=== PATIENT | male | born 1970 | race African-American/Black ===

== ENCOUNTER 2018-11-10 11:56 | Emergency (ER) | payer OTHER ==
[~2018-11-10] VITALS: Ht 175.3 cm; Wt 131.5 kg
--- NOTE | 2018-11-10 12:09 | PHYS DOC ---
Past Medical History Past Medical History: Seizure Adult General Chief Complaint Chief Complaint: seizure HPI HPI Patient is a 47 year old male with history of focal seizure who presents via EMS with complaining of a seizure. Patient had a focal seizure with shaking his hand and rolling up his eyes that was witnessed by family and lasted less than 1 minute and did not have postictal condition. EMS reported that she had another episode of the same seizure witnessed by them. Patient states he did not miss seizure medication or using drugs and alcohol. Patient states his last seizure was one year ago. Patient denies injury or acute pain. Patient states he thinks he is dehydrated because he has had diarrhea several times a day for the last 5 weeks. Review of Systems Review of Systems Constitutional: Denies fever or chills [] Eyes: Denies change in visual acuity, redness, or eye pain [] HENT: Denies nasal congestion or sore throat [] Respiratory: Denies cough or shortness of breath [] Cardiovascular: No additional information not addressed in HPI [] GI: Denies abdominal pain, nausea, vomiting, bloody stools or diarrhea [] : Denies dysuria or hematuria [] Musculoskeletal: Denies back pain or joint pain [] Integument: Denies rash or skin lesions [] Neurologic: Denies headache, focal weakness or sensory changes [] Endocrine: Denies polyuria or polydipsia [] All other systems were reviewed and found to be within normal limits, except as documented in this note. Current Medications Current Medications Current Medications Medications (Trade) Dose Ordered Sig/Brigido Start Time Stop Time Status Last Admin Dose Admin Divalproex Sodium (Depakote) 500 mg 1X STAT 11/10/18 14:30 11/10/18 14:32 DC 11/10/18 14:55 500 MG Sodium Chloride 1,000 ml @ 1,000 mls/hr 1X ONCE 11/10/18 12:15 11/10/18 13:14 DC 11/10/18 12:25 1,000 MLS/HR Allergies Allergies Allergies Coded Allergies Type Severity Reaction Last Updated Verified Penicillins Allergy Intermediate RASH 11/10/18 Yes Physical Exam Physical Exam Constitutional: Well nourished, mild distress, non-toxic appearance, morbidly obese. [] HENT: Normocephalic, atraumatic. Eyes: PERRLA, EOMI, conjunctiva normal, no discharge. [] Neck: Normal range of motion, no tenderness, supple, no stridor. [] Cardiovascular:Heart rate regular rhythm, no murmur [] Lungs & Thorax: Bilateral breath sounds clear to auscultation [] Abdomen: Bowel sounds normal, soft, no tenderness, no masses, no pulsatile masses. [] Skin: Warm, dry, no erythema, no rash. [] Back: No tenderness, no CVA tenderness. [] Extremities: No tenderness, no cyanosis, no clubbing, ROM intact, no edema. [] Neurologic: Alert and oriented X 3, no focal deficits noted. [] Psychologic: Affect anxious, judgement normal, mood normal. [] Current Patient Data Vital Signs Vital Signs Date Time Temp Pulse Resp B/P (MAP) Pulse Ox O2 Delivery O2 Flow Rate FiO2 11/10/18 15:31 84 18 93 11/10/18 11:56 97.9 134/81 (98) Room Air 97.9 Lab Values Laboratory Tests Test 11/10/18 12:15 11/10/18 15:25 White Blood Count 3.8 x10^3/uL (4.0-11.0) L Red Blood Count 4.59 x10^6/uL (4.30-5.70) Hemoglobin 13.8 g/dL (13.0-17.5) Hematocrit 40.6 % (39.0-53.0) Mean Corpuscular Volume 88 fL (79-100) Mean Corpuscular Hemoglobin 30 pg (25-35) Mean Corpuscular Hemoglobin Concent 34 g/dL (31-37) Red Cell Distribution Width 18.0 % (11.5-14.5) H Platelet Count 200 x10^3/uL (140-400) Neutrophils (%) (Auto) 40 % (31-73) Lymphocytes (%) (Auto) 49 % (24-48) H Monocytes (%) (Auto) 10 % (0-9) H Eosinophils (%) (Auto) 0 % (0-3) Basophils (%) (Auto) 1 % (0-3) Neutrophils # (Auto) 1.5 x10^3/uL (1.8-7.7) L Lymphocytes # (Auto) 1.9 x10^3/uL (1.0-4.8) Monocytes # (Auto) 0.4 x10^3/uL (0.0-1.1) Eosinophils # (Auto) 0.0 x10^3/uL (0.0-0.7) Basophils # (Auto) 0.0 x10^3/uL (0.0-0.2) Sodium Level 141 mmol/L (136-145) Potassium Level 4.2 mmol/L (3.5-5.1) Chloride Level 103 mmol/L (98-107) Carbon Dioxide Level 28 mmol/L (21-32) Anion Gap 10 (6-14) Blood Urea Nitrogen 12 mg/dL (8-26) Creatinine 0.8 mg/dL (0.7-1.3) Estimated GFR (Cockcroft-Gault) 124.3 BUN/Creatinine Ratio 15 (6-20) Glucose Level 117 mg/dL (70-99) H Calcium Level 9.4 mg/dL (8.5-10.1) Total Bilirubin 0.4 mg/dL (0.2-1.0) Aspartate Amino Transferase (AST) 26 U/L (15-37) Alanine Aminotransferase (ALT) 31 U/L (16-63) Alkaline Phosphatase 90 U/L (46-116) Total Protein 7.0 g/dL (6.4-8.2) Albumin 3.4 g/dL (3.4-5.0) Albumin/Globulin Ratio 0.9 (1.0-1.7) L Valproic Acid Level 54 mcg/mL (50-100) Valproic Acid Last Dose Date Unknown Valproic Acid Last Dose Time Unknown Urine Opiates Screen Neg (NEG) Urine Methadone Screen Neg (NEG) Urine Barbiturates Neg (NEG) Urine Phencyclidine Screen Neg (NEG) Urine Amphetamine/Methamphetamine Neg (NEG) Urine Benzodiazepines Screen Neg (NEG) Urine Cocaine Screen Neg (NEG) Urine Cannabinoids Screen Neg (NEG) Urine Ethyl Alcohol Neg (NEG) Laboratory Tests 11/10/18 12:15 Laboratory Tests 11/10/18 12:15 EKG EKG [] Radiology/Procedures Radiology/Procedures [] Course & Med Decision Making Course & Med Decision Making Pertinent Labs reviewed. (See chart for details) Evaluation of patient in ER showed 47-year-old male patient with history of seizure brought in with episodes of focal seizure. Patient had unremarkable physical exam in ER and labs. Patient has difficulty developed 54 and currently taking 500 mg of Depakote at night. Plan to increase the Depakote dose to 750 mg daily and follow up with his physician. Adriana Disclaimer Adriana Disclaimer This electronic medical record was generated, in whole or in part, using a voice recognition dictation system. Departure Departure Impression: Primary Impression: Focal motor seizure Disposition: HOME, SELF-CARE (at 1448) Condition: IMPROVED Referrals: ALEC BLACKMAN MD Patient Instructions: Seizure, Adult Additional Instructions: Take Depakote 1.5 pills every night(1 and a half pill of 500 mg with total of 750 mg) Follow-up with your primary care physician in 2-3 days Return to ER if not getting better YOANDY OH MD Nov 10, 2018 12:09
[2018-11-10] MEDS ORDERED: IV NORMAL SALINE 1000ML BAG 1,000 ML IV ONE (12:15)
[2018-11-10 12:31] LABS: BASO % 1 % (0-3); EOS % 0 % (0-3); HEMATOCRIT 40.6 % (39.0-53.0); HEMOGLOBIN 13.8 g/dL (13.0-17.5); LYMPH # 1.9 x10^3/uL (1.0-4.8); LYMPH % 49 % (24-48); MEAN CORPUSCULAR HEMOGLOBIN 30 pg (25-35); MEAN CORPUSCULAR HGB CONC 34 g/dL (31-37); MEAN CORPUSCULAR VOLUME 88 fL (79-100); MONO # 0.4 x10^3/uL (0.0-1.1); MONO % 10 % (0-9); NEUT # 1.5 x10^3/uL (1.8-7.7); NEUT % 40 % (31-73); PLATELET COUNT 200 x10^3/uL (140-400); RED BLOOD COUNT 4.59 x10^6/uL (4.30-5.70); WHITE BLOOD COUNT 3.8 x10^3/uL (4.0-11.0)
[2018-11-10 12:50] LABS: ANION GAP 10 (6-14); BLOOD UREA NITROGEN 12 mg/dL (8-26); BUN/CREATININE RATIO 15 (6-20); CALCIUM 9.4 mg/dL (8.5-10.1); CARBON DIOXIDE 28 mmol/L (21-32); CHLORIDE 103 mmol/L (98-107); CREATININE 0.8 mg/dL (0.7-1.3); GFR 124.3; GLUCOSE 117 mg/dL (70-99); POTASSIUM 4.2 mmol/L (3.5-5.1); SODIUM 141 mmol/L (136-145)
[2018-11-10 12:54] LABS: ALBUMIN 3.4 g/dL (3.4-5.0); ALBUMIN/GLOBULIN RATIO 0.9 (1.0-1.7); ALK PHOS 90 U/L (46-116); ALT (SGPT) 31 U/L (16-63); AST (SGOT) 26 U/L (15-37); TOTAL BILIRUBIN 0.4 mg/dL (0.2-1.0)
[2018-11-10 12:55] LABS: VAL ACID 54 mcg/mL (50-100)
[2018-11-10] MEDS ORDERED: DIVALPROEX DELAYED RELEASE 500 MG TABLET.DR. PO STA (14:30)
[2018-11-10 15:31] VITALS: BP 136/93
[2018-11-10 15:46] LABS: BARBITURATES NEG (NEG); BENZODIAZEPINES NEG (NEG); CANNABINOIDS NEG (NEG); COCAINE NEG (NEG); METHADONE NEG (NEG); OPIATES NEG (NEG); PHENCYCLIDINE NEG (NEG)
[2018-11-10 15:49] LABS: AMPHETAMINE/METHAMPHETAMINE NEG (NEG)
== END 2018-11-10 16:05 | disposition home or self-care (01) ==
LOC: ER 11:56
DX: G40.109 Localization-related (focal) (partial) symptomatic epilepsy and epileptic syndromes with simple partial seizures, not intractable, without status epilepticus (principal); R19.7 Diarrhea, unspecified; Z88.0 Allergy status to penicillin
CPT/HCPCS: 36415; 80053; 80164; 80307; 85025; 96360; 99284; J7030; 96361; 99283

== ENCOUNTER 2018-11-18 17:13 | Emergency (ER) | payer OTHER ==
[~2018-11-18] VITALS: Ht 175.3 cm; Wt 131.5 kg
[2018-11-18] MEDS ORDERED: GABAPENTIN 300 MG CAPSULE. PO STA (17:21)
--- NOTE | 2018-11-18 17:26 | PHYS DOC ---
Past Medical History Past Medical History: Seizure Past Surgical History: No Surgical History Alcohol Use: None Drug Use: None Adult General HPI HPI Patient is a 47 year old female with history of seizures, chronic headaches who presents to the ED today complaining over 9 out of 10 left-sided that has been going on and off all day today. Patient states he typically takes ibuprofen for his headaches but did not have any at home. EMS report this patient has had headaches for 2 years after being tackled by police and was jailed until 2 weeks ago when he was released. He is currently residing at home with the mother and does not have ibuprofen at home. Patient states the lights exacerbate his headaches. Denies anything specifically relieving the headaches. Review of Systems Review of Systems Constitutional: Denies fever or chills [] Eyes: Denies change in visual acuity, redness, or eye pain [] HENT: Denies nasal congestion or sore throat [] Respiratory: Denies cough or shortness of breath [] Cardiovascular: No additional information not addressed in HPI [] GI: Denies abdominal pain, nausea, vomiting, bloody stools or diarrhea [] : Denies dysuria or hematuria [] Musculoskeletal: Denies back pain or joint pain [] Integument: Denies rash or skin lesions [] Neurologic: Reports headache, denies focal weakness or sensory changes [] All other systems were reviewed and found to be within normal limits, except as documented in this note. Current Medications Current Medications Current Medications Medications (Trade) Dose Ordered Sig/Brigido Start Time Stop Time Status Last Admin Dose Admin Gabapentin (Neurontin) 300 mg 1X STAT 11/18/18 17:21 11/18/18 17:24 DC Ibuprofen (Motrin) 600 mg 1X ONCE 11/18/18 17:30 11/18/18 17:31 DC Allergies Allergies Allergies Coded Allergies Type Severity Reaction Last Updated Verified Penicillins Allergy Intermediate RASH 11/10/18 Yes Physical Exam Physical Exam Constitutional: Overweight patient. Well developed, well nourished, no acute distress, non-toxic appearance. [] HENT: Normocephalic, atraumatic, bilateral external ears normal, oropharynx moist, no oral exudates, nose normal. [] Eyes: PERRLA, EOMI, conjunctiva normal, no discharge. [] Neck: Normal range of motion, no tenderness, supple, no stridor. [] Cardiovascular:Heart rate regular rhythm, no murmur [] Lungs & Thorax: Bilateral breath sounds clear to auscultation [] Abdomen: Bowel sounds normal, soft, no tenderness, no masses, no pulsatile masses. [] Skin: Warm, dry, no erythema, no rash. [] Back: No tenderness, no CVA tenderness. [] Extremities: No tenderness, no cyanosis, no clubbing, ROM intact, no edema. [] Neurologic: Alert and oriented X 3, normal motor function, normal sensory function, no focal deficits noted. Cranial nerves II through XII intact Psychologic: Affect normal, judgement normal, mood normal. [] Current Patient Data Vital Signs Vital Signs Date Time Temp Pulse Resp B/P (MAP) Pulse Ox O2 Delivery O2 Flow Rate FiO2 11/18/18 17:22 98.2 96 16 130/76 (94) 96 98.2 EKG EKG [] Radiology/Procedures Radiology/Procedures [] Course & Med Decision Making Course & Med Decision Making Pertinent Labs and Imaging studies reviewed. (See chart for details) This is a 47-year-old male patient who presents to the ED today with exacerbation of chronic headache he reports there is nothing unusual about his headache today. He reports he does not have ibuprofen at home. He was given ibuprofen in the ED and discharged to home. Follow-up with his own doctor in 1-2 weeks. Dragon Disclaimer Dragon Disclaimer This electronic medical record was generated, in whole or in part, using a voice recognition dictation system. Departure Departure Impression: Primary Impression: Chronic headache Disposition: 01 HOME, SELF-CARE Condition: STABLE Referrals: NO PCP (PCP) follow up in 1-2 weeks with your doctor Patient Instructions: Headache, FAQs Additional Instructions: You were evaluated in the emergency room for headaches. Follow-up with your doctor in the next 1-2 weeks. Scripts Ibuprofen (IBUPROFEN) 600 Mg Tablet 600 MG PO PRN Q6HRS PRN for INFLAMMATION, #30 TAB Prov: MICHELLEDARÍOGRACIELA SATINDER 11/18/18 Problem Qualifiers Primary Impression: Chronic headache Headache type: unspecified Intractability: not intractable Qualified Codes: R51 - Headache GRACIELA TAMAYO SATINDER Nov 18, 2018 17:26
[2018-11-18] MEDS ORDERED: IBUPROFEN 200 MG TABLET. PO ONE (17:30)
[2018-11-18] MEDS ORDERED: IBUP-1007 PO (17:40)
[2018-11-18 17:47] VITALS: BP 129/78
== END 2018-11-18 17:55 | disposition home or self-care (01) ==
LOC: ER 17:13
DX: G89.29 Other chronic pain (principal); R51 Headache; Z88.0 Allergy status to penicillin
CPT/HCPCS: 99283

== ENCOUNTER 2018-12-27 18:49 | Emergency (ER) | payer OTHER ==
[~2018-12-27] VITALS: Ht 175.3 cm; Wt 139.7 kg
[~2018-12-27 18:49] MED LIST: IBUP-1007 PO
--- NOTE | 2018-12-27 19:10 | PHYS DOC ---
Past Medical History Past Medical History: Seizure, Other Additional Past Medical Histor: Headaches (GRACIELA TAMAYO APRN) Past Surgical History: No Surgical History (GRACIELA TAMAYO APRN) Alcohol Use: None Drug Use: None (GRACIELA TAMAYO APRN) Attending Signature I have participated in the care of this patient and I have reviewed and agree with all pertinent clinical information above including history, exam, and recommendations. (AAMIR PATHAK MD) Adult General Chief Complaint Chief Complaint: HEADACHE HPI HPI Patient is a 50 year old 48-year-old male patient with history of seizures, chronic headaches, who presents to the ED today complaining of a generalized mild frontal headache that has been going on and off for 3 weeks. Patient denies any exacerbating or relieving factors. He states the last time we saw him in the ED we gave him a prescription of ibuprofen which he has been taking but ran out of the medications. Patient denies any chest pain or shortness of breath. He is also complaining of abdominal bloating since this morning, he states his last bowel movement was yesterday and normal. Denies any nausea, vomiting, diarrhea. (GRACIELA TAMAYO APRN) Review of Systems Review of Systems Constitutional: Denies fever or chills [] Eyes: Denies change in visual acuity, redness, or eye pain [] HENT: Denies nasal congestion or sore throat [] Respiratory: Denies cough or shortness of breath [] Cardiovascular: No additional information not addressed in HPI [] GI: Reports abdominal bloating, denies nausea, vomiting, bloody stools or diarrhea [] : Denies dysuria or hematuria [] Musculoskeletal: Denies back pain or joint pain [] Integument: Denies rash or skin lesions [] Neurologic: Reports headache, denies focal weakness or sensory changes [] All other systems were reviewed and found to be within normal limits, except as documented in this note. (GRACIELA TAMAYO APRN) Current Medications Current Medications Current Medications Medications (Trade) Dose Ordered Sig/Brigido Start Time Stop Time Status Last Admin Dose Admin Acetaminophen (Tylenol) 500 mg 1X ONCE 12/27/18 19:15 12/27/18 19:16 DC 12/27/18 19:21 500 MG Bisacodyl (Dulcolax Tab) 10 mg 1X STAT 12/27/18 19:55 12/27/18 20:02 DC 12/27/18 20:12 10 MG Ibuprofen (Motrin) 600 mg 1X ONCE 12/27/18 19:15 12/27/18 19:16 DC 12/27/18 19:21 600 MG Magnesium Citrate (Citroma) 296 ml 1X ONCE 12/27/18 20:00 12/27/18 20:02 DC 12/27/18 20:12 296 ML Multi-Ingredient Mouthwash/Gargle (Gi Cocktail) 20 ml 1X ONCE 12/27/18 19:15 12/27/18 19:16 DC 12/27/18 19:20 20 ML (AAMIR PATHAK MD) Allergies Allergies Allergies Coded Allergies Type Severity Reaction Last Updated Verified Penicillins Allergy Intermediate RASH 11/10/18 Yes (AAMIR PATHAK MD) Physical Exam Physical Exam Constitutional: Well developed, well nourished, no acute distress, non-toxic appearance. [] HENT: Normocephalic, atraumatic, bilateral external ears normal, oropharynx moist, no oral exudates, nose normal. [] Eyes: PERRLA, EOMI, conjunctiva normal, no discharge. [] Neck: Normal range of motion, no tenderness, supple, no stridor. [] Cardiovascular:Heart rate regular rhythm, no murmur [] Lungs & Thorax: Bilateral breath sounds clear to auscultation [] Abdomen: Rounded abdomen. Bowel sounds normal, soft, no tenderness, no masses, no pulsatile masses. [] Skin: Warm, dry, no erythema, no rash. [] Back: No tenderness, no CVA tenderness. [] Extremities: No tenderness, no cyanosis, no clubbing, ROM intact, no edema. [] Neurologic: Alert and oriented X 3, normal motor function, normal sensory function, no focal deficits noted. Cranial nerves II through XII intact Psychologic: Affect normal, judgement normal, mood normal. [] (GRACIELA TAMAYO APRN) Current Patient Data Vital Signs Vital Signs Date Time Temp Pulse Resp B/P (MAP) Pulse Ox O2 Delivery O2 Flow Rate FiO2 12/27/18 20:21 78 20 96 12/27/18 18:52 98.2 156/73 (100) Room Air 98.2 (AAMIR PATHAK MD) EKG EKG [] (GRACIELA TAMAYO APRN) Radiology/Procedures Radiology/Procedures [] (GRACIELA TAMAYO APRN) Course & Med Decision Making Course & Med Decision Making Pertinent Labs and Imaging studies reviewed. (See chart for details) This is a 48-year-old male patient presenting to the ED today with chronic headache. Ran out of his ibuprofen. Also complaining of abdominal bloating since this morning. Last bowel movement was yesterday. Given Tylenol and Motrin in the ED, given GI cocktail. Acute abdominal series noted for constipation. Patient was given Dulcolax and mag citrate in the ED. Discharged to home. Provided clinic list for follow-up. (GRACIELA TAMAYO APRN) Dragon Disclaimer Dragon Disclaimer This electronic medical record was generated, in whole or in part, using a voice recognition dictation system. (GRACIELA TAMAYO APRN) Departure Departure Impression: Primary Impression: Chronic headache Additional Impression: Constipation Disposition: HOME, SELF-CARE Condition: STABLE Referrals: NO PCP (PCP) follow up with your doctor next week Patient Instructions: Constipation, Adult, [id number], Headache, FAQs Additional Instructions: You were evaluated in the emergency room, please take ibuprofen as needed for your headaches or you can take Tylenol. You were noted to be constipated on your xrays. Consider taking MiraLAX every day to manage constipation. Scripts Acetaminophen (TYLENOL) 325 Mg Tablet 1-2 TAB PO QID, #60 TAB 2 Refills Prov: MICHELLEDARÍOGRACIELA APRN 12/27/18 Ibuprofen (IBUPROFEN) 600 Mg Tablet 600 MG PO PRN Q6HRS PRN for INFLAMMATION, #20 TAB Prov: GRACIELA TAMAYO APRN 12/27/18 Polyethylene Glycol 3350 (MIRALAX) 17 Gm Powd.pack 1 PACKET PO DAILY for constipation for 2 Days, #2 PACKET 0 Refills dissolve in water Prov: GRACIELA TAMAYO APRN 12/27/18 Problem Qualifiers Primary Impression: Chronic headache Headache type: unspecified Intractability: intractable Qualified Codes: R51 - Headache Additional Impression: Constipation Constipation type: unspecified constipation type Qualified Codes: K59.00 - Constipation, unspecified GRACIELA TAMAYO APRN Dec 27, 2018 19:10 AAMIR PATHAK MD Dec 28, 2018 00:32
[2018-12-27] MEDS ORDERED: IBUPROFEN 200 MG TABLET. PO ONE (19:15)
[2018-12-27] MEDS ORDERED: LIDO:MAALOX 1:1 20 ML SINGLE DOSE. SWSW ONE (19:15)
[2018-12-27] MEDS ORDERED: ACETAMINOPHEN 500 MG TABLET PO ONE (19:15)
[2018-12-27] MEDS ORDERED: BISACODYL 5 MG TABLET.DR. PO STA (19:55)
[2018-12-27] MEDS ORDERED: MAGNESIUM CITRATE 296 ML SOLUTION. PO ONE (20:00)
[2018-12-27 20:21] VITALS: BP 159/85
[2018-12-27] MEDS ORDERED: ACET325T9 PO (20:22)
[2018-12-27] MEDS ORDERED: POLY17PO29 PO (20:22)
[2018-12-27] MEDS ORDERED: IBUP-1007 PO (20:22)
--- NOTE | 2018-12-27 20:57 | RAD ---
Abdominal Series dated 12/27/2018. No comparison available. Clinical Indication: Abdominal pain. Bloating Findings: Single upright PA view the chest shows normal heart and mediastinal contours. The lungs are clear without focal consolidation. Vascular interstitium is within normal limits. Flat and upright views of the abdomen show nondilated gas filled loops of bowel. Moderate amount stool throughout the colon. No air-fluid level or pneumoperitoneum on the upright view. No abnormal calcification. Impression chest: No acute radiographic abnormality. Impression abdomen: Non-obstructive bowel gas pattern. Electronically signed by: Paersh Kate MD (12/27/2018 8:54 PM) [facility]
== END 2018-12-27 20:30 | disposition home or self-care (01) ==
LOC: ER 18:49
DX: G89.29 Other chronic pain (principal); R51 Headache; K59.00 Constipation, unspecified; Z88.0 Allergy status to penicillin
CPT/HCPCS: 74022; 99284

== ENCOUNTER → 2019-01-17 | Outpatient (CLI) | payer OTHER ==
[2018-12-27 20:21] VITALS: BP 159/85
[~2019-01-17] MED LIST changes: +ACET325T9 PO; +POLY17PO29 PO
[2019-01-17 16:40] LABS: BASO # 0.1 x10^3/uL (0.0-0.2); BASO % 1 % (0-3); EOS % 0 % (0-3); HEMATOCRIT 42.7 % (39.0-53.0); HEMOGLOBIN 14.5 g/dL (13.0-17.5); LYMPH # 2.1 x10^3/uL (1.0-4.8); LYMPH % 43 % (24-48); MEAN CORPUSCULAR HEMOGLOBIN 30 pg (25-35); MEAN CORPUSCULAR HGB CONC 34 g/dL (31-37); MEAN CORPUSCULAR VOLUME 88 fL (79-100); MONO # 0.5 x10^3/uL (0.0-1.1); MONO % 10 % (0-9); NEUT # 2.3 x10^3/uL (1.8-7.7); NEUT % 46 % (31-73); PLATELET COUNT 297 x10^3/uL (140-400); RED BLOOD COUNT 4.85 x10^6/uL (4.30-5.70); RED CELL DISTRIBUTION WIDTH 16.3 % (11.5-14.5)
[2019-01-17 17:01] LABS: ALBUMIN 3.6 g/dL (3.4-5.0); ALBUMIN/GLOBULIN RATIO 0.8 (1.0-1.7); ALK PHOS 106 U/L (46-116); ALT (SGPT) 39 U/L (16-63); ANION GAP 9 (6-14); AST (SGOT) 37 U/L (15-37); BLOOD UREA NITROGEN 5 mg/dL (8-26); BUN/CREATININE RATIO 6 (6-20); CALCIUM 9.3 mg/dL (8.5-10.1); CARBON DIOXIDE 26 mmol/L (21-32); CHLORIDE 102 mmol/L (98-107); CREATININE 0.9 mg/dL (0.7-1.3); GFR 108.1; GLUCOSE 100 mg/dL (70-99); POTASSIUM 4.1 mmol/L (3.5-5.1); SODIUM 137 mmol/L (136-145); TOTAL BILIRUBIN 0.3 mg/dL (0.2-1.0)
[2019-01-17 17:02] LABS: VAL ACID 51 mcg/mL (50-100)
[2019-01-17 17:27] LABS: AMPHETAMINE/METHAMPHETAMINE NEG (NEG); BARBITURATES NEG (NEG); BENZODIAZEPINES NEG (NEG); CANNABINOIDS NEG (NEG); COCAINE NEG (NEG); METHADONE NEG (NEG); OPIATES NEG (NEG); PHENCYCLIDINE NEG (NEG)
== END | disposition home or self-care (01) ==
LOC: LAB 16:08
PROVIDERS: ATTEND Psychiatry & Neurology Neurology
DX: F99 Mental disorder, not otherwise specified (principal); R56.9 Unspecified convulsions; R41.89 Other symptoms and signs involving cognitive functions and awareness
CPT/HCPCS: 36415; 80053; 80164; 80307; 82607; 84443; 85025

== ENCOUNTER → 2019-03-03 | Outpatient (CLI) | payer OTHER ==
--- NOTE | 2019-03-07 18:37 | EEG ---
DATE OF SERVICE: 03/03/2019 EEG NUMBER: . OBJECTIVE: This is a 48-year-old male patient with history of seizure or seizure-like episodes. EEG was requested to evaluate seizure activity. METHODS: Twenty electrodes were applied according to the international 10-20 electrode placement system. EKG monitoring, hyperventilation, intermittent photic stimulation, monopolar and bipolar montages are routinely utilized. The record was obtained on a digital system with video monitoring. FINDINGS: 1. Background: The patient was recorded in the awake, drowsy and sleep states. The overall background amplitude is 5-15 microvolts. A posterior dominant rhythm of 7-8 Hz is observed. 2. Abnormalities: No specific epileptiform discharge or electrographic seizure is seen. No focal or diffuse slowing. 3. Activation: Hyperventilation was performed with good efforts and normal response. Intermittent photic stimulation was performed with photic driving. No specific epileptiform discharge or electrographic seizure induced by hyperventilation or intermittent photic stimulation. IMPRESSION: This EEG is a mildly abnormal study for the awake, drowsy and sleep states. The posterior dominant rhythm of 7-8 Hz is mildly slow for age. No focal, lateralizing, specific epileptiform discharge or electrographic seizure is seen. ROBERT SMITH MD DR: KATIE/dahiana JOB#: [id number] / [id number]
== END | disposition home or self-care (01) ==
LOC: RT 08:36
PROVIDERS: ATTEND Psychiatry & Neurology Neurology
DX: R56.9 Unspecified convulsions (principal)
CPT/HCPCS: 95816

== ENCOUNTER 2019-04-19 19:58 | Emergency (ER) | payer OTHER ==
[~2019-04-19] VITALS: Ht 175.3 cm; Wt 138.1 kg
[2019-04-19 20:05] VITALS: BP 160/100
[2019-04-19] MEDS ORDERED: DEXAMETHASONE 4 MG TABLET PO STA (20:42)
[2019-04-19] MEDS ORDERED: ONDA4TAB12 PO (20:47)
--- NOTE | 2019-04-19 20:47 | PHYS DOC ---
Past Medical History Past Medical History: Diabetes-Type II, Seizure, Other Additional Past Medical Histor: Headaches Past Surgical History: No Surgical History Smoking Status: Current Every Day Smoker Alcohol Use: None Drug Use: None Adult General Chief Complaint Chief Complaint: FLU SYMPTOM HPI HPI Patient is a 48 year old male who presents with headache, fatigue, runny nose, cough, nausea, hot and cold chills been ongoing for 4 days. The patient states been taking Benadryl at home to help with symptoms. Denies any other symptoms. The patient has been able to keep fluids down at home. Complete ROS were reviewed and found to be within normal limits, except as d ocumented in the HPI Current Medications Current Medications Current Medications Medications (Trade) Dose Ordered Sig/Brigido Start Time Stop Time Status Last Admin Dose Admin Dexamethasone (Decadron) 10 mg 1X STAT 04/19/19 20:42 04/19/19 20:45 DC 04/19/19 20:47 10 MG Allergies Allergies Allergies Coded Allergies Type Severity Reaction Last Updated Verified Penicillins Allergy Intermediate RASH 11/10/18 Yes Physical Exam Physical Exam Constitutional: Well developed, well nourished, no acute distress, non-toxic appearance. [] HENT: Normocephalic, atraumatic, bilateral external ears normal, oropharynx moist, no oral exudates, nose normal. [] Eyes: PERRLA, EOMI, conjunctiva normal, no discharge. [] Neck: Normal range of motion, no tenderness, supple, no stridor. [] Cardiovascular:Heart rate regular rhythm, no murmur [] Lungs & Thorax: Bilateral breath sounds clear to auscultation [] Abdomen: Bowel sounds normal, soft, no tenderness, no masses, no pulsatile masses. [] Skin: Warm, dry, no erythema, no rash. [] Neurologic: Alert and oriented X 3, normal motor function, normal sensory function, no focal deficits noted. [] Psychologic: Affect normal, judgement normal, mood normal. [] Current Patient Data Vital Signs Vital Signs Date Time Temp Pulse Resp B/P (MAP) Pulse Ox O2 Delivery O2 Flow Rate FiO2 04/19/19 20:05 97.7 83 20 160/100 (120) 95 Room Air 97.7 EKG EKG [] Radiology/Procedures Radiology/Procedures [] Course & Med Decision Making Course & Med Decision Making Pertinent Labs and Imaging studies reviewed. (See chart for details) The patient appears to have the Flu clinically. Discussed with patient the importance of drinking plenty of fluids. I also discussed the importance of rest. It was discussed with the patient that he is contagious and to stay away from others until it has been a week since the start of her symptoms. Discussed with the patient that he can take Zyrtec per label instructions for runny nose. Also discussed the proper control of fever by rotating Tylenol and Ibuprofen at home. Will give the patient Decadron in the ER for symptom control. Will also prescribe Zofran for nausea. Chest x-ray appears to show a developing infiltrate in the Right middle lobe. Will place on doxycycline. Dragon Disclaimer Dragon Disclaimer This electronic medical record was generated, in whole or in part, using a voice recognition dictation system. Departure Departure Impression: Primary Impression: Acute viral syndrome Additional Impression: Pneumonia Disposition: 01 HOME, SELF-CARE Condition: STABLE Referrals: BHARTI CHOPRA JR, MD (PCP) Patient Instructions: Viral Syndrome Additional Instructions: Thank you for visiting [facility]. We appreciate you trusting us with your care. If any additional problems come up don't hesitate to return to visit us. Please follow up with your primary care provider so they can plan additional care if needed and know about the problem that you had. If symptoms worsen come back to the Emergency Department. Any concerning symptoms that start such as chest pain, shortness of air, weakness or numbness on one side of the body, running high fevers or any other concerning symptoms return to the ER. Please be aware that diabetes can cause your sugars to fluctuate while you are sick. This can cause additional issues. Please check your sugars often to ensure they are staying in a safe range and if you are on insulin please take as instructed by your primary care doctor. If you have any questions about this please let us know or contact your primary care provider for additional instruction about taking your insulin while you are sick. If you get concerned regarding your sugar while at home please do not hesitate to come back to the ER. Please fill your medications at any pharmacy and follow the prescription instructions. Please drink plenty of fluids. If unable to keep fluids down please return to ER. Please get Tylenol and Ibuprofen over the counter. Give each medication every 6 hours as directed by the medication labels. In order to utilize the peak of the medications, stagger the medications to where you are getting one of the medications every 3 hours. For example if you give Ibuprofen at 3 PM, you then give Tylenol at 6 PM and Ibuprofen again at 9 PM, and then Tylenol at midnight. Please get Zyrtec over the counter and take per label instructions for runny nose. Scripts Doxycycline Hyclate (DOXYCYCLINE HYCLATE) 100 Mg Capsule 1 CAP PO BID for 10 Days, #20 CAP Prov: MECCA SKINNER APRN 04/19/19 Ondansetron (ONDANSETRON ODT) 4 Mg Tab.rapdis 1 TAB PO PRN Q6-8HRS PRN for NAUSEA, #20 TAB Prov: MECCA SKINNER APRN 04/19/19 Problem Qualifiers Additional Impression: Pneumonia Pneumonia type: due to unspecified organism Laterality: right Lung location: middle lobe of lung Qualified Codes: J18.9 - Pneumonia, unspecified organism MECCA SKINNER APRN Apr 19, 2019 20:47
[2019-04-19] MEDS ORDERED: DOXY100C2 PO (21:48)
--- NOTE | 2019-04-19 22:59 | RAD ---
PA and lateral chest. HISTORY: Cough, fever PA and lateral views were taken of the chest. Lungs are clear. Heart is normal in size. There is no pleural effusion. IMPRESSION: 1. No acute chest disease. Electronically signed by: Tristian Garcias MD (04/19/2019 10:57 PM) [id number]
== END 2019-04-19 21:54 | disposition home or self-care (01) ==
LOC: ER 19:58
DX: J12.9 Viral pneumonia, unspecified (principal); B34.9 Viral infection, unspecified; R51 Headache; R05 Cough; R11.0 Nausea; E11.9 Type 2 diabetes mellitus without complications; F17.200 Nicotine dependence, unspecified, uncomplicated; Z88.0 Allergy status to penicillin
CPT/HCPCS: 71046; 99283; J8540

== ENCOUNTER 2019-07-11 11:06 | Emergency (ER) | payer OTHER ==
[~2019-07-11] VITALS: Ht 177.8 cm; Wt 140.0 kg
[~2019-07-11 11:06] MED LIST changes: +DOXY100C2 PO; +ONDA4TAB12 PO
[2019-07-11 12:03] VITALS: BP 137/65
--- NOTE | 2019-07-11 12:11 | RAD ---
CHEST AP ONLY Clinical History: Seizure and chest pain Technique: AP view of the chest was obtained at 07/11/2019 11:41 AM. Comparison: April 19, 2019. Findings: The cardiomediastinal silhouette is normal. The pulmonary vasculature is normal. The lungs and pleural margins are clear. Impression: No evidence of an acute cardiopulmonary process. Electronically signed by: Dimas Cain III, MD (07/11/2019 12:08 PM) [id number]
[2019-07-11 12:12] LABS: BASO % 1 % (0-3); EOS % 0 % (0-3); HEMATOCRIT 42.5 % (39.0-53.0); HEMOGLOBIN 14.4 g/dL (13.0-17.5); LYMPH # 2.1 x10^3/uL (1.0-4.8); LYMPH % 42 % (24-48); MEAN CORPUSCULAR HEMOGLOBIN 30 pg (25-35); MEAN CORPUSCULAR HGB CONC 34 g/dL (31-37); MEAN CORPUSCULAR VOLUME 90 fL (79-100); MONO # 0.3 x10^3/uL (0.0-1.1); MONO % 6 % (0-9); NEUT # 2.6 x10^3/uL (1.8-7.7); NEUT % 51 % (31-73); PLATELET COUNT 222 x10^3/uL (140-400); RED BLOOD COUNT 4.74 x10^6/uL (4.30-5.70); RED CELL DISTRIBUTION WIDTH 16.1 % (11.5-14.5); WHITE BLOOD COUNT 5.1 x10^3/uL (4.0-11.0)
[2019-07-11 12:20] LABS: CALCIUM 8.4 mg/dL (8.5-10.1); CREATININE 0.8 mg/dL (0.7-1.3); GFR 123.8; POTASSIUM 3.7 mmol/L (3.5-5.1)
[2019-07-11 12:25] LABS: VAL ACID 50 mcg/mL (50-100)
[2019-07-11 12:26] LABS: ALBUMIN 3.1 g/dL (3.4-5.0); TOTAL BILIRUBIN 0.3 mg/dL (0.2-1.0); TOTAL PROTEIN 6.3 g/dL (6.4-8.2)
[2019-07-11] MEDS ORDERED: CIPR7.5D RIGHT EAR (13:09)
--- NOTE | 2019-07-11 13:10 | PHYS DOC ---
Past Medical History Past Medical History: Diabetes-Type II, Seizure, Other Additional Past Medical Histor: Headaches Past Surgical History: No Surgical History Smoking Status: Current Every Day Smoker Alcohol Use: None Drug Use: None General Adult EDM: Chief Complaint: SEIZURE HPI: HPI: 48 yo M PMH NIDDM, obesity, seizure disorder (on depakote), with mental disorder and cognitive dysfunction, presents to the ED BIBEMS after mother called 911 with concern for witnessed tonic-clonic seizure such that patient was unconscious. Patient reports he was sitting in a chair in his living room, mother caught him and he did not hit his head. Mother called by RN-concern for right ear infection. Patient reports his right ear has been painful for the past few days. Review of systems: Denies associated fever, chills, dyspnea, cough, chest pain pressure or heaviness, neck stiffness, neck pain, back pain, headache, blurry vision, neurologic deficits, nausea, vomiting, diarrhea, abdominal pain, back pain, leg swelling, rash, n/v/d/c o rjoint pain. Review of Systems: Review of Systems: Constitutional: Denies fever or chills. [] Eyes: Denies change in visual acuity. [] HENT: Denies nasal congestion or sore throat. [] Respiratory: Denies cough or shortness of breath. [] Cardiovascular: Denies chest pain or edema. [] GI: Denies abdominal pain, nausea, vomiting, bloody stools or diarrhea. [] : Denies dysuria. [] Musculoskeletal: Denies back pain or joint pain. [] Integument: Denies rash. [] Neurologic: Denies headache, focal weakness or sensory changes. [] Endocrine: Denies polyuria or polydipsia. [] Lymphatic: Denies swollen glands. [] Psychiatric: Denies depression or anxiety. [] Allergies: Allergies: Allergies Coded Allergies Type Severity Reaction Last Updated Verified Penicillins Allergy Intermediate RASH 11/10/18 Yes Physical Exam: PE: Constitutional: Well developed, well nourished, no acute distress, non-toxic appearance, afebrile, some cognitive delay-rn reports this is pts' baseline (per emr this is known), obese, smells of tobacco, hypertensive HENT: Normocephalic, atraumatic, bilateral external ears normal-possible increased external canal erythema on right, oropharynx moist, no oral exudates, nose normal, no signs of head trauma, Eyes: PERRLA, EOMI, conjunctiva normal, no discharge. [] Neck: Normal range of motion, no tenderness, supple, no stridor, no nuchal rigidity or stiffness Cardiovascular:Heart rate regular rhythm, no murmur [] Lungs & Thorax: Bilateral breath sounds clear to auscultation [] Abdomen: Bowel sounds normal, soft, no tenderness, no masses, no pulsatile masses. [] Skin: Warm, dry, no erythema, no rash. [] Back: No tenderness, no CVA tenderness. [] Extremities: No tenderness, no cyanosis, no clubbing, ROM intact, no edema. [] Neurologic: Alert and oriented X 3, normal motor function, normal sensory function, no focal deficits noted. [] Psychologic: Affect normal, judgement normal, mood normal. [] Current Patient Data: Labs: Laboratory Tests Test 07/11/19 12:00 White Blood Count 5.1 x10^3/uL (4.0-11.0) Red Blood Count 4.74 x10^6/uL (4.30-5.70) Hemoglobin 14.4 g/dL (13.0-17.5) Hematocrit 42.5 % (39.0-53.0) Mean Corpuscular Volume 90 fL (79-100) Mean Corpuscular Hemoglobin 30 pg (25-35) Mean Corpuscular Hemoglobin Concent 34 g/dL (31-37) Red Cell Distribution Width 16.1 % (11.5-14.5) H Platelet Count 222 x10^3/uL (140-400) Neutrophils (%) (Auto) 51 % (31-73) Lymphocytes (%) (Auto) 42 % (24-48) Monocytes (%) (Auto) 6 % (0-9) Eosinophils (%) (Auto) 0 % (0-3) Basophils (%) (Auto) 1 % (0-3) Neutrophils # (Auto) 2.6 x10^3/uL (1.8-7.7) Lymphocytes # (Auto) 2.1 x10^3/uL (1.0-4.8) Monocytes # (Auto) 0.3 x10^3/uL (0.0-1.1) Eosinophils # (Auto) 0.0 x10^3/uL (0.0-0.7) Basophils # (Auto) 0.0 x10^3/uL (0.0-0.2) Sodium Level 140 mmol/L (136-145) Potassium Level 3.7 mmol/L (3.5-5.1) Chloride Level 103 mmol/L (98-107) Carbon Dioxide Level 30 mmol/L (21-32) Anion Gap 7 (6-14) Blood Urea Nitrogen 9 mg/dL (8-26) Creatinine 0.8 mg/dL (0.7-1.3) Estimated GFR (Cockcroft-Gault) 123.8 BUN/Creatinine Ratio 11 (6-20) Glucose Level 156 mg/dL (70-99) H Calcium Level 8.4 mg/dL (8.5-10.1) L Total Bilirubin 0.3 mg/dL (0.2-1.0) Aspartate Amino Transferase (AST) 23 U/L (15-37) Alanine Aminotransferase (ALT) 41 U/L (16-63) Alkaline Phosphatase 94 U/L (46-116) Total Protein 6.3 g/dL (6.4-8.2) L Albumin 3.1 g/dL (3.4-5.0) L Albumin/Globulin Ratio 1.0 (1.0-1.7) Valproic Acid Level 50 mcg/mL (50-100) Valproic Acid Last Dose Date 07/10/19 Valproic Acid Last Dose Time 2100 Laboratory Tests 07/11/19 12:00 Laboratory Tests 07/11/19 12:00 Vital Signs: Vital Signs Date Time Temp Pulse Resp B/P (MAP) Pulse Ox O2 Delivery O2 Flow Rate FiO2 07/11/19 12:03 96 94 07/11/19 11:18 98.1 18 187/103 (131) Room Air 98.1 EKG: EKG: [] Radiology/Procedures: Radiology/Procedures: IMAGING REPORT Signed PATIENT: ALYSSA MELGOZA ACCOUNT: [id number] : 1970 LOCATION: ER AGE: 48 SEX: M EXAM STATUS: REG ER ORD. PHYSICIAN: SHRADDHA HUGHES DO REASON: re,seizure, pt states some chest pain PROCEDURE: CHEST AP ONLY CHEST AP ONLY Clinical History: Seizure and chest pain Technique: AP view of the chest was obtained at 07/11/2019 11:41 AM. Comparison: April 19, 2019. Findings: The cardiomediastinal silhouette is normal. The pulmonary vasculature is normal. The lungs and pleural margins are clear. Impression: No evidence of an acute cardiopulmonary process. Electronically signed by: Jacob Lewis III, MD (07/11/2019 12:08 PM) [id number] DICTATED and SIGNED BY: JACOB LEWIS III, MD DATE: 07/11/19 1208 Impression: Impression: concern for uncontrolled seizure disorder in the setting of uncontrolled asymptomatic hypertension. No signs of end organ damage on lab work. Chest x-ray with no acute process. Will prescribe antibiotic eardrops for right ear-possibly early right otitis externa. Encourage medication compliance. Also encouraged outpatient PMD follow-up in 24 to 48 hours with outpatient neurology follow-up. Strict ED return precautions given for fever, neck stiffness, neurologic deficits or repeat head injury. All of patient and his mother's questions were answered and patient was stable at time of discharge. Course & Med Decision Making: Course & Med Decision Making Pertinent Labs and Imaging studies reviewed. (See chart for details) [] Dragon Disclaimer: Dragon Disclaimer: This electronic medical record was generated, in whole or in part, using a voice recognition dictation system. Departure Departure Impression: Primary Impression: Seizure disorder Additional Impressions: Uncontrolled hypertension External otitis of right ear Disposition: 01 HOME, SELF-CARE Referrals: BHARTI CHOPRA JR, MD (PCP) Patient Instructions: Otitis Externa, Seizure, Adult Scripts Ciprofloxacin Hcl/Dexameth (CIPRODEX OTIC SUSPENSION) 7.5 Ml Drops.susp 4 DROP RIGHT EAR BID for 7 Days, #7.5 ML Prov: SHRADDHA HUGHES DO 07/11/19 SHRADDHA HUGHES DO July 11, 2019 13:10
[2019-07-12] MEDS ORDERED: ONDA4TAB12 PO (19:43)
[2019-07-12] MEDS ORDERED: HYDR-3164 PO (19:43)
== END 2019-07-11 13:33 | disposition home or self-care (01) ==
LOC: ER 11:06
DX: G40.909 Epilepsy, unspecified, not intractable, without status epilepticus (principal); H60.8X1 Other otitis externa, right ear; I10 Essential (primary) hypertension; E11.9 Type 2 diabetes mellitus without complications; F17.200 Nicotine dependence, unspecified, uncomplicated; Z88.0 Allergy status to penicillin
CPT/HCPCS: 36415; 71045; 80053; 80164; 85025; 99284

== ENCOUNTER 2019-07-12 17:13 | Emergency (ER) | payer OTHER ==
[~2019-07-12] VITALS: Ht 177.8 cm; Wt 138.6 kg
[~2019-07-12 17:13] MED LIST changes: +CIPR7.5D RIGHT EAR
--- NOTE | 2019-07-12 18:06 | PHYS DOC ---
Past Medical History Past Medical History: Diabetes-Type II, Seizure, Other Additional Past Medical Histor: Headaches (ILYA ROSA DO) Past Surgical History: No Surgical History (ILYA ROSA DO) Smoking Status: Current Every Day Smoker Alcohol Use: None Drug Use: None (ILYA ROSA DO) Adult General Chief Complaint Chief Complaint: GROIN PAIN [facility] Patient is a 48 year old male presents with right lower quadrant pain described as dull, cramping rated moderate to severe. Pain radiates to back. Denies testicular pain, swelling, tenderness, hematuria urinary frequency urgency or burning. No nausea vomiting, constipation diarrhea. No fever chills or sweats. No medications or therapies taken prior to arrival. No prior abdominal surge karina. History of chronic back pain. [] (ILYA ROSA DO) Review of Systems Review of Systems Review of systems as per HPI. All other review of symptoms are negative. All other systems were reviewed and found to be within normal limits, except as documented in this note. (ILYA ROSA DO) Current Medications Current Medications Current Medications Medications (Trade) Dose Ordered Sig/Brigido Start Time Stop Time Status Last Admin Dose Admin Info (CONTRAST GIVEN -- Rx MONITORING) 1 each PRN DAILY PRN 07/12/19 18:45 07/14/19 18:44 Iohexol (Omnipaque 300 Mg/ml) 75 ml 1X ONCE 07/12/19 18:45 07/12/19 18:46 DC 07/12/19 18:51 75 ML Morphine Sulfate (Morphine Sulfate) 4 mg 1X ONCE 07/12/19 18:15 07/12/19 18:16 DC 07/12/19 18:20 4 MG Ondansetron HCl (Zofran) 4 mg 1X ONCE 07/12/19 18:15 07/12/19 18:16 DC 07/12/19 18:20 4 MG (LILIA MARIEE Jr. DO) Allergies Allergies Allergies Coded Allergies Type Severity Reaction Last Updated Verified Penicillins Allergy Intermediate RASH 11/10/18 Yes (LILIA MARIEE Jr. DO) Physical Exam Physical Exam Constitutional: Well developed, well nourished, no acute distress, non-toxic appearance. [] HENT: Normocephalic, atraumatic, bilateral external ears normal, oropharynx moist, no oral exudates, nose normal. [] Eyes: PERRLA, EOMI, conjunctiva normal. [] Neck: Normal range of motion, no tenderness. [] Cardiovascular:Heart rate regular rhythm, no murmur [] Lungs & Thorax: Bilateral breath sounds clear to auscultation [] Abdomen: Bowel sounds normal, soft, n right lower quadrant pain, tenderness, voluntary guarding.. [] Skin: Warm, dry, no erythema, no rash. [] Back: No tenderness, no CVA tenderness. [] Extremities: No tenderness,. [] Neurologic: Alert and oriented X 3, normal motor function, normal sensory function, no focal deficits noted. [] Psychologic: Affect normal, judgement normal, mood normal. [] (ILYA ROSA DO) Current Patient Data Vital Signs Vital Signs Date Time Temp Pulse Resp B/P (MAP) Pulse Ox O2 Delivery O2 Flow Rate FiO2 07/12/19 19:19 102 144/63 (90) 93 Room Air 07/12/19 17:32 98.7 20 98.7 (LILIA MARIEE Brian DO) Lab Values Laboratory Tests Test 07/12/19 18:15 White Blood Count 5.7 x10^3/uL (4.0-11.0) Red Blood Count 4.70 x10^6/uL (4.30-5.70) Hemoglobin 14.3 g/dL (13.0-17.5) Hematocrit 42.5 % (39.0-53.0) Mean Corpuscular Volume 91 fL (79-100) Mean Corpuscular Hemoglobin 30 pg (25-35) Mean Corpuscular Hemoglobin Concent 34 g/dL (31-37) Red Cell Distribution Width 16.5 % (11.5-14.5) H Platelet Count 225 x10^3/uL (140-400) Neutrophils (%) (Auto) 49 % (31-73) Lymphocytes (%) (Auto) 44 % (24-48) Monocytes (%) (Auto) 6 % (0-9) Eosinophils (%) (Auto) 0 % (0-3) Basophils (%) (Auto) 1 % (0-3) Neutrophils # (Auto) 2.8 x10^3/uL (1.8-7.7) Lymphocytes # (Auto) 2.5 x10^3/uL (1.0-4.8) Monocytes # (Auto) 0.3 x10^3/uL (0.0-1.1) Eosinophils # (Auto) 0.0 x10^3/uL (0.0-0.7) Basophils # (Auto) 0.0 x10^3/uL (0.0-0.2) Urine Collection Type Unknown Urine Color Yellow Urine Clarity Clear Urine pH 6.0 (<5.0-8.0) Urine Specific Force 1.010 (1.000-1.030) Urine Protein Negative mg/dL (NEG-TRACE) Urine Glucose (UA) Negative mg/dL (NEG) Urine Ketones (Stick) Trace mg/dL (NEG) Urine Blood Negative (NEG) Urine Nitrite Negative (NEG) Urine Bilirubin Negative (NEG) Urine Urobilinogen Dipstick 1.0 mg/dL (0.2 mg/dL) Urine Leukocyte Esterase Negative (NEG) Urine RBC Occ /HPF (0-2) Urine WBC Occ /HPF (0-4) Urine Bacteria 0 /HPF (0-FEW) Urine Mucus Slight /LPF Sodium Level 140 mmol/L (136-145) Potassium Level 3.9 mmol/L (3.5-5.1) Chloride Level 101 mmol/L (98-107) Carbon Dioxide Level 30 mmol/L (21-32) Anion Gap 9 (6-14) Blood Urea Nitrogen 10 mg/dL (8-26) Creatinine 1.0 mg/dL (0.7-1.3) Estimated GFR (Cockcroft-Gault) 95.7 BUN/Creatinine Ratio 10 (6-20) Glucose Level 167 mg/dL (70-99) H Calcium Level 8.6 mg/dL (8.5-10.1) Total Bilirubin 0.2 mg/dL (0.2-1.0) Aspartate Amino Transferase (AST) 23 U/L (15-37) Alanine Aminotransferase (ALT) 44 U/L (16-63) Alkaline Phosphatase 108 U/L (46-116) Total Protein 6.8 g/dL (6.4-8.2) Albumin 3.6 g/dL (3.4-5.0) Albumin/Globulin Ratio 1.1 (1.0-1.7) Lipase 219 U/L (73-393) Laboratory Tests 07/12/19 18:15 Laboratory Tests 07/12/19 18:15 (LILIA MARIEE Jr., DO) EKG EKG [] (ILYA ROSA DO) Radiology/Procedures Radiology/Procedures [] (ILYA ROSA DO) Impressions: PROCEDURE: CT ABD PELV W/ IV CONTRST ONLY CT ABD PELV W/ IV CONTRST ONLY History: Right lower quadrant pain. Right groin pain. Technique: After the administration of oral and intravenous contrast, CT imaging was performed of the abdomen and pelvis. Multiplanar images are reviewed. Exposure: One or more of the following individualized dose reduction techniques were utilized for this examination: 1. Automated exposure control 2. Adjustment of the mA and/or kV according to patient size 3. Use of iterative reconstruction technique. Comparison: None Findings: Lower chest: No consolidation or pleural effusion. Abdomen and pelvis: The liver, spleen, adrenal glands, pancreas and gallbladder are unremarkable. No biliary ductal dilatation. Patent portal and hepatic veins. Normal appearance of the kidneys. No hydronephrosis. Dilated air-filled appendix measures up to 1.1 m. No wall thickening. No findings to suggest acute appendicitis. No evidence of bowel obstruction. No pathologic lymphadenopathy. No ascites. Small bilateral fat-containing inguinal hernias, left greater than right. Minimal atheromatous plaque within the nonaneurysmal abdominal aorta. Bones: Multilevel lumbar spondylosis most prominent L4-5 and L5-S1. Impression: 1. No acute abdominal or pelvic pathology. 2. Dilated air-filled appendix. No evidence of acute appendicitis. Electronically signed by: Julio Valencia DO (07/12/2019 7:16 PM) [facility] (LILIA MARIEE Jr., DO) Course & Med Decision Making Course & Med Decision Making Pertinent Labs and Imaging studies reviewed. (See chart for details) [Work-up in progress at time of shift change.. Care endorsed oncoming ERP at 1800] (ILYA ROSA DO) Dragon Disclaimer Dragon Disclaimer This electronic medical record was generated, in whole or in part, using a voice recognition dictation system. (ILYA ROSA DO) Departure Departure Impression: Primary Impression: Lower abdominal pain Disposition: 01 HOME, SELF-CARE Condition: STABLE Referrals: BHARTI CHOPRA JR, MD (PCP) Patient Instructions: Abdominal Pain Additional Instructions: Follow-up with your primary care provider in the next few days. If pain worsens, if you develop fever, vomiting or loss of appetite, return to emergency room for reevaluation. Scripts Ondansetron (ONDANSETRON ODT) 4 Mg Tab.rapdis 1 TAB PO PRN Q6-8HRS PRN for NAUSEA, #15 TAB Prov: LILIA MARIEE Jr. DO 07/12/19 Hydrocodone/Apap 5-325 (NORCO 5-325 TABLET) 1 Each Tablet 1-2 EACH PO PRN Q6HRS PRN for PAIN, #15 as needed for pain Prov: LILIA MARIEE Jr. DO 07/12/19 ILYA ROSA DO July 12, 2019 18:06 LILIA MARIEE Jr. DO July 12, 2019 19:44
[2019-07-12] MEDS ORDERED: ONDANSETRON PF 4 MG/2 ML VIAL. IVP ONE (18:15)
[2019-07-12] MEDS ORDERED: MORPHINE SULFATE 4 MG/ML VIAL. IV ONE (18:15)
[2019-07-12 18:29] LABS: BASO % 1 % (0-3); EOS % 0 % (0-3); HEMATOCRIT 42.5 % (39.0-53.0); HEMOGLOBIN 14.3 g/dL (13.0-17.5); LYMPH # 2.5 x10^3/uL (1.0-4.8); LYMPH % 44 % (24-48); MEAN CORPUSCULAR HEMOGLOBIN 30 pg (25-35); MEAN CORPUSCULAR HGB CONC 34 g/dL (31-37); MEAN CORPUSCULAR VOLUME 91 fL (79-100); MONO # 0.3 x10^3/uL (0.0-1.1); MONO % 6 % (0-9); NEUT # 2.8 x10^3/uL (1.8-7.7); NEUT % 49 % (31-73); PLATELET COUNT 225 x10^3/uL (140-400); RED CELL DISTRIBUTION WIDTH 16.5 % (11.5-14.5); WHITE BLOOD COUNT 5.7 x10^3/uL (4.0-11.0)
[2019-07-12 18:30] LABS: BILIRUBIN,URINE NEGATIVE (NEG); CLARITY,URINE CLEAR; COLOR,URINE YELLOW; NITRITE,URINE NEGATIVE (NEG); PROTEIN,URINE NEGATIVE (NEG-TRACE)
[2019-07-12 18:36] LABS: CALCIUM 8.6 mg/dL (8.5-10.1); GFR 95.7; POTASSIUM 3.9 mmol/L (3.5-5.1)
[2019-07-12 18:38] LABS: BACTERIA,URINE 0 /HPF (0-FEW); RBC,URINE OCC /HPF (0-2); WBC,URINE OCC /HPF (0-4)
[2019-07-12 18:44] LABS: ALBUMIN 3.6 g/dL (3.4-5.0); ALBUMIN/GLOBULIN RATIO 1.1 (1.0-1.7); TOTAL BILIRUBIN 0.2 mg/dL (0.2-1.0); TOTAL PROTEIN 6.8 g/dL (6.4-8.2)
[2019-07-12] MEDS ORDERED: IOHEXOL 300 MG/ML 100ML VIAL. IV ONE (18:45)
[2019-07-12] MEDS ORDERED: CONTRAST GIVEN. MC PRN (18:45)
[2019-07-12 19:19] VITALS: BP 144/63
--- NOTE | 2019-07-12 19:19 | RAD ---
CT ABD PELV W/ IV CONTRST ONLY History: Right lower quadrant pain. Right groin pain. Technique: After the administration of oral and intravenous contrast, CT imaging was performed of the abdomen and pelvis. Multiplanar images are reviewed. Exposure: One or more of the following individualized dose reduction techniques were utilized for this examination: 1. Automated exposure control 2. Adjustment of the mA and/or kV according to patient size 3. Use of iterative reconstruction technique. Comparison: None Findings: Lower chest: No consolidation or pleural effusion. Abdomen and pelvis: The liver, spleen, adrenal glands, pancreas and gallbladder are unremarkable. No biliary ductal dilatation. Patent portal and hepatic veins. Normal appearance of the kidneys. No hydronephrosis. Dilated air-filled appendix measures up to 1.1 m. No wall thickening. No findings to suggest acute appendicitis. No evidence of bowel obstruction. No pathologic lymphadenopathy. No ascites. Small bilateral fat-containing inguinal hernias, left greater than right. Minimal atheromatous plaque within the nonaneurysmal abdominal aorta. Bones: Multilevel lumbar spondylosis most prominent L4-5 and L5-S1. Impression: 1. No acute abdominal or pelvic pathology. 2. Dilated air-filled appendix. No evidence of acute appendicitis. Electronically signed by: Julio Valencia DO (07/12/2019 7:16 PM) [facility]
[2019-07-12] MEDS ORDERED: ONDA4TAB12 PO (19:43)
[2019-07-12] MEDS ORDERED: HYDR-3164 PO (19:43)
== END 2019-07-12 19:57 | disposition home or self-care (01) ==
LOC: ER 17:13
DX: R10.32 Left lower quadrant pain (principal); G89.29 Other chronic pain; E11.9 Type 2 diabetes mellitus without complications; F17.200 Nicotine dependence, unspecified, uncomplicated; Z88.0 Allergy status to penicillin
CPT/HCPCS: 36415; 74177; 80053; 81001; 83690; 85025; 96374; 96375; 99285; J2270; J2405; Q9967

== ENCOUNTER 2019-08-02 16:32 | Emergency (ER) | payer OTHER ==
[~2019-08-02] VITALS: Ht 177.8 cm; Wt 141.3 kg
[~2019-08-02 16:32] MED LIST changes: +HYDR-3164 PO
--- NOTE | 2019-08-02 18:05 | PHYS DOC ---
Past Medical History Past Medical History: Diabetes-Type II, Seizure, Other Additional Past Medical Histor: Headaches, otitis media Past Surgical History: No Surgical History Smoking Status: Current Every Day Smoker Alcohol Use: None Drug Use: None General Adult EDM: Chief Complaint: LOWER EXT PAIN HPI: HPI: Patient is a 48 year old male with history of seizures, diabetes type 2, who presents to the ED today complaining of bilateral lower extremity pain and swelling, pain rated at 10 out of 10, symptoms have been going on for a month. Patient reports symptoms got worse today when the cousin was massaging his feet. Patient denies anything specifically relieving the symptoms. Patient denies any injury. Denies any recent hospitalizations, denies any recent long air travel, denies any chest pain or shortness of breath, denies any personal family history of DVTs. Patient is also requesting a refill of Ciprodex that he had been given almost a month ago for otitis externa. Review of Systems: Review of Systems: Constitutional: Denies fever or chills. [] Eyes: Denies change in visual acuity. [] HENT: Request refill for Ciprodex. Denies nasal congestion or sore throat. [] Respiratory: Denies cough or shortness of breath. [] Cardiovascular: Denies chest pain or edema. [] GI: Denies abdominal pain, nausea, vomiting, bloody stools or diarrhea. [] : Denies dysuria. [] Musculoskeletal: Reports bilateral lower extremity swelling. Denies back pain or joint pain. [] Integument: Denies rash. [] Neurologic: Denies headache, focal weakness or sensory changes. [] Endocrine: Denies polyuria or polydipsia. [] Lymphatic: Denies swollen glands. [] Psychiatric: Denies depression or anxiety. [] Heart Score: Risk Factors: Risk Factors: DM, Current or recent (<one month) smoker, HTN, HLP, family history of CAD, obesity. Risk Scores: Score 0 - 3: 2.5% MACE over next 6 weeks - Discharge Home Score 4 - 6: 20.3% MACE over next 6 weeks - Admit for Clinical Observation Score 7 - 10: 72.7% MACE over next 6 weeks - Early Invasive Strategies Allergies: Allergies: Allergies Coded Allergies Type Severity Reaction Last Updated Verified Penicillins Allergy Intermediate RASH 11/10/18 Yes Physical Exam: PE: Constitutional: Well developed, well nourished, no acute distress, non-toxic appearance. [] HENT: Normocephalic, atraumatic, bilateral external ears normal, oropharynx moist, no oral exudates, nose normal. Dry crusty skin noted on the exterior aspect of the right ear. Right ear canal and TM have no signs of infection. Eyes: PERRLA, EOMI, conjunctiva normal, no discharge. [] Neck: Normal range of motion, no tenderness, supple, no stridor. [] Cardiovascular:Heart rate regular rhythm, no murmur [] Lungs & Thorax: Bilateral breath sounds clear to auscultation [] Abdomen: Bowel sounds normal, soft, no tenderness, no masses, no pulsatile masses. [] Skin: Warm, dry, no erythema, no rash. [] Back: No tenderness, no CVA tenderness. [] Extremities: No tenderness, no cyanosis, no clubbing, ROM intact, no edema. Negative Homans sign bilaterally. Neurologic: Alert and oriented X 3, normal motor function, normal sensory function, no focal deficits noted. [] Psychologic: Affect normal, judgement normal, mood normal. [] Current Patient Data: Vital Signs: Vital Signs Date Time Temp Pulse Resp B/P (MAP) Pulse Ox O2 Delivery O2 Flow Rate FiO2 08/02/19 16:54 97.9 83 17 144/63 (90) 95 Room Air 97.9 EKG: EKG: [] Radiology/Procedures: Radiology/Procedures: []PROCEDURE: CHEST AP ONLY Exam: Chest one view INDICATION: Bilateral lower extremity swelling TECHNIQUE: Frontal view of the chest Comparisons: 07/11/2019 FINDINGS: The cardiomediastinal silhouette and pulmonary vessels are within normal limits. The lung and pleural spaces are clear. IMPRESSION: No acute cardiopulmonary process. Electronically signed by: Erich Barcenas MD (08/02/2019 6:44 PM) [id number] DICTATED and SIGNED BY: ERICH BARCENAS MD DATE: 08/02/19 1844 PROCEDURE: VENOUS LOWER EXT BILATERAL Bilateral lower extremity venous Doppler ultrasound History: Reason: BLE pain / Spl. Instructions: / History: Comparison: None. Procedure: Color flow Doppler, Doppler spectral analysis, and 2D images are obtained with and without compression in the area of the common femoral vein, superficial femoral vein - femoral vein junction, main femoral vein (superficial femoral vein) and popliteal vein. Veins of the proximal calf are also imaged. Findings: Study is technically difficult. Limited visualization of peroneal veins. There is normal color flow, augmentation, and compressibility of all visualized vein segments. No evidence of deep venous thrombus is present. IMPRESSION: No evidence of right or left lower extremity deep venous thrombosis. Electronically signed by: Cristiano Celaya MD (08/02/2019 6:44 PM) [facility] DICTATED and SIGNED BY: CRISTIANO CELAYA MD DATE: 08/02/19 184 Course & Med Decision Making: Course & Med Decision Making Pertinent Labs and Imaging studies reviewed. (See chart for details) This is a 48-year-old female patient presenting to the ED today complaining of bilateral lower extremity swelling and pain for 1 month. Patient is also requesting a refill of his Ciprodex that he received a month ago for otitis externa. He has no indication for this right now. He was informed there is no need for refill. Labs are negative for any acute findings including BNP, chest x-ray is negative, bilateral venous Dopplers are negative. Patient was discharged to home. Follow-up with PCP in 1 to 2 weeks. Dragon Disclaimer: Dragon Disclaimer: This electronic medical record was generated, in whole or in part, using a voice recognition dictation system. Departure Departure Impression: Primary Impression: Swelling of lower extremity Disposition: 01 HOME, SELF-CARE Condition: STABLE Referrals: BHARTI CHOPRA JR, MD (PCP) follow up next week Patient Instructions: Edema, [id number] Additional Instructions: You were evaluated in the emergency room for bilateral lower extremity swelling, your lab work is negative for any acute findings, your x-ray of the chest is negative for any acute findings, your ultrasound of the lower extremities are negative for any acute findings. You do not need more refills on the ear drops. Please follow up with your doctor next week Justicifation of Admission Dx: Justifications for Admission: Justification of Admission Dx: N/A GRACIELA TAMAYO APRN Aug 02, 2019 18:05
[2019-08-02 18:19] LABS: BASO % 0 % (0-3); EOS % 0 % (0-3); HEMATOCRIT 39.5 % (39.0-53.0); HEMOGLOBIN 13.5 g/dL (13.0-17.5); LYMPH # 1.6 x10^3/uL (1.0-4.8); LYMPH % 34 % (24-48); MEAN CORPUSCULAR HEMOGLOBIN 31 pg (25-35); MEAN CORPUSCULAR HGB CONC 34 g/dL (31-37); MEAN CORPUSCULAR VOLUME 91 fL (79-100); MONO # 0.4 x10^3/uL (0.0-1.1); MONO % 10 % (0-9); NEUT # 2.5 x10^3/uL (1.8-7.7); NEUT % 56 % (31-73); PLATELET COUNT 203 x10^3/uL (140-400); RED BLOOD COUNT 4.35 x10^6/uL (4.30-5.70); RED CELL DISTRIBUTION WIDTH 16.6 % (11.5-14.5); WHITE BLOOD COUNT 4.5 x10^3/uL (4.0-11.0)
[2019-08-02 18:28] LABS: CALCIUM 8.7 mg/dL (8.5-10.1); GFR 95.7
[2019-08-02 18:34] LABS: ALBUMIN 3.3 g/dL (3.4-5.0); MAGNESIUM 1.6 mg/dL (1.8-2.4); TOTAL BILIRUBIN 0.1 mg/dL (0.2-1.0); TOTAL PROTEIN 6.5 g/dL (6.4-8.2)
--- NOTE | 2019-08-02 18:47 | RAD ---
Exam: Chest one view INDICATION: Bilateral lower extremity swelling TECHNIQUE: Frontal view of the chest Comparisons: 07/11/2019 FINDINGS: The cardiomediastinal silhouette and pulmonary vessels are within normal limits. The lung and pleural spaces are clear. IMPRESSION: No acute cardiopulmonary process. Electronically signed by: Erich Toney MD (08/02/2019 6:44 PM) [id number]
--- NOTE | 2019-08-02 18:47 | RAD ---
Bilateral lower extremity venous Doppler ultrasound History: Reason: BLE pain / Spl. Instructions: / History: Comparison: None. Procedure: Color flow Doppler, Doppler spectral analysis, and 2D images are obtained with and without compression in the area of the common femoral vein, superficial femoral vein - femoral vein junction, main femoral vein (superficial femoral vein) and popliteal vein. Veins of the proximal calf are also imaged. Findings: Study is technically difficult. Limited visualization of peroneal veins. There is normal color flow, augmentation, and compressibility of all visualized vein segments. No evidence of deep venous thrombus is present. IMPRESSION: No evidence of right or left lower extremity deep venous thrombosis. Electronically signed by: Cristiano Celaya MD (08/02/2019 6:44 PM) GARRETT
[2019-08-02 19:39] VITALS: BP 171/84
--- NOTE | 2019-08-03 06:41 | EKG ---
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
== END 2019-08-02 19:57 | disposition home or self-care (01) ==
LOC: ER 16:32
DX: R22.43 Localized swelling, mass and lump, lower limb, bilateral (principal); M79.605 Pain in left leg; M79.604 Pain in right leg; E11.9 Type 2 diabetes mellitus without complications; F17.200 Nicotine dependence, unspecified, uncomplicated; Z88.0 Allergy status to penicillin
CPT/HCPCS: 36415; 71045; 80053; 83735; 83880; 84484; 85025; 93005; 93970; 99285-25

== ENCOUNTER → 2019-09-12 | Outpatient (CLI) | payer OTHER ==
[~2019-09-12] MED LIST changes: +DIVA500T2 PO; +HALOPERIDOL
== END | disposition home or self-care (01) ==
LOC: LAB 14:30
PROVIDERS: ATTEND Internal Medicine Gastroenterology
DX: Z01.818 Encounter for other preprocedural examination (principal); Z11.59 Encounter for screening for other viral diseases; R13.10 Dysphagia, unspecified
CPT/HCPCS: U0003-CS

== ENCOUNTER → 2019-09-15 | Day surgery (SDC) | payer OTHER ==
[~2019-09-15] MED LIST changes: +IV RINGERS,LACTATED 1000ML 1,000 ML IV SCH; +LIDOCAINE 2% PF 5 ML VIAL. ONE; +PROPOFOL 10 MG/ML (20ML) VIAL. IV ONE
[2019-09-15 10:47] VITALS: BP 151/96
--- NOTE | 2019-09-15 12:17 | CONS ---
DATE OF CONSULTATION: 09/15/2019 GASTROINTESTINAL CONSULTATION REFERRING PHYSICIAN: Aelc Encarnacion MD REASON FOR CONSULTATION: Dysphagia. HISTORY OF PRESENT ILLNESS: This 48-year-old -[place] male with past medical history significant for gastroesophageal reflux disease, tobaccoism as well as osteoarthritis, depression, diabetes, hyperlipidemia is seen with increasing difficulties with swallowing with both solids and liquids sticking in the subcervical location. Weight and appetite are stable. Risk factors for reflux are positive for nicotine and caffeine, but negative for alcohol. There is no change in weight, no bleeding. He is otherwise without additional complaints. PAST MEDICAL HISTORY: 1. History of gastroesophageal reflux disease. 2. History of osteoarthritis. 3. History of high blood pressure. 4. Depression. 5. Diabetes. 6. Underactive thyroid. ALLERGIES: PENICILLIN and IBUPROFEN. MEDICATIONS: At the present time include Depakote 500 mg b.i.d. for seizures. SOCIAL HISTORY: He is a smoker, nondrinker. FAMILY HISTORY: Significant for high blood pressure and diabetes in his mother and heart attack in his grandmother. PAST SURGICAL HISTORY: Noncontributory. REVIEW OF SYSTEMS: Per records. PHYSICAL EXAMINATION: GENERAL: Reveals a well-nourished, well-developed -[place] male who is alert, cooperative, in no acute distress. VITAL SIGNS: Temperature 97.5, pulse 60, respiratory rate 20. HEENT: Normocephalic, atraumatic head. Pupils and extraocular muscles are not tested. Sclerae anicteric. NECK: Supple. LUNGS: Clear. CARDIOVASCULAR: Reveals an S1, S2 without S3, S4 or appreciable murmur. ABDOMEN: Reveals a soft abdomen, normal bowel sounds, without appreciable hepatosplenomegaly. EXTREMITIES: No cyanosis, clubbing or edema. IMPRESSION: Dysphagia with solid and liquid component. Differential includes malignancy, Mejia's, eosinophilic esophagitis, achalasia, Zenker's diverticulum among others. Therefore, I recommend upper endoscopy with possible biopsy and dilatation. If this is unhelpful and symptoms do not improve, then esophagogram and speech pathology evaluation as well as manometry may be pursued. HIMA TRIPP MD DR: OMERO/dahiana JOB#: [id number] / [id number] ALEC Zuniga
== END | disposition home or self-care (01) ==
LOC: ENDOS 08:47
PROVIDERS: ATTEND Internal Medicine Gastroenterology
DX: K22.2 Esophageal obstruction (principal); K21.9 Gastro-esophageal reflux disease without esophagitis; I10 Essential (primary) hypertension; E11.9 Type 2 diabetes mellitus without complications; M19.90 Unspecified osteoarthritis, unspecified site; F32.9 Major depressive disorder, single episode, unspecified; Z83.3 Family history of diabetes mellitus; Z82.49 Family history of ischemic heart disease and other diseases of the circulatory system
CPT/HCPCS: 43450; J2704

== ENCOUNTER 2019-09-24 02:13 | Emergency (ER) | payer OTHER ==
[~2019-09-24] VITALS: Ht 175.3 cm; Wt 140.0 kg
[~2019-09-24 02:13] MED LIST changes: -IV RINGERS,LACTATED 1000ML 1,000 ML IV SCH; -LIDOCAINE 2% PF 5 ML VIAL. ONE; -PROPOFOL 10 MG/ML (20ML) VIAL. IV ONE
[2019-09-24 02:51] LABS: BASO # 0.1 x10^3/uL (0.0-0.2); BASO % 1 % (0-3); EOS % 0 % (0-3); HEMATOCRIT 45.7 % (39.0-53.0); HEMOGLOBIN 15.3 g/dL (13.0-17.5); LYMPH # 3.5 x10^3/uL (1.0-4.8); LYMPH % 53 % (24-48); MEAN CORPUSCULAR HEMOGLOBIN 31 pg (25-35); MEAN CORPUSCULAR HGB CONC 34 g/dL (31-37); MEAN CORPUSCULAR VOLUME 91 fL (79-100); MONO # 0.7 x10^3/uL (0.0-1.1); MONO % 10 % (0-9); NEUT # 2.4 x10^3/uL (1.8-7.7); NEUT % 36 % (31-73); PLATELET COUNT 217 x10^3/uL (140-400); RED CELL DISTRIBUTION WIDTH 16.8 % (11.5-14.5); WHITE BLOOD COUNT 6.5 x10^3/uL (4.0-11.0)
[2019-09-24] MEDS ORDERED: FAMOTIDINE 20 MG/2 ML VIAL IVP ONE (03:00)
[2019-09-24] MEDS ORDERED: fentaNYL PF VIAL 100 MCG/2 ML VIAL IV ONE (03:00)
[2019-09-24] MEDS ORDERED: IV NORMAL SALINE 1000ML BAG 1,000 ML IV ONE (03:00)
[2019-09-24 03:01] LABS: PROTHROMBIN TIME PATIENT 12.7 SEC (11.7-14.0)
[2019-09-24 03:03] LABS: CALCIUM 9.4 mg/dL (8.5-10.1); CREATININE 1.1 mg/dL (0.7-1.3); GFR 85.7; POTASSIUM 3.5 mmol/L (3.5-5.1)
[2019-09-24 03:07] LABS: BILIRUBIN,URINE NEGATIVE (NEG); CLARITY,URINE CLOUDY; COLOR,URINE YELLOW; NITRITE,URINE NEGATIVE (NEG); PROTEIN,URINE NEGATIVE (NEG-TRACE)
[2019-09-24 03:08] LABS: ALBUMIN 3.7 g/dL (3.4-5.0); TOTAL BILIRUBIN 0.4 mg/dL (0.2-1.0); TOTAL PROTEIN 7.3 g/dL (6.4-8.2)
[2019-09-24 03:11] LABS: BACTERIA,URINE 0 /HPF (0-FEW); SPERM,URINE PRESENT /HPF; SQUAMOUS EPITHELIAL CELL,UR OCC /LPF; WBC,URINE OCC /HPF (0-4)
--- NOTE | 2019-09-24 03:19 | PHYS DOC ---
Past Medical History Past Medical History: Asthma, Seizure Additional Past Medical Histor: per patient- "enlarged heart and hernia" Past Surgical History: No Surgical History Smoking Status: Current Every Day Smoker Alcohol Use: None Drug Use: None General Adult EDM: Chief Complaint: ABDOMINAL PAIN HPI: HPI: 48-year-old male presents via EMS with report of left upper quadrant abdominal pain which became worse tonight. Reports history of known "hernias ". Reports has not followed with surgery to have them repaired. Patient reports tonight they seem to get worse. Denies nausea or vomiting. Denies fever or chills. Denies trauma. Review of Systems: Review of Systems: Constitutional: Denies fever or chills Eyes: Denies redness or eye pain HENT: Denies nasal congestion or sore throat Respiratory: Denies cough or shortness of breath Cardiovascular: Denies chest pain or palpitations GI: Reports abdominal pain; denies nausea or vomiting : Denies dysuria or hematuria Musculoskeletal: Denies back pain or joint pain Integument: Denies rash or skin lesions Neurologic: Denies headache, focal weakness or sensory changes Complete systems were reviewed and found to be within normal limits, except as documented in this note. Current Medications: Current Medications Medications (Trade) Dose Ordered Sig/Brigido Start Time Stop Time Status Last Admin Dose Admin Famotidine (Pepcid Vial) 20 mg 1X ONCE 09/24/19 03:00 09/24/19 03:01 DC 09/24/19 02:55 20 MG Fentanyl Citrate (Fentanyl 2ml Vial) 50 mcg 1X ONCE 09/24/19 03:00 09/24/19 03:01 DC 09/24/19 02:55 50 MCG Iohexol (Omnipaque 300 Mg/ml) 75 ml 1X ONCE 09/24/19 03:15 09/24/19 03:16 UNV Sodium Chloride 1,000 ml @ 1,000 mls/hr 1X ONCE 09/24/19 03:00 09/24/19 03:59 09/24/19 02:54 1,000 MLS/HR Allergies: Allergies: Allergies Coded Allergies Type Severity Reaction Last Updated Verified Penicillins Allergy Intermediate RASH 09/15/19 Yes ibuprofen Allergy Intermediate hives and abd pain 09/15/19 Yes Physical Exam: PE: Constitutional: Well developed, well nourished, no acute distress, non-toxic appearance HENT: Normocephalic, atraumatic Eyes: Conjunctiva normal, no discharge Neck: Normal range of motion, supple Lungs & Thorax: No respiratory distress, equal chest rise and fall Abdomen: Soft, left upper quadrant tenderness, no guarding/rebound tenderness, mild distention Skin: Warm, dry, no erythema, no rash Back: No tenderness, no CVA tenderness Extremities: No tenderness, ROM intact, no edema Neurologic: Alert and oriented X 3, no focal deficits noted Psychologic: Affect normal, judgment normal Current Patient Data: Labs: Laboratory Tests Test 09/24/19 02:45 09/24/19 03:00 White Blood Count 6.5 x10^3/uL (4.0-11.0) Red Blood Count 5.00 x10^6/uL (4.30-5.70) Hemoglobin 15.3 g/dL (13.0-17.5) Hematocrit 45.7 % (39.0-53.0) Mean Corpuscular Volume 91 fL (79-100) Mean Corpuscular Hemoglobin 31 pg (25-35) Mean Corpuscular Hemoglobin Concent 34 g/dL (31-37) Red Cell Distribution Width 16.8 % (11.5-14.5) H Platelet Count 217 x10^3/uL (140-400) Neutrophils (%) (Auto) 36 % (31-73) Lymphocytes (%) (Auto) 53 % (24-48) H Monocytes (%) (Auto) 10 % (0-9) H Eosinophils (%) (Auto) 0 % (0-3) Basophils (%) (Auto) 1 % (0-3) Neutrophils # (Auto) 2.4 x10^3/uL (1.8-7.7) Lymphocytes # (Auto) 3.5 x10^3/uL (1.0-4.8) Monocytes # (Auto) 0.7 x10^3/uL (0.0-1.1) Eosinophils # (Auto) 0.0 x10^3/uL (0.0-0.7) Basophils # (Auto) 0.1 x10^3/uL (0.0-0.2) Prothrombin Time 12.7 SEC (11.7-14.0) Prothrombin Time INR 1.0 (0.8-1.1) Activated Partial Thromboplast Time 29 SEC (24-38) Sodium Level 138 mmol/L (136-145) Potassium Level 3.5 mmol/L (3.5-5.1) Chloride Level 100 mmol/L (98-107) Carbon Dioxide Level 24 mmol/L (21-32) Anion Gap 14 (6-14) Blood Urea Nitrogen 7 mg/dL (8-26) L Creatinine 1.1 mg/dL (0.7-1.3) Estimated GFR (Cockcroft-Gault) 85.7 BUN/Creatinine Ratio 6 (6-20) Glucose Level 115 mg/dL (70-99) H Calcium Level 9.4 mg/dL (8.5-10.1) Total Bilirubin 0.4 mg/dL (0.2-1.0) Aspartate Amino Transferase (AST) 56 U/L (15-37) H Alanine Aminotransferase (ALT) 86 U/L (16-63) H Alkaline Phosphatase 108 U/L (46-116) Troponin I Quantitative < 0.017 ng/mL (0.000-0.055) Total Protein 7.3 g/dL (6.4-8.2) Albumin 3.7 g/dL (3.4-5.0) Albumin/Globulin Ratio 1.0 (1.0-1.7) Lipase 107 U/L (73-393) Urine Collection Type Unknown Urine Color Yellow Urine Clarity Cloudy Urine pH 6.0 (<5.0-8.0) Urine Specific Hitchcock 1.025 (1.000-1.030) Urine Protein Negative mg/dL (NEG-TRACE) Urine Glucose (UA) Negative mg/dL (NEG) Urine Ketones (Stick) Trace mg/dL (NEG) Urine Blood Negative (NEG) Urine Nitrite Negative (NEG) Urine Bilirubin Negative (NEG) Urine Urobilinogen Dipstick 1.0 mg/dL (0.2 mg/dL) Urine Leukocyte Esterase Negative (NEG) Urine RBC 3-5 /HPF (0-2) Urine WBC Occ /HPF (0-4) Urine Squamous Epithelial Cells Occ /LPF Urine Bacteria 0 /HPF (0-FEW) Urine Mucus Mod /LPF Urine Sperm Present /HPF Laboratory Tests 09/24/19 02:45 Laboratory Tests 09/24/19 02:45 Vital Signs: Vital Signs Date Time Temp Pulse Resp B/P (MAP) Pulse Ox O2 Delivery O2 Flow Rate FiO2 09/24/19 02:55 16 98 Room Air 09/24/19 02:25 99.0 97 165/88 (113) 99.0 EKG: EKG: @0308 NSR at 80bpm, NO ST elevation, QRS 92ms, QT/QTc 370/430ms Radiology/Procedures: Radiology/Procedures: PROCEDURE: CT ABD PELV W/ IV CONTRST ONLY INDICATION: Reason: LUQ abdominal pain, OMNI 300, 75 ML IV / Spl. Instructions: / History: COMPARISON: July 11, 2000 TECHNIQUE: Axial CT images obtained through the abdomen and pelvis with contrast. One or more of the following individualized dose reduction techniques were utilized for this examination: 1. Automated exposure control; 2. Adjustment of the mA and/or kV according to patient size; 3. Use of iterative reconstruction technique. FINDINGS: Scattered calcific atherosclerosis. Abdominal aorta is nonaneurysmal. Fat-containing inguinal hernias. Liver is low density which can be seen with fatty infiltration. No peripancreatic fluid collection. Spleen unremarkable. No hydronephrosis. Urinary bladder is partially distended. No periappendiceal inflammatory changes. The appendix is distended with air in the lumen. No dilated loops of bowel to suggest obstruction. Degenerative changes of the spine with multilevel central canal and neural foraminal stenosis. Mild wedging of T12 is again seen. IMPRESSION: * No evidence of bowel obstruction. * No hydronephrosis. Electronically signed by: Magdaleno Thompson MD (09/24/2019 4:48 AM) [id number] Course & Med Decision Making: Course & Med Decision Making Pertinent Labs and Imaging studies reviewed. (See chart for details) Patient presents via EMS with report of upper abdominal discomfort with concerned that he is known hernias might be causing some increased discomfort. No abdominal wall hernia appreciated on physical exam. Pain addressed. IV fluid hydration provided. Labs obtained and posted to chart. EKG without acute process. CT abdomen/pelvis without signs of obstruction or surgical abnor mality. Notation of small fat-containing inguinal hernia noted. Patient stable for discharge with outpatient follow-up with PCP/general surgery. General surgery referral provided. Discussed findings and plan with patient, who acknowledges understanding and agreement. Adriana Disclaimer: Adriana Disclaimer: This electronic medical record was generated, in whole or in part, using a voice recognition dictation system. Departure Departure Impression: Primary Impression: Abdominal pain Qualified Codes: R10.12 - Left upper quadrant pain Disposition: 01 HOME, SELF-CARE Condition: STABLE Referrals: BHARTI CHOPRA JR, MD (PCP) GARRETT LAW MD Patient Instructions: Abdominal Pain (Nonspecific) Scripts Hyoscyamine Sulfate (LEVSIN-SL) 0.125 Mg Tab.subl 0.125 MG SL Q4-6HRS PRN for PAIN, #14 TAB Prov: MECCA HIDALGO DO 09/24/19 Famotidine (PEPCID) 20 Mg Tablet 20 MG PO HS, #20 TAB Prov: MECCA HIDALGO DO 09/24/19 Sennosides/Docusate Sodium (Colace 2-in-1 Tablet) 1 Each Tablet 1 TAB PO QHS PRN for CONSTIPATION, #30 TAB 0 Refills Prov: MECCA HIDALGO DO 09/24/19 Justicifation of Admission Dx: Justifications for Admission: Justification of Admission Dx: N/A MECCA HIDALGO DO Sep 24, 2019 03:19
[2019-09-24] MEDS ORDERED: CONTRAST GIVEN. MC PRN (03:30)
[2019-09-24] MEDS ORDERED: IOHEXOL 300 MG/ML 100ML VIAL. IV ONE (03:30)
--- NOTE | 2019-09-24 04:51 | RAD ---
INDICATION: Reason: LUQ abdominal pain, OMNI 300, 75 ML IV / Spl. Instructions: / History: COMPARISON: July 11, 2000 TECHNIQUE: Axial CT images obtained through the abdomen and pelvis with contrast. One or more of the following individualized dose reduction techniques were utilized for this examination: 1. Automated exposure control; 2. Adjustment of the mA and/or kV according to patient size; 3. Use of iterative reconstruction technique. FINDINGS: Scattered calcific atherosclerosis. Abdominal aorta is nonaneurysmal. Fat-containing inguinal hernias. Liver is low density which can be seen with fatty infiltration. No peripancreatic fluid collection. Spleen unremarkable. No hydronephrosis. Urinary bladder is partially distended. No periappendiceal inflammatory changes. The appendix is distended with air in the lumen. No dilated loops of bowel to suggest obstruction. Degenerative changes of the spine with multilevel central canal and neural foraminal stenosis. Mild wedging of T12 is again seen. IMPRESSION: * No evidence of bowel obstruction. * No hydronephrosis. Electronically signed by: Magdaleno Thompson MD (09/24/2019 4:48 AM) [id number]
[2019-09-24] MEDS ORDERED: FAMO-63 PO (05:19)
[2019-09-24] MEDS ORDERED: HYOS0.1265 SL (05:19)
[2019-09-24] MEDS ORDERED: SENN-121 PO (05:19)
[2019-09-24 06:28] VITALS: BP 166/78
--- NOTE | 2019-09-25 15:18 | EKG ---
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
== END 2019-09-24 06:20 | disposition home or self-care (01) ==
LOC: ER 02:13
DX: R10.12 Left upper quadrant pain (principal); J45.909 Unspecified asthma, uncomplicated; F17.200 Nicotine dependence, unspecified, uncomplicated; Z98.890 Other specified postprocedural states; Z88.0 Allergy status to penicillin; Z88.6 Allergy status to analgesic agent
CPT/HCPCS: 36415; 74177; 80053; 81001; 82553; 83690; 84484; 85025; 85610; 85730; 93005; 96374; 96375; 99285; J3010; J3490; J7030; Q9967

== ENCOUNTER 2019-09-28 23:24 | Emergency (ER) | payer OTHER ==
[~2019-09-28] VITALS: Ht 175.3 cm; Wt 135.4 kg
[~2019-09-28 23:24] MED LIST changes: +FAMO-63 PO; +HYOS0.1265 SL; +SENN-121 PO
--- NOTE | 2019-09-29 00:09 | PHYS DOC ---
Past Medical History Past Medical History: Asthma, Seizure Additional Past Medical Histor: per patient- "enlarged heart and hernia" Past Surgical History: No Surgical History Smoking Status: Current Every Day Smoker Alcohol Use: None Drug Use: None General Adult EDM: Chief Complaint: ABDOMINAL PAIN HPI: HPI: Patient is a 48 year old male who presents with complaints of epigastric abdominal pain. Patient reports he been suffering this problem for at least 25 years and finally got referred today to a specialist to address his uncontrolled gas after reflux disease, hiatal hernia and abdominal pain. Today he called EMS because the pain became severe. He describes it as a sharp burning sensation in the epigastrium radiating up into the chest which waxes and wanes. He did not try any [id number] medications. Patient has been taking some Pepcid and Hyoscamine which he was prescribed at his last visit here. Review of Systems: Review of Systems: Constitutional: Denies fever or chills. [] Eyes: Denies change in visual acuity. [] HENT: Denies nasal congestion or sore throat. [] Respiratory: Denies cough, complains of shortness of breath and that he feels like he cannot take a deep breath at times. [] Cardiovascular: Chest pain as per HPI. [] GI: See HPI. [] : Denies dysuria. [] Musculoskeletal: Denies back pain or joint pain. [] Integument: Denies rash. [] Neurologic: Denies headache, focal weakness or sensory changes. [] Endocrine: Denies polyuria or polydipsia. [] Lymphatic: Denies swollen glands. [] Psychiatric: Denies depression or anxiety. [] Heart Score: HEART Score for Chest Pain: HEART Score for Chest Pain Response (Comments) Value History Slighlty/Non-Suspicious 0 ECG Normal 0 Age >45 - < 65 1 Risk Factors 1 or 2 Risk Factors 1 Troponin < Normal Limit 0 Total 2 Risk Factors: Risk Factors: DM, Current or recent (<one month) smoker, HTN, HLP, family history of CAD, obesity. Risk Scores: Score 0 - 3: 2.5% MACE over next 6 weeks - Discharge Home Score 4 - 6: 20.3% MACE over next 6 weeks - Admit for Clinical Observation Score 7 - 10: 72.7% MACE over next 6 weeks - Early Invasive Strategies Allergies: Allergies: Allergies Coded Allergies Type Severity Reaction Last Updated Verified Penicillins Allergy Intermediate RASH 09/15/19 Yes ibuprofen Allergy Intermediate hives and abd pain 09/15/19 Yes Physical Exam: PE: Constitutional: Well developed, well nourished, obese, no acute distress, non- toxic appearance. [] HENT: Normocephalic, atraumatic, bilateral external ears normal, oropharynx moist, no oral exudates, nose normal. [] Eyes: PERRLA, EOMI, conjunctiva normal, no discharge. [] Neck: Normal range of motion, no tenderness, supple, no stridor. [] Cardiovascular:Heart rate regular rhythm, no murmur [] Lungs & Thorax: Bilateral breath sounds clear to auscultation [] Abdomen: Soft, positive bowel sounds, tenderness in the epigastrium, no hepatosplenomegaly, negative Sullivan sign, negative Rovsing sign, no guarding or rebound [] Skin: Warm, dry, no erythema, no rash. [] Back: No tenderness, no CVA tenderness. [] Extremities: No tenderness, no cyanosis, no clubbing, ROM intact, no edema. [] Neurologic: Alert and oriented X 3, normal motor function, normal sensory function, no focal deficits noted. [] Psychologic: Affect normal, judgement normal, mood normal. [] EKG: EKG: Heart rate 86 bpm, normal sinus rhythm, nonspecific T wave changes, normal axis, normal intervals, abnormal ECG [] Radiology/Procedures: Radiology/Procedures: [] Course & Med Decision Making: Course & Med Decision Making Pertinent Labs and Imaging studies reviewed. (See chart for details) 0132-the patient was seen and reevaluated. Patient reports that the burning sensation that brought him in today has resolved. However he continues to have some anterior abdominal wall pain. He had me placed my finger on the anterior a bdominal wall and pushed down on that area to feel the "knot" that was present. This was tender and he most likely is suffering from some subcutaneous nodules that are from the lipomas. I will give him some IV Toradol for that pain. For now I will treat him with gas after reflux disease medications omeprazole and Carafate. I discussed with him reasons to return, treatment plan and need for follow-up. [] Adriana Disclaimer: Adriana Disclaimer: This electronic medical record was generated, in whole or in part, using a voice recognition dictation system. Departure Departure Impression: Primary Impression: Non-cardiac chest pain Additional Impressions: GERD with esophagitis Chest wall pain Disposition: 01 HOME, SELF-CARE Condition: IMPROVED Referrals: BHARTI CHOPRA JR, MD (PCP) Patient Instructions: Chest Pain (Nonspecific), Diet for Gastroesophageal Reflux Disease, Adult, Gastroesophageal Reflux Disease, Adult Scripts Sucralfate (CARAFATE) 1 Gm Tablet 1 TAB PO QID for 30 Days, #120 TAB 0 Refills Prov: YOANA SCHWARTZ MD 09/29/19 Omeprazole (OMEPRAZOLE) 40 Mg Capsule.dr 40 MG PO DAILY for 30 Days, #30 CAP Take 1/2-hour before the first meal the day Prov: YOANA SCHWARTZ MD 09/29/19 Justicifation of Admission Dx: Justifications for Admission: Justification of Admission Dx: N/A YOANA SCHWARTZ MD Sep 29, 2019 00:08
[2019-09-29] MEDS ORDERED: MAG HYDROX/ALUMINUM HYD/SIMETH 30 ML ORAL.SUSP PO ONE (00:15)
[2019-09-29] MEDS ORDERED: METOCLOPRAMIDE HCL 10 MG/2 ML VIAL. IVP ONE (00:15)
[2019-09-29] MEDS ORDERED: FAMOTIDINE 20 MG TABLET. PO ONE (00:15)
[2019-09-29 00:26] LABS: BASO % 1 % (0-3); EOS % 0 % (0-3); HEMATOCRIT 47.6 % (39.0-53.0); HEMOGLOBIN 16.1 g/dL (13.0-17.5); LYMPH # 1.8 x10^3/uL (1.0-4.8); LYMPH % 42 % (24-48); MEAN CORPUSCULAR HEMOGLOBIN 31 pg (25-35); MEAN CORPUSCULAR HGB CONC 34 g/dL (31-37); MEAN CORPUSCULAR VOLUME 91 fL (79-100); MONO # 0.4 x10^3/uL (0.0-1.1); MONO % 9 % (0-9); NEUT # 2.1 x10^3/uL (1.8-7.7); NEUT % 49 % (31-73); PLATELET COUNT 204 x10^3/uL (140-400); RED BLOOD COUNT 5.21 x10^6/uL (4.30-5.70); RED CELL DISTRIBUTION WIDTH 16.7 % (11.5-14.5); WHITE BLOOD COUNT 4.4 x10^3/uL (4.0-11.0)
[2019-09-29 00:33] LABS: CALCIUM 9.5 mg/dL (8.5-10.1); CREATININE 0.9 mg/dL (0.7-1.3); GFR 108.1; POTASSIUM 3.5 mmol/L (3.5-5.1)
[2019-09-29 00:39] LABS: ALBUMIN 3.8 g/dL (3.4-5.0); TOTAL BILIRUBIN 0.5 mg/dL (0.2-1.0); TOTAL PROTEIN 7.7 g/dL (6.4-8.2)
[2019-09-29] MEDS ORDERED: OMEP40CA45 PO (01:37)
[2019-09-29] MEDS ORDERED: SUCR1TAB35 PO (01:37)
[2019-09-29] MEDS ORDERED: KETOROLAC 30 MG/ML VIAL. IVP ONE (01:45)
[2019-09-29 02:10] VITALS: BP 145/84
--- NOTE | 2019-09-29 02:18 | RAD ---
INDICATION: Reason: Chest pain / Spl. Instructions: / History: COMPARISON: August 02, 2019 FINDINGS: 2 view of chest obtained. Cardiac silhouette is unremarkable. No focal airspace consolidation or pulmonary edema. Degenerative changes of the spine with osteophyte formation IMPRESSION: * No focal airspace consolidation or edema. Electronically signed by: Magdaleno Thompson MD (09/29/2019 2:15 AM) [id number]
--- NOTE | 2019-09-29 10:04 | EKG ---
[facility] [address] [place] [address] Test Date: 2019-09-29 Test Time: 00:53:23 Pat Name: ALYSSA MELGOZA Department: Room: Gender: All Source Intelligence: : 1970 Requested By: YOANA SCHWARTZ Order Number: [id number] Reading MD: Measurements Intervals [place] Rate: 86 P: 39 WV: 122 QRS: 19 QRSD: 86 T: 107 QT: 352 QTc: 424 Interpretive Statements SINUS RHYTHM R-S TRANSITION ZONE IN V LEADS DISPLACED TO THE RIGHT T ABNORMALITY IN HIGH LATERAL LEADS ABNORMAL ECG RI6.01 No previous ECG available for comparison
== END 2019-09-29 02:12 | disposition home or self-care (01) ==
LOC: ER 23:24
DX: K21.0 Gastro-esophageal reflux disease with esophagitis (principal); R07.89 Other chest pain; J45.909 Unspecified asthma, uncomplicated; F17.200 Nicotine dependence, unspecified, uncomplicated; Z88.0 Allergy status to penicillin; Z88.8 Allergy status to other drugs, medicaments and biological substances
CPT/HCPCS: 36415; 71046; 80053; 83690; 84484; 85025; 93005; 96374; 96375; 99285; J1885; J2765

== ENCOUNTER 2019-10-09 02:33 | Emergency (ER) | payer OTHER ==
[~2019-10-09] VITALS: Ht 175.3 cm; Wt 136.0 kg
[~2019-10-09 02:33] MED LIST changes: +OMEP40CA45 PO; +SUCR1TAB35 PO
--- NOTE | 2019-10-09 03:38 | PHYS DOC ---
Past Medical History Past Medical History: Asthma, Seizure Additional Past Medical Histor: per patient- "enlarged heart and hernia" Past Surgical History: No Surgical History Smoking Status: Current Every Day Smoker Alcohol Use: None Drug Use: None General Adult EDM: Chief Complaint: CHEST PAIN-CARDIAC NATURE HPI: HPI: Patient is a 48 year old male who presents with complaints of chest pain. Patient reports is been going on for about 2 weeks. Patient states it started on the right side of his chest. He describes it as a sharp pain that is constant and nonradiating. Taking deep breaths or coughing makes the pain worse. He denied any dyspnea but does complain of pain with deep breathing and feeling like he cannot take a deep breath because of the pain. He denied any cough, fever, chills, sweats, abdominal pain, nausea or vomiting, diarrhea melena or hematochezia. Review of Systems: Review of Systems: Constitutional: Denies fever or chills. [] Eyes: Denies change in visual acuity. [] HENT: Denies nasal congestion or sore throat. [] Respiratory: Denies cough or shortness of breath. [] Cardiovascular: See HPI. [] GI: Denies abdominal pain, nausea, vomiting, bloody stools or diarrhea. [] : Denies dysuria. [] Musculoskeletal: Denies back pain or joint pain. [] Integument: Denies rash. [] Neurologic: Denies headache, focal weakness or sensory changes. [] Endocrine: Denies polyuria or polydipsia. [] Lymphatic: Denies swollen glands. [] Psychiatric: Denies depression or anxiety. [] Heart Score: HEART Score for Chest Pain: HEART Score for Chest Pain Response (Comments) Value History Slighlty/Non-Suspicious 0 Total 0 Risk Factors: Risk Factors: DM, Current or recent (<one month) smoker, HTN, HLP, family history of CAD, obesity. Risk Scores: Score 0 - 3: 2.5% MACE over next 6 weeks - Discharge Home Score 4 - 6: 20.3% MACE over next 6 weeks - Admit for Clinical Observation Score 7 - 10: 72.7% MACE over next 6 weeks - Early Invasive Strategies Allergies: Allergies: Allergies Coded Allergies Type Severity Reaction Last Updated Verified Penicillins Allergy Intermediate RASH 09/15/19 Yes ibuprofen Allergy Intermediate hives and abd pain 09/15/19 Yes Physical Exam: PE: Constitutional: Well developed, well nourished, no acute distress, non-toxic appearance. [] HENT: Normocephalic, atraumatic, bilateral external ears normal, oropharynx moist, no oral exudates, nose normal. [] Eyes: PERRLA, EOMI, conjunctiva normal, no discharge. [] Neck: Normal range of motion, no tenderness, supple, no stridor. [] Cardiovascular:Heart rate regular rhythm, no murmur, chest wall tender to palpation reproducing his pain on the right costochondral margin [] Lungs & Thorax: Bilateral breath sounds clear to auscultation [] Abdomen: Bowel sounds normal, soft, no tenderness, no masses, no pulsatile masses. [] Skin: Warm, dry, no erythema, no rash. [] Back: No tenderness, no CVA tenderness. [] Extremities: No tenderness, no cyanosis, no clubbing, ROM intact, pitting edema 2 mm bilateral symmetric, 1 out of 2 dorsalis pedis bilaterally [] Neurologic: Alert and oriented X 3, normal motor function, normal sensory function, no focal deficits noted. [] Psychologic: Affect normal, judgement normal, mood normal. [] Current Patient Data: Vital Signs: Vital Signs Date Time Temp Pulse Resp B/P (MAP) Pulse Ox O2 Delivery O2 Flow Rate FiO2 10/09/19 02:57 98.2 71 18 112/76 (88) 97 Room Air 98.2 EKG: EKG: Heart rate 70 bpm, normal sinus rhythm, normal intervals, normal axis, normal EKG [] Radiology/Procedures: Radiology/Procedures: [] Course & Med Decision Making: Course & Med Decision Making Pertinent Labs and Imaging studies reviewed. (See chart for details) 0534-patient was seen and examined. At this time no evidence for next medical or surgical problem is identified. I discussed reasons to return, treatment plan and need for follow-up. [] Dragon Disclaimer: Dragon Disclaimer: This electronic medical record was generated, in whole or in part, using a voice recognition dictation system. Departure Departure Impression: Primary Impression: Chest wall pain Disposition: HOME, SELF-CARE Condition: IMPROVED Referrals: BHARTI CHOPRA JR, MD (PCP) Patient Instructions: Chest Wall Pain Additional Instructions: Advil 3 pills with food every 6 hours for the next 2 to 4 weeks, ice 4-5 times a day for 30 minutes. Justicifation of Admission Dx: Justifications for Admission: Justification of Admission Dx: N/A YOANA SCHWARTZ MD Oct 09, 2019 03:38
[2019-10-09 03:42] LABS: BASO % 0 % (0-3); EOS % 0 % (0-3); HEMATOCRIT 45.9 % (39.0-53.0); HEMOGLOBIN 15.3 g/dL (13.0-17.5); LYMPH # 2.6 x10^3/uL (1.0-4.8); LYMPH % 51 % (24-48); MEAN CORPUSCULAR HEMOGLOBIN 31 pg (25-35); MEAN CORPUSCULAR HGB CONC 33 g/dL (31-37); MEAN CORPUSCULAR VOLUME 92 fL (79-100); MONO # 0.5 x10^3/uL (0.0-1.1); MONO % 11 % (0-9); NEUT % 38 % (31-73); PLATELET COUNT 221 x10^3/uL (140-400); RED BLOOD COUNT 5.01 x10^6/uL (4.30-5.70); WHITE BLOOD COUNT 5.1 x10^3/uL (4.0-11.0)
[2019-10-09 03:55] LABS: PROTHROMBIN TIME PATIENT 11.7 SEC (11.7-14.0)
[2019-10-09] MEDS ORDERED: KETOROLAC 30 MG/ML VIAL. IVP ONE (04:00)
[2019-10-09 05:19] LABS: D-DIMER 0.43 ug/mlFEU (0.00-0.50)
[2019-10-09 05:47] LABS: CALCIUM 8.7 mg/dL (8.5-10.1); CREATININE 0.7 mg/dL (0.7-1.3); GFR 144.4
[2019-10-09 05:53] LABS: ALBUMIN 3.5 g/dL (3.4-5.0); ALBUMIN/GLOBULIN RATIO 0.9 (1.0-1.7); TOTAL BILIRUBIN 0.4 mg/dL (0.2-1.0); TOTAL PROTEIN 7.4 g/dL (6.4-8.2)
[2019-10-09 05:54] VITALS: BP 151/80
--- NOTE | 2019-10-09 07:06 | RAD ---
INDICATION: Reason: CP / Spl. Instructions: / History: COMPARISON: August 02, 2019, September 29, 2019 FINDINGS: 2 views chest obtained. Cardiac silhouette is not enlarged. Degenerative changes of the spine. No focal airspace consolidation or edema. IMPRESSION: * No focal airspace consolidation or edema. Electronically signed by: Magdaleno Thompson MD (10/09/2019 7:03 AM) [id number]
--- NOTE | 2019-10-10 08:21 | EKG ---
[facility] [address] [place] [address] Test Date: 2019-10-09 Test Time: 02:39:57 Pat Name: ALYSSA MELGOZA Department: Room: Gender: M Document Photographer: : 1970 Requested By: YOANA SCHWARTZ Order Number: [id number] Reading MD: Measurements Intervals [place] Rate: 70 P: 36 NE: 134 QRS: 39 QRSD: 94 T: 61 QT: 384 QTc: 417 Interpretive Statements SINUS RHYTHM NO SPECIFIC ECG ABNORMALITIES RI6.01 No previous ECG available for comparison
== END 2019-10-09 06:00 | disposition home or self-care (01) ==
LOC: ER 02:33
DX: R07.89 Other chest pain (principal); J45.909 Unspecified asthma, uncomplicated; F17.200 Nicotine dependence, unspecified, uncomplicated; Z88.0 Allergy status to penicillin; Z88.6 Allergy status to analgesic agent
CPT/HCPCS: 36415; 71046; 80053; 83690; 84484; 85025; 85379; 85610; 85730; 93005; 96374; 99285; J1885

== ENCOUNTER 2019-10-30 11:38 | Emergency (ER) | payer OTHER ==
[~2019-10-30] VITALS: Ht 175.3 cm; Wt 134.5 kg
[2019-10-30] MEDS ORDERED: levETIRAcetam 500 MG TABLET PO STA (11:45)
--- NOTE | 2019-10-30 12:25 | PHYS DOC ---
Past Medical History Past Medical History: Asthma, Seizure Additional Past Medical Histor: per patient- "enlarged heart and hernia", DEVELOPMENT DELAY Past Surgical History: No Surgical History Smoking Status: Current Every Day Smoker Alcohol Use: None Drug Use: None General Adult EDM: Chief Complaint: SEIZURE HPI: HPI: Patient is a 48 year old man with history of seizures and developmental delay who presents to the ED today to be evaluated after having seizure at home. Patient states his mother and another family member witnessed the seizure. He states he does not know how long it lasted. He states he did not take his medicine this morning. Review of Systems: Review of Systems: Constitutional: Denies fever or chills. [] Eyes: Denies change in visual acuity. [] HENT: Denies nasal congestion or sore throat. [] Respiratory: Denies cough or shortness of breath. [] Cardiovascular: Denies chest pain or edema. [] GI: Denies abdominal pain, nausea, vomiting, bloody stools or diarrhea. [] : Denies dysuria. [] Musculoskeletal: Denies back pain or joint pain. [] Integument: Denies rash. [] Neurologic: /reports seizure. Denies headache, focal weakness or sensory richardson es. [] Psychiatric: Denies depression or anxiety. [] Heart Score: Risk Factors: Risk Factors: DM, Current or recent (<one month) smoker, HTN, HLP, family history of CAD, obesity. Risk Scores: Score 0 - 3: 2.5% MACE over next 6 weeks - Discharge Home Score 4 - 6: 20.3% MACE over next 6 weeks - Admit for Clinical Observation Score 7 - 10: 72.7% MACE over next 6 weeks - Early Invasive Strategies Current Medications: Current Medications Medications (Trade) Dose Ordered Sig/Brigido Start Time Stop Time Status Last Admin Dose Admin Levetiracetam (Keppra) 500 mg 1X STAT 10/30/19 11:45 10/30/19 11:56 DC Allergies: Allergies: Allergies Coded Allergies Type Severity Reaction Last Updated Verified Penicillins Allergy Intermediate RASH 09/15/19 Yes ibuprofen Allergy Intermediate hives and abd pain 09/15/19 Yes Physical Exam: PE: Constitutional: Well developed, well nourished, no acute distress, non-toxic appearance. [] HENT: Normocephalic, atraumatic, bilateral external ears normal, oropharynx moist, no oral exudates, nose normal. [] Eyes: PERRLA, EOMI, conjunctiva normal, no discharge. [] Neck: Normal range of motion, no tenderness, supple, no stridor. [] Cardiovascular:Heart rate regular rhythm, no murmur [] Lungs & Thorax: Bilateral breath sounds clear to auscultation [] Abdomen: Bowel sounds normal, soft, no tenderness, no masses, no pulsatile masses. [] Skin: Warm, dry, no erythema, no rash. [] Back: No tenderness, no CVA tenderness. [] Extremities: No tenderness, no cyanosis, no clubbing, ROM intact, no edema. [] Neurologic: Alert and oriented X 3, normal motor function, normal sensory function, no focal deficits noted. [] Psychologic: Affect normal, judgement normal, mood normal. [] Current Patient Data: Vital Signs: Vital Signs Date Time Temp Pulse Resp B/P (MAP) Pulse Ox O2 Delivery O2 Flow Rate FiO2 10/30/19 11:38 78 20 123/70 (87) 95 Room Air EKG: EKG: [] Radiology/Procedures: Radiology/Procedures: [] Course & Med Decision Making: Course & Med Decision Making Pertinent Labs and Imaging studies reviewed. (See chart for details) This is a 48-year-old male patient who presents the ED today to be evaluated after having a seizure. Patient has history of seizures and did not take his medicine this morning. CBC, CMP no acute findings. Lactic 4.0 consistent with seizure activity. Patient was discharged to home. Encouraged family to make sure he gets his seizure medicines on time and follow-up with his own PCP and neurologist in the course of this week. Adriana Disclaimer: Adriana Disclaimer: This electronic medical record was generated, in whole or in part, using a voice recognition dictation system. Departure Departure Impression: Primary Impression: Seizure Disposition: 01 HOME, SELF-CARE Condition: STABLE Referrals: BHARTI CHOPRA JR, MD (PCP) Follow-up in the course of this week Patient Instructions: Seizure, Adult Additional Instructions: You were evaluated in the emergency room after having a seizure. Ensure you are taking your seizure medicines and follow-up with your own doctor in the course of this week or next week. Justicifation of Admission Dx: Justifications for Admission: Justification of Admission Dx: N/A MUTUNGA,GRACIELA CONTENT MANAGER Oct 30, 2019 12:25
[2019-10-30 12:52] LABS: ANION GAP 13 (6-14); BLOOD UREA NITROGEN 8 mg/dL (8-26); BUN/CREATININE RATIO 8 (6-20); CALCIUM 9.2 mg/dL (8.5-10.1); CARBON DIOXIDE 25 mmol/L (21-32); CHLORIDE 102 mmol/L (98-107); GFR 95.7; GLUCOSE 120 mg/dL (70-99); POTASSIUM 3.8 mmol/L (3.5-5.1); SODIUM 140 mmol/L (136-145)
[2019-10-30 12:57] LABS: ALBUMIN 3.4 g/dL (3.4-5.0); ALBUMIN/GLOBULIN RATIO 0.9 (1.0-1.7); ALK PHOS 103 U/L (46-116); ALT (SGPT) 60 U/L (16-63); AST (SGOT) 44 U/L (15-37); MAGNESIUM 1.9 mg/dL (1.8-2.4); TOTAL BILIRUBIN 0.5 mg/dL (0.2-1.0); TOTAL PROTEIN 7.3 g/dL (6.4-8.2)
[2019-10-30 12:59] LABS: VAL ACID 68 mcg/mL (50-100)
[2019-10-30 13:00] LABS: BASO % 1 % (0-3); EOS % 0 % (0-3); HEMATOCRIT 45.8 % (39.0-53.0); HEMOGLOBIN 15.5 g/dL (13.0-17.5); LYMPH # 2.4 x10^3/uL (1.0-4.8); LYMPH % 50 % (24-48); MEAN CORPUSCULAR HEMOGLOBIN 31 pg (25-35); MEAN CORPUSCULAR HGB CONC 34 g/dL (31-37); MEAN CORPUSCULAR VOLUME 92 fL (79-100); MONO # 0.4 x10^3/uL (0.0-1.1); MONO % 8 % (0-9); NEUT # 1.9 x10^3/uL (1.8-7.7); NEUT % 41 % (31-73); PLATELET COUNT 203 x10^3/uL (140-400); RED BLOOD COUNT 4.99 x10^6/uL (4.30-5.70); RED CELL DISTRIBUTION WIDTH 16.2 % (11.5-14.5); WHITE BLOOD COUNT 4.8 x10^3/uL (4.0-11.0)
[2019-10-30 14:12] LABS: BARBITURATES NEG (NEG); BENZODIAZEPINES NEG (NEG); CANNABINOIDS NEG (NEG); COCAINE NEG (NEG); METHADONE NEG (NEG); OPIATES NEG (NEG); PHENCYCLIDINE NEG (NEG)
[2019-10-30 14:14] LABS: BILIRUBIN,URINE SMALL (NEG); CLARITY,URINE CLEAR; COLOR,URINE AMBER; NITRITE,URINE NEGATIVE (NEG); PH,URINE 5.5 (<5.0-8.0); PROTEIN,URINE NEGATIVE (NEG-TRACE)
[2019-10-30 14:17] LABS: AMPHETAMINE/METHAMPHETAMINE NEG (NEG)
[2019-10-30 14:37] LABS: BACTERIA,URINE 0 /HPF (0-FEW); RBC,URINE 0 /HPF (0-2); WBC,URINE RARE /HPF (0-4)
[2019-10-30] MEDS ORDERED: IV NORMAL SALINE 1000ML BAG 1,000 ML IV ONE ×2 (14:45)
[2019-10-30 15:41] VITALS: BP 125/67
== END 2019-10-30 15:56 | disposition home or self-care (01) ==
LOC: ER 11:38
DX: R56.9 Unspecified convulsions (principal); J45.909 Unspecified asthma, uncomplicated; F17.200 Nicotine dependence, unspecified, uncomplicated; Z88.0 Allergy status to penicillin; Z88.6 Allergy status to analgesic agent
CPT/HCPCS: 80053; 80164; 80177; 80307; 81001; 83605; 83735; 85025; 96360; 99285; J7030; 36415

== ENCOUNTER → 2019-10-31 | Outpatient (CLI) | payer OTHER ==
[2019-10-30 15:41] VITALS: BP 125/67
--- NOTE | 2019-10-31 10:35 | RAD ---
EXAM: Brain MRI without contrast. HISTORY: Seizure. Cognitive deficits. TECHNIQUE: Multiplanar, multisequence magnetic resonance imaging of the brain was performed without contrast. COMPARISON: None. FINDINGS: There is no restricted diffusion to suggest acute or subacute infarction. There is no susceptibility effect to suggest hemorrhage. There is no mass effect or midline shift. There is no hydrocephalus. The orbits are unremarkable. There is mild paranasal sinus mucosal thickening. The mastoid air cells are clear. There are normal flow voids within the cerebral vessels. There is no suspicious calvarial lesion. The hippocampi demonstrate symmetric size and signal. There is no heterotopia or malformation of cortical development. IMPRESSION: No acute intracranial finding or evidence of an epileptogenic lesion. Electronically signed by: Rebekah Wiseman MD (10/31/2019 10:32 AM) [id number]
== END | disposition home or self-care (01) ==
LOC: MRI 09:33
PROVIDERS: ATTEND Nurse Practitioner Family
DX: S09.90XS Unspecified injury of head, sequela (principal); G44.309 Post-traumatic headache, unspecified, not intractable; R41.89 Other symptoms and signs involving cognitive functions and awareness; R56.9 Unspecified convulsions; X58.XXXS Exposure to other specified factors, sequela
CPT/HCPCS: 70551

== ENCOUNTER → 2019-11-06 | Outpatient (CLI) | payer OTHER ==
[2019-10-30 15:41] VITALS: BP 125/67
[~2019-11-06] MED LIST changes: +ZOLPIDEM 5 MG TABLET. PO ONE
--- NOTE | 2019-11-07 13:16 | SLEEP ---
DATE OF STUDY: OBJECTIVE: The patient is a 48-year-old male with excessive somnolence. Height 5 feet 9 inches, weight 294, body mass index 43. [place] sleep score 18. INTERPRETATION: Sleep architecture is characterized by sleep efficiency of 59% across the 8 hours of recording time. The stage volumes are normal for age. The sleep onset latency is 31 minutes. Respiratory monitoring shows a total of 287 events for an apnea-hypopnea index of 61.4 events per hour of sleep. Minimum oxygen saturation is 81%. Many of the events were mixed apneas. There were several obstructive and a few central apneas. The patient is placed on treatment during the study. There continued to be a large amount of apnea even in the setting of 20 cm. The ending pressure was BiPAP of 24/20, and apnea-hypopnea index of 60 events per hour of sleep. There are no periodic limb movements of sleep or cardiac arrhythmias. The patient was observed to have bruxism during the study. IMPRESSION: Abnormal polysomnogram showing severe obstructive sleep apnea and hypopnea with also some mixed and central apneas. Maximum pressures of BiPAP, did not help much with the apnea. RECOMMENDATIONS: 1. The patient should be started on BiPAP starting in a setting of 24/20 using a Respironics DreamWear full face mask, medium size. 2. Consider returning the lab for further BiPAP titration. 3. Avoid sedatives and alcohol, and pursue the lateral position while asleep, pursue weight loss. Thank you for letting us help with the patient's care. ALEC BLACKMAN MD DR: DAVID/dahiana JOB#: [id number] / [id number] jannet [facility]
== END | disposition home or self-care (01) ==
LOC: SLPLAB 19:28
PROVIDERS: ATTEND Nurse Practitioner Family
DX: G47.33 Obstructive sleep apnea (adult) (pediatric) (principal)
CPT/HCPCS: 95810

== ENCOUNTER 2019-12-06 12:56 | Emergency (ER) | payer OTHER ==
[~2019-12-06] VITALS: Ht 175.3 cm; Wt 134.0 kg
[~2019-12-06 12:56] MED LIST changes: -ZOLPIDEM 5 MG TABLET. PO ONE
--- NOTE | 2019-12-06 13:14 | PHYS DOC ---
Past Medical History Past Medical History: Asthma, Seizure Additional Past Medical Histor: per patient- "enlarged heart and hernia", DEVELOPMENT DELAY Past Surgical History: No Surgical History Smoking Status: Current Every Day Smoker Alcohol Use: None Drug Use: None General Adult HPI: HPI: Patient is a 49 year old male with history of asthma, seizures, developmental delay, who presents to the ED today stating he had a seizure at home. Patient reports being on Depakote. He states he was home when he seized, nobody witnessed the seizure. He states was able to come out of it and call 911. He states he fell down during the seizure and has neck pain and low back pain as well as a slight headache. Patient denies anything specifically exacerbating or relieving his pain. Review of Systems: Review of Systems: Constitutional: Denies fever or chills. [] Eyes: Denies change in visual acuity. [] HENT: Denies nasal congestion or sore throat. [] Respiratory: Denies cough or shortness of breath. [] Cardiovascular: Denies chest pain or edema. [] GI: Denies abdominal pain, nausea, vomiting, bloody stools or diarrhea. [] : Denies dysuria. [] Musculoskeletal: Reports neck pain and low back pain Integument: Denies rash. [] Neurologic: Reports seizure. Denies headache, focal weakness or sensory changes. [] Psychiatric: Denies depression or anxiety. [] Heart Score: Risk Factors: Risk Factors: DM, Current or recent (<one month) smoker, HTN, HLP, family history of CAD, obesity. Risk Scores: Score 0 - 3: 2.5% MACE over next 6 weeks - Discharge Home Score 4 - 6: 20.3% MACE over next 6 weeks - Admit for Clinical Observation Score 7 - 10: 72.7% MACE over next 6 weeks - Early Invasive Strategies Current Medications: Current Medications Medications (Trade) Dose Ordered Sig/Brigido Start Time Stop Time Status Last Admin Dose Admin Sodium Chloride 1,000 ml @ 1,000 mls/hr 1X ONCE 12/06/19 13:15 12/06/19 14:14 Allergies: Allergies: Allergies Coded Allergies Type Severity Reaction Last Updated Verified Penicillins Allergy Intermediate RASH 09/15/19 Yes ibuprofen Allergy Intermediate hives and abd pain 09/15/19 Yes Physical Exam: PE: Constitutional: Well developed, well nourished, no acute distress, non-toxic a ppearance. [] HENT: Normocephalic, atraumatic, bilateral external ears normal, oropharynx moist, no oral exudates, nose normal. [] Eyes: PERRLA, EOMI, conjunctiva normal, no discharge. [] Neck: Normal range of motion, diffuse paraspinal muscle tenderness to posterior cervical spine, no midline cervical spine tenderness, supple, no stridor. [] Cardiovascular:Heart rate regular rhythm, no murmur [] Lungs & Thorax: Bilateral breath sounds clear to auscultation [] Abdomen: Bowel sounds normal, soft, no tenderness, no masses, no pulsatile masses. [] Skin: Warm, dry, no erythema, no rash. [] Back: Diffuse paraspinal muscle tenderness to bilateral lumbar spine, no midline lumbar spine tenderness, no CVA tenderness. [] Extremities: No tenderness, no cyanosis, no clubbing, ROM intact, no edema. [] Neurologic: Alert and oriented X 3, normal motor function, normal sensory function, no focal deficits noted. Cranial nerves II through XII intact Psychologic: Affect normal, judgement normal, mood normal. [] EKG: EKG: [] Radiology/Procedures: Radiology/Procedures: []PROCEDURE: CT HEAD AND CERVICAL SPINE WO CT HEAD AND CERVICAL SPINE WO Date: 12/06/2019 1:26 PM Clinical Indication: pain post falling during seizure Comparison: None. Technique: 5 mm axial tomographic images were obtained of the head without contrast. These were viewed on brain and bone windows. CT imaging of the cervical spine was performed without contrast. Coronal and sagittal reformatted images were performed. One or more of the following dose reduction techniques were utilized: Automated exposure control (AEC), Adjustment of mA and/or kV according to patient size, Use of iterative reconstruction technique such as ASiR, CT scan done according to ALARA and image gently/image wisely HEAD FINDINGS: The brain parenchyma is normal in attenuation. No intra- or extra-axial mass or fluid collection. No acute hemorrhage. The ventricles are normal in size, shape, and morphology. The goncalves-white matter junction is normal. The basilar cisterns are patent. The visualized paranasal sinuses are normal. The visualized portions of the orbits and globes are normal. The mastoid air cells are clear. No aggressive osseous lesion or fracture. CERVICAL SPINE FINDINGS: Straightening of the cervical lordosis. No acute fracture. No aggressive lytic or blastic osseous lesion. Moderate multilevel degenerative disc height loss. Multilevel moderate to severe neuroforaminal narrowing due to facet arthropathy and uncovertebral hypertrophy. Multilevel mild and moderate spinal canal stenosis due to marginal osteophytes and protrusions. The thyroid gland is normal. No cervical lymphadenopathy. The visualized aerodigestive tract is unremarkable. Carotid artery atherosclerotic disease. The visualized lung apices are clear. IMPRESSION: 1. No acute intracranial process. 2. No acute osseous abnormality of the cervical spine. Electronically signed by: Rene Burgos MD (12/06/2019 1:48 PM) [id number] DICTATED and SIGNED BY: RENE BURGOS MD DATE: 12/06/19 [id number] PROCEDURE: CT LUMBAR SPINE WO CONTRAST CT LUMBAR SPINE WO CONTRAST Date: 12/06/2019 1:31 PM Indication: pain post falling during seizure Comparison: CT abdomen pelvis 09/24/2019. Technique: Helical CT images of the lumbar spine were obtained without contrast. Coronal and sagittal reformatted images were also performed. One or more of the following dose reduction techniques were utilized: Automated exposure control (AEC), Adjustment of mA and/or kV according to patient size, Use of iterative reconstruction technique such as ASiR, CT scan done according to ALARA and image gently/image wisely. Findings: The lumbar spine is normally aligned. No acute fracture. Vertebral body heights are maintained without compression deformity. No aggressive lytic or blastic osseous lesion. Moderate multilevel degenerative disc space height loss. Multilevel mild spinal canal stenosis secondary to multilevel disc bulging and facet arthrosis. Multilevel moderate to severe neuroforaminal narrowing. Multilevel mild and moderate facet arthrosis. No soft tissue abnormality within the visualized abdomen or pelvis. Mild aortoiliac atherosclerotic disease. IMPRESSION: No acute osseous abnormality of the lumbar spine. Electronically signed by: Rene Burgos MD (12/06/2019 1:50 PM) [id number] DICTATED and SIGNED BY: RENE BURGOS MD DATE: 12/06/19 [id number] Course & Med Decision Making: Course & Med Decision Making Pertinent Labs and Imaging studies reviewed. (See chart for details) This is a 49-year-old male patient with history of seizures presenting today for evaluated after having unwitnessed seizure at home. Patient is complaining of a slight headache, neck pain and low back pain. CT of the head, cervical spine and lumbar spine are negative for any acute findings. CBC no acute findings, CMP with no acute findings, lactic 2.3. Patient was discharged to home. Encouraged to continue taking his seizure medicines as prescribed by his own doctor. He states he has a neurologist that he follows up. Adriana Disclaimer: Adriana Disclaimer: This electronic medical record was generated, in whole or in part, using a voice recognition dictation system. Departure Departure Impression: Primary Impression: Seizure Additional Impressions: Fall Qualified Codes: W19.XXXA - Unspecified fall, initial encounter Cervical spine pain Lumbar contusion Qualified Codes: S30.0XXA - Contusion of lower back and pelvis, initial encounter CHI (closed head injury) Qualified Codes: S09.90XA - Unspecified injury of head, initial encounter Disposition: 01 DC HOME SELF CARE/HOMELESS Condition: STABLE Referrals: BHARTI CHOPRA JR, MD (PCP) follow up next week Patient Instructions: Contusion, [id number], Head Injury, Adult, Seizure, Adult Additional Instructions: You were evaluated in the emergency room after having a seizure. Your CAT scan of the head, neck and low back are negative for any acute findings. Follow-up with your neurologist as well as your primary care doctor in the course of this week or next week. GRACIELA TAMAYO APRN Dec 06, 2019 13:14
[2019-12-06] MEDS ORDERED: IV NORMAL SALINE 1000ML BAG 1,000 ML IV ONE (13:15)
[2019-12-06 13:25] LABS: BASO % 1 % (0-3); EOS % 0 % (0-3); HEMATOCRIT 43.3 % (39.0-53.0); HEMOGLOBIN 14.5 g/dL (13.0-17.5); LYMPH # 2.5 x10^3/uL (1.0-4.8); LYMPH % 44 % (24-48); MEAN CORPUSCULAR HEMOGLOBIN 30 pg (25-35); MEAN CORPUSCULAR HGB CONC 33 g/dL (31-37); MEAN CORPUSCULAR VOLUME 91 fL (79-100); MONO # 0.5 x10^3/uL (0.0-1.1); MONO % 9 % (0-9); NEUT # 2.5 x10^3/uL (1.8-7.7); NEUT % 45 % (31-73); PLATELET COUNT 196 x10^3/uL (140-400); RED BLOOD COUNT 4.78 x10^6/uL (4.30-5.70); RED CELL DISTRIBUTION WIDTH 16.5 % (11.5-14.5); WHITE BLOOD COUNT 5.5 x10^3/uL (4.0-11.0)
[2019-12-06 13:36] LABS: CALCIUM 9.2 mg/dL (8.5-10.1); CREATININE 0.7 mg/dL (0.7-1.3); GFR 143.9; POTASSIUM 3.5 mmol/L (3.5-5.1)
[2019-12-06 13:41] LABS: ALBUMIN 3.4 g/dL (3.4-5.0); MAGNESIUM 1.9 mg/dL (1.8-2.4); TOTAL BILIRUBIN 0.2 mg/dL (0.2-1.0); TOTAL PROTEIN 6.9 g/dL (6.4-8.2)
--- NOTE | 2019-12-06 13:51 | RAD ---
CT HEAD AND CERVICAL SPINE WO Date: 12/06/2019 1:26 PM Clinical Indication: pain post falling during seizure Comparison: None. Technique: 5 mm axial tomographic images were obtained of the head without contrast. These were viewed on brain and bone windows. CT imaging of the cervical spine was performed without contrast. Coronal and sagittal reformatted images were performed. One or more of the following dose reduction techniques were utilized: Automated exposure control (AEC), Adjustment of mA and/or kV according to patient size, Use of iterative reconstruction technique such as ASiR, CT scan done according to ALARA and image gently/image wisely HEAD FINDINGS: The brain parenchyma is normal in attenuation. No intra- or extra-axial mass or fluid collection. No acute hemorrhage. The ventricles are normal in size, shape, and morphology. The goncalves-white matter junction is normal. The basilar cisterns are patent. The visualized paranasal sinuses are normal. The visualized portions of the orbits and globes are normal. The mastoid air cells are clear. No aggressive osseous lesion or fracture. CERVICAL SPINE FINDINGS: Straightening of the cervical lordosis. No acute fracture. No aggressive lytic or blastic osseous lesion. Moderate multilevel degenerative disc height loss. Multilevel moderate to severe neuroforaminal narrowing due to facet arthropathy and uncovertebral hypertrophy. Multilevel mild and moderate spinal canal stenosis due to marginal osteophytes and protrusions. The thyroid gland is normal. No cervical lymphadenopathy. The visualized aerodigestive tract is unremarkable. Carotid artery atherosclerotic disease. The visualized lung apices are clear. IMPRESSION: 1. No acute intracranial process. 2. No acute osseous abnormality of the cervical spine. Electronically signed by: Torres Burgos MD (12/06/2019 1:48 PM) [id number]
--- NOTE | 2019-12-06 13:53 | RAD ---
CT LUMBAR SPINE WO CONTRAST Date: 12/06/2019 1:31 PM Indication: pain post falling during seizure Comparison: CT abdomen pelvis 09/24/2019. Technique: Helical CT images of the lumbar spine were obtained without contrast. Coronal and sagittal reformatted images were also performed. One or more of the following dose reduction techniques were utilized: Automated exposure control (AEC), Adjustment of mA and/or kV according to patient size, Use of iterative reconstruction technique such as ASiR, CT scan done according to ALARA and image gently/image wisely. Findings: The lumbar spine is normally aligned. No acute fracture. Vertebral body heights are maintained without compression deformity. No aggressive lytic or blastic osseous lesion. Moderate multilevel degenerative disc space height loss. Multilevel mild spinal canal stenosis secondary to multilevel disc bulging and facet arthrosis. Multilevel moderate to severe neuroforaminal narrowing. Multilevel mild and moderate facet arthrosis. No soft tissue abnormality within the visualized abdomen or pelvis. Mild aortoiliac atherosclerotic disease. IMPRESSION: No acute osseous abnormality of the lumbar spine. Electronically signed by: Torres Burgos MD (12/06/2019 1:50 PM) [id number]
[2019-12-06] MEDS ORDERED: methylPREDNISolone SOD SUCC PF 125 MG/2 ML VIAL. IV ONE (14:15)
[2019-12-06] MEDS ORDERED: KETOROLAC 30 MG/ML VIAL. IVP ONE (14:15)
[2019-12-06 14:27] LABS: BILIRUBIN,URINE NEGATIVE (NEG); CLARITY,URINE CLEAR; COLOR,URINE YELLOW; NITRITE,URINE NEGATIVE (NEG); PH,URINE 6.5 (<5.0-8.0); PROTEIN,URINE NEGATIVE (NEG-TRACE)
[2019-12-06 14:30] VITALS: BP 135/79
[2019-12-06 14:32] LABS: BACTERIA,URINE 0 /HPF (0-FEW); BARBITURATES NEG (NEG); BENZODIAZEPINES NEG (NEG); CANNABINOIDS NEG (NEG); COCAINE NEG (NEG); METHADONE NEG (NEG); OPIATES NEG (NEG); PHENCYCLIDINE NEG (NEG); RBC,URINE 0 /HPF (0-2); WBC,URINE 0 /HPF (0-4)
[2019-12-06 14:34] LABS: AMPHETAMINE/METHAMPHETAMINE NEG (NEG)
== END 2019-12-06 14:50 | disposition home or self-care (01) ==
LOC: ER 12:56
DX: S30.0XXA Contusion of lower back and pelvis, initial encounter (principal); S09.8XXA Other specified injuries of head, initial encounter; M54.2 Cervicalgia; R56.9 Unspecified convulsions; M54.5 Low back pain; J45.909 Unspecified asthma, uncomplicated; F17.200 Nicotine dependence, unspecified, uncomplicated; Z98.890 Other specified postprocedural states; W18.39XA Other fall on same level, initial encounter; Y93.89 Activity, other specified; Y92.89 Other specified places as the place of occurrence of the external cause; Y99.8 Other external cause status
CPT/HCPCS: 36415; 70450; 72125; 72131; 80053; 80307; 81001; 83605; 83735; 85025; 96361; 96374; 96375; 99285; G0480; J1885; J2930; J7030

== ENCOUNTER → 2019-12-19 | Outpatient (CLI) | payer OTHER ==
[2019-12-06 14:30] VITALS: BP 135/79
[~2019-12-19] MED LIST changes: +ZOLPIDEM 5 MG TABLET. PO ONE
--- NOTE | 2019-12-20 14:28 | SLEEP ---
DATE OF STUDY: 12/19/2019 INDICATIONS: The patient is a 49-year-old male who underwent polysomnography on 11/07/2019. That study showed severe obstructive sleep apnea and hypopnea with mixed and central apnea, not responsive to several settings of BiPAP. The patient is here for further BiPAP titration. INTERPRETATION: Sleep architecture is characterized by sleep efficiency of 82% across the 6.9 hours of recording time. Stage volumes are appropriate for age. Respiratory monitoring shows a total of 99 events. The patient is placed on further BiPAP titration. At a setting of 30/21 with a rate of 10, the patient had an apnea-hypopnea index of 2.1 events per hour of sleep. No significant cardiac arrhythmias or periodic limb movements of sleep are observed. IMPRESSION: Abnormal polysomnogram showing continued apnea, which should be controllable on BiPAP, 30/21, rate of 10 using ResMed full face mask, medium size. RECOMMENDATIONS: 1. The BiPAP should be adjusted to this dose. 2. The patient should avoid sedatives and alcohol and pursue weight loss. Thank you for letting us help with the patient's care. ALEC BLACKMAN MD DR: DAVID/dahiana JOB#: [id number] / [id number] BHARTI Farris MD, CHRISTINA FNP [place], [place]
== END ==
LOC: RT 19:09
PROVIDERS: ATTEND Psychiatry & Neurology Neurology with Special Qualifications in Child Neurology
DX: G47.33 Obstructive sleep apnea (adult) (pediatric) (principal)
CPT/HCPCS: 95811

== ENCOUNTER 2020-01-10 01:20 | Inpatient (IN) | payer OTHER ==
[~2020-01-10] VITALS: Ht 175.3 cm; Wt 141.0 kg
[~2020-01-10 01:20] MED LIST changes: -ZOLPIDEM 5 MG TABLET. PO ONE
[2020-01-10 01:53] LABS: BASO % 0 % (0-3); EOS % 0 % (0-3); HEMATOCRIT 43.7 % (39.0-53.0); LYMPH # 2.1 x10^3/uL (1.0-4.8); LYMPH % 33 % (24-48); MEAN CORPUSCULAR HEMOGLOBIN 31 pg (25-35); MEAN CORPUSCULAR HGB CONC 34 g/dL (31-37); MEAN CORPUSCULAR VOLUME 91 fL (79-100); MONO # 0.6 x10^3/uL (0.0-1.1); MONO % 10 % (0-9); NEUT # 3.7 x10^3/uL (1.8-7.7); NEUT % 57 % (31-73); PLATELET COUNT 216 x10^3/uL (140-400); RED BLOOD COUNT 4.78 x10^6/uL (4.30-5.70); RED CELL DISTRIBUTION WIDTH 16.6 % (11.5-14.5); WHITE BLOOD COUNT 6.5 x10^3/uL (4.0-11.0)
[2020-01-10 02:02] LABS: CALCIUM 9.3 mg/dL (8.5-10.1); CREATININE 0.8 mg/dL (0.7-1.3); GFR 123.3; POTASSIUM 3.8 mmol/L (3.5-5.1)
[2020-01-10] MEDS ORDERED: MORPHINE SULFATE 2 MG/ML VIAL. IV ONE (02:15)
[2020-01-10 02:17] LABS: ALBUMIN 3.5 g/dL (3.4-5.0); ALBUMIN/GLOBULIN RATIO 0.9 (1.0-1.7); C-REACTIVE PROTEIN 7.3 mg/L (0-3.3); TOTAL BILIRUBIN 0.3 mg/dL (0.2-1.0); TOTAL PROTEIN 7.3 g/dL (6.4-8.2)
--- NOTE | 2020-01-10 02:17 | RAD ---
CHEST AP ONLY Clinical History: Reason: cough, covid? / Spl. Instructions: / History: Technique: AP view of the chest was obtained at 01/10/2020 1:30 AM. Comparison: October 09, 2019. Findings: The cardiomediastinal silhouette is normal. The pulmonary vasculature is normal. There is linear opacities in the lung bases. Impression: Mild basal infiltrates could be discoid atelectasis or early pneumonia. Electronically signed by: Dimas Cain III, MD (01/10/2020 2:14 AM) [facility]
--- NOTE | 2020-01-10 02:55 | ED.ADGEN ---
Past Medical History Past Medical History: Asthma, Hypertension, Seizure Additional Past Medical Histor: per patient- "enlarged heart and hernia", DEVELOPMENTAL DELAY Past Surgical History: No Surgical History Smoking Status: Current Every Day Smoker Additional Information: 7 cigs/day Alcohol Use: None Drug Use: None General Adult EDM: Chief Complaint: CHEST PAIN HPI: HPI: Patient is a 49-year-old male who presents to the emergency room with a 2-hour history of right-sided pleuritic chest pain. Patient has had similar episodes in the past the last one in September. He states this is much worse. He has associated shortness of breath. He also has lower back pain which is chronic. He denies any new back pain. He denies any trauma. He denies any bowel or bladder issues. He is not having difficulty walking. He denies any cough, URI symptoms, fever. Review of Systems: Review of Systems: Complete ROS is negative unless otherwise documented in HPI Current Medications: Current Medications Medications (Trade) Dose Ordered Sig/Brigido Start Time Stop Time Status Last Admin Dose Admin Info (CONTRAST GIVEN -- Rx MONITORING) 1 each PRN DAILY PRN 01/10/20 03:00 01/12/20 02:59 Iohexol (Omnipaque 350 Mg/ml) 100 ml 1X ONCE 01/10/20 03:00 01/10/20 03:01 DC 01/10/20 03:13 100 ML Morphine Sulfate (Morphine Sulfate) 2 mg 1X ONCE 01/10/20 02:15 01/10/20 02:19 DC 01/10/20 02:18 2 MG Allergies: Allergies: Allergies Coded Allergies Type Severity Reaction Last Updated Verified Penicillins Allergy Intermediate RASH 09/15/19 Yes ibuprofen Allergy Intermediate hives and abd pain 09/15/19 Yes Physical Exam: PE: General: Awake, alert, NAD. Well Nourished, well hydrated. Cooperative HEENT: Atraumatic, EOMI, PERRL, airway patent, moist oral mucosa Neck: Supple, trachea midline Respiratory: CTA bilaterally, normal effort, no wheezing/crackles CV: RRR, no murmur, cap refill <2 GI: Soft, nondistended, nontender, no masses MSK: No obvious deformities Skin: Warm, dry, intact Neuro: A&O x3, speech NL, sensory and motor grossly intact, no focal deficits Psych: Normal affect, normal mood, not suicidal or homicidal Current Patient Data: Labs: Laboratory Tests Test 01/10/20 01:30 White Blood Count 6.5 x10^3/uL (4.0-11.0) Red Blood Count 4.78 x10^6/uL (4.30-5.70) Hemoglobin 15.0 g/dL (13.0-17.5) Hematocrit 43.7 % (39.0-53.0) Mean Corpuscular Volume 91 fL (79-100) Mean Corpuscular Hemoglobin 31 pg (25-35) Mean Corpuscular Hemoglobin Concent 34 g/dL (31-37) Red Cell Distribution Width 16.6 % (11.5-14.5) H Platelet Count 216 x10^3/uL (140-400) Neutrophils (%) (Auto) 57 % (31-73) Lymphocytes (%) (Auto) 33 % (24-48) Monocytes (%) (Auto) 10 % (0-9) H Eosinophils (%) (Auto) 0 % (0-3) Basophils (%) (Auto) 0 % (0-3) Neutrophils # (Auto) 3.7 x10^3/uL (1.8-7.7) Lymphocytes # (Auto) 2.1 x10^3/uL (1.0-4.8) Monocytes # (Auto) 0.6 x10^3/uL (0.0-1.1) Eosinophils # (Auto) 0.0 x10^3/uL (0.0-0.7) Basophils # (Auto) 0.0 x10^3/uL (0.0-0.2) Sodium Level 137 mmol/L (136-145) Potassium Level 3.8 mmol/L (3.5-5.1) Chloride Level 101 mmol/L (98-107) Carbon Dioxide Level 28 mmol/L (21-32) Anion Gap 8 (6-14) Blood Urea Nitrogen 5 mg/dL (8-26) L Creatinine 0.8 mg/dL (0.7-1.3) Estimated GFR (Cockcroft-Gault) 123.3 BUN/Creatinine Ratio 6 (6-20) Glucose Level 189 mg/dL (70-99) H Calcium Level 9.3 mg/dL (8.5-10.1) Total Bilirubin 0.3 mg/dL (0.2-1.0) Aspartate Amino Transferase (AST) 44 U/L (15-37) H Alanine Aminotransferase (ALT) 57 U/L (16-63) Alkaline Phosphatase 118 U/L (46-116) H Lactate Dehydrogenase 243 U/L (85-227) H Creatine Kinase 1125 U/L (39-308) H Troponin I Quantitative < 0.017 ng/mL (0.000-0.055) C-Reactive Protein, Quantitative 7.3 mg/L (0-3.3) H PD-Jom-U-Type Natriuretic Peptide 5 pg/mL (0-124) Total Protein 7.3 g/dL (6.4-8.2) Albumin 3.5 g/dL (3.4-5.0) Albumin/Globulin Ratio 0.9 (1.0-1.7) L Laboratory Tests 01/10/20 01:30 Laboratory Tests 01/10/20 01:30 Vital Signs: Vital Signs Date Time Temp Pulse Resp B/P (MAP) Pulse Ox O2 Delivery O2 Flow Rate FiO2 01/10/20 03:11 92 18 120/65 (83) 92 Nasal Cannula 2.0 01/10/20 01:20 98.2 98.2 EKG: EKG: [] Heart Score: Risk Factors: Risk Factors: DM, Current or recent (<one month) smoker, HTN, HLP, family history of CAD, obesity. Risk Scores: Score 0 - 3: 2.5% MACE over next 6 weeks - Discharge Home Score 4 - 6: 20.3% MACE over next 6 weeks - Admit for Clinical Observation Score 7 - 10: 72.7% MACE over next 6 weeks - Early Invasive Strategies Radiology/Procedures: Radiology/Procedures: [] Course & Med Decision Making: Course & Med Decision Making Pertinent Labs and Imaging studies reviewed. (See chart for details) Patient is a 49-year-old male who presents to the emergency room complaining of pleuritic right-sided chest pain that started 2 hours prior to arrival. This pain is not consistent with cardiac chest pain. He does not have any cough or fever at this time. However it is still possible that he may have early pn eumonia. Differential diagnosis also includes pulmonary embolism, congestive heart failure, chest wall pain, novel coronavirus 19. Chest x-ray shows possible early pneumonia. Covid swab was sent. CT angio was ordered. CT negative for PE. While in the ED patient became hypoxic. He also had several episodes of tachycardia especially with any exertion. At this time he is requiring supplemental oxygen. Will admit for further care. Dragon Disclaimer: Dragon Disclaimer: This electronic medical record was generated, in whole or in part, using a voice recognition dictation system. Departure Departure Impression: Primary Impression: Non-cardiac chest pain Additional Impressions: Hypoxia Shortness of breath SVT (supraventricular tachycardia) Disposition: 09 ADMITTED INPT THIS HOSP Condition: STABLE Referrals: BHARTI CHOPRA JR, MD (PCP) Problem Qualifiers SAPNA CADE MD Jan 10, 2020 02:55
[2020-01-10] MEDS ORDERED: IOHEXOL 350 MG/ML 100 ML VIAL. IV ONE (03:00)
[2020-01-10] MEDS ORDERED: CONTRAST GIVEN. MC PRN (03:00)
--- NOTE | 2020-01-10 03:30 | RAD ---
CTA Chest with contrast: Clinical History: Reason: chest pain Axial helical images of the chest were obtained after the administration of 100 cc of IV Omni 350 and timed appropriately for a pulmonary arterial study. Conventional axial reconstruction was performed in addition to coronal, sagittal and bilateral oblique MIP (maximum intensity projection). This study was ordered to detect possible pulmonary embolism. There are no filling defects to suggest pulmonary embolism. The lungs and pleural margins are clear. There is no mediastinal or hilar lymphadenopathy. The thoracic aorta appears normal. Impression: 1. No evidence of pulmonary embolism. 2. No significant findings. PQRS Compliance Statement: One or more of the following individualized dose reduction techniques were utilized for this examination: 1. Automated exposure control 2. Adjustment of the mA and/or kV according to patient size 3. Use of iterative reconstruction technique Electronically signed by: Dimas Cain III, MD (01/10/2020 3:27 AM) [facility]
[2020-01-10] MEDS ORDERED: LEVE500T6 PO (06:10)
[2020-01-10] MEDS ORDERED: NAPR-514 PO (06:10)
[2020-01-10] MEDS ORDERED: GABA100C6 PO (06:10)
[2020-01-10 06:27] VITALS: BP 127/86
--- NOTE | 2020-01-10 08:52 | EKG ---
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
--- NOTE | 2020-01-10 09:22 | PDOC1 ---
History and Physical Date of Admission Date of Admission DATE: 01/10/20 TIME: 09:22 Identification/Chief Complaint Chief Complaint SEEN IN ER PUI , CHEST PAIN 49-year-old male who presents to the emergency room with a 2-hour history of right-sided pleuritic chest pain. Patient has had similar episodes in the past the last one in September. He states this is much worse. He has associated shortness of breath. He also has lower back pain which is chronic. pos cough, URI symptoms, mild fever. lft's elevated as well as cpk, cxr concerning for infiltrate Past Medical History Past Medical History Past Medical History Past Medical History Past Medical History: Asthma, Hypertension, Seizure Additional Past Medical Histor: per patient- "enlarged heart and hernia", DEVELOPMENTAL DELAY Past Surgical History: No Surgical History Smoking Status: Current Every Day Smoker Additional Information: 7 cigs/day Alcohol Use: None Drug Use: None FHX OBESITY Family History Family History: Hypertension Social History Smoke: <1 pack per day ALCOHOL: none Drugs: None Current Problem List Problem List Problems Medical Problems: (1) Hypoxia Status: Acute (2) Non-cardiac chest pain Status: Acute (3) Shortness of breath Status: Acute (4) SVT (supraventricular tachycardia) Status: Acute Current Medications Current Medications Current Medications Morphine Sulfate (Morphine Sulfate) 2 mg 1X ONCE IV Last administered on 01/10/20at 02:18; Start 01/10/20 at 02:15; Stop 01/10/20 at 02:19; Status DC Iohexol (Omnipaque 350 Mg/ml) 100 ml 1X ONCE IV Last administered on 01/10/20at 03:13; Start 01/10/20 at 03:00; Stop 01/10/20 at 03:01; Status DC Info (CONTRAST GIVEN -- Rx MONITORING) 1 each PRN DAILY PRN MC SEE COMMENTS; Start 01/10/20 at 03:00; Stop 01/12/20 at 02:59 Active Scripts Active Carafate (Sucralfate) 1 Gm Tablet 1 Tab PO QID 30 Days Omeprazole 40 Mg Capsule.dr 40 Mg PO DAILY 30 Days Take 1/2-hour before the first meal the day Levsin-Sl (Hyoscyamine Sulfate) 0.125 Mg Tab.subl 0.125 Mg SL Q4-6HRS PRN Pepcid (Famotidine) 20 Mg Tablet 20 Mg PO HS Reported Levetiracetam 500 Mg Tablet 1 Tab PO BID Gabapentin 100 Mg Capsule 1 Cap PO TID Naproxen 500 Mg Tablet 1 Tab PO BID [haldol inj monthly] Depakote (Divalproex Sodium) 500 Mg Tablet.dr 500 Mg PO BID Allergies Allergies: Coded Allergies: Penicillins (Verified Allergy, Intermediate, RASH, 09/15/19) ibuprofen (Verified Allergy, Intermediate, hives and abd pain, 01/10/20) TAKES NAPROXEN AT HOME ROS General: YES: Chills, Fatigue, Malaise PSYCHOLOGICAL ROS: No: Anxiety, Behavioral Disorder, Concentration difficultie, Decreased libido, Depression, Disorientation, Hallucinations, Hostility, Irritablity, Memory difficulties, Mood Swings, Obsessive thoughts, Physical abuse, Sexual abuse, Sleep disturbances, Suicidal ideation, Other Eyes: No Blurry vision, No Decreased vision, No Double vision, No Dry eyes, No Excessive tearing, No Eye Pain, No Itchy Eyes, No Loss of vision, No Photophobia, No Scotomata, No Uses contacts, No Uses glasses, No Other HEENT: YES: Heacaches; No: Visual Changes, Hearing change, Nasal congestion, Nasal discharge, Oral lesions, Sinus pain, Sore Throat, Epistaxis, Sneezing, Snoring, Tinnitus, Vertigo, Vocal changes, Other Hematological and Lymphatic: No: Bleeding Problems, Blood Clots, Blood Transfusions, Brusing, Night Sweats, Pallor, Swollen Lymph Nodes, Other ENDOCRINE: No: Breast Changes, Galactorrhea, Hair Pattern Changes, Hot Flashes, Malaise/lethargy, Mood Swings, Palpitations, Polydipsia/polyuria, Skin Changes, Temperature Intolerance, Unexpected Weight Changes, Other Respiratory: YES: Cough, Shortness of breath; No: Hemoptysis, Orthopnea, Pleuritic Pain, SOB with excertion, Sputum Changes, Stridor, Tachypnea, Wheezing, Other Cardiovascular: yes Chest Pain; No Palpitations, No Orthopnea, No Paroxysmal Noc. Dyspnea, No Edema, No Lt Headedness, No Other Gastrointestinal: No Nausea, No Vomiting, No Abdominal Pain, No Diarrhea, No Constipation, No Melena, No Hematochezia, No Other Genitourinary: No Dysuria, No Frequency, No Incontinence, No Hematuria, No Retention, No Discharge, No Urgency, No Pain, No Flank Pain, No Other, No , No , No , No , No , No , No Musculoskeletal: Yes Joint Stiffness Neurological: Yes Behavorial Changes, Yes Confusion; No Bowel/Bladder ControlChng, No Dizziness, No Gait Disturbance, No Headaches, No Impaired Coord/balance, No Memory Loss, No Numbness/Tingling, No Seizures, No Speech Problems, No Tremors, No Visual Changes, No Weakness, No Other Skin: No Dry Skin, No Eczema, No Hair Changes, No Lumps, No Mole Changes, No Mottling, No Nail Changes, No Pruritus, No Rash, No Skin Lesion Changes, No Other, No Acne Physical Exam Physical Exam General: Awake, alert, NAD. Well Nourished, well hydrated. Cooperative HEENT: Atraumatic, EOMI, PERRL, airway patent, moist oral mucosa Neck: Supple, trachea midline Respiratory: CTA bilaterally, normal effort, no wheezing/crackles CV: RRR, no murmur, cap refill <2 GI: Soft, nondistended, nontender, no masses MSK: No obvious deformities Skin: Warm, dry, intact Neuro: A&O x3, speech NL, sensory and motor grossly intact, no focal deficits Psych: Normal affect, normal mood, not suicidal or homicidal General: Alert, Cooperative, No acute distress HEENT: Atraumatic, EOMI, Mucous membr. moist/pink Lungs: Clear to auscultation Heart: RRR, no murmurs Abdomen: Normal bowel sounds, Soft Rectal Exam: not examined PELVIC: Examination not indicated Extremities: No cyanosis, No edema Neuro: Normal speech, Normal tone, Cranial nerves 3-12 NL Psych/Mental Status: Mental status NL, Mood NL Vitals Vitals Vital Signs Date Time Temp Pulse Resp B/P (MAP) Pulse Ox O2 Delivery O2 Flow Rate FiO2 01/10/20 06:27 97.5 83 18 127/86 (100) 97 Nasal Cannula 3.0 97.5 Labs Labs Laboratory Tests Test 01/10/20 01:30 White Blood Count 6.5 x10^3/uL (4.0-11.0) Red Blood Count 4.78 x10^6/uL (4.30-5.70) Hemoglobin 15.0 g/dL (13.0-17.5) Hematocrit 43.7 % (39.0-53.0) Mean Corpuscular Volume 91 fL (79-100) Mean Corpuscular Hemoglobin 31 pg (25-35) Mean Corpuscular Hemoglobin Concent 34 g/dL (31-37) Red Cell Distribution Width 16.6 % (11.5-14.5) Platelet Count 216 x10^3/uL (140-400) Neutrophils (%) (Auto) 57 % (31-73) Lymphocytes (%) (Auto) 33 % (24-48) Monocytes (%) (Auto) 10 % (0-9) Eosinophils (%) (Auto) 0 % (0-3) Basophils (%) (Auto) 0 % (0-3) Neutrophils # (Auto) 3.7 x10^3/uL (1.8-7.7) Lymphocytes # (Auto) 2.1 x10^3/uL (1.0-4.8) Monocytes # (Auto) 0.6 x10^3/uL (0.0-1.1) Eosinophils # (Auto) 0.0 x10^3/uL (0.0-0.7) Basophils # (Auto) 0.0 x10^3/uL (0.0-0.2) Sodium Level 137 mmol/L (136-145) Potassium Level 3.8 mmol/L (3.5-5.1) Chloride Level 101 mmol/L (98-107) Carbon Dioxide Level 28 mmol/L (21-32) Anion Gap 8 (6-14) Blood Urea Nitrogen 5 mg/dL (8-26) Creatinine 0.8 mg/dL (0.7-1.3) Estimated GFR (Cockcroft-Gault) 123.3 BUN/Creatinine Ratio 6 (6-20) Glucose Level 189 mg/dL (70-99) Calcium Level 9.3 mg/dL (8.5-10.1) Total Bilirubin 0.3 mg/dL (0.2-1.0) Aspartate Amino Transf (AST/SGOT) 44 U/L (15-37) Alanine Aminotransferase (ALT/SGPT) 57 U/L (16-63) Alkaline Phosphatase 118 U/L (46-116) Lactate Dehydrogenase 243 U/L (85-227) Creatine Kinase 1125 U/L (39-308) Troponin I Quantitative < 0.017 ng/mL (0.000-0.055) C-Reactive Protein, Quantitative 7.3 mg/L (0-3.3) UP-Mju-X-Type Natriuretic Peptide 5 pg/mL (0-124) Total Protein 7.3 g/dL (6.4-8.2) Albumin 3.5 g/dL (3.4-5.0) Albumin/Globulin Ratio 0.9 (1.0-1.7) Laboratory Tests Test 01/10/20 01:30 White Blood Count 6.5 x10^3/uL (4.0-11.0) Red Blood Count 4.78 x10^6/uL (4.30-5.70) Hemoglobin 15.0 g/dL (13.0-17.5) Hematocrit 43.7 % (39.0-53.0) Mean Corpuscular Volume 91 fL (79-100) Mean Corpuscular Hemoglobin 31 pg (25-35) Mean Corpuscular Hemoglobin Concent 34 g/dL (31-37) Red Cell Distribution Width 16.6 % (11.5-14.5) Platelet Count 216 x10^3/uL (140-400) Neutrophils (%) (Auto) 57 % (31-73) Lymphocytes (%) (Auto) 33 % (24-48) Monocytes (%) (Auto) 10 % (0-9) Eosinophils (%) (Auto) 0 % (0-3) Basophils (%) (Auto) 0 % (0-3) Neutrophils # (Auto) 3.7 x10^3/uL (1.8-7.7) Lymphocytes # (Auto) 2.1 x10^3/uL (1.0-4.8) Monocytes # (Auto) 0.6 x10^3/uL (0.0-1.1) Eosinophils # (Auto) 0.0 x10^3/uL (0.0-0.7) Basophils # (Auto) 0.0 x10^3/uL (0.0-0.2) Sodium Level 137 mmol/L (136-145) Potassium Level 3.8 mmol/L (3.5-5.1) Chloride Level 101 mmol/L (98-107) Carbon Dioxide Level 28 mmol/L (21-32) Anion Gap 8 (6-14) Blood Urea Nitrogen 5 mg/dL (8-26) Creatinine 0.8 mg/dL (0.7-1.3) Estimated GFR (Cockcroft-Gault) 123.3 BUN/Creatinine Ratio 6 (6-20) Glucose Level 189 mg/dL (70-99) Calcium Level 9.3 mg/dL (8.5-10.1) Total Bilirubin 0.3 mg/dL (0.2-1.0) Aspartate Amino Transf (AST/SGOT) 44 U/L (15-37) Alanine Aminotransferase (ALT/SGPT) 57 U/L (16-63) Alkaline Phosphatase 118 U/L (46-116) Lactate Dehydrogenase 243 U/L (85-227) Creatine Kinase 1125 U/L (39-308) Troponin I Quantitative < 0.017 ng/mL (0.000-0.055) C-Reactive Protein, Quantitative 7.3 mg/L (0-3.3) MQ-Fvs-N-Type Natriuretic Peptide 5 pg/mL (0-124) Total Protein 7.3 g/dL (6.4-8.2) Albumin 3.5 g/dL (3.4-5.0) Albumin/Globulin Ratio 0.9 (1.0-1.7) Images Images CHEST AP ONLY Clinical History: Reason: cough, covid? / Spl. Instructions: / History: Technique: AP view of the chest was obtained at 01/10/2020 1:30 AM. Comparison: October 09, 2019. Findings: The cardiomediastinal silhouette is normal. The pulmonary vasculature is normal. There is linear opacities in the lung bases. Impression: Mild basal infiltrates could be discoid atelectasis or early pneumonia. Electronically signed by: Jacob Cain III, MD (01/10/2020 2:14 AM) [facility] DICTATED and SIGNED BY: JACOB CAIN III, MD DATE: 01/10/20213 CTA Chest with contrast: Clinical History: Reason: chest pain Axial helical images of the chest were obtained after the administration of 100 cc of IV Omni 350 and timed appropriately for a pulmonary arterial study. Conventional axial reconstruction was performed in addition to coronal, sagittal and bilateral oblique MIP (maximum intensity projection). This study was ordered to detect possible pulmonary embolism. There are no filling defects to suggest pulmonary embolism. The lungs and pleural margins are clear. There is no mediastinal or hilar lymphadenopathy. The thoracic aorta appears normal. Impression: 1. No evidence of pulmonary embolism. 2. No significant findings. PQRS Compliance Statement: One or more of the following individualized dose reduction techniques were utilized for this examination: 1. Automated exposure control 2. Adjustment of the mA and/or kV according to patient size 3. Use of iterative reconstruction technique Electronically signed by: Jacob Cain III, MD (01/10/2020 3:27 AM) [facility] DICTATED and SIGNED BY: JACOB CAIN III, MD DATE: 01/10/20 0327 VTE Prophylaxis Ordered VTE Prophylaxis Devices: No VTE Pharmacological Prophylaxi: Yes Assessment/Plan Assessment/Plan Impression: 1. ANGINAL PAINS, atypical 2. No evidence of pulmonary embolism. Mild basal infiltrates could be discoid atelectasis or early pneumonia. on CXR 3. No significant findings. to suggest covid-[address] 4. Dyspnea 5. morbid obesity 6. tobacco abuse disorder 7. hx seizure disorder 8. hypertension 9. cognitive delay, longstanding 10. transaminitis 11. rhabdomyolysis plan admit PUI TELE 6TH floor resp isolation cardiology consult dvt prophylaxis home meds trend troponin i PULM CONSULT iv steroids EMPERIC DOXYCYCLINE IV Smoking cessation encouraged GI CONSULT ALISIA ORELLANA Hold any hepatotoxic meds Justifications for Admission Other Justification ILIANA GUIDRY MD Jan 10, 2020 09:22
[2020-01-10 10:58] VITALS: BP 139/96
[2020-01-10] MEDS ORDERED: guaiFENesin ORAL 200 MG/10 ML LIQUID. PO PRN (11:15)
[2020-01-10] MEDS ORDERED: DOCUSATE SODIUM 100 MG CAPSULE. PO PRN (11:15)
[2020-01-10] MEDS ORDERED: ACETAMINOPHEN 325 MG TABLET. PO PRN (11:15)
[2020-01-10] MEDS ORDERED: MAG HYDROX/ALUMINUM HYD/SIMETH 30 ML ORAL.SUSP PO PRN (11:15)
[2020-01-10] MEDS ORDERED: ONDANSETRON PF 4 MG/2 ML VIAL. IV PRN (11:15)
[2020-01-10] MEDS ORDERED: 0.9 % SODIUM CHLORIDE 10 ML DISP.SYRIN. IV PRN (11:15)
[2020-01-10] MEDS ORDERED: cloNIDine HCL 0.1 MG TABLET PO PRN (11:15)
[2020-01-10] MEDS ORDERED: SODIUM PHOSPHATES 19/7GM 133 ML ENEMA. PR PRN (11:15)
[2020-01-10] MEDS: NAPROXEN 500 MG TABLET PO SCH ×2 (11:27→16:49)
[2020-01-10] MEDS: levETIRAcetam 500 MG TABLET PO SCH ×2 (11:27→20:36)
[2020-01-10] MEDS: ENOXAPARIN 40 MG/0.4 ML SYRINGE. SQ SCH ×2 (11:28→20:37)
[2020-01-10] MEDS: PANTOPRAZOLE 40 MG TABLET.DR. PO SCH (11:28)
[2020-01-10] MEDS: SUCRALFATE 1 GM TABLET. PO SCH ×3 (11:28→20:36)
[2020-01-10] MEDS: DIVALPROEX DELAYED RELEASE 500 MG TABLET.DR. PO SCH ×2 (11:28→20:36)
[2020-01-10] MEDS: DOXYCYCLINE HYCLATE 100 MG in IV DEXTROSE 5% 100ML 100 ML IV SCH ×2 (11:32→20:36)
[2020-01-10] MEDS: IPRATRPIUM/ALBUTEROL 0.5/2.5MG 3 ML NEBU. NEB SCH ×4 (11:49→21:41)
[2020-01-10] MEDS: GABAPENTIN 100 MG CAPSULE. PO SCH ×2 (13:43→20:36)
[2020-01-10 15:00] VITALS: BP 118/76
--- NOTE | 2020-01-10 15:24 | PDOC2 ---
MARC ESQUIVEL REGISTERED NURSE PRACTITIONER 01/10/20 1524: CARDIAC CONSULT DATE OF CONSULT Date of Consult DATE: 01/10/20 TIME: 15:10 REASON FOR CONSULT Reason for Consult: Chest pain REFERRING PHYSICIAN Referring Physician: Dr. Lerner SOURCE Source: Chart review, Patient HISTORY OF PRESENT ILLNESS HISTORY OF PRESENT ILLNESS This is a 49 yo male who presented secondary to chest pain. Patient reports pain began yesterday. Located in his right chest. Describes as stabbing in natures. Does not radiated. Grady SOA with pain. No dizziness, diaphoresis, palpitations, or nausea/vomiting. Pain worse with deep breathing. No recent fevers/illness. PAST MEDICAL HISTORY Past Medical History Developmental Delay Cardiovascular: HTN Pulmonary: Other (ANGELITO) CENTRAL NERVOUS SYSTEM: Seizure GI: GERD Psych: Anxiety, Depression, Schizophrenia Musculoskeletal: Osteoarthritis PAST SURGICAL HISTORY Past Surgical History: No pertinent history FAMILY HISTORY Family History: Hypertension SOCIAL HISTORY Smoke: <1 pack per day ALCOHOL: none Drugs: None Lives: with Family CURRENT MEDICATIONS CURRENT MEDICATIONS Current Medications Medications (Trade) Dose Ordered Sig/Brigido Route PRN Reason Start Time Stop Time Status Last Admin Dose Admin Morphine Sulfate (Morphine Sulfate) 2 mg 1X ONCE IV 01/10/20 02:15 01/10/20 02:19 DC 01/10/20 02:18 Iohexol (Omnipaque 350 Mg/ml) 100 ml 1X ONCE IV 01/10/20 03:00 01/10/20 03:01 DC 01/10/20 03:13 Divalproex Sodium (Depakote) 500 mg BID PO 01/10/20 11:30 01/10/20 11:28 Gabapentin (Neurontin) 100 mg TID PO 01/10/20 14:00 01/10/20 13:43 Levetiracetam (Keppra) 500 mg BID PO 01/10/20 11:30 01/10/20 11:27 Naproxen (Naprosyn) 500 mg BIDWMEALS PO 01/10/20 11:30 01/10/20 11:27 Sucralfate (Carafate) 1 gm QIDACHS PO 01/10/20 11:30 01/10/20 11:28 Pantoprazole Sodium (Protonix) 40 mg DAILYAC PO 01/10/20 11:30 01/10/20 11:28 Enoxaparin Sodium (Lovenox 40mg Syringe) 40 mg BID SQ 01/10/20 12:00 01/10/20 11:28 Doxycycline Hyclate 100 mg/ Dextrose 100 ml @ 50 mls/hr Q12HR IV 01/10/20 12:00 01/10/20 11:32 ALLERGIES ALLERGIES: Coded Allergies: Penicillins (Verified Allergy, Intermediate, RASH, 09/15/19) ibuprofen (Verified Allergy, Intermediate, hives and abd pain, 01/10/20) TAKES NAPROXEN AT HOME ROS Review of System 14 point ROS conducted with pertinent positives noted above in HPI PHYSICAL EXAM General: Alert, Oriented X3, Cooperative, No acute distress HEENT: Atraumatic Lungs: Other (CXR reviewed, on NC) Abdomen: Other (obese) Extremities: Other (trace bilateral LE edema ) Neuro: Normal speech, Sensation intact Psych/Mental Status: Mental status NL, Mood NL MUSCULOSKELETAL: Osteoarthritic changes both hands VITALS/I&O VITALS/I&O: Vital Signs Date Time Temp Pulse Resp B/P (MAP) Pulse Ox O2 Delivery O2 Flow Rate FiO2 01/10/20 12:06 98 Nasal Cannula 3.0 01/10/20 10:58 98.0 102 20 139/96 (110) 98.0 I & O 01/09/20 01/09/20 01/10/20 15:00 23:00 07:00 Output Total 250 ml Balance -250 ml LABS Lab: Laboratory Tests Test 01/10/20 01:30 White Blood Count 6.5 x10^3/uL (4.0-11.0) Red Blood Count 4.78 x10^6/uL (4.30-5.70) Hemoglobin 15.0 g/dL (13.0-17.5) Hematocrit 43.7 % (39.0-53.0) Mean Corpuscular Volume 91 fL (79-100) Mean Corpuscular Hemoglobin 31 pg (25-35) Mean Corpuscular Hemoglobin Concent 34 g/dL (31-37) Red Cell Distribution Width 16.6 % (11.5-14.5) H Platelet Count 216 x10^3/uL (140-400) Neutrophils (%) (Auto) 57 % (31-73) Lymphocytes (%) (Auto) 33 % (24-48) Monocytes (%) (Auto) 10 % (0-9) H Eosinophils (%) (Auto) 0 % (0-3) Basophils (%) (Auto) 0 % (0-3) Neutrophils # (Auto) 3.7 x10^3/uL (1.8-7.7) Lymphocytes # (Auto) 2.1 x10^3/uL (1.0-4.8) Monocytes # (Auto) 0.6 x10^3/uL (0.0-1.1) Eosinophils # (Auto) 0.0 x10^3/uL (0.0-0.7) Basophils # (Auto) 0.0 x10^3/uL (0.0-0.2) Sodium Level 137 mmol/L (136-145) Potassium Level 3.8 mmol/L (3.5-5.1) Chloride Level 101 mmol/L (98-107) Carbon Dioxide Level 28 mmol/L (21-32) Anion Gap 8 (6-14) Blood Urea Nitrogen 5 mg/dL (8-26) L Creatinine 0.8 mg/dL (0.7-1.3) Estimated GFR (Cockcroft-Gault) 123.3 BUN/Creatinine Ratio 6 (6-20) Glucose Level 189 mg/dL (70-99) H Calcium Level 9.3 mg/dL (8.5-10.1) Total Bilirubin 0.3 mg/dL (0.2-1.0) Aspartate Amino Transferase (AST) 44 U/L (15-37) H Alanine Aminotransferase (ALT) 57 U/L (16-63) Alkaline Phosphatase 118 U/L (46-116) H Lactate Dehydrogenase 243 U/L (85-227) H Creatine Kinase 1125 U/L (39-308) H Troponin I Quantitative < 0.017 ng/mL (0.000-0.055) C-Reactive Protein, Quantitative 7.3 mg/L (0-3.3) H LU-Mhq-G-Type Natriuretic Peptide 5 pg/mL (0-124) Total Protein 7.3 g/dL (6.4-8.2) Albumin 3.5 g/dL (3.4-5.0) Albumin/Globulin Ratio 0.9 (1.0-1.7) L Laboratory Tests 01/10/20 01:30 Laboratory Tests 01/10/20 01:30 ASSESSMENT/PLAN ASSESSMENT/PLAN 1. Chest pain, atypical. Initial trop negative 2. Hypertension; controlled 3. Morbid obesity, ANGELITO 4. Seizure disorder; on Dilantin 5. Anxiety/depression, developmental delay 6. Tobaccoism; discussed/encouraged cessation 7. GERD; PPI, Carafate Recommendations ASA Lipids Await COVID Echo to assess LV systolic function if COVID negative. Consider further ischemic evaluation JENNIFER RAMOS MD 01/10/20 2142: CARDIAC CONSULT ASSESSMENT/PLAN ASSESSMENT/PLAN Agree with FRANCHISE CONSULTANT's assessment and plan. CP with atypical features [place] ruled out Check 2D echo to assess LVF and r/o WMA if Covid negative Consider ischemic evaluation as outpatient Thank you for your consultation MARC ESQUIVEL APRN Jan 10, 2020 15:24 JENNIFER RAMOS MD Jan 10, 2020 21:42
[2020-01-10 15:50] LABS: CHOLESTEROL/HDL RATIO 3.8
--- NOTE | 2020-01-10 16:21 | PDOC2 ---
GI CONSULT Date of Service: DATE: 01/10/20 TIME: 16:05 Reason For Consult: transaminitis HPI: HPI: 49 y/o male who reports sharp pleuritic right sided chest pain under shoulder and shortness of breath since yesterday w/ some abdominal pain. Denies precipitating events. We are asked to see for AST 44, Alk Phos 118. CK was 1125 and COVID was negative. Abd US ordered. Liver unremarkable on past CTs. He is quite drowsy when I spoke with him and drifted in and out of sleep during interview so probably not a great history. He did wake up at the end to ask me to "not mess with" his diet. He denies reflux/heartburn, dysphagia, n/v, diarrhea, constipation, bleeding, and weight loss. EGD in 08/2019 w/ Dr. Blackmon for dysphagia: Schatzki's ring dilated, normal stomach, normal duodenum, no biopsies. GI consult at that time mentions h/o GERD. Summary list shows Pepcid, omeprazole, sucralfate, and Levsin. Tells me no previous colonoscopy and no GB, liver, pancreas, or PUD history. PMH: PMH: developmental delay, HTN, ANGELITO, seziures, anxiety/depression, schizophrenia, OA FH: Family History: DM, Hypertension, Other (VT) Social History: Smoke: <1 pack per day ALCOHOL: none Drugs: None ROS: See HPI. Vitals: Vitals: Vital Signs Date Time Temp Pulse Resp B/P (MAP) Pulse Ox O2 Delivery O2 Flow Rate FiO2 01/10/20 15:00 98.3 95 18 118/76 (90) 91 Nasal Cannula 3.0 98.3 Labs: Labs: Laboratory Tests Test 01/10/20 01:30 01/10/20 02:25 White Blood Count 6.5 x10^3/uL (4.0-11.0) Red Blood Count 4.78 x10^6/uL (4.30-5.70) Hemoglobin 15.0 g/dL (13.0-17.5) Hematocrit 43.7 % (39.0-53.0) Mean Corpuscular Volume 91 fL (79-100) Mean Corpuscular Hemoglobin 31 pg (25-35) Mean Corpuscular Hemoglobin Concent 34 g/dL (31-37) Red Cell Distribution Width 16.6 % (11.5-14.5) Platelet Count 216 x10^3/uL (140-400) Neutrophils (%) (Auto) 57 % (31-73) Lymphocytes (%) (Auto) 33 % (24-48) Monocytes (%) (Auto) 10 % (0-9) Eosinophils (%) (Auto) 0 % (0-3) Basophils (%) (Auto) 0 % (0-3) Neutrophils # (Auto) 3.7 x10^3/uL (1.8-7.7) Lymphocytes # (Auto) 2.1 x10^3/uL (1.0-4.8) Monocytes # (Auto) 0.6 x10^3/uL (0.0-1.1) Eosinophils # (Auto) 0.0 x10^3/uL (0.0-0.7) Basophils # (Auto) 0.0 x10^3/uL (0.0-0.2) Sodium Level 137 mmol/L (136-145) Potassium Level 3.8 mmol/L (3.5-5.1) Chloride Level 101 mmol/L (98-107) Carbon Dioxide Level 28 mmol/L (21-32) Anion Gap 8 (6-14) Blood Urea Nitrogen 5 mg/dL (8-26) Creatinine 0.8 mg/dL (0.7-1.3) Estimated GFR (Cockcroft-Gault) 123.3 BUN/Creatinine Ratio 6 (6-20) Glucose Level 189 mg/dL (70-99) Calcium Level 9.3 mg/dL (8.5-10.1) Total Bilirubin 0.3 mg/dL (0.2-1.0) Aspartate Amino Transf (AST/SGOT) 44 U/L (15-37) Alanine Aminotransferase (ALT/SGPT) 57 U/L (16-63) Alkaline Phosphatase 118 U/L (46-116) Lactate Dehydrogenase 243 U/L (85-227) Creatine Kinase 1125 U/L (39-308) Troponin I Quantitative < 0.017 ng/mL (0.000-0.055) C-Reactive Protein, Quantitative 7.3 mg/L (0-3.3) WJ-Sct-V-Type Natriuretic Peptide 5 pg/mL (0-124) Total Protein 7.3 g/dL (6.4-8.2) Albumin 3.5 g/dL (3.4-5.0) Albumin/Globulin Ratio 0.9 (1.0-1.7) Triglycerides Level 250 mg/dL (0-150) Cholesterol Level 149 mg/dL (0-200) LDL Cholesterol, Calculated 60 mg/dL (0-100) VLDL Cholesterol, Calculated 50 mg/dL (0-40) Non-HDL Cholesterol Calculated 110 mg/dL (0-129) HDL Cholesterol 39 mg/dL (40-60) Cholesterol/HDL Ratio 3.8 Coronavirus (COVID-19)(PCR) Negative (NEGATIVE) Allergies: Coded Allergies: Penicillins (Verified Allergy, Intermediate, RASH, 09/15/19) ibuprofen (Verified Allergy, Intermediate, hives and abd pain, 01/10/20) TAKES NAPROXEN AT HOME Medications: Current Medications Medications (Trade) Dose Ordered Sig/Brigido Route PRN Reason Start Time Stop Time Status Last Admin Dose Admin Morphine Sulfate (Morphine Sulfate) 2 mg 1X ONCE IV 01/10/20 02:15 01/10/20 02:19 DC 01/10/20 02:18 Iohexol (Omnipaque 350 Mg/ml) 100 ml 1X ONCE IV 01/10/20 03:00 01/10/20 03:01 DC 01/10/20 03:13 Divalproex Sodium (Depakote) 500 mg BID PO 01/10/20 11:30 01/10/20 11:28 Gabapentin (Neurontin) 100 mg TID PO 01/10/20 14:00 01/10/20 13:43 Levetiracetam (Keppra) 500 mg BID PO 01/10/20 11:30 01/10/20 11:27 Naproxen (Naprosyn) 500 mg BIDWMEALS PO 01/10/20 11:30 01/10/20 11:27 Sucralfate (Carafate) 1 gm QIDACHS PO 01/10/20 11:30 01/10/20 11:28 Pantoprazole Sodium (Protonix) 40 mg DAILYAC PO 01/10/20 11:30 01/10/20 11:28 Enoxaparin Sodium (Lovenox 40mg Syringe) 40 mg BID SQ 01/10/20 12:00 01/10/20 11:28 Doxycycline Hyclate 100 mg/ Dextrose 100 ml @ 50 mls/hr Q12HR IV 01/10/20 12:00 01/10/20 11:32 Imaging: Imaging: CXR Impression: Mild basal infiltrates could be discoid atelectasis or early pneumonia. Chest CTA Impression: 1. No evidence of pulmonary embolism. 2. No significant findings. PE: GEN: sleeping heavily, snoring HEENT: Atraumatic, PERRL LUNGS: diminished anteriorly, NC 3L HEART: mildly tachycardic ABD: NABS, round/large, soft, mild non-specific tenderness - seems mostly upper (?left) EXTREMITY: trace BLE edema SKIN: No rashes, no jaundice NEURO/PSYCH: drowsy A/P: A/P: Right-sided chest pain, ?abd pain Mildly elevated AST and Alk Phos, elevated CK ?GERD - gathering this from med list but he denies CRC screen - none COVID-19 negative 01/09 BMI 45 -- Recheck LFTs tomorrow, await US and Hepatitis panel per Dr. Lerner, observe. ?need for PPI plus H2 alonso plus Carafate? RASTA LUGO Jan 10, 2020 16:21
--- NOTE | 2020-01-10 16:25 | NUR ---
SW following for discharge planning. Spoke with RN and reviewed chart. Pt from home with family. Spoke with pt. Pt on 3l 02 with no home 02. Pt on oral medications, COVID negative. Discharge plan is home, self-care. 6 min walk may be needed prior to discharge to determine home 02 needs. SW following.
[2020-01-10] MEDS: DEXAMETHASONE SOD PHOS 4 MG/ML VIAL IVP SCH (16:50)
[2020-01-10] MEDS: NICOTINE 14MG PATCH. TD SCH (18:16)
--- NOTE | 2020-01-10 19:05 | RAD ---
Exam: Ultrasound abdomen limited Indication: Transaminitis, Covid pending Technique: Real-time grayscale and color Doppler images of the left upper quadrant were obtained by the department director of state. Comparisons: None FINDINGS: Liver contour is normal. Hepatopedal flow noted within the portal vein. Increased echogenicity of the liver diffusely. Gallbladder has a normal sonographic appearance. No pericholecystic fluid or inflammatory changes. No gallstones. Common bile duct measures 5 mm in diameter. Right kidney measures 10.2 cm in length. No hydronephrosis. Visualized portions aorta and IVC are unremarkable. IMPRESSION: 1. Increased echogenicity liver, likely related to hepatic steatosis. 2. Normal sonographic appearance the liver. 3. No right-sided hydronephrosis. Electronically signed by: Erich Toney MD (01/10/2020 7:01 PM) JACK
[2020-01-10 19:58] VITALS: BP 129/47
[2020-01-10] MEDS ORDERED: FAMOTIDINE 20 MG TABLET. PO SCH (21:00)
[2020-01-10 21:53] LABS: BILIRUBIN,URINE NEGATIVE (NEG); CLARITY,URINE CLEAR; COLOR,URINE YELLOW; NITRITE,URINE NEGATIVE (NEG); PROTEIN,URINE NEGATIVE (NEG-TRACE)
[2020-01-10 22:01] LABS: BACTERIA,URINE 0 /HPF (0-FEW); RBC,URINE 0 /HPF (0-2); WBC,URINE 0 /HPF (0-4)
[2020-01-10 22:38] VITALS: BP 164/75
[2020-01-10 22:46] VITALS: BP 130/56
[2020-01-11 01:58] VITALS: BP 123/75
[2020-01-11 07:00] VITALS: BP 105/58
[2020-01-11 07:04] LABS: ALBUMIN 3.3 g/dL (3.4-5.0); CALCIUM 8.9 mg/dL (8.5-10.1); CREATININE 0.9 mg/dL (0.7-1.3); GFR 107.6; POTASSIUM 4.8 mmol/L (3.5-5.1); TOTAL BILIRUBIN 0.3 mg/dL (0.2-1.0); TOTAL PROTEIN 6.7 g/dL (6.4-8.2)
[2020-01-11 07:08] LABS: BASO % 0 % (0-3); EOS % 0 % (0-3); HEMATOCRIT 42.7 % (39.0-53.0); LYMPH % 21 % (24-48); MEAN CORPUSCULAR HEMOGLOBIN 30 pg (25-35); MEAN CORPUSCULAR HGB CONC 33 g/dL (31-37); MEAN CORPUSCULAR VOLUME 92 fL (79-100); MONO # 0.2 x10^3/uL (0.0-1.1); MONO % 5 % (0-9); NEUT # 3.4 x10^3/uL (1.8-7.7); NEUT % 74 % (31-73); PLATELET COUNT 206 x10^3/uL (140-400); RED BLOOD COUNT 4.64 x10^6/uL (4.30-5.70); RED CELL DISTRIBUTION WIDTH 17.1 % (11.5-14.5); WHITE BLOOD COUNT 4.6 x10^3/uL (4.0-11.0)
[2020-01-11] MEDS ORDERED: ASPIRIN ENTERIC COATED 81 MG TABLET.DR. PO SCH (08:00)
[2020-01-11] MEDS: IPRATRPIUM/ALBUTEROL 0.5/2.5MG 3 ML NEBU. NEB SCH ×3 (08:00→16:00)
[2020-01-11] MEDS: levETIRAcetam 500 MG TABLET PO SCH (08:32)
[2020-01-11] MEDS: PANTOPRAZOLE 40 MG TABLET.DR. PO SCH (08:32)
[2020-01-11] MEDS: NICOTINE 14MG PATCH. TD SCH (08:32)
[2020-01-11] MEDS: SUCRALFATE 1 GM TABLET. PO SCH ×3 (08:32→17:27)
[2020-01-11] MEDS: DEXAMETHASONE SOD PHOS 4 MG/ML VIAL IVP SCH (08:33)
[2020-01-11] MEDS: GABAPENTIN 100 MG CAPSULE. PO SCH ×2 (08:33→14:07)
[2020-01-11] MEDS: DIVALPROEX DELAYED RELEASE 500 MG TABLET.DR. PO SCH (08:33)
[2020-01-11] MEDS: NAPROXEN 500 MG TABLET PO SCH ×2 (08:33→17:27)
[2020-01-11] MEDS: DOXYCYCLINE HYCLATE 100 MG in IV DEXTROSE 5% 100ML 100 ML IV SCH (08:34)
--- NOTE | 2020-01-11 09:05 | PDOC ---
PROGRESS NOTES Date of Service: DATE: 01/11/20 TIME: 09:05 Chief Complaint Chief Complaint VTE Prophylaxis Ordered VTE Prophylaxis Devices: No VTE Pharmacological Prophylaxi: Yes DISCHARGE DX Assessment/Plan Impression: 1. ANGINAL PAINS, atypical 2. No evidence of pulmonary embolism. Mild basal infiltrates could be discoid atelectasis or early pneumonia. on CXR 3. No significant findings. to suggest covid-[address] 4. Dyspnea 5. morbid obesity, prob ANGELITO 6. tobacco abuse disorder 7. hx seizure disorder 8. hypertension 9. cognitive delay, longstanding 10. transaminitis 11. rhabdomyolysis, IMPROVING CPK 12. hepatic steatosis // EGD 08/2019 w/ Dr. Blackmon for dysphagia: Schatzki's ring dilated, normal stomach, normal duodenum, plan admit PUI TELE 6TH floor resp isolation cardiology consult dvt prophylaxis home meds trend troponin i PULM CONSULT iv steroids, d/c EMPERIC DOXYCYCLINE IV Smoking cessation encouraged GI CONSULT ABD SONO Hold any hepatotoxic meds ECHO CTA CHEST NO PE D/W RN PULM OK WITH D/C 01/10 D/C PLANNING 36 MIN SMOKING CESSATION DISCUSSED, NEEDED Justifications for Admission Justifications for Admission Other Justification History of Present Illness History of Present Illness Identification/Chief Complaint Chief Complaint SEEN IN ER PUI , CHEST PAIN 49-year-old male who presents to the emergency room with a 2-hour history of right-sided pleuritic chest pain. Patient has had similar episodes in the past the last one in September. He states this is much worse. He has associated shortness of breath. He also has lower back pain which is chronic. pos cough, URI symptoms, mild fever. lft's elevated as well as cpk, cxr concerning for infiltrate Past Medical History Past Medical History Past Medical History Past Medical History Past Medical History: Asthma, Hypertension, Seizure Additional Past Medical Histor: per patient- "enlarged heart and hernia", DE VELOPMENTAL DELAY Past Surgical History: No Surgical History Smoking Status: Current Every Day Smoker Additional Information: 7 cigs/day Alcohol Use: None Drug Use: None FHX OBESITY Family History Family History: Hypertension Social History Smoke: <1 pack per day ALCOHOL: none Drugs: None Current Problem List Problem List Problems Medical Problems: (1) Hypoxia Status: Acute (2) Non-cardiac chest pain Status: Acute (3) Shortness of breath Status: Acute (4) SVT (supraventricular tachycardia) Status: Acute Vitals Vitals Vital Signs Date Time Temp Pulse Resp B/P (MAP) Pulse Ox O2 Delivery O2 Flow Rate FiO2 01/11/20 07:00 98.5 80 20 105/58 (74) 94 Nasal Cannula 2.0 98.5 Physical Exam Physical Exam General: Awake, alert, NAD. Well Nourished, well hydrated. Cooperative HEENT: Atraumatic, EOMI, PERRL, airway patent, moist oral mucosa Neck: Supple, trachea midline Respiratory: CTA bilaterally, normal effort, no wheezing/crackles CV: RRR, no murmur, cap refill <2 GI: Soft, nondistended, nontender, no masses MSK: No obvious deformities Skin: Warm, dry, intact Neuro: A&O x3, speech NL, sensory and motor grossly intact, no focal deficits Psych: Normal affect, normal mood, not suicidal or homicidal General: Alert, Cooperative, No acute distress HEENT: Atraumatic, EOMI, Mucous membr. moist/pink Lungs: Clear to auscultation Heart: RRR, no murmurs Abdomen: Normal bowel sounds, Soft Rectal Exam: not examined PELVIC: Examination not indicated Extremities: No cyanosis, No edema Neuro: Normal speech, Normal tone, Cranial nerves 3-12 N General: Alert, Oriented X3, Cooperative, No acute distress Heart: Regular rate Lungs: Clear Abdomen: Normal bowel sounds, Soft, Other (obese) Extremities: No clubbing, No cyanosis, Other (trace bilateral LE edema ) Labs LABS ATIENT: RHONAALYSSA Deepa ACCOUNT: [id number] : 1970 LOCATION: [facility] AGE: 49 SEX: M EXAM STATUS: ADM IN ORD. PHYSICIAN: ILIANA GUIDRY MD REASON: transaminitis/COVID PENDING PROCEDURE: ABDOMEN LTD Exam: Ultrasound abdomen limited Indication: Transaminitis, Covid pending Technique: Real-time grayscale and color Doppler images of the left upper quadrant were obtained by the department sandwich artist. Comparisons: None FINDINGS: Liver contour is normal. Hepatopedal flow noted within the portal vein. Increased echogenicity of the liver diffusely. Gallbladder has a normal sonographic appearance. No pericholecystic fluid or inflammatory changes. No gallstones. Common bile duct measures 5 mm in diameter. Right kidney measures 10.2 cm in length. No hydronephrosis. Visualized portions aorta and IVC are unremarkable. IMPRESSION: 1. Increased echogenicity liver, likely related to hepatic steatosis. 2. Normal sonographic appearance the liver. 3. No right-sided hydronephrosis. Electronically signed by: Erich Toney MD (01/10/2020 7:01 PM) [facility] Laboratory Tests Test 01/10/20 16:30 01/10/20 21:10 01/11/20 04:20 Ferritin 259 ng/mL (26-388) Troponin I Quantitative < 0.017 ng/mL (0.000-0.055) Hepatitis A IgM Antibody Nonreactive (Nonreactive) Hepatitis B Surface Antigen Nonreactive (Nonreactive) Hepatitis B Core IgM Antibody Nonreactive (Nonreactive) Hepatitis C IgG Antibody Nonreactive (Nonreactive) Urine Collection Type Unknown Urine Color Yellow Urine Clarity Clear Urine pH 6.0 (<5.0-8.0) Urine Specific [place] 1.010 (1.000-1.030) Urine Protein Negative mg/dL (NEG-TRACE) Urine Glucose (UA) Negative mg/dL (NEG) Urine Ketones (Stick) Negative mg/dL (NEG) Urine Blood Negative (NEG) Urine Nitrite Negative (NEG) Urine Bilirubin Negative (NEG) Urine Urobilinogen Dipstick 1.0 mg/dL (0.2 mg/dL) Urine Leukocyte Esterase Negative (NEG) Urine RBC 0 /HPF (0-2) Urine WBC 0 /HPF (0-4) Urine Squamous Epithelial Cells Few /LPF Urine Bacteria 0 /HPF (0-FEW) White Blood Count 4.6 x10^3/uL (4.0-11.0) Red Blood Count 4.64 x10^6/uL (4.30-5.70) Hemoglobin 14.0 g/dL (13.0-17.5) Hematocrit 42.7 % (39.0-53.0) Mean Corpuscular Volume 92 fL (79-100) Mean Corpuscular Hemoglobin 30 pg (25-35) Mean Corpuscular Hemoglobin Concent 33 g/dL (31-37) Red Cell Distribution Width 17.1 % (11.5-14.5) Platelet Count 206 x10^3/uL (140-400) Neutrophils (%) (Auto) 74 % (31-73) Lymphocytes (%) (Auto) 21 % (24-48) Monocytes (%) (Auto) 5 % (0-9) Eosinophils (%) (Auto) 0 % (0-3) Basophils (%) (Auto) 0 % (0-3) Neutrophils # (Auto) 3.4 x10^3/uL (1.8-7.7) Lymphocytes # (Auto) 1.0 x10^3/uL (1.0-4.8) Monocytes # (Auto) 0.2 x10^3/uL (0.0-1.1) Eosinophils # (Auto) 0.0 x10^3/uL (0.0-0.7) Basophils # (Auto) 0.0 x10^3/uL (0.0-0.2) Sodium Level 132 mmol/L (136-145) Potassium Level 4.8 mmol/L (3.5-5.1) Chloride Level 99 mmol/L (98-107) Carbon Dioxide Level 25 mmol/L (21-32) Anion Gap 8 (6-14) Blood Urea Nitrogen 6 mg/dL (8-26) Creatinine 0.9 mg/dL (0.7-1.3) Estimated GFR (Cockcroft-Gault) 107.6 BUN/Creatinine Ratio 7 (6-20) Glucose Level 208 mg/dL (70-99) Calcium Level 8.9 mg/dL (8.5-10.1) Total Bilirubin 0.3 mg/dL (0.2-1.0) Aspartate Amino Transf (AST/SGOT) 37 U/L (15-37) Alanine Aminotransferase (ALT/SGPT) 57 U/L (16-63) Alkaline Phosphatase 108 U/L (46-116) Creatine Kinase 677 U/L (39-308) Total Protein 6.7 g/dL (6.4-8.2) Albumin 3.3 g/dL (3.4-5.0) Albumin/Globulin Ratio 1.0 (1.0-1.7) Assessment and Plan Assessmemt and Plan Problems Medical Problems: (1) Hypoxia Status: Acute (2) Non-cardiac chest pain Status: Acute (3) Shortness of breath Status: Acute (4) SVT (supraventricular tachycardia) Status: Acute Comment Review of Relevant I have reviewed the following items maximino (where applicable) has been applied. Labs Laboratory Tests Test 01/10/20 01:30 01/10/20 02:25 01/10/20 16:30 01/10/20 21:10 White Blood Count 6.5 x10^3/uL (4.0-11.0) Red Blood Count 4.78 x10^6/uL (4.30-5.70) Hemoglobin 15.0 g/dL (13.0-17.5) Hematocrit 43.7 % (39.0-53.0) Mean Corpuscular Volume 91 fL (79-100) Mean Corpuscular Hemoglobin 31 pg (25-35) Mean Corpuscular Hemoglobin Concent 34 g/dL (31-37) Red Cell Distribution Width 16.6 % (11.5-14.5) Platelet Count 216 x10^3/uL (140-400) Neutrophils (%) (Auto) 57 % (31-73) Lymphocytes (%) (Auto) 33 % (24-48) Monocytes (%) (Auto) 10 % (0-9) Eosinophils (%) (Auto) 0 % (0-3) Basophils (%) (Auto) 0 % (0-3) Neutrophils # (Auto) 3.7 x10^3/uL (1.8-7.7) Lymphocytes # (Auto) 2.1 x10^3/uL (1.0-4.8) Monocytes # (Auto) 0.6 x10^3/uL (0.0-1.1) Eosinophils # (Auto) 0.0 x10^3/uL (0.0-0.7) Basophils # (Auto) 0.0 x10^3/uL (0.0-0.2) Sodium Level 137 mmol/L (136-145) Potassium Level 3.8 mmol/L (3.5-5.1) Chloride Level 101 mmol/L (98-107) Carbon Dioxide Level 28 mmol/L (21-32) Anion Gap 8 (6-14) Blood Urea Nitrogen 5 mg/dL (8-26) Creatinine 0.8 mg/dL (0.7-1.3) Estimated GFR (Cockcroft-Gault) 123.3 BUN/Creatinine Ratio 6 (6-20) Glucose Level 189 mg/dL (70-99) Calcium Level 9.3 mg/dL (8.5-10.1) Total Bilirubin 0.3 mg/dL (0.2-1.0) Aspartate Amino Transf (AST/SGOT) 44 U/L (15-37) Alanine Aminotransferase (ALT/SGPT) 57 U/L (16-63) Alkaline Phosphatase 118 U/L (46-116) Lactate Dehydrogenase 243 U/L (85-227) Creatine Kinase 1125 U/L (39-308) Troponin I Quantitative < 0.017 ng/mL (0.000-0.055) < 0.017 ng/mL (0.000-0.055) C-Reactive Protein, Quantitative 7.3 mg/L (0-3.3) BF-Bdb-L-Type Natriuretic Peptide 5 pg/mL (0-124) Total Protein 7.3 g/dL (6.4-8.2) Albumin 3.5 g/dL (3.4-5.0) Albumin/Globulin Ratio 0.9 (1.0-1.7) Triglycerides Level 250 mg/dL (0-150) Cholesterol Level 149 mg/dL (0-200) LDL Cholesterol, Calculated 60 mg/dL (0-100) VLDL Cholesterol, Calculated 50 mg/dL (0-40) Non-HDL Cholesterol Calculated 110 mg/dL (0-129) HDL Cholesterol 39 mg/dL (40-60) Cholesterol/HDL Ratio 3.8 Coronavirus (COVID-19)(PCR) Negative (NEGATIVE) Ferritin 259 ng/mL (26-388) Hepatitis A IgM Antibody Nonreactive (Nonreactive) Hepatitis B Surface Antigen Nonreactive (Nonreactive) Hepatitis B Core IgM Antibody Nonreactive (Nonreactive) Hepatitis C IgG Antibody Nonreactive (Nonreactive) Urine Collection Type Unknown Urine Color Yellow Urine Clarity Clear Urine pH 6.0 (<5.0-8.0) Urine Specific [place] 1.010 (1.000-1.030) Urine Protein Negative mg/dL (NEG-TRACE) Urine Glucose (UA) Negative mg/dL (NEG) Urine Ketones (Stick) Negative mg/dL (NEG) Urine Blood Negative (NEG) Urine Nitrite Negative (NEG) Urine Bilirubin Negative (NEG) Urine Urobilinogen Dipstick 1.0 mg/dL (0.2 mg/dL) Urine Leukocyte Esterase Negative (NEG) Urine RBC 0 /HPF (0-2) Urine WBC 0 /HPF (0-4) Urine Squamous Epithelial Cells Few /LPF Urine Bacteria 0 /HPF (0-FEW) Test 01/11/20 04:20 White Blood Count 4.6 x10^3/uL (4.0-11.0) Red Blood Count 4.64 x10^6/uL (4.30-5.70) Hemoglobin 14.0 g/dL (13.0-17.5) Hematocrit 42.7 % (39.0-53.0) Mean Corpuscular Volume 92 fL (79-100) Mean Corpuscular Hemoglobin 30 pg (25-35) Mean Corpuscular Hemoglobin Concent 33 g/dL (31-37) Red Cell Distribution Width 17.1 % (11.5-14.5) Platelet Count 206 x10^3/uL (140-400) Neutrophils (%) (Auto) 74 % (31-73) Lymphocytes (%) (Auto) 21 % (24-48) Monocytes (%) (Auto) 5 % (0-9) Eosinophils (%) (Auto) 0 % (0-3) Basophils (%) (Auto) 0 % (0-3) Neutrophils # (Auto) 3.4 x10^3/uL (1.8-7.7) Lymphocytes # (Auto) 1.0 x10^3/uL (1.0-4.8) Monocytes # (Auto) 0.2 x10^3/uL (0.0-1.1) Eosinophils # (Auto) 0.0 x10^3/uL (0.0-0.7) Basophils # (Auto) 0.0 x10^3/uL (0.0-0.2) Sodium Level 132 mmol/L (136-145) Potassium Level 4.8 mmol/L (3.5-5.1) Chloride Level 99 mmol/L (98-107) Carbon Dioxide Level 25 mmol/L (21-32) Anion Gap 8 (6-14) Blood Urea Nitrogen 6 mg/dL (8-26) Creatinine 0.9 mg/dL (0.7-1.3) Estimated GFR (Cockcroft-Gault) 107.6 BUN/Creatinine Ratio 7 (6-20) Glucose Level 208 mg/dL (70-99) Calcium Level 8.9 mg/dL (8.5-10.1) Total Bilirubin 0.3 mg/dL (0.2-1.0) Aspartate Amino Transf (AST/SGOT) 37 U/L (15-37) Alanine Aminotransferase (ALT/SGPT) 57 U/L (16-63) Alkaline Phosphatase 108 U/L (46-116) Creatine Kinase 677 U/L (39-308) Total Protein 6.7 g/dL (6.4-8.2) Albumin 3.3 g/dL (3.4-5.0) Albumin/Globulin Ratio 1.0 (1.0-1.7) Laboratory Tests Test 01/10/20 16:30 01/10/20 21:10 01/11/20 04:20 Ferritin 259 ng/mL (26-388) Troponin I Quantitative < 0.017 ng/mL (0.000-0.055) Hepatitis A IgM Antibody Nonreactive (Nonreactive) Hepatitis B Surface Antigen Nonreactive (Nonreactive) Hepatitis B Core IgM Antibody Nonreactive (Nonreactive) Hepatitis C IgG Antibody Nonreactive (Nonreactive) Urine Collection Type Unknown Urine Color Yellow Urine Clarity Clear Urine pH 6.0 (<5.0-8.0) Urine Specific [place] 1.010 (1.000-1.030) Urine Protein Negative mg/dL (NEG-TRACE) Urine Glucose (UA) Negative mg/dL (NEG) Urine Ketones (Stick) Negative mg/dL (NEG) Urine Blood Negative (NEG) Urine Nitrite Negative (NEG) Urine Bilirubin Negative (NEG) Urine Urobilinogen Dipstick 1.0 mg/dL (0.2 mg/dL) Urine Leukocyte Esterase Negative (NEG) Urine RBC 0 /HPF (0-2) Urine WBC 0 /HPF (0-4) Urine Squamous Epithelial Cells Few /LPF Urine Bacteria 0 /HPF (0-FEW) White Blood Count 4.6 x10^3/uL (4.0-11.0) Red Blood Count 4.64 x10^6/uL (4.30-5.70) Hemoglobin 14.0 g/dL (13.0-17.5) Hematocrit 42.7 % (39.0-53.0) Mean Corpuscular Volume 92 fL (79-100) Mean Corpuscular Hemoglobin 30 pg (25-35) Mean Corpuscular Hemoglobin Concent 33 g/dL (31-37) Red Cell Distribution Width 17.1 % (11.5-14.5) Platelet Count 206 x10^3/uL (140-400) Neutrophils (%) (Auto) 74 % (31-73) Lymphocytes (%) (Auto) 21 % (24-48) Monocytes (%) (Auto) 5 % (0-9) Eosinophils (%) (Auto) 0 % (0-3) Basophils (%) (Auto) 0 % (0-3) Neutrophils # (Auto) 3.4 x10^3/uL (1.8-7.7) Lymphocytes # (Auto) 1.0 x10^3/uL (1.0-4.8) Monocytes # (Auto) 0.2 x10^3/uL (0.0-1.1) Eosinophils # (Auto) 0.0 x10^3/uL (0.0-0.7) Basophils # (Auto) 0.0 x10^3/uL (0.0-0.2) Sodium Level 132 mmol/L (136-145) Potassium Level 4.8 mmol/L (3.5-5.1) Chloride Level 99 mmol/L (98-107) Carbon Dioxide Level 25 mmol/L (21-32) Anion Gap 8 (6-14) Blood Urea Nitrogen 6 mg/dL (8-26) Creatinine 0.9 mg/dL (0.7-1.3) Estimated GFR (Cockcroft-Gault) 107.6 BUN/Creatinine Ratio 7 (6-20) Glucose Level 208 mg/dL (70-99) Calcium Level 8.9 mg/dL (8.5-10.1) Total Bilirubin 0.3 mg/dL (0.2-1.0) Aspartate Amino Transf (AST/SGOT) 37 U/L (15-37) Alanine Aminotransferase (ALT/SGPT) 57 U/L (16-63) Alkaline Phosphatase 108 U/L (46-116) Creatine Kinase 677 U/L (39-308) Total Protein 6.7 g/dL (6.4-8.2) Albumin 3.3 g/dL (3.4-5.0) Albumin/Globulin Ratio 1.0 (1.0-1.7) Medications Current Medications Morphine Sulfate (Morphine Sulfate) 2 mg 1X ONCE IV Last administered on 01/10/20at 02:18; Start 01/10/20 at 02:15; Stop 01/10/20 at 02:19; Status DC Iohexol (Omnipaque 350 Mg/ml) 100 ml 1X ONCE IV Last administered on 01/10/20at 03:13; Start 01/10/20 at 03:00; Stop 01/10/20 at 03:01; Status DC Info (CONTRAST GIVEN -- Rx MONITORING) 1 each PRN DAILY PRN MC SEE COMMENTS; Start 01/10/20 at 03:00; Stop 01/12/20 at 02:59 Divalproex Sodium (Depakote) 500 mg BID PO Last administered on 01/11/20at 08:33; Start 01/10/20 at 11:30 Famotidine (Pepcid) 20 mg HS PO Last administered on 01/10/20at 20:36; Start 01/10/20 at 21:00 Gabapentin (Neurontin) 100 mg TID PO Last administered on 01/11/20at 08:33; Start 01/10/20 at 14:00 Levetiracetam (Keppra) 500 mg BID PO Last administered on 01/11/20at 08:32; Start 01/10/20 at 11:30 Naproxen (Naprosyn) 500 mg BIDWMEALS PO Last administered on 01/11/20at 08:33; Start 01/10/20 at 11:30 Sucralfate (Carafate) 1 gm QIDACHS PO Last administered on 01/11/20at 08:32; Start 01/10/20 at 11:30 Pantoprazole Sodium (Protonix) 40 mg DAILYAC PO Last administered on 01/11/20at 08:32; Start 01/10/20 at 11:30 Sodium Chloride (Normal Saline Flush) 3 ml QSHIFT PRN IV AFTER MEDS AND BLOOD DRAWS; Start 01/10/20 at 11:15 Ondansetron HCl (Zofran) 4 mg PRN Q4HRS PRN IV NAUSEA/VOMITING; Start 01/10/20 at 11:15 Acetaminophen (Tylenol) 650 mg PRN Q4HRS PRN PO TEMP OVER 100.4F OR MILD PAIN; Start 01/10/20 at 11:15 Al Hydroxide/Mg Hydroxide (Mylanta Plus Xs) 30 ml PRN DAILY PRN PO HEARTBURN / GAS; Start 01/10/20 at 11:15 Clonidine HCl (Catapres) 0.1 mg PRN Q6HRS PRN PO SBP>160 OR DBP>90; Start 01/10/20 at 11:15 Sodium Monofluorophosphate (Fleet Adult) 133 ml PRN DAILY PRN [place] CONSTIPATION; Start 01/10/20 at 11:15 Docusate Sodium (Colace) 100 mg PRN BID PRN PO HARD STOOLS; Start 01/10/20 at 11:15 Albuterol/ Ipratropium (Duoneb) 3 ml Q4HRS NEB Last administered on 01/10/20at 21:06; Start 01/10/20 at 12:00; Stop 01/10/20 at 21:55; Status DC Guaifenesin (Robitussin) 200 mg PRN Q4HRS PRN PO COUGH; Start 01/10/20 at 11:15 Enoxaparin Sodium (Lovenox 40mg Syringe) 40 mg BID SQ Last administered on 01/10/20at 20:37; Start 01/10/20 at 12:00 Doxycycline Hyclate 100 mg/ Dextrose 100 ml @ 50 mls/hr Q12HR IV Last administered on 01/11/20at 08:34; Start 01/10/20 at 12:00 Dexamethasone Sodium Phosphate (Decadron) 6 mg DAILY08 IVP Last administered on 01/11/20at 08:33; Start 01/10/20 at 15:15 Aspirin (Ecotrin) 81 mg DAILYWBKFT PO Last administered on 01/11/20at 08:32; Start 01/11/20 at 08:00 Nicotine (Nicoderm Cq 14mg) 1 patch DAILY TD Last administered on 01/11/20at 08:32; Start 01/10/20 at 18:15 Albuterol/ Ipratropium (Duoneb) 3 ml RTQID NEB ; Start 01/11/20 at 08:00 Active Scripts Active Carafate (Sucralfate) 1 Gm Tablet 1 Tab PO QID 30 Days Omeprazole 40 Mg Capsule.dr 40 Mg PO DAILY 30 Days Take 1/2-hour before the first meal the day Levsin-Sl (Hyoscyamine Sulfate) 0.125 Mg Tab.subl 0.125 Mg SL Q4-6HRS PRN Pepcid (Famotidine) 20 Mg Tablet 20 Mg PO HS Reported Levetiracetam 500 Mg Tablet 1 Tab PO BID Gabapentin 100 Mg Capsule 1 Cap PO TID [haldol inj monthly] Depakote (Divalproex Sodium) 500 Mg Tablet.dr 500 Mg PO BID Vitals/I & O Vital Sign - Last 24 Hours 01/10/20 01/10/20 01/10/20 01/10/20 10:58 12:06 15:00 19:58 Temp 98.0 98.3 98.3 98.0 98.3 98.3 Pulse 102 95 68 Resp 20 18 22 B/P (MAP) 139/96 (110) 118/76 (90) 129/47 (74) Pulse Ox 93 98 91 94 O2 Delivery Nasal Cannula Nasal Cannula Nasal Cannula Nasal Cannula O2 Flow Rate 3.0 3.0 3.0 3.0 01/10/20 01/10/20 01/10/20 01/11/20 20:05 21:08 22:46 01:58 Temp 98.2 98.5 98.2 98.5 Pulse 80 75 Resp 21 18 B/P (MAP) 130/56 (80) 123/75 (91) Pulse Ox 96 95 O2 Delivery Nasal Cannula Nasal Cannula Nasal Cannula Nasal Cannula O2 Flow Rate 3.0 3.0 3.0 2.0 01/11/20 01/11/20 03:12 07:00 Temp 98.5 98.5 Pulse 80 Resp 20 B/P (MAP) 105/58 (74) Pulse Ox 94 O2 Delivery Nasal Cannula Nasal Cannula O2 Flow Rate 2.0 2.0 Intake and Output 01/10/20 01/10/20 01/11/20 15:00 23:00 07:00 Intake Total 140 ml 180 ml 1900 ml Output Total 700 ml 1200 ml Balance 140 ml -520 ml 700 ml Justicifation of Admission Dx: Justifications for Admission: Justification of Admission Dx: N/A FULBRIGHT,ILIANA W MD Jan 11, 2020 09:05
--- NOTE | 2020-01-11 09:41 | PDOC2 ---
CONSULT Date of Consult Date of Consult DATE: 01/11/20 TIME: 09:41 Reason for Consult Reason for Consult: Elevated CK Referring Physician Referring Physician: Dr. Lerner Source Source: Chart review, Patient History of Present Illness Reason for Visit: Pt is a 49 yo AA male who presented secondary to chest pain, Located in his right chest , stabbing in natures. [place] SOA with pain. No dizziness, diaphoresis, palpitations, or nausea/vomiting. Pain worse with deep breathing. No recent fevers/illness. No Urinary complaints . No Abdominal or SP pain . Past Medical History Cardiovascular: HTN Pulmonary: Other (ANGELITO) CENTRAL NERVOUS SYSTEM: Seizure GI: GERD Psych: Anxiety, Depression, Schizophrenia Musculoskeletal: Osteoarthritis Past Surgical History Past Surgical History: No pertinent history Family History Family History: Hypertension Social History <1 pack per day ALCOHOL: none Drugs: None Lives: with Family Current Problem List Problem List Problems Medical Problems: (1) Hypoxia Status: Acute (2) Non-cardiac chest pain Status: Acute (3) Shortness of breath Status: Acute (4) SVT (supraventricular tachycardia) Status: Acute Current Medications Current Medications Current Medications Morphine Sulfate (Morphine Sulfate) 2 mg 1X ONCE IV Last administered on 01/10/20at 02:18; Start 01/10/20 at 02:15; Stop 01/10/20 at 02:19; Status DC Iohexol (Omnipaque 350 Mg/ml) 100 ml 1X ONCE IV Last administered on 01/10/20at 03:13; Start 01/10/20 at 03:00; Stop 01/10/20 at 03:01; Status DC Info (CONTRAST GIVEN -- Rx MONITORING) 1 each PRN DAILY PRN MC SEE COMMENTS; Start 01/10/20 at 03:00; Stop 01/12/20 at 02:59 Divalproex Sodium (Depakote) 500 mg BID PO Last administered on 01/11/20at 08:33; Start 01/10/20 at 11:30 Famotidine (Pepcid) 20 mg HS PO Last administered on 01/10/20at 20:36; Start 01/10/20 at 21:00 Gabapentin (Neurontin) 100 mg TID PO Last administered on 01/11/20at 08:33; Start 01/10/20 at 14:00 Levetiracetam (Keppra) 500 mg BID PO Last administered on 01/11/20at 08:32; Start 01/10/20 at 11:30 Naproxen (Naprosyn) 500 mg BIDWMEALS PO Last administered on 01/11/20at 08:33; Start 01/10/20 at 11:30 Sucralfate (Carafate) 1 gm QIDACHS PO Last administered on 01/11/20at 08:32; Start 01/10/20 at 11:30 Pantoprazole Sodium (Protonix) 40 mg DAILYAC PO Last administered on 01/11/20at 08:32; Start 01/10/20 at 11:30 Sodium Chloride (Normal Saline Flush) 3 ml QSHIFT PRN IV AFTER MEDS AND BLOOD DRAWS; Start 01/10/20 at 11:15 Ondansetron HCl (Zofran) 4 mg PRN Q4HRS PRN IV NAUSEA/VOMITING; Start 01/10/20 at 11:15 Acetaminophen (Tylenol) 650 mg PRN Q4HRS PRN PO TEMP OVER 100.4F OR MILD PAIN; Start 01/10/20 at 11:15 Al Hydroxide/Mg Hydroxide (Mylanta Plus Xs) 30 ml PRN DAILY PRN PO HEARTBURN / GAS; Start 01/10/20 at 11:15 Clonidine HCl (Catapres) 0.1 mg PRN Q6HRS PRN PO SBP>160 OR DBP>90; Start 01/10/20 at 11:15 Sodium Monofluorophosphate (Fleet Adult) 133 ml PRN DAILY PRN IA CONSTIPATION; Start 01/10/20 at 11:15 Docusate Sodium (Colace) 100 mg PRN BID PRN PO HARD STOOLS; Start 01/10/20 at 11:15 Albuterol/ Ipratropium (Duoneb) 3 ml Q4HRS NEB Last administered on 01/10/20at 21:06; Start 01/10/20 at 12:00; Stop 01/10/20 at 21:55; Status DC Guaifenesin (Robitussin) 200 mg PRN Q4HRS PRN PO COUGH; Start 01/10/20 at 11:15 Enoxaparin Sodium (Lovenox 40mg Syringe) 40 mg BID SQ Last administered on 01/10/20at 20:37; Start 01/10/20 at 12:00 Doxycycline Hyclate 100 mg/ Dextrose 100 ml @ 50 mls/hr Q12HR IV Last administered on 01/11/20at 08:34; Start 01/10/20 at 12:00 Dexamethasone Sodium Phosphate (Decadron) 6 mg DAILY08 IVP Last administered on 01/11/20at 08:33; Start 01/10/20 at 15:15; Stop 01/11/20 at 09:29; Status DC Aspirin (Ecotrin) 81 mg DAILYWBKFT PO Last administered on 01/11/20at 08:32; Start 01/11/20 at 08:00 Nicotine (Nicoderm Cq 14mg) 1 patch DAILY TD Last administered on 01/11/20at 08:32; Start 01/10/20 at 18:15 Albuterol/ Ipratropium (Duoneb) 3 ml RTQID NEB ; Start 01/11/20 at 08:00 Active Scripts Active Carafate (Sucralfate) 1 Gm Tablet 1 Tab PO QID 30 Days Omeprazole 40 Mg Capsule.dr 40 Mg PO DAILY 30 Days Take 1/2-hour before the first meal the day Levsin-Sl (Hyoscyamine Sulfate) 0.125 Mg Tab.subl 0.125 Mg SL Q4-6HRS PRN Pepcid (Famotidine) 20 Mg Tablet 20 Mg PO HS Reported Levetiracetam 500 Mg Tablet 1 Tab PO BID Gabapentin 100 Mg Capsule 1 Cap PO TID [haldol inj monthly] Depakote (Divalproex Sodium) 500 Mg Tablet.dr 500 Mg PO BID Allergies Allergies: Coded Allergies: Penicillins (Verified Allergy, Intermediate, RASH, 09/15/19) ibuprofen (Verified Allergy, Intermediate, hives and abd pain, 01/10/20) TAKES NAPROXEN AT HOME ROS Review of System As per HPI, rest of the ROS is negative Physical Exam Physical Exam General: Alert, Oriented X3, Cooperative, No acute distress HEENT: OM moist Neck Supple Lungs: CTA, Non labored Abdomen: Obese, NT Extremities trace bilateral LE edema Neuro: grossly normal Psych/Mental Status: Mental status NL, Mood NL No bustamante , no cva or SP tenderness Skin No rash Vital Signs Vital Signs Date Time Temp Pulse Resp B/P (MAP) Pulse Ox O2 Delivery O2 Flow Rate FiO2 01/11/20 07:00 98.5 80 20 105/58 (74) 94 Nasal Cannula 2.0 98.5 Assessment & Plan Elevated CK - Renal consulted for Mildly elevated CK, Improving, Renal function normal , good UOP Supportive care, Monitor Transaminitis- Mildly elevated LFT's , US Increased echogenicity liver, likely related to hepatic steatosis. Chest pain, atypical. trop series normal - cardiology . No significant findings on CTA Hypertension; controlled Morbid obesity, ANGELITO Seizure disorder; on Dilantin Anxiety/depression, developmental delay Tobaccoism; /encouraged cessation PUI; COVID negative Labs Labs Laboratory Tests Test 01/10/20 01:30 01/10/20 02:25 01/10/20 16:30 01/10/20 21:10 White Blood Count 6.5 x10^3/uL (4.0-11.0) Red Blood Count 4.78 x10^6/uL (4.30-5.70) Hemoglobin 15.0 g/dL (13.0-17.5) Hematocrit 43.7 % (39.0-53.0) Mean Corpuscular Volume 91 fL (79-100) Mean Corpuscular Hemoglobin 31 pg (25-35) Mean Corpuscular Hemoglobin Concent 34 g/dL (31-37) Red Cell Distribution Width 16.6 % (11.5-14.5) Platelet Count 216 x10^3/uL (140-400) Neutrophils (%) (Auto) 57 % (31-73) Lymphocytes (%) (Auto) 33 % (24-48) Monocytes (%) (Auto) 10 % (0-9) Eosinophils (%) (Auto) 0 % (0-3) Basophils (%) (Auto) 0 % (0-3) Neutrophils # (Auto) 3.7 x10^3/uL (1.8-7.7) Lymphocytes # (Auto) 2.1 x10^3/uL (1.0-4.8) Monocytes # (Auto) 0.6 x10^3/uL (0.0-1.1) Eosinophils # (Auto) 0.0 x10^3/uL (0.0-0.7) Basophils # (Auto) 0.0 x10^3/uL (0.0-0.2) Sodium Level 137 mmol/L (136-145) Potassium Level 3.8 mmol/L (3.5-5.1) Chloride Level 101 mmol/L (98-107) Carbon Dioxide Level 28 mmol/L (21-32) Anion Gap 8 (6-14) Blood Urea Nitrogen 5 mg/dL (8-26) Creatinine 0.8 mg/dL (0.7-1.3) Estimated GFR (Cockcroft-Gault) 123.3 BUN/Creatinine Ratio 6 (6-20) Glucose Level 189 mg/dL (70-99) Calcium Level 9.3 mg/dL (8.5-10.1) Total Bilirubin 0.3 mg/dL (0.2-1.0) Aspartate Amino Transf (AST/SGOT) 44 U/L (15-37) Alanine Aminotransferase (ALT/SGPT) 57 U/L (16-63) Alkaline Phosphatase 118 U/L (46-116) Lactate Dehydrogenase 243 U/L (85-227) Creatine Kinase 1125 U/L (39-308) Troponin I Quantitative < 0.017 ng/mL (0.000-0.055) < 0.017 ng/mL (0.000-0.055) C-Reactive Protein, Quantitative 7.3 mg/L (0-3.3) [id number] Natriuretic Peptide 5 pg/mL (0-124) Total Protein 7.3 g/dL (6.4-8.2) Albumin 3.5 g/dL (3.4-5.0) Albumin/Globulin Ratio 0.9 (1.0-1.7) Triglycerides Level 250 mg/dL (0-150) Cholesterol Level 149 mg/dL (0-200) LDL Cholesterol, Calculated 60 mg/dL (0-100) VLDL Cholesterol, Calculated 50 mg/dL (0-40) Non-HDL Cholesterol Calculated 110 mg/dL (0-129) HDL Cholesterol 39 mg/dL (40-60) Cholesterol/HDL Ratio 3.8 Coronavirus (COVID-19)(PCR) Negative (NEGATIVE) Ferritin 259 ng/mL (26-388) Hepatitis A IgM Antibody Nonreactive (Nonreactive) Hepatitis B Surface Antigen Nonreactive (Nonreactive) Hepatitis B Core IgM Antibody Nonreactive (Nonreactive) Hepatitis C IgG Antibody Nonreactive (Nonreactive) Urine Collection Type Unknown Urine Color Yellow Urine Clarity Clear Urine pH 6.0 (<5.0-8.0) Urine Specific [place] 1.010 (1.000-1.030) Urine Protein Negative mg/dL (NEG-TRACE) Urine Glucose (UA) Negative mg/dL (NEG) Urine Ketones (Stick) Negative mg/dL (NEG) Urine Blood Negative (NEG) Urine Nitrite Negative (NEG) Urine Bilirubin Negative (NEG) Urine Urobilinogen Dipstick 1.0 mg/dL (0.2 mg/dL) Urine Leukocyte Esterase Negative (NEG) Urine RBC 0 /HPF (0-2) Urine WBC 0 /HPF (0-4) Urine Squamous Epithelial Cells Few /LPF Urine Bacteria 0 /HPF (0-FEW) Test 01/11/20 04:20 White Blood Count 4.6 x10^3/uL (4.0-11.0) Red Blood Count 4.64 x10^6/uL (4.30-5.70) Hemoglobin 14.0 g/dL (13.0-17.5) Hematocrit 42.7 % (39.0-53.0) Mean Corpuscular Volume 92 fL (79-100) Mean Corpuscular Hemoglobin 30 pg (25-35) Mean Corpuscular Hemoglobin Concent 33 g/dL (31-37) Red Cell Distribution Width 17.1 % (11.5-14.5) Platelet Count 206 x10^3/uL (140-400) Neutrophils (%) (Auto) 74 % (31-73) Lymphocytes (%) (Auto) 21 % (24-48) Monocytes (%) (Auto) 5 % (0-9) Eosinophils (%) (Auto) 0 % (0-3) Basophils (%) (Auto) 0 % (0-3) Neutrophils # (Auto) 3.4 x10^3/uL (1.8-7.7) Lymphocytes # (Auto) 1.0 x10^3/uL (1.0-4.8) Monocytes # (Auto) 0.2 x10^3/uL (0.0-1.1) Eosinophils # (Auto) 0.0 x10^3/uL (0.0-0.7) Basophils # (Auto) 0.0 x10^3/uL (0.0-0.2) Sodium Level 132 mmol/L (136-145) Potassium Level 4.8 mmol/L (3.5-5.1) Chloride Level 99 mmol/L (98-107) Carbon Dioxide Level 25 mmol/L (21-32) Anion Gap 8 (6-14) Blood Urea Nitrogen 6 mg/dL (8-26) Creatinine 0.9 mg/dL (0.7-1.3) Estimated GFR (Cockcroft-Gault) 107.6 BUN/Creatinine Ratio 7 (6-20) Glucose Level 208 mg/dL (70-99) Calcium Level 8.9 mg/dL (8.5-10.1) Total Bilirubin 0.3 mg/dL (0.2-1.0) Aspartate Amino Transf (AST/SGOT) 37 U/L (15-37) Alanine Aminotransferase (ALT/SGPT) 57 U/L (16-63) Alkaline Phosphatase 108 U/L (46-116) Creatine Kinase 677 U/L (39-308) Total Protein 6.7 g/dL (6.4-8.2) Albumin 3.3 g/dL (3.4-5.0) Albumin/Globulin Ratio 1.0 (1.0-1.7) Laboratory Tests Test 01/10/20 16:30 01/10/20 21:10 01/11/20 04:20 Ferritin 259 ng/mL (26-388) Troponin I Quantitative < 0.017 ng/mL (0.000-0.055) Hepatitis A IgM Antibody Nonreactive (Nonreactive) Hepatitis B Surface Antigen Nonreactive (Nonreactive) Hepatitis B Core IgM Antibody Nonreactive (Nonreactive) Hepatitis C IgG Antibody Nonreactive (Nonreactive) Urine Collection Type Unknown Urine Color Yellow Urine Clarity Clear Urine pH 6.0 (<5.0-8.0) Urine Specific [place] 1.010 (1.000-1.030) Urine Protein Negative mg/dL (NEG-TRACE) Urine Glucose (UA) Negative mg/dL (NEG) Urine Ketones (Stick) Negative mg/dL (NEG) Urine Blood Negative (NEG) Urine Nitrite Negative (NEG) Urine Bilirubin Negative (NEG) Urine Urobilinogen Dipstick 1.0 mg/dL (0.2 mg/dL) Urine Leukocyte Esterase Negative (NEG) Urine RBC 0 /HPF (0-2) Urine WBC 0 /HPF (0-4) Urine Squamous Epithelial Cells Few /LPF Urine Bacteria 0 /HPF (0-FEW) White Blood Count 4.6 x10^3/uL (4.0-11.0) Red Blood Count 4.64 x10^6/uL (4.30-5.70) Hemoglobin 14.0 g/dL (13.0-17.5) Hematocrit 42.7 % (39.0-53.0) Mean Corpuscular Volume 92 fL (79-100) Mean Corpuscular Hemoglobin 30 pg (25-35) Mean Corpuscular Hemoglobin Concent 33 g/dL (31-37) Red Cell Distribution Width 17.1 % (11.5-14.5) Platelet Count 206 x10^3/uL (140-400) Neutrophils (%) (Auto) 74 % (31-73) Lymphocytes (%) (Auto) 21 % (24-48) Monocytes (%) (Auto) 5 % (0-9) Eosinophils (%) (Auto) 0 % (0-3) Basophils (%) (Auto) 0 % (0-3) Neutrophils # (Auto) 3.4 x10^3/uL (1.8-7.7) Lymphocytes # (Auto) 1.0 x10^3/uL (1.0-4.8) Monocytes # (Auto) 0.2 x10^3/uL (0.0-1.1) Eosinophils # (Auto) 0.0 x10^3/uL (0.0-0.7) Basophils # (Auto) 0.0 x10^3/uL (0.0-0.2) Sodium Level 132 mmol/L (136-145) Potassium Level 4.8 mmol/L (3.5-5.1) Chloride Level 99 mmol/L (98-107) Carbon Dioxide Level 25 mmol/L (21-32) Anion Gap 8 (6-14) Blood Urea Nitrogen 6 mg/dL (8-26) Creatinine 0.9 mg/dL (0.7-1.3) Estimated GFR (Cockcroft-Gault) 107.6 BUN/Creatinine Ratio 7 (6-20) Glucose Level 208 mg/dL (70-99) Calcium Level 8.9 mg/dL (8.5-10.1) Total Bilirubin 0.3 mg/dL (0.2-1.0) Aspartate Amino Transf (AST/SGOT) 37 U/L (15-37) Alanine Aminotransferase (ALT/SGPT) 57 U/L (16-63) Alkaline Phosphatase 108 U/L (46-116) Creatine Kinase 677 U/L (39-308) Total Protein 6.7 g/dL (6.4-8.2) Albumin 3.3 g/dL (3.4-5.0) Albumin/Globulin Ratio 1.0 (1.0-1.7) Review All relevant outside records, renal labs, imaging studies, telemetry/EKG's were reviewed. Images Images US abdomen 1. Increased echogenicity liver, likely related to hepatic steatosis. 2. Normal sonographic appearance the liver. 3. No right-sided hydronephrosis. CTA Chest with contrast: Clinical History: Reason: chest pain Axial helical images of the chest were obtained after the administration of 100 cc of IV Omni 350 and timed appropriately for a pulmonary arterial study. Conventional axial reconstruction was performed in addition to coronal, sagittal and bilateral oblique MIP (maximum intensity projection). This study was ordered to detect possible pulmonary embolism. There are no filling defects to suggest pulmonary embolism. The lungs and pleural margins are clear. There is no mediastinal or hilar lymphadenopathy. The thoracic aorta appears normal. Impression: 1. No evidence of pulmonary embolism. 2. No significant findings. PERLITA GAMINO MD Jan 11, 2020 09:41
[2020-01-11 11:00] VITALS: BP 118/62
--- NOTE | 2020-01-11 11:08 | PDOC ---
MARC ESQUIVEL COMMUNITY DEVELOPMENT COORDINATOR 01/11/20 1108: CARDIO Progress Notes Date and Time Date of Service 01/11/20 Time of Evaluation 1110 Subjective Subjective: No Chest Pain, No shortness of breath, Other (drowsy this am) Vitals Vitals Vital Signs Date Time Temp Pulse Resp B/P (MAP) Pulse Ox O2 Delivery O2 Flow Rate FiO2 01/11/20 07:00 98.5 80 20 105/58 (74) 94 Nasal Cannula 2.0 98.5 Weight Weight [ ] Input and Output Intake and Output Intake and Output 01/11/20 07:00 Intake Total 2220 ml Output Total 1900 ml Balance 320 ml Intake Oral 2220 ml Output Urine Total 1900 ml Laboratory Labs Laboratory Tests Test 01/10/20 16:30 01/10/20 21:10 01/11/20 04:20 Ferritin 259 ng/mL (26-388) Troponin I Quantitative < 0.017 ng/mL (0.000-0.055) Hepatitis A IgM Antibody Nonreactive (Nonreactive) Hepatitis B Surface Antigen Nonreactive (Nonreactive) Hepatitis B Core IgM Antibody Nonreactive (Nonreactive) Hepatitis C IgG Antibody Nonreactive (Nonreactive) Urine Collection Type Unknown Urine Color Yellow Urine Clarity Clear Urine pH 6.0 (<5.0-8.0) Urine Specific [place] 1.010 (1.000-1.030) Urine Protein Negative mg/dL (NEG-TRACE) Urine Glucose (UA) Negative mg/dL (NEG) Urine Ketones (Stick) Negative mg/dL (NEG) Urine Blood Negative (NEG) Urine Nitrite Negative (NEG) Urine Bilirubin Negative (NEG) Urine Urobilinogen Dipstick 1.0 mg/dL (0.2 mg/dL) Urine Leukocyte Esterase Negative (NEG) Urine RBC 0 /HPF (0-2) Urine WBC 0 /HPF (0-4) Urine Squamous Epithelial Cells Few /LPF Urine Bacteria 0 /HPF (0-FEW) White Blood Count 4.6 x10^3/uL (4.0-11.0) Red Blood Count 4.64 x10^6/uL (4.30-5.70) Hemoglobin 14.0 g/dL (13.0-17.5) Hematocrit 42.7 % (39.0-53.0) Mean Corpuscular Volume 92 fL (79-100) Mean Corpuscular Hemoglobin 30 pg (25-35) Mean Corpuscular Hemoglobin Concent 33 g/dL (31-37) Red Cell Distribution Width 17.1 % (11.5-14.5) Platelet Count 206 x10^3/uL (140-400) Neutrophils (%) (Auto) 74 % (31-73) Lymphocytes (%) (Auto) 21 % (24-48) Monocytes (%) (Auto) 5 % (0-9) Eosinophils (%) (Auto) 0 % (0-3) Basophils (%) (Auto) 0 % (0-3) Neutrophils # (Auto) 3.4 x10^3/uL (1.8-7.7) Lymphocytes # (Auto) 1.0 x10^3/uL (1.0-4.8) Monocytes # (Auto) 0.2 x10^3/uL (0.0-1.1) Eosinophils # (Auto) 0.0 x10^3/uL (0.0-0.7) Basophils # (Auto) 0.0 x10^3/uL (0.0-0.2) Sodium Level 132 mmol/L (136-145) Potassium Level 4.8 mmol/L (3.5-5.1) Chloride Level 99 mmol/L (98-107) Carbon Dioxide Level 25 mmol/L (21-32) Anion Gap 8 (6-14) Blood Urea Nitrogen 6 mg/dL (8-26) Creatinine 0.9 mg/dL (0.7-1.3) Estimated GFR (Cockcroft-Gault) 107.6 BUN/Creatinine Ratio 7 (6-20) Glucose Level 208 mg/dL (70-99) Calcium Level 8.9 mg/dL (8.5-10.1) Total Bilirubin 0.3 mg/dL (0.2-1.0) Aspartate Amino Transf (AST/SGOT) 37 U/L (15-37) Alanine Aminotransferase (ALT/SGPT) 57 U/L (16-63) Alkaline Phosphatase 108 U/L (46-116) Creatine Kinase 677 U/L (39-308) Total Protein 6.7 g/dL (6.4-8.2) Albumin 3.3 g/dL (3.4-5.0) Albumin/Globulin Ratio 1.0 (1.0-1.7) Physical Exam HEENT: Neck Supple W Full Motion Chest: Symmetric LUNGS: Other (diminished bases) Heart: RRR, no murmurs Abdomen: Soft N/T, Other (obese ) Extremities: Other (trace bilateral LE edema ) Neurology: alert, oriented, follow commands Assessment Assessment 1. Chest pain, atypical. trop series normal 2. Hypertension; controlled 3. Morbid obesity, ANGELITO 4. Seizure disorder; on Dilantin 5. Anxiety/depression, developmental delay 6. Tobaccoism; discussed/encouraged cessation 7. GERD; PPI, Carafate 8. PUI; COVID negative Recommendations ASA therapy Echo to assess LV systolic function Consider further ischemic evaluation Supportive care Justicifation of Admission Dx: Justifications for Admission: Justification of Admission Dx: N/A JENNIFER RAMOS MD 01/12/20 0708: CARDIO Progress Notes Assessment Assessment Patient seen 01/11/20. Agree with FLOWER SHOP MANAGER's assessment and plan. CP with atypical features [place] ruled out Covid negative, Check 2D echo to assess LVF and r/o WMA Consider ischemic evaluation as outpatient MARC ESQUIVEL APRN Jan 11, 2020 11:08 JENNIFER RAMSO MD Jan 12, 2020 07:08
--- NOTE | 2020-01-11 12:01 | PDOC ---
Date of Service: DATE: 01/11/20 TIME: 11:55 Objective: Objective: D/w nurse - eats a lot - two sandwich boxes overnight and two breakfasts, no GI concerns. Vital Signs: Vital Signs Date Time Temp Pulse Resp B/P (MAP) Pulse Ox O2 Delivery O2 Flow Rate FiO2 01/11/20 11:00 98.5 74 20 118/62 (80) 95 Nasal Cannula 2.0 98.5 Labs: Laboratory Tests Test 01/10/20 16:30 01/10/20 21:10 01/11/20 04:20 Ferritin 259 ng/mL Troponin I Quantitative < 0.017 ng/mL Hepatitis A IgM Antibody Nonreactive Hepatitis B Surface Antigen Nonreactive Hepatitis B Core IgM Antibody Nonreactive Hepatitis C IgG Antibody Nonreactive Urine Collection Type Unknown Urine Color Yellow Urine Clarity Clear Urine pH 6.0 Urine Specific [place] 1.010 Urine Protein Negative mg/dL Urine Glucose (UA) Negative mg/dL Urine Ketones (Stick) Negative mg/dL Urine Blood Negative Urine Nitrite Negative Urine Bilirubin Negative Urine Urobilinogen Dipstick 1.0 mg/dL Urine Leukocyte Esterase Negative Urine RBC 0 /HPF Urine WBC 0 /HPF Urine Squamous Epithelial Cells Few /LPF Urine Bacteria 0 /HPF White Blood Count 4.6 x10^3/uL Red Blood Count 4.64 x10^6/uL Hemoglobin 14.0 g/dL Hematocrit 42.7 % Mean Corpuscular Volume 92 fL Mean Corpuscular Hemoglobin 30 pg Mean Corpuscular Hemoglobin Concent 33 g/dL Red Cell Distribution Width 17.1 % Platelet Count 206 x10^3/uL Neutrophils (%) (Auto) 74 % Lymphocytes (%) (Auto) 21 % Monocytes (%) (Auto) 5 % Eosinophils (%) (Auto) 0 % Basophils (%) (Auto) 0 % Neutrophils # (Auto) 3.4 x10^3/uL Lymphocytes # (Auto) 1.0 x10^3/uL Monocytes # (Auto) 0.2 x10^3/uL Eosinophils # (Auto) 0.0 x10^3/uL Basophils # (Auto) 0.0 x10^3/uL Sodium Level 132 mmol/L Potassium Level 4.8 mmol/L Chloride Level 99 mmol/L Carbon Dioxide Level 25 mmol/L Anion Gap 8 Blood Urea Nitrogen 6 mg/dL Creatinine 0.9 mg/dL Estimated GFR (Cockcroft-Gault) 107.6 BUN/Creatinine Ratio 7 Glucose Level 208 mg/dL Calcium Level 8.9 mg/dL Total Bilirubin 0.3 mg/dL Aspartate Amino Transf (AST/SGOT) 37 U/L Alanine Aminotransferase (ALT/SGPT) 57 U/L Alkaline Phosphatase 108 U/L Creatine Kinase 677 U/L Total Protein 6.7 g/dL Albumin 3.3 g/dL Albumin/Globulin Ratio 1.0 Imaging: Abd US FINDINGS: Liver contour is normal. Hepatopedal flow noted within the portal vein. Increased echogenicity of the liver diffusely. Gallbladder has a normal sonographic appearance. No pericholecystic fluid or inflammatory changes. No gallstones. Common bile duct measures 5 mm in diameter. Right kidney measures 10.2 cm in length. No hydronephrosis. Visualized portions aorta and IVC are unremarkable. IMPRESSION: 1. Increased echogenicity liver, likely related to hepatic steatosis. 2. Normal sonographic appearance the liver. 3. No right-sided hydronephrosis. PE: GEN: NAD LUNGS: diminished HEART: RRR ABD: obese NEURO/PSYCH: sleeping, not awakened A/P: Mildly elevated AST and Alk Phos - resolved ?GERD Fatty liver COVID-19 negative 01/09 -- Labs improved, US w/o acute issue. DC per primary. Justicifation of Admission Dx: Justifications for Admission: Justification of Admission Dx: N/A RASTA LUGO Jan 11, 2020 12:01
[2020-01-11] MEDS: ENOXAPARIN 40 MG/0.4 ML SYRINGE. SQ SCH (12:06)
--- NOTE | 2020-01-11 14:05 | PDOC ---
PULMONARY PROGRESS NOTES DATE: 01/11/20 TIME: 14:04 Vitals Vital Signs Date Time Temp Pulse Resp B/P (MAP) Pulse Ox O2 Delivery O2 Flow Rate FiO2 01/11/20 13:43 Nasal Cannula 3.0 01/11/20 11:00 98.5 74 20 118/62 (80) 95 98.5 Lungs: Clear Labs Laboratory Tests Test 01/10/20 01:30 01/10/20 02:25 01/10/20 16:30 01/10/20 21:10 White Blood Count 6.5 x10^3/uL (4.0-11.0) Red Blood Count 4.78 x10^6/uL (4.30-5.70) Hemoglobin 15.0 g/dL (13.0-17.5) Hematocrit 43.7 % (39.0-53.0) Mean Corpuscular Volume 91 fL (79-100) Mean Corpuscular Hemoglobin 31 pg (25-35) Mean Corpuscular Hemoglobin Concent 34 g/dL (31-37) Red Cell Distribution Width 16.6 % (11.5-14.5) Platelet Count 216 x10^3/uL (140-400) Neutrophils (%) (Auto) 57 % (31-73) Lymphocytes (%) (Auto) 33 % (24-48) Monocytes (%) (Auto) 10 % (0-9) Eosinophils (%) (Auto) 0 % (0-3) Basophils (%) (Auto) 0 % (0-3) Neutrophils # (Auto) 3.7 x10^3/uL (1.8-7.7) Lymphocytes # (Auto) 2.1 x10^3/uL (1.0-4.8) Monocytes # (Auto) 0.6 x10^3/uL (0.0-1.1) Eosinophils # (Auto) 0.0 x10^3/uL (0.0-0.7) Basophils # (Auto) 0.0 x10^3/uL (0.0-0.2) Sodium Level 137 mmol/L (136-145) Potassium Level 3.8 mmol/L (3.5-5.1) Chloride Level 101 mmol/L (98-107) Carbon Dioxide Level 28 mmol/L (21-32) Anion Gap 8 (6-14) Blood Urea Nitrogen 5 mg/dL (8-26) Creatinine 0.8 mg/dL (0.7-1.3) Estimated GFR (Cockcroft-Gault) 123.3 BUN/Creatinine Ratio 6 (6-20) Glucose Level 189 mg/dL (70-99) Calcium Level 9.3 mg/dL (8.5-10.1) Total Bilirubin 0.3 mg/dL (0.2-1.0) Aspartate Amino Transf (AST/SGOT) 44 U/L (15-37) Alanine Aminotransferase (ALT/SGPT) 57 U/L (16-63) Alkaline Phosphatase 118 U/L (46-116) Lactate Dehydrogenase 243 U/L (85-227) Creatine Kinase 1125 U/L (39-308) Troponin I Quantitative < 0.017 ng/mL (0.000-0.055) < 0.017 ng/mL (0.000-0.055) C-Reactive Protein, Quantitative 7.3 mg/L (0-3.3) IK-Hqs-Y-Type Natriuretic Peptide 5 pg/mL (0-124) Total Protein 7.3 g/dL (6.4-8.2) Albumin 3.5 g/dL (3.4-5.0) Albumin/Globulin Ratio 0.9 (1.0-1.7) Triglycerides Level 250 mg/dL (0-150) Cholesterol Level 149 mg/dL (0-200) LDL Cholesterol, Calculated 60 mg/dL (0-100) VLDL Cholesterol, Calculated 50 mg/dL (0-40) Non-HDL Cholesterol Calculated 110 mg/dL (0-129) HDL Cholesterol 39 mg/dL (40-60) Cholesterol/HDL Ratio 3.8 Coronavirus (COVID-19)(PCR) Negative (NEGATIVE) Ferritin 259 ng/mL (26-388) Hepatitis A IgM Antibody Nonreactive (Nonreactive) Hepatitis B Surface Antigen Nonreactive (Nonreactive) Hepatitis B Core IgM Antibody Nonreactive (Nonreactive) Hepatitis C IgG Antibody Nonreactive (Nonreactive) Urine Collection Type Unknown Urine Color Yellow Urine Clarity Clear Urine pH 6.0 (<5.0-8.0) Urine Specific Thomas 1.010 (1.000-1.030) Urine Protein Negative mg/dL (NEG-TRACE) Urine Glucose (UA) Negative mg/dL (NEG) Urine Ketones (Stick) Negative mg/dL (NEG) Urine Blood Negative (NEG) Urine Nitrite Negative (NEG) Urine Bilirubin Negative (NEG) Urine Urobilinogen Dipstick 1.0 mg/dL (0.2 mg/dL) Urine Leukocyte Esterase Negative (NEG) Urine RBC 0 /HPF (0-2) Urine WBC 0 /HPF (0-4) Urine Squamous Epithelial Cells Few /LPF Urine Bacteria 0 /HPF (0-FEW) Test 01/11/20 04:20 White Blood Count 4.6 x10^3/uL (4.0-11.0) Red Blood Count 4.64 x10^6/uL (4.30-5.70) Hemoglobin 14.0 g/dL (13.0-17.5) Hematocrit 42.7 % (39.0-53.0) Mean Corpuscular Volume 92 fL (79-100) Mean Corpuscular Hemoglobin 30 pg (25-35) Mean Corpuscular Hemoglobin Concent 33 g/dL (31-37) Red Cell Distribution Width 17.1 % (11.5-14.5) Platelet Count 206 x10^3/uL (140-400) Neutrophils (%) (Auto) 74 % (31-73) Lymphocytes (%) (Auto) 21 % (24-48) Monocytes (%) (Auto) 5 % (0-9) Eosinophils (%) (Auto) 0 % (0-3) Basophils (%) (Auto) 0 % (0-3) Neutrophils # (Auto) 3.4 x10^3/uL (1.8-7.7) Lymphocytes # (Auto) 1.0 x10^3/uL (1.0-4.8) Monocytes # (Auto) 0.2 x10^3/uL (0.0-1.1) Eosinophils # (Auto) 0.0 x10^3/uL (0.0-0.7) Basophils # (Auto) 0.0 x10^3/uL (0.0-0.2) Sodium Level 132 mmol/L (136-145) Potassium Level 4.8 mmol/L (3.5-5.1) Chloride Level 99 mmol/L (98-107) Carbon Dioxide Level 25 mmol/L (21-32) Anion Gap 8 (6-14) Blood Urea Nitrogen 6 mg/dL (8-26) Creatinine 0.9 mg/dL (0.7-1.3) Estimated GFR (Cockcroft-Gault) 107.6 BUN/Creatinine Ratio 7 (6-20) Glucose Level 208 mg/dL (70-99) Calcium Level 8.9 mg/dL (8.5-10.1) Total Bilirubin 0.3 mg/dL (0.2-1.0) Aspartate Amino Transf (AST/SGOT) 37 U/L (15-37) Alanine Aminotransferase (ALT/SGPT) 57 U/L (16-63) Alkaline Phosphatase 108 U/L (46-116) Creatine Kinase 677 U/L (39-308) Total Protein 6.7 g/dL (6.4-8.2) Albumin 3.3 g/dL (3.4-5.0) Albumin/Globulin Ratio 1.0 (1.0-1.7) Laboratory Tests Test 01/10/20 16:30 01/10/20 21:10 01/11/20 04:20 Ferritin 259 ng/mL (26-388) Troponin I Quantitative < 0.017 ng/mL (0.000-0.055) Hepatitis A IgM Antibody Nonreactive (Nonreactive) Hepatitis B Surface Antigen Nonreactive (Nonreactive) Hepatitis B Core IgM Antibody Nonreactive (Nonreactive) Hepatitis C IgG Antibody Nonreactive (Nonreactive) Urine Collection Type Unknown Urine Color Yellow Urine Clarity Clear Urine pH 6.0 (<5.0-8.0) Urine Specific Thomas 1.010 (1.000-1.030) Urine Protein Negative mg/dL (NEG-TRACE) Urine Glucose (UA) Negative mg/dL (NEG) Urine Ketones (Stick) Negative mg/dL (NEG) Urine Blood Negative (NEG) Urine Nitrite Negative (NEG) Urine Bilirubin Negative (NEG) Urine Urobilinogen Dipstick 1.0 mg/dL (0.2 mg/dL) Urine Leukocyte Esterase Negative (NEG) Urine RBC 0 /HPF (0-2) Urine WBC 0 /HPF (0-4) Urine Squamous Epithelial Cells Few /LPF Urine Bacteria 0 /HPF (0-FEW) White Blood Count 4.6 x10^3/uL (4.0-11.0) Red Blood Count 4.64 x10^6/uL (4.30-5.70) Hemoglobin 14.0 g/dL (13.0-17.5) Hematocrit 42.7 % (39.0-53.0) Mean Corpuscular Volume 92 fL (79-100) Mean Corpuscular Hemoglobin 30 pg (25-35) Mean Corpuscular Hemoglobin Concent 33 g/dL (31-37) Red Cell Distribution Width 17.1 % (11.5-14.5) Platelet Count 206 x10^3/uL (140-400) Neutrophils (%) (Auto) 74 % (31-73) Lymphocytes (%) (Auto) 21 % (24-48) Monocytes (%) (Auto) 5 % (0-9) Eosinophils (%) (Auto) 0 % (0-3) Basophils (%) (Auto) 0 % (0-3) Neutrophils # (Auto) 3.4 x10^3/uL (1.8-7.7) Lymphocytes # (Auto) 1.0 x10^3/uL (1.0-4.8) Monocytes # (Auto) 0.2 x10^3/uL (0.0-1.1) Eosinophils # (Auto) 0.0 x10^3/uL (0.0-0.7) Basophils # (Auto) 0.0 x10^3/uL (0.0-0.2) Sodium Level 132 mmol/L (136-145) Potassium Level 4.8 mmol/L (3.5-5.1) Chloride Level 99 mmol/L (98-107) Carbon Dioxide Level 25 mmol/L (21-32) Anion Gap 8 (6-14) Blood Urea Nitrogen 6 mg/dL (8-26) Creatinine 0.9 mg/dL (0.7-1.3) Estimated GFR (Cockcroft-Gault) 107.6 BUN/Creatinine Ratio 7 (6-20) Glucose Level 208 mg/dL (70-99) Calcium Level 8.9 mg/dL (8.5-10.1) Total Bilirubin 0.3 mg/dL (0.2-1.0) Aspartate Amino Transf (AST/SGOT) 37 U/L (15-37) Alanine Aminotransferase (ALT/SGPT) 57 U/L (16-63) Alkaline Phosphatase 108 U/L (46-116) Creatine Kinase 677 U/L (39-308) Total Protein 6.7 g/dL (6.4-8.2) Albumin 3.3 g/dL (3.4-5.0) Albumin/Globulin Ratio 1.0 (1.0-1.7) Medications Active Scripts Medications Dose Route/Sig Max Daily Dose Days Date Category Dose Instructions Levetiracetam 500 Mg Tablet 1 Tab PO BID 01/10/20 Reported Gabapentin 100 Mg Capsule 1 Cap PO TID 01/10/20 Reported Carafate (Sucralfate) 1 Gm Tablet 1 Tab PO QID 30 09/29/19 Rx Omeprazole 40 Mg Capsule.dr 40 Mg PO DAILY 30 09/29/19 Rx Take 1/2-hour before the first meal the day Levsin-Sl (Hyoscyamine Sulfate) 0.125 Mg Tab.subl 0.125 Mg SL Q4-6HRS PRN 09/24/19 Rx Pepcid (Famotidine) 20 Mg Tablet 20 Mg PO HS 09/24/19 Rx [haldol inj monthly] 09/15/19 Reported Depakote (Divalproex Sodium) 500 Mg Tablet.dr 500 Mg PO BID 09/15/19 Reported Impression . Full note dictated no evidence of pulmonary embolism no infiltrates on CT chest Suspect chest pain is related to GERD I will sign off GERALD CEDENO MD Jan 11, 2020 14:05
--- NOTE | 2020-01-11 14:20 | CONS ---
DATE OF CONSULTATION: 01/11/2020 ATTENDING PHYSICIAN: Dr. Lerner. REASON FOR CONSULTATION: The patient is seen in pulmonary consultation at the request of Dr. Lerner for shortness of breath, chest pain. HISTORY OF PRESENT ILLNESS: The patient is a 49-year-old that is somewhat mentally challenged presented with 2-hour history of right-sided chest discomfort. He had similar episode some time in September. In the Emergency Room, he underwent CT chest for PE protocol. I reviewed it. There is no evidence of infiltrates or pulmonary embolism. The patient is not quite sure if he wears oxygen at home. He denies fever or chills. Does not smoke. PAST MEDICAL HISTORY: Otherwise remarkable for developmental delay, hypertension, obstructive sleep apnea, gastroesophageal reflux, depression, schizophrenia, osteoarthritis. FAMILY HISTORY: Hypertension. PAST SURGICAL HISTORY: None. SOCIAL HISTORY: He smokes less than 1 pack of cigarettes a day. ALLERGIES: PENICILLIN AND IBUPROFEN. REVIEW OF SYSTEMS: As indicated above, otherwise a 10-point system was reviewed and negative. PHYSICAL EXAMINATION: VITAL SIGNS: He is currently on 2 L of oxygen supplementation, saturation greater than 92%. LUNGS: Clear. No wheezes. CARDIOVASCULAR: Regular rate and rhythm with S1, S2, no S3. ABDOMEN: Soft, nontender, nondistended. EXTREMITIES: No clubbing, cyanosis or edema. LABORATORY DATA: Serology for SARS-CoV-2 was negative. Hepatitis profile was nonreactive. Sodium was 132. White count was normal. CT angiogram as indicated above. IMPRESSION: 1. Chest pain, not related to pulmonary embolism or any other acute pulmonary pathology. 2. Hypertension. 3. Morbid obesity. 4. Seizure disorder. 5. Anxiety and depression. 6. Chest pain related to gastroesophageal reflux. PLAN: Pulmonary status appears to be compensated. We will see the patient as needed. For now, we will sign off. GERALD CEDENO MD DR: PAYAL/dahiana JOB#: [id number] / [id number]
--- NOTE | 2020-01-11 14:57 | PDOC3 ---
Discharge Summary Date of Admission: Jan 10, 2020 Date of Discharge: Jan 11, 2020 Follow-Up: 3-5 days Admitting Diagnosis comment: DISCHARGE DX Assessment/Plan Impression: 1. ANGINAL PAINS, atypical 2. No evidence of pulmonary embolism. Mild basal infiltrates could be discoid atelectasis or early pneumonia. on CXR 3. No significant findings. to suggest covid-[address] 4. Dyspnea 5. morbid obesity, prob ANGELITO 6. tobacco abuse disorder 7. hx seizure disorder 8. hypertension 9. cognitive delay, longstanding 10. transaminitis 11. rhabdomyolysis, IMPROVING CPK 12. hepatic steatosis // EGD 08/2019 w/ Dr. Blackmon for dysphagia: Schatzki's ring dilated, normal stomach, normal duodenum, plan admit PUI TELE 6TH floor resp isolation cardiology consult dvt prophylaxis home meds trend troponin i PULM CONSULT iv steroids, d/c EMPERIC DOXYCYCLINE IV Smoking cessation encouraged GI CONSULT ABD ESTEBAN Hold any hepatotoxic meds ECHO CTA CHEST NO PE D/W RN PULM OK WITH D/C 01/10 D/C PLANNING 36 MIN SMOKING CESSATION DISCUSSED, NEEDED Justifications for Admission Justifications for Admission Other Justification History of Present Illness History of Present Illness Identification/Chief Complaint Chief Complaint SEEN IN ER PUI , CHEST PAIN 49-year-old male who presents to the emergency room with a 2-hour history of right-sided pleuritic chest pain. Patient has had similar episodes in the past the last one in September. He states this is much worse. He has associated shortness of breath. He also has lower back pain which is chronic. pos cough, URI symptoms, mild fever. lft's elevated as well as cpk, cxr concerning for infiltrate Past Medical History Past Medical History Past Medical History Past Medical History Past Medical History: Asthma, Hypertension, Seizure Additional Past Medical Histor: per patient- "enlarged heart and hernia", DEVELOPMENTAL DELAY Past Surgical History: No Surgical History Smoking Status: Current Every Day Smoker Additional Information: 7 cigs/day Alcohol Use: None Drug Use: None FHX OBESITY Family History Family History: Hypertension Social History Smoke: <1 pack per day ALCOHOL: none Drugs: None FINAL DIAGNOSIS Problems Medical Problems: (1) Hypoxia Status: Acute (2) Non-cardiac chest pain Status: Acute (3) Shortness of breath Status: Acute (4) SVT (supraventricular tachycardia) Status: Acute Brief Hospital Course Mr. Willoughby is a 49 old [sex] who presented with [ ] CONDITION AT DISCHARGE: Improved Discharge Medications Current Medications Morphine Sulfate (Morphine Sulfate) 2 mg 1X ONCE IV Last administered on 01/10/20at 02:18; Start 01/10/20 at 02:15; Stop 01/10/20 at 02:19; Status DC Iohexol (Omnipaque 350 Mg/ml) 100 ml 1X ONCE IV Last administered on 01/10/20at 03:13; Start 01/10/20 at 03:00; Stop 01/10/20 at 03:01; Status DC Info (CONTRAST GIVEN -- Rx MONITORING) 1 each PRN DAILY PRN MC SEE COMMENTS; Start 01/10/20 at 03:00; Stop 01/12/20 at 02:59 Divalproex Sodium (Depakote) 500 mg BID PO Last administered on 01/11/20at 08:33; Start 01/10/20 at 11:30 Famotidine (Pepcid) 20 mg HS PO Last administered on 01/10/20at 20:36; Start 01/10/20 at 21:00 Gabapentin (Neurontin) 100 mg TID PO Last administered on 01/11/20at 14:07; Start 01/10/20 at 14:00 Levetiracetam (Keppra) 500 mg BID PO Last administered on 01/11/20at 08:32; Start 01/10/20 at 11:30 Naproxen (Naprosyn) 500 mg BIDWMEALS PO Last administered on 01/11/20at 08:33; Start 01/10/20 at 11:30 Sucralfate (Carafate) 1 gm QIDACHS PO Last administered on 01/11/20at 12:06; Start 01/10/20 at 11:30 Pantoprazole Sodium (Protonix) 40 mg DAILYAC PO Last administered on 01/11/20at 08:32; Start 01/10/20 at 11:30 Sodium Chloride (Normal Saline Flush) 3 ml QSHIFT PRN IV AFTER MEDS AND BLOOD DRAWS; Start 01/10/20 at 11:15 Ondansetron HCl (Zofran) 4 mg PRN Q4HRS PRN IV NAUSEA/VOMITING; Start 01/10/20 at 11:15 Acetaminophen (Tylenol) 650 mg PRN Q4HRS PRN PO TEMP OVER 100.4F OR MILD PAIN; Start 01/10/20 at 11:15 Al Hydroxide/Mg Hydroxide (Mylanta Plus Xs) 30 ml PRN DAILY PRN PO HEARTBURN / GAS; Start 01/10/20 at 11:15 Clonidine HCl (Catapres) 0.1 mg PRN Q6HRS PRN PO SBP>160 OR DBP>90; Start 01/10/20 at 11:15 Sodium Monofluorophosphate (Fleet Adult) 133 ml PRN DAILY PRN MA CONSTIPATION; Start 01/10/20 at 11:15 Docusate Sodium (Colace) 100 mg PRN BID PRN PO HARD STOOLS; Start 01/10/20 at 11:15 Albuterol/ Ipratropium (Duoneb) 3 ml Q4HRS NEB Last administered on 01/10/20at 21:06; Start 01/10/20 at 12:00; Stop 01/10/20 at 21:55; Status DC Guaifenesin (Robitussin) 200 mg PRN Q4HRS PRN PO COUGH; Start 01/10/20 at 11:15 Enoxaparin Sodium (Lovenox 40mg Syringe) 40 mg BID SQ Last administered on 01/11/20at 12:06; Start 01/10/20 at 12:00 Doxycycline Hyclate 100 mg/ Dextrose 100 ml @ 50 mls/hr Q12HR IV Last administered on 01/11/20at 08:34; Start 01/10/20 at 12:00 Dexamethasone Sodium Phosphate (Decadron) 6 mg DAILY08 IVP Last administered on 01/11/20at 08:33; Start 01/10/20 at 15:15; Stop 01/11/20 at 09:29; Status DC Aspirin (Ecotrin) 81 mg DAILYWBKFT PO Last administered on 01/11/20at 08:32; Start 01/11/20 at 08:00 Nicotine (Nicoderm Cq 14mg) 1 patch DAILY TD Last administered on 01/11/20at 08:32; Start 11/18/20 at 18:15 Albuterol/ Ipratropium (Duoneb) 3 ml RTQID NEB Last administered on 01/11/20at 12:00; Start 01/11/20 at 08:00 Active Scripts Active Carafate (Sucralfate) 1 Gm Tablet 1 Tab PO QID 30 Days Omeprazole 40 Mg Capsule.dr 40 Mg PO DAILY 30 Days Take 1/2-hour before the first meal the day Levsin-Sl (Hyoscyamine Sulfate) 0.125 Mg Tab.subl 0.125 Mg SL Q4-6HRS PRN Pepcid (Famotidine) 20 Mg Tablet 20 Mg PO HS Reported Levetiracetam 500 Mg Tablet 1 Tab PO BID Gabapentin 100 Mg Capsule 1 Cap PO TID [haldol inj monthly] Depakote (Divalproex Sodium) 500 Mg Tablet.dr 500 Mg PO BID Vital Signs Vital Signs Date Time Temp Pulse Resp B/P (MAP) Pulse Ox O2 Delivery O2 Flow Rate FiO2 01/11/20 13:43 Nasal Cannula 3.0 01/11/20 11:00 98.5 74 20 118/62 (80) 95 98.5 Labs Laboratory Tests Test 01/10/20 01:30 01/10/20 02:25 01/10/20 16:30 01/10/20 21:10 White Blood Count 6.5 x10^3/uL (4.0-11.0) Red Blood Count 4.78 x10^6/uL (4.30-5.70) Hemoglobin 15.0 g/dL (13.0-17.5) Hematocrit 43.7 % (39.0-53.0) Mean Corpuscular Volume 91 fL (79-100) Mean Corpuscular Hemoglobin 31 pg (25-35) Mean Corpuscular Hemoglobin Concent 34 g/dL (31-37) Red Cell Distribution Width 16.6 % (11.5-14.5) Platelet Count 216 x10^3/uL (140-400) Neutrophils (%) (Auto) 57 % (31-73) Lymphocytes (%) (Auto) 33 % (24-48) Monocytes (%) (Auto) 10 % (0-9) Eosinophils (%) (Auto) 0 % (0-3) Basophils (%) (Auto) 0 % (0-3) Neutrophils # (Auto) 3.7 x10^3/uL (1.8-7.7) Lymphocytes # (Auto) 2.1 x10^3/uL (1.0-4.8) Monocytes # (Auto) 0.6 x10^3/uL (0.0-1.1) Eosinophils # (Auto) 0.0 x10^3/uL (0.0-0.7) Basophils # (Auto) 0.0 x10^3/uL (0.0-0.2) Sodium Level 137 mmol/L (136-145) Potassium Level 3.8 mmol/L (3.5-5.1) Chloride Level 101 mmol/L (98-107) Carbon Dioxide Level 28 mmol/L (21-32) Anion Gap 8 (6-14) Blood Urea Nitrogen 5 mg/dL (8-26) Creatinine 0.8 mg/dL (0.7-1.3) Estimated GFR (Cockcroft-Gault) 123.3 BUN/Creatinine Ratio 6 (6-20) Glucose Level 189 mg/dL (70-99) Calcium Level 9.3 mg/dL (8.5-10.1) Total Bilirubin 0.3 mg/dL (0.2-1.0) Aspartate Amino Transf (AST/SGOT) 44 U/L (15-37) Alanine Aminotransferase (ALT/SGPT) 57 U/L (16-63) Alkaline Phosphatase 118 U/L (46-116) Lactate Dehydrogenase 243 U/L (85-227) Creatine Kinase 1125 U/L (39-308) Troponin I Quantitative < 0.017 ng/mL (0.000-0.055) < 0.017 ng/mL (0.000-0.055) C-Reactive Protein, Quantitative 7.3 mg/L (0-3.3) HQ-Glz-S-Type Natriuretic Peptide 5 pg/mL (0-124) Total Protein 7.3 g/dL (6.4-8.2) Albumin 3.5 g/dL (3.4-5.0) Albumin/Globulin Ratio 0.9 (1.0-1.7) Triglycerides Level 250 mg/dL (0-150) Cholesterol Level 149 mg/dL (0-200) LDL Cholesterol, Calculated 60 mg/dL (0-100) VLDL Cholesterol, Calculated 50 mg/dL (0-40) Non-HDL Cholesterol Calculated 110 mg/dL (0-129) HDL Cholesterol 39 mg/dL (40-60) Cholesterol/HDL Ratio 3.8 Coronavirus (COVID-19)(PCR) Negative (NEGATIVE) Ferritin 259 ng/mL (26-388) Hepatitis A IgM Antibody Nonreactive (Nonreactive) Hepatitis B Surface Antigen Nonreactive (Nonreactive) Hepatitis B Core IgM Antibody Nonreactive (Nonreactive) Hepatitis C IgG Antibody Nonreactive (Nonreactive) Urine Collection Type Unknown Urine Color Yellow Urine Clarity Clear Urine pH 6.0 (<5.0-8.0) Urine Specific Hubbard 1.010 (1.000-1.030) Urine Protein Negative mg/dL (NEG-TRACE) Urine Glucose (UA) Negative mg/dL (NEG) Urine Ketones (Stick) Negative mg/dL (NEG) Urine Blood Negative (NEG) Urine Nitrite Negative (NEG) Urine Bilirubin Negative (NEG) Urine Urobilinogen Dipstick 1.0 mg/dL (0.2 mg/dL) Urine Leukocyte Esterase Negative (NEG) Urine RBC 0 /HPF (0-2) Urine WBC 0 /HPF (0-4) Urine Squamous Epithelial Cells Few /LPF Urine Bacteria 0 /HPF (0-FEW) Test 01/11/20 04:20 White Blood Count 4.6 x10^3/uL (4.0-11.0) Red Blood Count 4.64 x10^6/uL (4.30-5.70) Hemoglobin 14.0 g/dL (13.0-17.5) Hematocrit 42.7 % (39.0-53.0) Mean Corpuscular Volume 92 fL (79-100) Mean Corpuscular Hemoglobin 30 pg (25-35) Mean Corpuscular Hemoglobin Concent 33 g/dL (31-37) Red Cell Distribution Width 17.1 % (11.5-14.5) Platelet Count 206 x10^3/uL (140-400) Neutrophils (%) (Auto) 74 % (31-73) Lymphocytes (%) (Auto) 21 % (24-48) Monocytes (%) (Auto) 5 % (0-9) Eosinophils (%) (Auto) 0 % (0-3) Basophils (%) (Auto) 0 % (0-3) Neutrophils # (Auto) 3.4 x10^3/uL (1.8-7.7) Lymphocytes # (Auto) 1.0 x10^3/uL (1.0-4.8) Monocytes # (Auto) 0.2 x10^3/uL (0.0-1.1) Eosinophils # (Auto) 0.0 x10^3/uL (0.0-0.7) Basophils # (Auto) 0.0 x10^3/uL (0.0-0.2) Sodium Level 132 mmol/L (136-145) Potassium Level 4.8 mmol/L (3.5-5.1) Chloride Level 99 mmol/L (98-107) Carbon Dioxide Level 25 mmol/L (21-32) Anion Gap 8 (6-14) Blood Urea Nitrogen 6 mg/dL (8-26) Creatinine 0.9 mg/dL (0.7-1.3) Estimated GFR (Cockcroft-Gault) 107.6 BUN/Creatinine Ratio 7 (6-20) Glucose Level 208 mg/dL (70-99) Calcium Level 8.9 mg/dL (8.5-10.1) Total Bilirubin 0.3 mg/dL (0.2-1.0) Aspartate Amino Transf (AST/SGOT) 37 U/L (15-37) Alanine Aminotransferase (ALT/SGPT) 57 U/L (16-63) Alkaline Phosphatase 108 U/L (46-116) Creatine Kinase 677 U/L (39-308) Total Protein 6.7 g/dL (6.4-8.2) Albumin 3.3 g/dL (3.4-5.0) Albumin/Globulin Ratio 1.0 (1.0-1.7) Laboratory Tests Test 01/10/20 16:30 01/10/20 21:10 01/11/20 04:20 Ferritin 259 ng/mL (26-388) Troponin I Quantitative < 0.017 ng/mL (0.000-0.055) Hepatitis A IgM Antibody Nonreactive (Nonreactive) Hepatitis B Surface Antigen Nonreactive (Nonreactive) Hepatitis B Core IgM Antibody Nonreactive (Nonreactive) Hepatitis C IgG Antibody Nonreactive (Nonreactive) Urine Collection Type Unknown Urine Color Yellow Urine Clarity Clear Urine pH 6.0 (<5.0-8.0) Urine Specific Hubbard 1.010 (1.000-1.030) Urine Protein Negative mg/dL (NEG-TRACE) Urine Glucose (UA) Negative mg/dL (NEG) Urine Ketones (Stick) Negative mg/dL (NEG) Urine Blood Negative (NEG) Urine Nitrite Negative (NEG) Urine Bilirubin Negative (NEG) Urine Urobilinogen Dipstick 1.0 mg/dL (0.2 mg/dL) Urine Leukocyte Esterase Negative (NEG) Urine RBC 0 /HPF (0-2) Urine WBC 0 /HPF (0-4) Urine Squamous Epithelial Cells Few /LPF Urine Bacteria 0 /HPF (0-FEW) White Blood Count 4.6 x10^3/uL (4.0-11.0) Red Blood Count 4.64 x10^6/uL (4.30-5.70) Hemoglobin 14.0 g/dL (13.0-17.5) Hematocrit 42.7 % (39.0-53.0) Mean Corpuscular Volume 92 fL (79-100) Mean Corpuscular Hemoglobin 30 pg (25-35) Mean Corpuscular Hemoglobin Concent 33 g/dL (31-37) Red Cell Distribution Width 17.1 % (11.5-14.5) Platelet Count 206 x10^3/uL (140-400) Neutrophils (%) (Auto) 74 % (31-73) Lymphocytes (%) (Auto) 21 % (24-48) Monocytes (%) (Auto) 5 % (0-9) Eosinophils (%) (Auto) 0 % (0-3) Basophils (%) (Auto) 0 % (0-3) Neutrophils # (Auto) 3.4 x10^3/uL (1.8-7.7) Lymphocytes # (Auto) 1.0 x10^3/uL (1.0-4.8) Monocytes # (Auto) 0.2 x10^3/uL (0.0-1.1) Eosinophils # (Auto) 0.0 x10^3/uL (0.0-0.7) Basophils # (Auto) 0.0 x10^3/uL (0.0-0.2) Sodium Level 132 mmol/L (136-145) Potassium Level 4.8 mmol/L (3.5-5.1) Chloride Level 99 mmol/L (98-107) Carbon Dioxide Level 25 mmol/L (21-32) Anion Gap 8 (6-14) Blood Urea Nitrogen 6 mg/dL (8-26) Creatinine 0.9 mg/dL (0.7-1.3) Estimated GFR (Cockcroft-Gault) 107.6 BUN/Creatinine Ratio 7 (6-20) Glucose Level 208 mg/dL (70-99) Calcium Level 8.9 mg/dL (8.5-10.1) Total Bilirubin 0.3 mg/dL (0.2-1.0) Aspartate Amino Transf (AST/SGOT) 37 U/L (15-37) Alanine Aminotransferase (ALT/SGPT) 57 U/L (16-63) Alkaline Phosphatase 108 U/L (46-116) Creatine Kinase 677 U/L (39-308) Total Protein 6.7 g/dL (6.4-8.2) Albumin 3.3 g/dL (3.4-5.0) Albumin/Globulin Ratio 1.0 (1.0-1.7) Allergies Allergies Coded Allergies Type Severity Reaction Last Updated Verified Penicillins Allergy Intermediate RASH 09/15/19 Yes ibuprofen Allergy Intermediate hives and abd pain 01/10/20 Yes Disposition/Orders: D/C to Home Justicifation of Admission Dx: Justifications for Admission: Justification of Admission Dx: N/A ILIANA GUIDRY MD Jan 11, 2020 14:57
[2020-01-11 15:00] VITALS: BP 122/79
[2020-01-11] MEDS ORDERED: DOCU-153 PO (15:06)
[2020-01-11] MEDS ORDERED: ACET325T9 PO (15:06)
[2020-01-11] MEDS ORDERED: IPRA3AMP29 NEB (15:06)
[2020-01-11] MEDS ORDERED: DOXY100C14 PO (15:06)
[2020-01-11] MEDS ORDERED: GUAI100L12 PO (15:06)
[2020-01-11] MEDS ORDERED: ASPI-886 PO (15:06)
--- NOTE | 2020-01-11 15:07 | DISCH ---
DISCHARGE INSTRUCTIONS Condition on Discharge Condition on Discharge: Stable Activity After Discharge Activity Instructions for Disc: Activity as tolerated Lifting Instructions after Dis: No heavy lifting, No pulling or pushing Driving Instructions after Dis: Do not drive Diet after Discharge Diet after Discharge: Regular Liquid Texture: Thin Liquid Checks after Discharge Checks after discharge: Check blood press - daily Contacting the DR. after DC Call your doctor for: If your condition worsens Treatment/Equipment after DC Discharge Respiratory Equipmen: Nebulizer Warfarin Follow-Up Warfarin Follow UP: SEE PCP IN 3-7 DAYS, NO SMOKING ILIANA GUIDRY MD Jan 11, 2020 15:07
--- NOTE | 2020-01-11 16:27 | NUR ---
Dr. Hussein notified of patient passing 6 minute walk but oxygen saturations being 77% on RA while sleeping. Per Dr. Hussein, okay to discharge and will do work up as outpatient. This RN to have patient make follow up appt with his office. Will continue to monitor.
--- NOTE | 2020-01-11 17:18 | NUR ---
SW following for discharge planning. Spoke with RN and reviewed chart. 6 min walk indicated no need for 02 setup on discharge per RN. Pt to follow up with pulmonary out-patient. Pt to discharge home today, self-care. No additional SW needs at this time. Addendum: 01/12/20 at 1143 by YESSICA MAO SW Phone call from pt's mother Patricia ([phone]) asking about HCBS. SW explained the differences between HH and HCBS and encouraged pt and family to call [employer] number on the back of pt's insurance card to initiate HCBS. No further SW needs at this time.
--- NOTE | 2020-01-11 18:40 | NUR ---
Discharge Note: ALYSSA MELGOZA [facility] Discharge instructions and discharge home medications reviewed with Patient and over the telephone with patient mother, Patricia Melgoza and a copy given. All questions have been answered and understanding verbalized. The following instructions and handouts were given: F/U with PCP within 3-7 days and F/U with Dr. Hussein within 2 weeks for outpatient sleep study. Discontinued lines and drains: Peripheral IV intact. Patient discharged to Home or Self Care with Family Member via Wheelchair.
[2020-01-12] MEDS ORDERED: PANTOPRAZOLE 40 MG TABLET.DR. PO SCH (07:30)
--- NOTE | 2020-01-12 08:44 | CARD ---
MR#: [id number] Date of Study: 01/11/2020 Ordering Physician: MARC ESQUIVEL, Referring Physician: MARC ESQUIVEL, Tech: Nayana Alatorre APPROVED REPORT EXAM: Two-dimensional and M-mode echocardiogram with Doppler and color Doppler. Other Information Quality : FairHR: 89bpm Technically limited study due to body habitus. INDICATION Chest Pain 2D DIMENSIONS Left Atrium(2D)2.9 (1.6-4.0cm)IVSd1.6 (0.7-1.1cm) Aortic Root(2D)3.8 (2.0-3.7cm)LVDd5.8 (3.9-5.9cm) LVOT Diameter2.1 (1.8-2.4cm)PWd1.3 (0.7-1.1cm) LVDs3.9 (2.5-4.0cm)FS (%) 32.1 % SV99.4 mlLVEF(%)59.5 (>50%) Aortic Valve AoV Peak Monty.126.3cm/sAoV VTI25.0cm AO Peak GR.6.4mmHgLVOT VTI 22.63cm AO Mean GR.4mmHg Mitral Valve MV E Gbkjwdgj960.9cm/sMV DECEL [id number] MV A Wnflqfzd49.8cm/sE/A Ratio1.4 TDI Lateral E' P. V9.59cm/sMedial E' P. V8.56cm/s E/Lateral E'11.5E/Medial E'12.8 Pulmonary Vein S1 Lactsosi53.5cm/sS2 Fcmlxbbz98.70cm/s D2 Ocegegjn23.7cm/sPVa fppnvicg37dtax LEFT VENTRICLE The left ventricle is normal size. There is mild to moderate concentric left ventricular hypertrophy. The left ventricular systolic function is normal. The Ejection Fraction is 55%. There is normal LV s egmental wall motion. Transmitral Doppler flow pattern is Grade II-pseudonormal filling dynamics. RIGHT VENTRICLE The right ventricle is normal size. There is normal right ventricular wall thickness. The right ventr icular systolic function is normal. ATRIA The left atrium size is normal. The right atrium is borderline dilated. The interatrial septum is int act with no evidence for an atrial septal defect or patent foramen ovale as noted on 2-D or Doppler i maging. AORTIC VALVE The aortic valve is normal in structure and function. Doppler and Color Flow revealed no significant aortic regurgitation. There is no significant aortic valvular stenosis. Calculated aortic valve area is 3.11 cm2 with maximum pressure gradient of 9 mmHg and mean pressure gradient of 5 mmHg. MITRAL VALVE The mitral valve is normal in structure and function. There is no evidence of mitral valve prolapse. There is no mitral valve stenosis. Doppler and Color-flow revealed trace mitral regurgitation. TRICUSPID VALVE The tricuspid valve is not well visualized. Doppler and Color Flow revealed no tricuspid valve regurg itation noted. There is no tricuspid valve stenosis. PULMONIC VALVE The pulmonic valve is not well visualized. Doppler and Color Flow revealed no pulmonic valvular regur gitation. GREAT VESSELS The aortic root is normal in size. The IVC is normal in size and collapses >50% with inspiration. PERICARDIAL EFFUSION There is no evidence of significant pericardial effusion. Critical Notification Critical Value: No <Conclusion> Technically difficult study. The left ventricular systolic function is normal. The Ejection Fraction is 55%. There is normal LV segmental wall motion. Trace mitral regurgitation. There is no evidence of significant pericardial effusion. Signed by : Yuniel Helms, Electronically Approved : 01/12/2020 08:44:23
== END 2020-01-11 18:40 | disposition home or self-care (01) | DRG 392 ==
LOC: ER 01:20 → ED HOLD 03:33 → 6 SOUTH 05:50
PROVIDERS: ADMIT Family Medicine; ATTEND Family Medicine
DX: K21.9 Gastro-esophageal reflux disease without esophagitis (principal); M62.82 Rhabdomyolysis; E66.2 Morbid (severe) obesity with alveolar hypoventilation; I47.1 Supraventricular tachycardia; Z68.42 Body mass index [BMI] 45.0-49.9, adult; I20.9 Angina pectoris, unspecified; Z20.828 Contact with and (suspected) exposure to other viral communicable diseases; G40.909 Epilepsy, unspecified, not intractable, without status epilepticus; I10 Essential (primary) hypertension; G89.29 Other chronic pain; M54.5 Low back pain; F17.210 Nicotine dependence, cigarettes, uncomplicated; Z82.49 Family history of ischemic heart disease and other diseases of the circulatory system; R09.02 Hypoxemia; Z88.0 Allergy status to penicillin; R74.01 Elevation of levels of liver transaminase levels; E88.89 Other specified metabolic disorders; F41.9 Anxiety disorder, unspecified; F32.9 Major depressive disorder, single episode, unspecified; K76.0 Fatty (change of) liver, not elsewhere classified; R62.50 Unspecified lack of expected normal physiological development in childhood; F20.9 Schizophrenia, unspecified; M19.90 Unspecified osteoarthritis, unspecified site; Z83.3 Family history of diabetes mellitus; Z71.6 Tobacco abuse counseling
CPT/HCPCS: 36415; 71045; 71275; 76705; 80053; 80061; 81001; 82550; 82728; 83615; 83880; 84484; 85025; 86140; 86705; 86709; 86803; 87340; 93005; 93306; 94618; 94640; 94760; 96374; 99285; J1100; J1650; J2270; J3490; J7060; Q9967; U0003; G0378

== ENCOUNTER 2020-01-15 20:04 | Emergency (ER) | payer OTHER ==
[~2020-01-15] VITALS: Ht 175.3 cm; Wt 117.7 kg
[~2020-01-15 20:04] MED LIST changes: +ASPI-886 PO; +DOCU-153 PO; +DOXY100C14 PO; +GABA100C6 PO; +GUAI100L12 PO; +IPRA3AMP29 NEB; +LEVE500T6 PO; +NAPR-514 PO
[2020-01-16] MEDS ORDERED: ALBU2.5V8 IH (01:12)
--- NOTE | 2020-01-16 01:13 | PHYS DOC ---
Past Medical History Past Medical History: Asthma, Hypertension, Seizure Additional Past Medical Histor: per patient- "enlarged heart and hernia", DEVELOPMENTAL DELAY Past Surgical History: No Surgical History Smoking Status: Current Every Day Smoker Alcohol Use: None Drug Use: None General Adult EDM: Chief Complaint: DYSPNEA/RESPIRATOY DISTRESS HPI: HPI: Patient is a 49 year old male presents with a chief complaint of shortness of breath. Patient states shortness of breath started today. He denies any associated cough or chest pain. Patient does state he has history of asthma bronchitis and sleep apnea. Patient he has not received his sleep apnea machine. He states he is run out of his albuterol. Patient tested negative for Covid on January 09. Review of Systems: Review of Systems: Constitutional: Denies fever or chills. [] Eyes: Denies change in visual acuity. [] HENT: Denies nasal congestion or sore throat. [] Respiratory: Denies cough positive shortness of breath. [] Cardiovascular: Denies chest pain or edema. [] GI: Denies abdominal pain, nausea, vomiting, bloody stools or diarrhea. [] : Denies dysuria. [] Musculoskeletal: Denies back pain or joint pain. [] Integument: Denies rash. [] Neurologic: Denies headache, focal weakness or sensory changes. [] Endocrine: Denies polyuria or polydipsia. [] Lymphatic: Denies swollen glands. [] Psychiatric: Denies depression or anxiety. [] Heart Score: Risk Factors: Risk Factors: DM, Current or recent (<one month) smoker, HTN, HLP, family history of CAD, obesity. Risk Scores: Score 0 - 3: 2.5% MACE over next 6 weeks - Discharge Home Score 4 - 6: 20.3% MACE over next 6 weeks - Admit for Clinical Observation Score 7 - 10: 72.7% MACE over next 6 weeks - Early Invasive Strategies Allergies: Allergies: Allergies Coded Allergies Type Severity Reaction Last Updated Verified Penicillins Allergy Intermediate RASH 09/15/19 Yes ibuprofen Allergy Intermediate hives and abd pain 01/10/20 Yes Physical Exam: PE: Constitutional: Well developed, well nourished, no acute distress, non-toxic appearance. [] HENT: Normocephalic, atraumatic, bilateral external ears normal, oropharynx moist, no oral exudates, nose normal. [] Eyes: PERRLA, EOMI, conjunctiva normal, no discharge. [] Neck: Normal range of motion, no tenderness, supple, no stridor. [] Cardiovascular:Heart rate regular rhythm, no murmur [] Lungs & Thorax: Bilateral breath sounds clear to auscultation [] Abdomen: Bowel sounds normal, soft, no tenderness, no masses, no pulsatile masses. [] Skin: Warm, dry, no erythema, no rash. [] Back: No tenderness, no CVA tenderness. [] Extremities: No tenderness, no cyanosis, no clubbing, ROM intact, no edema. [] Neurologic: Alert and oriented X 3, normal motor function, normal sensory function, no focal deficits noted. [] Psychologic: Affect normal, judgement normal, mood normal. [] Current Patient Data: Vital Signs: Vital Signs Date Time Temp Pulse Resp B/P (MAP) Pulse Ox O2 Delivery O2 Flow Rate FiO2 01/16/20 00:46 98.2 92 16 132/65 (87) 94 Room Air 98.2 EKG: EKG: [] Radiology/Procedures: Radiology/Procedures: [] Impression: Chest x-ray wet read no acute abnormalities Course & Med Decision Making: Course & Med Decision Making Pertinent Labs and Imaging studies reviewed. (See chart for details) [] Patient vital signs oxygen saturations within normal limits. Chest x-ray performed no acute abnormalities. Patient's lungs are clear. Patient states he is out of his albuterol prescription refill provided. patient discharged home with instructions to follow-up with his primary care physician Adriana Disclaimer: Adriana Disclaimer: This electronic medical record was generated, in whole or in part, using a voice recognition dictation system. Departure Departure Impression: Primary Impression: Dyspnea Additional Impression: Medication refill Disposition: 01 DC HOME SELF CARE/HOMELESS Condition: STABLE Referrals: KEYSHA DIAZ,BHARTI Arenas MD (PCP) Patient Instructions: Medication Refill, Emergency Department, Shortness of Breath Scripts Albuterol Sulfate (Proair Hfa) 8.5 Gm Hfa.aer.ad 2 PUFF IH PRN Q4-6HRS PRN for wheezing for 21 Days, #1 INHALER 0 Refills Prov: CAMRON ROBLERO DO 01/16/20 CAMRON ROBLERO DO Jan 16, 2020 01:13
--- NOTE | 2020-01-16 01:28 | RAD ---
EXAMINATION: CHEST AP ONLY CLINICAL HISTORY: Reason: shortness of breath / Spl. Instructions: / History: EXAM DATE/TIME: 01/16/2020 12:51 AM COMPARISON: 01/10/2020 FINDINGS: Lines, Tubes, and Devices: None. Cardiomediastinal Silhouette: Normal heart size. Lungs and Pleura: No evidence of focal airspace consolidation or pleural effusion. Pulmonary vasculature unremarkable. Bones and Soft Tissues: Degenerative changes of the thoracic spine. IMPRESSION: No evidence of acute cardiopulmonary abnormality or significant interval change. Electronically signed by: Alan Johnson DO (01/16/2020 1:25 AM) [facility]
[2020-01-16 01:44] VITALS: BP 155/73
== END 2020-01-16 01:49 | disposition home or self-care (01) ==
LOC: ER 20:04
DX: R06.02 Shortness of breath (principal); J45.909 Unspecified asthma, uncomplicated; I10 Essential (primary) hypertension; F17.200 Nicotine dependence, unspecified, uncomplicated; Z88.0 Allergy status to penicillin; Z88.8 Allergy status to other drugs, medicaments and biological substances
CPT/HCPCS: 71045; 99283

== ENCOUNTER 2020-02-28 20:54 | Emergency (ER) | payer OTHER ==
[~2020-02-28] VITALS: Ht 175.3 cm; Wt 135.0 kg
[~2020-02-28 20:54] MED LIST changes: +ALBU2.5V8 IH
--- NOTE | 2020-02-28 21:16 | ED.ADGEN ---
Past Medical History Past Medical History: Asthma, Hypertension, Seizure Additional Past Medical Histor: per patient- "enlarged heart and hernia", DEVELOPMENTAL DELAY Past Surgical History: No Surgical History Smoking Status: Current Every Day Smoker Alcohol Use: None Drug Use: None General Adult EDM: Chief Complaint: ABDOMINAL PAIN HPI: HPI: Patient is a 49 year old male coming in via EMS for constipation and bloody stools. Patient states he has only had a small amount of blood streaking on his stools, also complaining of constipation for the past 6 days. Took magnesium citrate 4 days ago. States he is having small hard round stools the past easily but only a small amount. Patient states he is not straining with and denies any rectal pain. Has had some nausea but no vomiting. Complaining of abdominal distention states he has a history of hernia. Patient denies any other recent illness such as headache, fever, cough. He does state that his urine is "sti nging". He has been taking an antibiotic for about 3 to 4 weeks for a dental infection but is unsure of the name. Has a history of hypertension and prediabetes but is not taking medications for this. Review of Systems: Review of Systems: All other systems within normal limits except for as noted in the HPI Current Medications: Current Medications Medications (Trade) Dose Ordered Sig/Brigido Start Time Stop Time Status Last Admin Dose Admin Info (CONTRAST GIVEN -- Rx MONITORING) 1 each PRN DAILY PRN 02/28/20 21:45 03/01/20 21:44 Iohexol (Omnipaque 300 Mg/ml) 75 ml 1X ONCE 02/28/20 22:00 02/28/20 22:01 DC 02/28/20 22:02 75 ML Methylprednisolone Sodium Succinate (SOLU-Medrol 125MG VIAL) 125 mg 1X ONCE 02/28/20 23:30 02/28/20 23:31 DC 02/28/20 23:16 125 MG Ondansetron HCl (Zofran) 4 mg 1X ONCE 02/28/20 21:30 02/28/20 21:31 DC Sodium Chloride 500 ml @ 500 mls/hr 1X ONCE 02/28/20 21:30 02/28/20 22:29 DC 02/28/20 21:34 500 MLS/HR Allergies: Allergies: Allergies Coded Allergies Type Severity Reaction Last Updated Verified Penicillins Allergy Intermediate RASH 09/15/19 Yes ibuprofen Allergy Intermediate hives and abd pain 01/10/20 Yes Physical Exam: PE: Constitutional: Well developed, well nourished, no acute distress, non-toxic appearance. [] HENT: Normocephalic, atraumatic, bilateral external ears normal, nose normal. [] Eyes: PERRLA, conjunctiva normal, no discharge. [] Neck: No rigidity, supple, no stridor. [] Cardiovascular: Regular rate and rhythm, brisk cap refill [] Lungs & Thorax: Non labored symmetric respirations, no tachypnea or respiratory distress [] Abdomen: Soft, mild distention, nontense. Right-sided abdominal wall hernia Skin: Warm, dry, no erythema, no rash. [] Back: No tenderness, no CVA tenderness. [] Extremities: No deformities, range of motion grossly intact, no lower extremity edema [] Neurologic: Alert and oriented X 3, no focal deficits noted. [] Psychologic: Affect normal, judgement normal, mood normal. [] Current Patient Data: Labs: Laboratory Tests Test 02/28/20 21:19 02/28/20 22:16 White Blood Count 4.6 x10^3/uL (4.0-11.0) Red Blood Count 4.80 x10^6/uL (4.30-5.70) Hemoglobin 14.6 g/dL (13.0-17.5) Hematocrit 43.2 % (39.0-53.0) Mean Corpuscular Volume 90 fL (79-100) Mean Corpuscular Hemoglobin 30 pg (25-35) Mean Corpuscular Hemoglobin Concent 34 g/dL (31-37) Red Cell Distribution Width 15.9 % (11.5-14.5) H Platelet Count 212 x10^3/uL (140-400) Neutrophils (%) (Auto) 54 % (31-73) Lymphocytes (%) (Auto) 32 % (24-48) Monocytes (%) (Auto) 13 % (0-9) H Eosinophils (%) (Auto) 0 % (0-3) Basophils (%) (Auto) 1 % (0-3) Neutrophils # (Auto) 2.5 x10^3/uL (1.8-7.7) Lymphocytes # (Auto) 1.5 x10^3/uL (1.0-4.8) Monocytes # (Auto) 0.6 x10^3/uL (0.0-1.1) Eosinophils # (Auto) 0.0 x10^3/uL (0.0-0.7) Basophils # (Auto) 0.0 x10^3/uL (0.0-0.2) Sodium Level 142 mmol/L (136-145) Potassium Level 4.0 mmol/L (3.5-5.1) Chloride Level 103 mmol/L (98-107) Carbon Dioxide Level 27 mmol/L (21-32) Anion Gap 12 (6-14) Blood Urea Nitrogen 7 mg/dL (8-26) L Creatinine 0.8 mg/dL (0.7-1.3) Estimated GFR (Cockcroft-Gault) 123.3 BUN/Creatinine Ratio 9 (6-20) Glucose Level 181 mg/dL (70-99) H Lactic Acid Level 1.9 mmol/L (0.4-2.0) Calcium Level 9.2 mg/dL (8.5-10.1) Magnesium Level 2.0 mg/dL (1.8-2.4) Total Bilirubin 0.2 mg/dL (0.2-1.0) Aspartate Amino Transferase (AST) 43 U/L (15-37) H Alanine Aminotransferase (ALT) 62 U/L (16-63) Alkaline Phosphatase 130 U/L (46-116) H C-Reactive Protein, Quantitative 25.8 mg/L (0-3.3) H Total Protein 7.0 g/dL (6.4-8.2) Albumin 3.3 g/dL (3.4-5.0) L Albumin/Globulin Ratio 0.9 (1.0-1.7) L Lipase 138 U/L (73-393) Urine Collection Type Unknown Urine Color Yellow Urine Clarity Clear Urine pH 7.0 (<5.0-8.0) Urine Specific [place] >=1.030 (1.000-1.030) Urine Protein Negative mg/dL (NEG-TRACE) Urine Glucose (UA) Negative mg/dL (NEG) Urine Ketones (Stick) Negative mg/dL (NEG) Urine Blood Negative (NEG) Urine Nitrite Negative (NEG) Urine Bilirubin Negative (NEG) Urine Urobilinogen Dipstick 1.0 mg/dL (0.2 mg/dL) Urine Leukocyte Esterase Negative (NEG) Urine RBC Rare /HPF (0-2) Urine WBC Rare /HPF (0-4) Urine Squamous Epithelial Cells Occ /LPF Urine Bacteria 0 /HPF (0-FEW) Urine Mucus Slight /LPF Laboratory Tests 02/28/20 21:19 Laboratory Tests 02/28/20 21:19 Vital Signs: Vital Signs Date Time Temp Pulse Resp B/P (MAP) Pulse Ox O2 Delivery O2 Flow Rate FiO2 02/28/20 22:33 108 22 145/67 (93) 97 Room Air 02/28/20 21:15 98.5 98.5 EKG: EKG: [] Heart Score: Risk Factors: Risk Factors: DM, Current or recent (<one month) smoker, HTN, HLP, family history of CAD, obesity. Risk Scores: Score 0 - 3: 2.5% MACE over next 6 weeks - Discharge Home Score 4 - 6: 20.3% MACE over next 6 weeks - Admit for Clinical Observation Score 7 - 10: 72.7% MACE over next 6 weeks - Early Invasive Strategies Radiology/Procedures: Radiology/Procedures: CT SCAN OF THE ABDOMEN AND PELVIS WITH IV CONTRAST. History: Reason: abdominal pain and distention / Spl. Instructions: OMNI 300 INJ 75 MLS / History: Comparison:September 24, 2019. Procedure: Contiguous axial images of the abdomen and pelvis were performed after the administration of 75 cc of Omni 300 IV contrast. Oral contrast: No. Findings: The gallbladder is collapsed but appears normal. The appendix is normal. There is moderate wall thickening of the distal sigmoid and the rectum. There is no surrounding inflammation. Liver: Unremarkable Spleen: Unremarkable Pancreas: Unremarkable Adrenal Glands: Unremarkable Kidneys: Unremarkable There is no mass or lymphadenopathy. There is no free air. There is no free fluid. The urinary bladder appears normal. Impression: New moderate wall thickening of the rectosigmoid without surrounding inflammation. This could be inflammatory such as ulcerative colitis or could be infectious such as pseudomembranous colitis. There is no diverticulitis. There is no air in the wall to suggest ischemic colitis. [] Course & Med Decision Making: Course & Med Decision Making Pertinent Labs and Imaging studies reviewed. (See chart for details) No signs of constipation, concern for inflammatory colitis with elevated CRP. Patient has also been on the antibiotic for 3 to 4 weeks and a sample was collected for C. difficile, patient has no elevated white count so we will hold off on antibiotic treatment until resulted. Patient does not currently have a primary care physician and is given a list of other primary care classes and a referral for GI follow-up. [] Dragon Disclaimer: Dragon Disclaimer: This electronic medical record was generated, in whole or in part, using a voice recognition dictation system. Departure Departure Impression: Primary Impression: Colitis Disposition: 01 DC HOME SELF CARE/HOMELESS Condition: STABLE Referrals: [facility] Patient Instructions: Diet for Diarrhea, Adult Additional Instructions: take and over the counter probiotic Scripts Ibuprofen (IBUPROFEN) 800 Mg Tablet 800 MG PO PRN Q8HRS PRN for INFLAMMATION for 10 Days, #30 TAB Prov: SABINA OROSCO MD 02/29/20 Prednisone (PREDNISONE) 50 Mg Tablet 1 TAB PO DAILY for steroid for 7 Days, #7 TAB Prov: SABINA OROSCO MD 02/28/20 SABINA OROSCO MD Feb 28, 2020 21:15
[2020-02-28] MEDS ORDERED: IV NORMAL SALINE 500ML BAG 500 ML IV ONE (21:30)
[2020-02-28] MEDS ORDERED: ONDANSETRON PF 4 MG/2 ML VIAL. IVP ONE (21:30)
[2020-02-28 21:33] LABS: BASO % 1 % (0-3); EOS % 0 % (0-3); HEMATOCRIT 43.2 % (39.0-53.0); HEMOGLOBIN 14.6 g/dL (13.0-17.5); LYMPH # 1.5 x10^3/uL (1.0-4.8); LYMPH % 32 % (24-48); MEAN CORPUSCULAR HEMOGLOBIN 30 pg (25-35); MEAN CORPUSCULAR HGB CONC 34 g/dL (31-37); MEAN CORPUSCULAR VOLUME 90 fL (79-100); MONO # 0.6 x10^3/uL (0.0-1.1); MONO % 13 % (0-9); NEUT # 2.5 x10^3/uL (1.8-7.7); NEUT % 54 % (31-73); PLATELET COUNT 212 x10^3/uL (140-400); RED CELL DISTRIBUTION WIDTH 15.9 % (11.5-14.5); WHITE BLOOD COUNT 4.6 x10^3/uL (4.0-11.0)
[2020-02-28 21:39] LABS: CALCIUM 9.2 mg/dL (8.5-10.1); CREATININE 0.8 mg/dL (0.7-1.3); GFR 123.3
[2020-02-28 21:45] LABS: ALBUMIN 3.3 g/dL (3.4-5.0); ALBUMIN/GLOBULIN RATIO 0.9 (1.0-1.7); TOTAL BILIRUBIN 0.2 mg/dL (0.2-1.0)
[2020-02-28] MEDS ORDERED: CONTRAST GIVEN. MC PRN (21:45)
[2020-02-28] MEDS ORDERED: IOHEXOL 300 MG/ML 100ML VIAL. IV ONE (22:00)
--- NOTE | 2020-02-28 22:16 | RAD ---
CT SCAN OF THE ABDOMEN AND PELVIS WITH IV CONTRAST. History: Reason: abdominal pain and distention / Spl. Instructions: OMNI 300 INJ 75 MLS / History: Comparison:September 24, 2019. Procedure: Contiguous axial images of the abdomen and pelvis were performed after the administration of 75 cc o f Omni 300 IV contrast. Oral contrast: No. Findings: The gallbladder is collapsed but appears normal. The appendix is normal. There is moderate wall thick ening of the distal sigmoid and the rectum. There is no surrounding inflammation. Liver: Unremarkable Spleen: Unremarkable Pancreas: Unremarkable Adrenal Glands: Unremarkable Kidneys: Unremarkable There is no mass or lymphadenopathy. There is no free air. There is no free fluid. The urinary bladder appears normal. Impression: New moderate wall thickening of the rectosigmoid without surrounding inflammation. This could be infl ammatory such as ulcerative colitis or could be infectious such as pseudomembranous colitis. There is no diverticulitis. There is no air in the wall to suggest ischemic colitis. End impression PQRS Compliance Statement: One or more of the following individualized dose reduction techniques were utilized for this examinat ion: 1. Automated exposure control 2. Adjustment of the mA and/or kV according to patient size 3. Use of iterative reconstruction technique Electronically signed by: Dimas Cain III, MD (02/28/2020 10:13 PM) [facility]
[2020-02-28 22:25] LABS: BILIRUBIN,URINE NEGATIVE (NEG); CLARITY,URINE CLEAR; COLOR,URINE YELLOW; NITRITE,URINE NEGATIVE (NEG); PROTEIN,URINE NEGATIVE (NEG-TRACE)
[2020-02-28 22:32] LABS: BACTERIA,URINE 0 /HPF (0-FEW); RBC,URINE RARE /HPF (0-2); WBC,URINE RARE /HPF (0-4)
[2020-02-28] MEDS ORDERED: methylPREDNISolone SOD SUCC PF 125 MG/2 ML VIAL. IV ONE (23:30)
[2020-02-28] MEDS ORDERED: PRED50TA PO (23:32)
[2020-02-29] MEDS ORDERED: IBUP-1060 PO (00:23)
[2020-02-29 00:33] VITALS: BP 150/74
== END 2020-02-29 00:44 | disposition home or self-care (01) ==
LOC: ER 20:54
DX: K52.9 Noninfective gastroenteritis and colitis, unspecified (principal); J45.909 Unspecified asthma, uncomplicated; I10 Essential (primary) hypertension; F17.200 Nicotine dependence, unspecified, uncomplicated; Z88.0 Allergy status to penicillin; Z88.8 Allergy status to other drugs, medicaments and biological substances
CPT/HCPCS: 36415; 74177; 80053; 81001; 83605; 83690; 83735; 85025; 86140; 87493; 96361; 96374; 99285; J2930; J7040; Q9967

== ENCOUNTER 2020-05-24 12:33 | Inpatient (IN) | payer OTHER ==
[~2020-05-24] VITALS: Ht 175.3 cm; Wt 135.0 kg
[~2020-05-24 12:33] MED LIST changes: +IBUP-1060 PO; +PRED50TA PO
--- NOTE | 2020-05-24 13:47 | RAD ---
Right hip 2 views with one view pelvis, right knee 3 views, right tibia and fibula 2 views. HISTORY: Right hip and knee pain after a fall, right leg pain Right knee 3 views were taken of the right knee. There is slight spurring from mild arthritis. There is no fract ure or joint effusion or acute osseous abnormality. Right tibia and fibula 2 views were taken of the right tibia and fibula. There is not evidence of an acute fracture or osseo us abnormality. Right hip 2 views with one view pelvis Single view was taken of the pelvis. There is degenerative disc disease in the lower lumbar spine. An acute pelvic fracture is not identified. A definite hip fracture is not identified. 2 views of the right hip show no evidence of an acute fracture or osseous abnormality. IMPRESSION: 1. No fracture noted in the pelvis or right hip. 2. No fracture or joint effusion noted at the right knee. 3. Slight spurring from mild arthritis right knee. 4. No fracture noted in the right tibia or fibula. Electronically signed by: Tristian Garcias MD (05/24/2020 1:45 PM) [id number]
--- NOTE | 2020-05-24 15:10 | ED.ADGEN ---
Past Medical History Past Medical History: Asthma, High Cholesterol, Hypertension, Seizure Additional Past Medical Histor: per patient- "enlarged heart and hernia", DEVELOPMENTAL DELAY Past Surgical History: Other Additional Past Surgical Histo: "THYROID" Smoking Status: Current Every Day Smoker Alcohol Use: None Drug Use: None General Adult EDM: Chief Complaint: LOWER EXT PAIN HPI: HPI: Patient is a 49 year old AA male who presents emergency department with complaints of right hip, right knee, and right lower leg pain after accidentally falling while trying to get into bed last night. Patient states he has been unable to bear weight or ambulate since the fall. He denies any numbness, tingling, weakness, or decreased sensation of the affected extremity. Patient denies any dizziness, chest pain, or syncope prior to his fall. He denies any head or neck pain. Patient does complain of lower back pain after I advised him that his x-rays of his right leg were negative. He denies any saddle anesthesia or loss of bowel/bladder control. He currently rates his pain a 10 out of 10 on the pain scale, Review of Systems: Review of Systems: Complete ROS is negative unless otherwise noted in HPI. Allergies: Allergies: Allergies Coded Allergies Type Severity Reaction Last Updated Verified Penicillins Allergy Intermediate RASH 09/15/19 Yes ibuprofen Allergy Intermediate hives and abd pain 01/10/20 Yes Physical Exam: PE: See Above Constitutional: Well developed, well nourished, no acute distress, non-toxic appearance. [] HENT: Normocephalic, atraumatic, bilateral external ears normal, nose normal. [] Eyes: PERRLA, EOMI, conjunctiva normal, no discharge. [] Neck: Normal range of motion, no stridor. [] Cardiovascular:Heart rate regular rhythm Lungs & Thorax: Respirations even and unlabored, no retractions, no respiratory distress Abdomen: soft, no tenderness Back: No obvious step-off or deformity, lumbar tenderness to palpation otherwise back is nontender Skin: Warm, dry, no erythema, no rash. [] Extremities: RLE: Tenderness to palpation of right lateral hip, right knee, and proximal right tibia, no crepitus, no obvious deformity, no shortening, no external rotation, 2+ pedal puls,e no cyanosis, ROM limited due to pain, no edema Neurologic: Alert and oriented X 3, normal sensory, no focal deficits noted. [] Psychologic: Affect normal, judgement normal, mood normal. [] Current Patient Data: Vital Signs: Vital Signs Date Time Temp Pulse Resp B/P (MAP) Pulse Ox O2 Delivery O2 Flow Rate FiO2 05/24/20 15:11 80 139/80 (99) 92 Room Air 05/24/20 12:58 98.4 20 98.4 EKG: EKG: [] Heart Score: C/O Chest Pain: No Risk Scores: Score 0 - 3: 2.5% MACE over next 6 weeks - Discharge Home Score 4 - 6: 20.3% MACE over next 6 weeks - Admit for Clinical Observation Score 7 - 10: 72.7% MACE over next 6 weeks - Early Invasive Strategies Radiology/Procedures: Radiology/Procedures: PROCEDURE: CT LUMBAR SPINE WO CONTRAST CT LUMBAR SPINE WO History:Reason: LOW BACK PAIN AFTER FALL YESTERDAY / Spl. Instructions: / History: Technique: Noncontrast CT was performed of the lumbar spine. Multiplanar reconstructions were performed. Exposure: One or more of the following individualized dose reduction techniques were utilized for this examination: 1. Automated exposure control 2. Adjustment of the mA and/or kV according to patient size 3. Use of iterative reconstruction technique. Comparison: None Findings: Mild retrolisthesis L4 on L5 and L5 on S1. Normal vertebral body height. No fr acture. Degenerative endplate changes most prominent L4-5 and L5-S1. T12-L1: Small disc bulge. No canal or neuroforaminal narrowing. Mild facet arthropathy. L1-L2: Small disc bulge. Mild facet arthropathy. No canal or neuroforaminal narrowing. L2-L3: Small disc bulge. Moderate facet arthropathy. No canal or neuroforaminal narrowing. L3-L4: Broad-based disc bulge with calcified disc protrusion. Subarticular recess narrowing. Moderate facet arthropathy. No neuroforaminal narrowing. L4-L5: Retrolisthesis. Posterior calcified disc bulge. Advanced facet arthropathy. Mild canal narrowing. Subarticular recess narrowing. Severe right and moderate left neuroforaminal narrowing. L5-S1: Retrolisthesis. Posterior calcified disc bulge. Advanced facet arthropa thy. Severe right articular recess narrowing with compression of the descending right S1 nerve root. No canal narrowing. Severe bilateral neuroforaminal narrowing. Impression: 1. No acute fracture or subluxation of the lumbar spine. 2. Moderate lumbar spondylosis most prominent L4-5 and L5-S1. 3. Severe neuroforaminal narrowing right L4-L5 and bilateral L5-S1. 4. Severe right L5-S1 subarticular recess narrowing with compression of the descending right S1 nerve root. Electronically signed by: Julio Valencia DO (05/24/2020 4:10 PM) [id number][] PROCEDURE: TIBIA FIBULA RIGHT Right hip 2 views with one view pelvis, right knee 3 views, right tibia and fibula 2 views. HISTORY: Right hip and knee pain after a fall, right leg pain Right knee 3 views were taken of the right knee. There is slight spurring from mild arthritis. There is no fracture or joint effusion or acute osseous abnormality. Right tibia and fibula 2 views were taken of the right tibia and fibula. There is not evidence of an acute fracture or osseous abnormality. Right hip 2 views with one view pelvis Single view was taken of the pelvis. There is degenerative disc disease in the lower lumbar spine. An acute pelvic fracture is not identified. A definite hip fracture is not identified. 2 views of the right hip show no evidence of an acute fracture or osseous abnormality. IMPRESSION: 1. No fracture noted in the pelvis or right hip. 2. No fracture or joint effusion noted at the right knee. 3. Slight spurring from mild arthritis right knee. 4. No fracture noted in the right tibia or fibula. Course & Med Decision Making: Course & Med Decision Making Pertinent Labs and Imaging studies reviewed. (See chart for details) 1506-spoke with Dr. Shukla who is the admitting physician, and care was assumed following discussion of patient. Will admit patient for intractable lower ex tremity pain and inability to ambulate. Patient's vital signs stable. Patient remains afebrile, appears nontoxic, respirations even and unlabored. Patient will be admitted to the medical/surgical floor. Patient's case and plan of care also discussed with Dr. Choi [] Adriana Disclaimer: Adriana Disclaimer: This electronic medical record was generated, in whole or in part, using a voice recognition dictation system. Departure Departure Referrals: MECCA HOWARD MD (PCP) NATALIE HEADLEY APRN May 24, 2020 15:10
--- NOTE | 2020-05-24 16:12 | RAD ---
CT LUMBAR SPINE WO History:Reason: LOW BACK PAIN AFTER FALL YESTERDAY / Spl. Instructions: / History: Technique: Noncontrast CT was performed of the lumbar spine. Multiplanar reconstructions were perform ed. Exposure: One or more of the following individualized dose reduction techniques were utilized for thi s examination: 1. Automated exposure control 2. Adjustment of the mA and/or kV according to patient size 3. Use of iterative reconstruction technique. Comparison: None Findings: Mild retrolisthesis L4 on L5 and L5 on S1. Normal vertebral body height. No fracture. Degenerative en dplate changes most prominent L4-5 and L5-S1. T12-L1: Small disc bulge. No canal or neuroforaminal narrowing. Mild facet arthropathy. L1-L2: Small disc bulge. Mild facet arthropathy. No canal or neuroforaminal narrowing. L2-L3: Small disc bulge. Moderate facet arthropathy. No canal or neuroforaminal narrowing. L3-L4: Broad-based disc bulge with calcified disc protrusion. Subarticular recess narrowing. Moderat e facet arthropathy. No neuroforaminal narrowing. L4-L5: Retrolisthesis. Posterior calcified disc bulge. Advanced facet arthropathy. Mild canal narrow ing. Subarticular recess narrowing. Severe right and moderate left neuroforaminal narrowing. L5-S1: Retrolisthesis. Posterior calcified disc bulge. Advanced facet arthropathy. Severe right fransisco cular recess narrowing with compression of the descending right S1 nerve root. No canal narrowing. Se ai bilateral neuroforaminal narrowing. Impression: 1. No acute fracture or subluxation of the lumbar spine. 2. Moderate lumbar spondylosis most prominent L4-5 and L5-S1. 3. Severe neuroforaminal narrowing right L4-L5 and bilateral L5-S1. 4. Severe right L5-S1 subarticular recess narrowing with compression of the descending right S1 nerv e root. Electronically signed by: Julio Valencia DO (05/24/2020 4:10 PM) [id number]
[2020-05-24] MEDS ORDERED: DOCUSATE SODIUM 100 MG CAPSULE. PO PRN (18:30)
[2020-05-24] MEDS ORDERED: guaiFENesin ORAL 200 MG/10 ML LIQUID. PO PRN (18:30)
[2020-05-24] MEDS ORDERED: ACETAMINOPHEN 325 MG TABLET. PO PRN (18:30)
[2020-05-24] MEDS ORDERED: ALBUTEROL SULFATE 2.5 MG/3 ML NEBU. NEB PRN (18:30)
[2020-05-24] MEDS: amLODIPine BESYLATE 5 MG TABLET PO SCH ×2 (18:30→22:02)
[2020-05-24 19:05] VITALS: BP 126/78
[2020-05-24] MEDS ORDERED: NICOTINE POLACRILEX 2MG GUM PACKAGE of 12. BC PRN (19:15)
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
--- NOTE | 2020-05-24 20:00 | NUR ---
patient arrived to Room 414 from ED, admission assessment done. Fall precautions in placed for safety.
[2020-05-24] MEDS: IPRATRPIUM/ALBUTEROL 0.5/2.5MG 3 ML NEBU. NEB SCH (20:41)
[2020-05-24] MEDS: DIVALPROEX DELAYED RELEASE 500 MG TABLET.DR. PO SCH (22:01)
[2020-05-24] MEDS: levETIRAcetam 500 MG TABLET PO SCH (22:02)
[2020-05-24] MEDS: GABAPENTIN 100 MG CAPSULE. PO SCH (22:02)
[2020-05-24] MEDS: FAMOTIDINE 20 MG TABLET. PO SCH (22:02)
[2020-05-24 23:00] VITALS: BP 101/71
--- NOTE | 2020-05-25 02:24 | NUR ---
No IV access ,patient refused .
[2020-05-25 03:00] VITALS: BP 120/86
[2020-05-25 07:00] VITALS: BP 137/85
[2020-05-25] MEDS: IPRATRPIUM/ALBUTEROL 0.5/2.5MG 3 ML NEBU. NEB SCH (07:13)
[2020-05-25] MEDS: GABAPENTIN 100 MG CAPSULE. PO SCH ×3 (08:07→20:14)
[2020-05-25] MEDS: DIVALPROEX DELAYED RELEASE 500 MG TABLET.DR. PO SCH ×2 (08:07→20:13)
[2020-05-25] MEDS: levETIRAcetam 500 MG TABLET PO SCH ×2 (08:07→20:13)
[2020-05-25] MEDS: ASPIRIN ENTERIC COATED 81 MG TABLET.DR. PO SCH (08:07)
[2020-05-25] MEDS: oxyCODONE/APAP 5/325 1 TAB TABLET PO PRN ×2 (08:15→17:41)
--- NOTE | 2020-05-25 09:44 | NUR ---
Pt refuses for IV placement Addendum: 05/25/20 at 0944 by FRED HOLLIDAY LPN LPN Amended: Links added.
[2020-05-25] MEDS ORDERED: CYCLOBENZAPRINE 10 MG TABLET. PO ONE (10:15)
[2020-05-25] MEDS: LIDOCAINE (700MG/PATCH) PATCH. TD SCH (10:39)
[2020-05-25 11:00] VITALS: BP 145/81
--- NOTE | 2020-05-25 11:16 | NUR ---
New consults called for Dr. Rodgers and Dr. Villalobos. Message left on VM for Dr. Rodgers.
[2020-05-25] MEDS ORDERED: IPRATRPIUM/ALBUTEROL 0.5/2.5MG 3 ML NEBU. NEB PRN (11:45)
--- NOTE | 2020-05-25 16:17 | NUR ---
New Lidocaine patch applied d/t the removal of first one for MRI scan.
--- NOTE | 2020-05-25 17:06 | NUR ---
Pt refuses for placement of IV Addendum: 05/25/20 at 1707 by FRED HOLLIDAY LPN LPN Amended: Links added.
[2020-05-25 19:25] VITALS: BP 138/76
[2020-05-25] MEDS: FAMOTIDINE 20 MG TABLET. PO SCH (20:14)
[2020-05-25] MEDS: PATCH REMOVAL. MC SCH (21:00)
[2020-05-25 23:22] VITALS: BP 121/83
[2020-05-26 03:09] VITALS: BP 130/90
--- NOTE | 2020-05-26 06:12 | RAD ---
MR LUMBAR SPINE WO -[id number] History: Reason: lumbar stenosis / Spl. Instructions: / History: Technique: Multiplanar, multi sequential MR imaging was performed of the lumbar spine. Comparison: None Findings: Mild retrolisthesis L4 on L5 and L5 on S1. Normal vertebral body height. No fracture. Mild degenerati ve endplate edema T11-T12 and L4-5 as well as L5-S1. Conus terminates at the normal location. No evidence of nerve root clumping. T11-T12: No canal narrowing. Facet arthropathy. Mild bilateral neuroforaminal narrowing, left greater than right. T12-L1: No canal or neuroforaminal narrowing. L1-L2: No canal or neuroforaminal narrowing. L2-L3: No canal or neuroforaminal narrowing. L3-L4: Small disc bulge. Mild facet arthropathy. No canal narrowing. No neuroforaminal narrowing. L4-L5: Retrolisthesis. Broad-based disc bulge with annular fissure. Moderate facet arthropathy. No c anal narrowing. Bilateral subarticular recess narrowing. Right foraminal disc protrusion. Severe righ t neuroforaminal narrowing with abutment of the exiting right L4 nerve root. Mild left neuroforaminal narrowing. L5-S1: Retrolisthesis. Right subarticular disc extrusion extending inferiorly. Severe right subacute recess narrowing with compression of the descending right S1 nerve root. Prominent epidural fat narr owing the inferior thecal sac. Mild facet arthropathy. Severe bilateral neuroforaminal narrowing. Abu tment of the exiting L5 nerve roots. Impression: 1. Multilevel lumbar spondylosis most prominent L4-L5 and L5-S1. 2. Right L5-S1 subarticular disc extrusion compressing the descending right S1 nerve root. Correlate for radiculopathy. 3. Neuroforaminal narrowing most prominent right L4-L5 and bilateral L5-S1. Correlate for radiculopa thy. Electronically signed by: Julio Valencia DO (05/26/2020 6:09 AM) [facility]
[2020-05-26 07:36] VITALS: BP 118/74
[2020-05-26] MEDS: LIDOCAINE (700MG/PATCH) PATCH. TD SCH (08:00)
[2020-05-26] MEDS: DIVALPROEX DELAYED RELEASE 500 MG TABLET.DR. PO SCH ×2 (08:00→21:22)
[2020-05-26] MEDS: levETIRAcetam 500 MG TABLET PO SCH ×2 (08:00→21:22)
[2020-05-26] MEDS: GABAPENTIN 100 MG CAPSULE. PO SCH ×3 (08:00→21:22)
[2020-05-26] MEDS: amLODIPine BESYLATE 5 MG TABLET PO SCH (08:00)
[2020-05-26] MEDS: ASPIRIN ENTERIC COATED 81 MG TABLET.DR. PO SCH (08:00)
[2020-05-26 10:18] VITALS: BP 100/74
--- NOTE | 2020-05-26 12:38 | PDOC ---
Provider Note Date of Service: DATE: 05/26/20 TIME: 12:36 Provider Note Patient seen and examined consulted for back and right leg pain Lumbar MRI with herniated disc at L5-S1 right, also narrowing at L4-5 on the right he is a poor surgical candidate Recommend conservative treatments including PT and LESI will consult Dr. Rodgers and Dr. Chan D/W Dr. Shukla Justifications for Admission Other Justification ACUTE HYPOXIC RESP FAILURE JON SPEARS MD May 26, 2020 12:38
--- NOTE | 2020-05-26 13:51 | PDOC ---
[employer] PROGRESS NOTE Date of Service DOS: DATE: 05/26/20 TIME: 13:49 Chief Complaint Chief Complaint LATE ENTRY,. had planned to DC, DC cancelled after CT results reviewed by me and Nursing eligibility supervisor, CT Impression: 1. No acute fracture or subluxation of the lumbar spine. 2. Moderate lumbar spondylosis most prominent L4-5 and L5-S1. 3. Severe neuroforaminal narrowing right L4-L5 and bilateral L5-S1. 4. Severe right L5-S1 subarticular recess narrowing with compression of the descending right S1 nerve root. fall, with new pain to multiple areas. mult joint pain, X rays negative obese, BMI 41 Hx of TBI tobacco use disorder History of Present Illness History of Present Illness had planned to DC yestereday, CT results were concerning , consult NS and Physiatry, Vitals/I&O Vitals/I&O: Vital Signs Date Time Temp Pulse Resp B/P (MAP) Pulse Ox O2 Delivery O2 Flow Rate FiO2 05/26/20 10:18 97.6 81 20 100/74 (83) 96 Room Air 97.6 I & O 05/25/20 05/25/20 05/26/20 15:00 23:00 07:00 Intake Total 480 ml 520 ml 480 ml Balance 480 ml 520 ml 480 ml Physical Exam General: Alert, Cooperative, mild distress Lungs: Clear Extremities: No clubbing, No edema, Normal pulses Skin: No rashes, No significant lesion Assessment and Plan Assessmemt and Plan Problems Medical Problems: (1) Intractable pain Status: Acute (2) Pain Status: Acute (3) Right leg pain Status: Acute (4) Unable to ambulate Status: Acute Comment Review of Relevant I have reviewed the following items maximino (where applicable) has been applied. Medications: Current Medications Medications (Trade) Dose Ordered Sig/Brigido Route PRN Reason Start Time Stop Time Status Last Admin Dose Admin Miscellaneous (L[facility] Rem[facility]) [facility] 05/25/20 21:00 Justifications for Admission Other Justification ACUTE HYPOXIC RESP FAILURE AVINASH GRAHAM MD May 26, 2020 13:51
--- NOTE | 2020-05-26 13:56 | PDOC ---
[employer] PROGRESS NOTE Date of Service DOS: DATE: 05/26/20 TIME: 13:54 Chief Complaint Chief Complaint leg weakness, CT Impression: 1. No acute fracture or subluxation of the lumbar spine. 2. Moderate lumbar spondylosis most prominent L4-5 and L5-S1. 3. Severe neuroforaminal narrowing right L4-L5 and bilateral L5-S1. 4. Severe right L5-S1 subarticular recess narrowing with compression of the descending right S1 nerve root. fall, with new pain to multiple areas. mult joint pain, X rays negative obese, BMI 41 Hx of Traumatic brain injury, disabled tobacco use disorder History of Present Illness History of Present Illness discussed with Dr. Villalobos, prefer conservative management, pt does not report radicular symptoms and this can be managed with physiatry and poss injections and therapy. MRI Impression: 1. Multilevel lumbar spondylosis most prominent L4-L5 and L5-S1. 2. Right L5-S1 subarticular disc extrusion compressing the descending right S1 nerve root. Correlate for radiculopathy. 3. Neuroforaminal narrowing most prominent right L4-L5 and bilateral L5-S1. Correlate for radiculopathy. Vitals/I&O Vitals/I&O: Vital Signs Date Time Temp Pulse Resp B/P (MAP) Pulse Ox O2 Delivery O2 Flow Rate FiO2 05/26/20 10:18 97.6 81 20 100/74 (83) 96 Room Air 97.6 I & O 05/25/20 05/25/20 05/26/20 15:00 23:00 07:00 Intake Total 480 ml 520 ml 480 ml Balance 480 ml 520 ml 480 ml Physical Exam General: Alert, Cooperative, mild distress Lungs: Clear Extremities: No clubbing, No edema, Normal pulses Skin: No rashes, No significant lesion Assessment and Plan Assessmemt and Plan Problems Medical Problems: (1) Intractable pain Status: Acute (2) Pain Status: Acute (3) Right leg pain Status: Acute (4) Unable to ambulate Status: Acute Comment Review of Relevant I have reviewed the following items maximino (where applicable) has been applied. Medications: Current Medications Medications (Trade) Dose Ordered Sig/Brigido Route PRN Reason Start Time Stop Time Status Last Admin Dose Admin Miscellaneous (Lidoderm Patch Removal) 1 ea [facility] 05/25/20 21:00 05/25/20 21:00 Justifications for Admission Other Justification ACUTE HYPOXIC RESP FAILURE AVINASH GRAHAM MD May 26, 2020 13:56
[2020-05-26 14:31] VITALS: BP 113/69
[2020-05-26 19:25] VITALS: BP 104/58
[2020-05-26] MEDS: PATCH REMOVAL. MC SCH (21:00)
[2020-05-26] MEDS: FAMOTIDINE 20 MG TABLET. PO SCH (21:22)
[2020-05-26 23:17] VITALS: BP 121/62
[2020-05-27 03:35] VITALS: BP 131/62
[2020-05-27 07:00] VITALS: BP 141/93
[2020-05-27] MEDS: ASPIRIN ENTERIC COATED 81 MG TABLET.DR. PO SCH (08:45)
[2020-05-27] MEDS: amLODIPine BESYLATE 5 MG TABLET PO SCH (08:45)
[2020-05-27] MEDS: GABAPENTIN 100 MG CAPSULE. PO SCH (08:45)
[2020-05-27] MEDS: levETIRAcetam 500 MG TABLET PO SCH (08:45)
[2020-05-27] MEDS: DIVALPROEX DELAYED RELEASE 500 MG TABLET.DR. PO SCH (08:45)
[2020-05-27] MEDS: LIDOCAINE (700MG/PATCH) PATCH. TD SCH (08:46)
[2020-05-27] MEDS ORDERED: methylPREDNISolone ACETATE 40 MG/ML VIAL. IM ONE (09:15)
[2020-05-27] MEDS ORDERED: BUPIVACAINE MPF 0.25% 10 ML VIAL. IJ ONE (09:15)
[2020-05-27 11:00] VITALS: BP 138/80
--- NOTE | 2020-05-27 11:04 | NUR ---
SW following. Discussed with RN, pt from home with mother, room air, regular diet. Pt needing a roller walker upon discharge. ELLA spoke with pt's mother, Patricia she is fine with pt coming home, and does not think pt has had a roller walker in the past 5 years - agreeable to [facility] providing walker. Patricia would also like a script for outpatient therapy for pt, as ELLA discussed [employer] health [employer] not having many openings, if any for medicaid currently. PT/OT recommending SNF, ELLA discussed with RN, pt walked up and down the stairs fine, would be okay at home. SW faxed walker script to [facility]. ELLA will continue to follow.
--- NOTE | 2020-05-27 12:28 | NUR ---
PT DISCHARGED HOME WITH OUTPT THERAPY. PT AMBULATED TO MAIN ENTRANCE AND WAS SECURED IN CAR WITH BROTHER.
--- NOTE | 2020-05-27 13:10 | DS ---
DATE OF DISCHARGE: 05/27/2020 ADMISSION DIAGNOSIS: Intractable back pain. DISCHARGE DIAGNOSES: 1. Resolving back pain. 2. History of traumatic brain injury. 3. Obesity. 4. Tobacco abuse. 5. Asthma. 6. Seizure disorder. 7. Constipation. 8. Gastroesophageal reflux disease. 9. Neuropathy. CONSULTS: Dr. Albaro Villalobos. PROCEDURES: None. HOSPITAL COURSE: The patient is a pleasant middle-aged male who is cognitively challenged. He has had a brain injury in the past. Basically, he presented with lower extremity pain and back pain. He was admitted. We consulted Neurosurgery. No surgical intervention had to be undertaken. Over the past few days, he has done better. He is up walking today. I saw and examined him today. I spoke with case management and the nurses. We are going to let him go home with close outpatient followup and he is going to see our outpatient painter, Dr. Gavin Chan. DISPOSITION: Home. ACTIVITY: As tolerated. DIET: Low sodium. MEDICATIONS: Please see the MRAD. We will continue his home meds including Tylenol, albuterol, aspirin 81 a day, Depakote 500 b.i.d., docusate 100 b.i.d., Pepcid 20 b.i.d., gabapentin 100 t.i.d., guaifenesin 200 q.4, ibuprofen 800 q.8 p.r.n., Keppra 500 b.i.d., and Prilosec 40 a day again. TOTAL TIME: 33 minutes. KISHOR HENRY DO DR: RUSLAN/dahiana JOB#: [id number] / [id number]
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
== END 2020-05-27 12:32 | disposition home or self-care (01) | DRG 552 ==
LOC: ER 12:33 → ED HOLD 15:06 → 4 NORTH 19:50 → OBSVTOIN 21:59 → INTOOBSV 21:59
PROVIDERS: ADMIT Internal Medicine; ATTEND Internal Medicine
PROC: 3E0U33Z Introduction of Anti-inflammatory into Joints, Percutaneous Approach (ICD-10-PCS; principal; 2020-05-24)
PROC: 3E0U3BZ Introduction of Anesthetic Agent into Joints, Percutaneous Approach (ICD-10-PCS; 2020-05-24)
DX: M51.27 Other intervertebral disc displacement, lumbosacral region (principal); Z68.41 Body mass index [BMI] 40.0-44.9, adult; M47.816 Spondylosis without myelopathy or radiculopathy, lumbar region; E78.00 Pure hypercholesterolemia, unspecified; F17.210 Nicotine dependence, cigarettes, uncomplicated; G40.909 Epilepsy, unspecified, not intractable, without status epilepticus; G62.9 Polyneuropathy, unspecified; I10 Essential (primary) hypertension; I25.10 Atherosclerotic heart disease of native coronary artery without angina pectoris; K21.9 Gastro-esophageal reflux disease without esophagitis; K59.00 Constipation, unspecified; M19.90 Unspecified osteoarthritis, unspecified site; W06.XXXA Fall from bed, initial encounter; Z82.49 Family history of ischemic heart disease and other diseases of the circulatory system; Z87.820 Personal history of traumatic brain injury; F32.9 Major depressive disorder, single episode, unspecified; Y93.89 Activity, other specified; Y92.89 Other specified places as the place of occurrence of the external cause; Y99.8 Other external cause status; Z88.0 Allergy status to penicillin; Z88.8 Allergy status to other drugs, medicaments and biological substances; E11.42 Type 2 diabetes mellitus with diabetic polyneuropathy; Z79.4 Long term (current) use of insulin; E66.01 Morbid (severe) obesity due to excess calories; J44.9 Chronic obstructive pulmonary disease, unspecified
CPT/HCPCS: 72131; 72148; 73502; 73562; 73590; 99285; G0378; G0379; 97116-GP; 97530-GO

== ENCOUNTER 2020-06-29 22:45 | Inpatient (IN) | payer OTHER ==
[~2020-06-29] VITALS: Ht 175.3 cm; Wt 135.3 kg
[2020-06-29 23:13] LABS: BASO # 0.1 x10^3/uL (0.0-0.2); BASO % 1 % (0-3); EOS % 1 % (0-3); HEMATOCRIT 45.5 % (39.0-53.0); HEMOGLOBIN 15.6 g/dL (13.0-17.5); LYMPH # 1.9 x10^3/uL (1.0-4.8); LYMPH % 40 % (24-48); MEAN CORPUSCULAR HEMOGLOBIN 31 pg (25-35); MEAN CORPUSCULAR HGB CONC 34 g/dL (31-37); MEAN CORPUSCULAR VOLUME 89 fL (79-100); MONO # 0.5 x10^3/uL (0.0-1.1); MONO % 10 % (0-9); NEUT # 2.3 x10^3/uL (1.8-7.7); NEUT % 48 % (31-73); PLATELET COUNT 230 x10^3/uL (140-400); RED BLOOD COUNT 5.09 x10^6/uL (4.30-5.70); WHITE BLOOD COUNT 4.8 x10^3/uL (4.0-11.0)
[2020-06-29] MEDS ORDERED: IV NORMAL SALINE 1000ML BAG 1,000 ML IV ONE (23:15)
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
[2020-06-29 23:33] LABS: BILIRUBIN,URINE SMALL (NEG); CLARITY,URINE CLEAR; COLOR,URINE YELLOW; NITRITE,URINE NEGATIVE (NEG); PROTEIN,URINE NEGATIVE (NEG-TRACE)
[2020-06-29 23:36] LABS: ANION GAP 9 (6-14); BLOOD UREA NITROGEN 8 mg/dL (8-26); BUN/CREATININE RATIO 10 (6-20); CALCIUM 9.1 mg/dL (8.5-10.1); CARBON DIOXIDE 29 mmol/L (21-32); CHLORIDE 104 mmol/L (98-107); CREATININE 0.8 mg/dL (0.7-1.3); GFR 123.3; GLUCOSE 127 mg/dL (70-99); POTASSIUM 4.2 mmol/L (3.5-5.1); SODIUM 142 mmol/L (136-145)
[2020-06-29 23:40] LABS: BACTERIA,URINE 0 /HPF (0-FEW); RBC,URINE RARE /HPF (0-2); WBC,URINE 0 /HPF (0-4)
[2020-06-29 23:42] LABS: ALBUMIN 3.7 g/dL (3.4-5.0); ALBUMIN/GLOBULIN RATIO 1.2 (1.0-1.7); ALK PHOS 118 U/L (46-116); ALT (SGPT) 60 U/L (16-63); AST (SGOT) 33 U/L (15-37); TOTAL BILIRUBIN 0.3 mg/dL (0.2-1.0); TOTAL PROTEIN 6.9 g/dL (6.4-8.2)
--- NOTE | 2020-06-30 00:27 | RAD ---
EXAM: CHEST ONE VIEW. HISTORY: Shortness of breath. COMPARISON: 04/13/2020. FINDINGS: A frontal view of the chest is obtained. There are no confluent infiltrates. There is no pneumothorax or pleural effusion. The heart is not en larged. IMPRESSION: 1. No confluent infiltrates. Electronically signed by: Herman Bazzi MD (06/30/2020 12:24 AM) [facility]
[2020-06-30] MEDS ORDERED: ONDANSETRON PF 4 MG/2 ML VIAL. IV PRN (00:45)
[2020-06-30 01:23] LABS: VAL ACID 80 mcg/mL (50-100)
[2020-06-30] MEDS: IV NORMAL SALINE 1000ML BAG 1,000 ML IV SCH ×3 (01:25→20:05)
[2020-06-30 02:13] VITALS: BP 135/77
[2020-06-30 07:31] VITALS: BP 113/77
[2020-06-30] MEDS ORDERED: MELO15TA23 PO (09:01)
[2020-06-30] MEDS ORDERED: TIZA4TAB2 PO (09:01)
[2020-06-30] MEDS: DIVALPROEX DELAYED RELEASE 500 MG TABLET.DR. PO SCH ×2 (11:14→20:04)
[2020-06-30 11:25] VITALS: BP 99/55
[2020-06-30] MEDS: INSULIN LISPRO 300 UNITS/3 ML VIAL. SQ SCH ×2 (12:00→16:46)
[2020-06-30] MEDS ORDERED: DEXTROSE 50% 25 GM / 50ML DISP.SYRIN. IV PRN (12:00)
[2020-06-30] MEDS ORDERED: ACETAMINOPHEN 325 MG TABLET. PO PRN (12:30)
[2020-06-30] MEDS ORDERED: DOCUSATE SODIUM 100 MG CAPSULE. PO PRN (12:30)
--- NOTE | 2020-06-30 12:33 | HP ---
ADMIT DATE: 06/30/2020 CHIEF COMPLAINT: Seizure. HISTORY OF PRESENT ILLNESS: The patient is a pleasant 49-year-old male who has a known history of seizures and he is on seizure medicines for that. Last night he had another breakthrough seizure. EMS was called. The seizure lasted about one minute. The patient is now being admitted to the medical floor. We are consulting neurology. PAST MEDICAL HISTORY: Asthma, hypertension, hyperlipidemia, seizures, overweight, cardiomegaly, developmental delay, thyroid surgery, tobacco abuse. ALLERGIES: PENICILLIN, IBUPROFEN. FAMILY HISTORY: Diabetes. SOCIAL HISTORY: He smokes. No drink or drugs. MEDICATIONS: Reviewed, please refer to the MRAD. REVIEW OF SYSTEMS: Unable to obtain. He is still postictal. PHYSICAL EXAMINATION: VITALS: His O2 sat is 97% on 2 liters. GENERAL: He is sleeping. He is intermittently snoring. HEENT: Normal cephalic atraumatic, external auditory canals are patent. EYES: Extraocular muscles are intact, pupils are equally round and reactive to light and accommodation. MUSCULOSKELETAL: Well developed, well nourished, good range of motion. ENDOCRINE: No thyromegaly was palpated. LYMPHATICS: No cervical chain or axillary nodes were noted. HEMATOPOIETIC: No bruising. NECK: Supple, no JVD, no thyromegaly was noted. LUNGS: Clear to auscultation in all lung remy without rhonchi or wheezing. HEART: RRR, S1, S2 present. Peripheral pulses intact, no obvious murmurs were noted. ABDOMEN: Soft, nontender. Positive bowel sounds no organomegaly, normal bowel sounds. EXTREMITIES: Without any cyanosis, clubbing, or edema. Pedal pulses intact, Homans sign is negative. NEUROLOGIC: He barely wakes up and says one word. PSYCHIATRIC: Unable to assess at this time. SKIN: No ulcerations or rashes, good skin turgor, no jaundice. VASCULAR: Good capillary refill, neurovascular bundle appears to be intact. DIAGNOSTIC DATA: Chest x-ray normal. LABORATORY DATA: Hematology is normal. Electrolytes are pending. Troponin is 0. D-dimer 0.49. Valproic acid level was 80. Urinalysis essentially normal. ASSESSMENT AND PLAN: Seizures with postictal state in a middle-aged male with the above noted comorbidities. The patient has been admitted. We are consulting neurology. Neuro checks every 4 hours. Home meds. DVT prophylaxis. Trend labs. IV fluids. Check an ABG. RUSLAN/LEYLA DR: Ambar TID: [id number]
[2020-06-30] MEDS: MELOXICAM 7.5 MG TABLET PO SCH (13:00)
[2020-06-30] MEDS: tiZANidine 4 MG TABLET. PO SCH ×2 (13:08→20:04)
[2020-06-30 13:42] LABS: BASE EXCESS ABG 0 mmol/L (-3-3); HCO3 ABG 27 mmol/L (21-28); PCO2 ABG 54 mmHg (35-46); PO2 ABG 69 mmHg (75-108); SAT O2 ABG 93 % (92-99)
[2020-06-30 13:45] LABS: FIO2 ABG 2L NC
[2020-06-30 15:06] VITALS: BP 139/78
[2020-06-30 19:00] VITALS: BP 150/82
--- NOTE | 2020-06-30 19:01 | EKG ---
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
[2020-06-30] MEDS ORDERED: FAMOTIDINE 20 MG TABLET. PO SCH (21:00)
[2020-06-30 23:00] VITALS: BP 115/66
[2020-07-01 03:05] VITALS: BP 120/62
[2020-07-01 07:33] VITALS: BP 120/78
[2020-07-01] MEDS: INSULIN LISPRO 300 UNITS/3 ML VIAL. SQ SCH ×2 (07:47→11:55)
[2020-07-01] MEDS: MELOXICAM 7.5 MG TABLET PO SCH (09:00)
[2020-07-01] MEDS: tiZANidine 4 MG TABLET. PO SCH (09:00)
[2020-07-01] MEDS: DIVALPROEX DELAYED RELEASE 500 MG TABLET.DR. PO SCH (09:12)
--- NOTE | 2020-07-01 10:35 | NUR ---
SW following. Discussed with RN, pt from home with mother, Harini (uses at home), cardiac diet. RN advised no SW needs at this time, anticipates discharge home in the next day or two. SW will continue to follow. Addendum: 07/01/20 at 1240 by NATALIE BULLARD SW Pt's mother called to speak to SW RE the bipap/cpap at home. Pt's mother stating the company wants the machine back and she does not have the tubing. ELLA advised pt's mother that SW can call another company to determine what can be done. ELLA contacted Nita ([employer]) she advised they have been working with this family for some time, but they cannot give a new machine until the family returns the other one to the other company. Nita is going to discuss with her company and continue to work on this. [employer] will also call the pt's mother to update on the situation. Discharge order for home with self care. RN notified.
[2020-07-01 11:04] VITALS: BP 142/96
[2020-07-01] MEDS ORDERED: LEVE500T56 PO (11:44)
[2020-07-01] MEDS ORDERED: levETIRAcetam 500 MG TABLET PO SCH (12:00)
--- NOTE | 2020-07-01 12:19 | PDOC ---
[employer] PROGRESS NOTE Date of Service DOS: DATE: 07/01/20 TIME: 12:18 Chief Complaint Chief Complaint Dyspnea, hypoxia, and weakness History of Present Illness History of Present Illness HISTORY OF PRESENT ILLNESS: The patient is a pleasant 49-year-old male who has a known history of seizures and he is on seizure medicines for that. Last night he had another breakthrough seizure. EMS was called. The seizure lasted about one minute. The patient is now being admitted to the medical floor. We are consulting neurology. Progress Notes: 07/01/2020: No acute events overnight. Pt. was seen and examined at bedside. Case was discussed with RN. Case was discussed with mental health case manager. Pt. chart was reviewed. Case was discussed with neurology. Pt. had no new concerns or complaints. States that he is doing well. Vitals/I&O Vitals/I&O: Vital Signs Date Time Temp Pulse Resp B/P (MAP) Pulse Ox O2 Delivery O2 Flow Rate FiO2 07/01/20 11:04 98.6 101 20 142/96 (111) 97 Room Air 98.6 07/01/20 03:05 2.0 I & O 06/30/20 06/30/20 07/01/20 15:00 23:00 07:00 Intake Total 1350 ml 500 ml 180 ml Output Total 600 ml Balance 1350 ml -100 ml 180 ml Physical Exam General: Alert, Oriented X3, Cooperative, No acute distress Heart: Regular rate Lungs: Clear Abdomen: No tenderness Extremities: No clubbing, No cyanosis, No edema Labs Labs: Laboratory Tests Test 06/30/20 13:35 06/30/20 16:35 06/30/20 19:23 07/01/20 07:12 O2 Saturation 93 % (92-99) Arterial Blood pH 7.32 (7.35-7.45) Arterial Blood pCO2 at Patient Temp 54 mmHg (35-46) Arterial Blood pO2 at Patient Temp 69 mmHg (75-108) Arterial Blood HCO3 27 mmol/L (21-28) Arterial Blood Base Excess 0 mmol/L (-3-3) FiO2 2l nc Glucose (Fingerstick) 104 mg/dL (70-99) 196 mg/dL (70-99) 109 mg/dL (70-99) Test 07/01/20 11:40 Glucose (Fingerstick) 199 mg/dL (70-99) Review of Systems Review of Systems: No chest pain, SOB, acute vision changes, or headaches. Assessment and Plan Assessmemt and Plan ASSESSMENT This is a 49 year old male with: Seizures with postictal state in a middle-aged male with the above noted comorbidities. PLAN: Consulted Neurology, input appreciated Start Keppra Continue Valproic Acid Continue Depakote Cardiac Monitoring PT/OT DVT PPx Home Medications Discharge disposition pending Comment Review of Relevant I have reviewed the following items maximino (where applicable) has been applied. Medications: Current Medications Medications (Trade) Dose Ordered Sig/Brigido Route PRN Reason Start Time Stop Time Status Last Admin Dose Admin Famotidine (Pepcid) 20 mg HS PO 06/30/20 21:00 06/30/20 20:04 Levetiracetam (Keppra) 500 mg BID PO 07/01/20 12:00 07/01/20 11:53 Justifications for Admission Other Justification ACUTE HYPOXIC RESP FAILURE KISHOR HENRY III DO July 01, 2020 12:19
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
--- NOTE | 2020-07-01 13:15 | NUR ---
Pt left unit at 1315 by wheelchair via private vehicle. Pt's IV removed without complication, VSS. Discharge paperwork, including medications and follow-up discussed with pt. Patricia, pt's mother updated at [phone]. This RN and ELLA Frausto answered Patricia's additional questions.
== END 2020-07-01 13:18 | disposition home or self-care (01) | DRG 101 ==
LOC: ER 22:45 → 6 SOUTH 06-30 01:27
PROVIDERS: ADMIT Family Medicine; ATTEND Family Medicine
DX: G40.909 Epilepsy, unspecified, not intractable, without status epilepticus (principal); Z68.41 Body mass index [BMI] 40.0-44.9, adult; E78.5 Hyperlipidemia, unspecified; I10 Essential (primary) hypertension; J45.909 Unspecified asthma, uncomplicated; F17.200 Nicotine dependence, unspecified, uncomplicated; E66.3 Overweight; R62.50 Unspecified lack of expected normal physiological development in childhood; E78.00 Pure hypercholesterolemia, unspecified; G47.30 Sleep apnea, unspecified; R41.89 Other symptoms and signs involving cognitive functions and awareness; Z88.6 Allergy status to analgesic agent; Z88.0 Allergy status to penicillin; Z83.3 Family history of diabetes mellitus; Z87.820 Personal history of traumatic brain injury
CPT/HCPCS: 36415; 36600; 71045; 80053; 80164; 81001; 82553; 82805; 82962; 83605; 83735; 84484; 85025; 85379; 93005; 96360; 96361; J1815; J7030; 99285-25; G0378

== ENCOUNTER 2020-07-16 20:13 | Emergency (ER) | payer OTHER ==
[~2020-07-16] VITALS: Ht 175.3 cm; Wt 131.8 kg
[~2020-07-16 20:13] MED LIST changes: +LEVE500T56 PO; +MELO15TA23 PO; +TIZA4TAB2 PO
[2020-07-16 20:53] LABS: BASO % 1 % (0-3); EOS % 0 % (0-3); HEMATOCRIT 42.3 % (39.0-53.0); HEMOGLOBIN 14.5 g/dL (13.0-17.5); LYMPH # 2.1 x10^3/uL (1.0-4.8); LYMPH % 42 % (24-48); MEAN CORPUSCULAR HEMOGLOBIN 31 pg (25-35); MEAN CORPUSCULAR HGB CONC 34 g/dL (31-37); MEAN CORPUSCULAR VOLUME 89 fL (79-100); MONO # 0.6 x10^3/uL (0.0-1.1); MONO % 11 % (0-9); NEUT # 2.3 x10^3/uL (1.8-7.7); NEUT % 45 % (31-73); PLATELET COUNT 214 x10^3/uL (140-400); RED BLOOD COUNT 4.76 x10^6/uL (4.30-5.70); RED CELL DISTRIBUTION WIDTH 17.1 % (11.5-14.5)
[2020-07-16 21:02] LABS: CALCIUM 8.7 mg/dL (8.5-10.1); CREATININE 0.8 mg/dL (0.7-1.3); GFR 123.3; POTASSIUM 3.9 mmol/L (3.5-5.1)
[2020-07-16 21:07] LABS: VAL ACID 62 mcg/mL (50-100)
[2020-07-16 21:08] LABS: ALBUMIN 3.6 g/dL (3.4-5.0); TOTAL BILIRUBIN 0.4 mg/dL (0.2-1.0); TOTAL PROTEIN 7.2 g/dL (6.4-8.2)
--- NOTE | 2020-07-16 21:50 | PHYS DOC ---
Past Medical History Past Medical History: Asthma, High Cholesterol, Hypertension, Seizure Additional Past Medical Histor: per patient- "enlarged heart and hernia", DEVELOPMENTAL DELAY,TBI Past Surgical History: Other Additional Past Surgical Histo: "THYROID" Smoking Status: Current Every Day Smoker Alcohol Use: None Drug Use: None General Adult EDM: Chief Complaint: SEIZURE HPI: HPI: Patient is a 49 year old male past medical history of seizures presents for evaluation after seizure. Patient states he has seizures every 2 to 3 weeks. Patient is on Depakote but states he just got his prescription last night. Patient states he was just started on Keppra and has not taken his first dose. Family called 911. On exam patient is alert and oriented x4 he has complaints of lower lumbar L4-L5 pain which he states is chronic. Patient has no oral lesions he did not have loss of bowel or bladder. Patient moves all extremities passively and actively. Review of Systems: Review of Systems: Review of systems: Constitutional symptoms- No fever, no chills. Eyes- No Discharge, No Visual Loss Respiratory symptoms- No shortness of breath, No wheezing, No Dyspnea on Exertion Cardiovascular Systems; No chest pain, No Palpitations, No syncope Gastrointestinal symptoms: NO abdominal pain, no nausea, no vomiting or diarrhea. Genitourinary symptoms: No dysuria. Musculoskeletal symptoms: Positive back pain No extremity pain. NEUROLOGICAL Symptoms: No headache, no generalized weakness; No focal Weakness positive seizures Heart Score: C/O Chest Pain: N/A Risk Factors: Risk Factors: DM, Current or recent (<one month) smoker, HTN, HLP, family history of CAD, obesity. Risk Scores: Score 0 - 3: 2.5% MACE over next 6 weeks - Discharge Home Score 4 - 6: 20.3% MACE over next 6 weeks - Admit for Clinical Observation Score 7 - 10: 72.7% MACE over next 6 weeks - Early Invasive Strategies Current Medications: Current Medications Medications (Trade) Dose Ordered Sig/Brigido Start Time Stop Time Status Last Admin Dose Admin Levetiracetam 1000 mg/Dextrose 110 ml @ 440 mls/hr 1X ONCE 07/16/20 22:00 07/16/20 22:14 Allergies: Allergies: Allergies Coded Allergies Type Severity Reaction Last Updated Verified Penicillins Allergy Intermediate RASH 09/15/19 Yes ibuprofen Allergy Intermediate hives and abd pain 01/10/20 Yes Physical Exam: PE: General: alert, no acute distress. Skin: warm, dry and intact. Head:: Normocephalic, atraumatic. Neck: Trachea midline. Eyes: EOMI, Normal conjunctiva, No drainage CARDIOVASCULAR: Regular rate and rhythm RESPIRATORY: No respiratory distress Back: Full range of motion. Paraspinal lumbar tenderness L4-L5 region no step- off or deformity of the midline T or C-spine or L-spine MUSCULOSKELETAL: Full range of motion of bilateral upper and lower extremities. GASTROINTESTINAL: Abdomen soft without rebound or guarding. NEUROLOGICAL: Alert and noted to person, place and time. No neurological deficits observed Psychiatric: Cooperative. Normal judgment Current Patient Data: Labs: Laboratory Tests Test 07/16/20 20:20 White Blood Count 5.0 x10^3/uL (4.0-11.0) Red Blood Count 4.76 x10^6/uL (4.30-5.70) Hemoglobin 14.5 g/dL (13.0-17.5) Hematocrit 42.3 % (39.0-53.0) Mean Corpuscular Volume 89 fL (79-100) Mean Corpuscular Hemoglobin 31 pg (25-35) Mean Corpuscular Hemoglobin Concent 34 g/dL (31-37) Red Cell Distribution Width 17.1 % (11.5-14.5) H Platelet Count 214 x10^3/uL (140-400) Neutrophils (%) (Auto) 45 % (31-73) Lymphocytes (%) (Auto) 42 % (24-48) Monocytes (%) (Auto) 11 % (0-9) H Eosinophils (%) (Auto) 0 % (0-3) Basophils (%) (Auto) 1 % (0-3) Neutrophils # (Auto) 2.3 x10^3/uL (1.8-7.7) Lymphocytes # (Auto) 2.1 x10^3/uL (1.0-4.8) Monocytes # (Auto) 0.6 x10^3/uL (0.0-1.1) Eosinophils # (Auto) 0.0 x10^3/uL (0.0-0.7) Basophils # (Auto) 0.0 x10^3/uL (0.0-0.2) Sodium Level 141 mmol/L (136-145) Potassium Level 3.9 mmol/L (3.5-5.1) Chloride Level 105 mmol/L (98-107) Carbon Dioxide Level 27 mmol/L (21-32) Anion Gap 9 (6-14) Blood Urea Nitrogen 9 mg/dL (8-26) Creatinine 0.8 mg/dL (0.7-1.3) Estimated GFR (Cockcroft-Gault) 123.3 BUN/Creatinine Ratio 11 (6-20) Glucose Level 141 mg/dL (70-99) H Calcium Level 8.7 mg/dL (8.5-10.1) Total Bilirubin 0.4 mg/dL (0.2-1.0) Aspartate Amino Transferase (AST) 39 U/L (15-37) H Alanine Aminotransferase (ALT) 63 U/L (16-63) Alkaline Phosphatase 118 U/L (46-116) H Total Protein 7.2 g/dL (6.4-8.2) Albumin 3.6 g/dL (3.4-5.0) Albumin/Globulin Ratio 1.0 (1.0-1.7) Valproic Acid Level 62 mcg/mL (50-100) Valproic Acid Last Dose Date [id number] Valproic Acid Last Dose Time 0900 Laboratory Tests 07/16/20 20:20 Laboratory Tests 07/16/20 20:20 Vital Signs: Vital Signs Date Time Temp Pulse Resp B/P (MAP) Pulse Ox O2 Delivery O2 Flow Rate FiO2 07/16/20 20:13 98.3 92 16 153/92 (112) 96 Room Air 98.3 EKG: EKG: [] Radiology/Procedures: Radiology/Procedures: [] Course & Med Decision Making: Course & Med Decision Making Pertinent Labs and Imaging studies reviewed. (See chart for details) [] Work-up consisted of laboratory analysis. Patient with longstanding history of seizures did not CT his head. Patient states he has not taken his Depakote or his Keppra. Patient will be dosed with IV Keppra then discharged home. Dragon Disclaimer: Dragon Disclaimer: This electronic medical record was generated, in whole or in part, using a voice recognition dictation system. Departure Departure Impression: Primary Impression: Seizure Disposition: HOME / SELF CARE / HOMELESS Condition: STABLE Referrals: MECCA HOWARD MD (PCP) Patient Instructions: Seizure, Adult CAMRON ROBLERO DO July 16, 2020 21:50
[2020-07-16] MEDS ORDERED: levETIRAcetam 1,000 MG in IV DEXTROSE 5% 100ML 100 ML IV ONE (22:00)
[2020-07-17 00:37] LABS: BASE EXCESS ABG -1 mmol/L (-3-3); FIO2 ABG 21; HCO3 ABG 25 mmol/L (21-28); PCO2 ABG 47 mmHg (35-46); PO2 ABG 59 mmHg (75-108); SAT O2 ABG 90 % (92-99)
[2020-07-17 00:46] VITALS: BP 130/80
== END 2020-07-17 01:05 | disposition home or self-care (01) ==
LOC: ER 20:13
DX: R56.9 Unspecified convulsions (principal); M54.5 Low back pain; J45.909 Unspecified asthma, uncomplicated; E78.00 Pure hypercholesterolemia, unspecified; I10 Essential (primary) hypertension; F17.200 Nicotine dependence, unspecified, uncomplicated; Z88.0 Allergy status to penicillin; Z88.8 Allergy status to other drugs, medicaments and biological substances
CPT/HCPCS: 36415; 36600; 80053; 80164; 82805; 85025; 96365; 99285; J1953; J7060

== ENCOUNTER 2020-08-09 23:30 | Emergency (ER) | payer OTHER ==
[~2020-08-09] VITALS: Ht 175.3 cm; Wt 135.0 kg
[~2020-08-09 23:30] MED LIST changes: +DOXY-181 PO; -DOXY100C14 PO; -OMEP40CA45 PO; +OMEP40CA7 PO
--- NOTE | 2020-08-09 23:40 | PHYS DOC ---
Past Medical History Past Medical History: Asthma, High Cholesterol, Hypertension, Seizure Additional Past Medical Histor: per patient- "enlarged heart and hernia", DEVELOPMENTAL DELAY,TBI Past Surgical History: Other Additional Past Surgical Histo: "THYROID" Smoking Status: Current Every Day Smoker Alcohol Use: None Drug Use: None General Adult HPI: HPI: Patient is a 49 year old male past medical history TBI hypertension h yperlipidemia obstructive sleep apnea presents with a chief complaint of chest pain. Patient states chest pain started approximately 2100 hrs. Patient pain has been constant since onset. Describes the pain as a bubble in his epigastric region. Patient states she has felt nauseous but has not vomited. Patient states the pain does not radiate. Review of Systems: Review of Systems: Constitutional: Denies fever or chills. [] Eyes: Denies change in visual acuity. [] HENT: Denies nasal congestion or sore throat. [] Respiratory: Denies cough or shortness of breath. [] Cardiovascular: Denies chest pain or edema. [] GI: Denies abdominal pain, nausea, vomiting, bloody stools or diarrhea. [] : Denies dysuria. [] Musculoskeletal: Denies back pain or joint pain. [] Integument: Denies rash. [] Neurologic: Denies headache, focal weakness or sensory changes. [] Endocrine: Denies polyuria or polydipsia. [] Lymphatic: Denies swollen glands. [] Psychiatric: Denies depression or anxiety. [] Heart Score: C/O Chest Pain: Yes HEART Score for Chest Pain: HEART Score for Chest Pain Response (Comments) Value History Slighlty/Non-Suspicious 0 ECG Normal 0 Age >45 - < 65 1 Risk Factors 1 or 2 Risk Factors 1 Troponin < Normal Limit 0 Total 2 Risk Factors: Risk Factors: DM, Current or recent (<one month) smoker, HTN, HLP, family history of CAD, obesity. Risk Scores: Score 0 - 3: 2.5% MACE over next 6 weeks - Discharge Home Score 4 - 6: 20.3% MACE over next 6 weeks - Admit for Clinical Observation Score 7 - 10: 72.7% MACE over next 6 weeks - Early Invasive Strategies Allergies: Allergies: Allergies Coded Allergies Type Severity Reaction Last Updated Verified Penicillins Allergy Intermediate RASH 09/15/19 Yes ibuprofen Allergy Intermediate hives and abd pain 11/18/20 Yes Physical Exam: PE: General: alert, no acute distress. Skin: warm, dry and intact. HENT: bilateral external ears normal, oropharynx moist, nose normal. Head:: Normocephalic, atraumatic. Neck: Trachea midline. Eyes: EOMI, Normal conjunctiva, No drainage CARDIOVASCULAR: Regular rate and rhythm RESPIRATORY: No respiratory distress Back: Full range of motion. Skin: Warm, dry, no erythema, no rash. MUSCULOSKELETAL: Full range of motion of bilateral upper and lower extremities. GASTROINTESTINAL: Abdomen soft without rebound or guarding. NEUROLOGICAL: Alert and noted to person, place and time. No neurological deficits observed Psychiatric: Cooperative. Normal judgment EKG: EKG: [] Performed at 2334 Rate [address] Normal sinus rhythm No ST elevation No ST depression No acute RI Radiology/Procedures: Radiology/Procedures: [] Impression: Chest AP portable at 2344: Reason for examination: Chest pain. Comparison is made to previous study dated 06/29/2020. The heart size is normal. Mediastinum is unremarkable. Lung remy are clear. No acute bony abnormalities are seen. Impression: No acute cardiopulmonary disease. Electronically signed by: Nicolette Cheng MD (08/10/2020 12:22 AM) [facility] Course & Med Decision Making: Course & Med Decision Making Pertinent Labs and Imaging studies reviewed. (See chart for details) [] Adriana Disclaimer: Adriana Disclaimer: This electronic medical record was generated, in whole or in part, using a voice recognition dictation system. Departure Departure Impression: Primary Impression: Non-cardiac chest pain Additional Impression: Dyspnea Disposition: 01 HOME / SELF CARE / HOMELESS Condition: STABLE Referrals: MECCA HOWARD MD (PCP) Patient Instructions: Chest Pain (Nonspecific), Shortness of Breath CAMRON ROBLERO I DO Aug 09, 2020 23:40
[2020-08-09 23:47] LABS: BASO # 0.1 x10^3/uL (0.0-0.2); BASO % 1 % (0-3); EOS % 0 % (0-3); HEMATOCRIT 42.4 % (39.0-53.0); HEMOGLOBIN 14.7 g/dL (13.0-17.5); LYMPH % 39 % (24-48); MEAN CORPUSCULAR HEMOGLOBIN 31 pg (25-35); MEAN CORPUSCULAR HGB CONC 35 g/dL (31-37); MEAN CORPUSCULAR VOLUME 90 fL (79-100); MONO # 0.5 x10^3/uL (0.0-1.1); MONO % 11 % (0-9); NEUT # 2.5 x10^3/uL (1.8-7.7); NEUT % 49 % (31-73); PLATELET COUNT 242 x10^3/uL (140-400); RED BLOOD COUNT 4.69 x10^6/uL (4.30-5.70); RED CELL DISTRIBUTION WIDTH 17.1 % (11.5-14.5); WHITE BLOOD COUNT 5.1 x10^3/uL (4.0-11.0)
[2020-08-09 23:56] LABS: CREATININE 0.9 mg/dL (0.7-1.3); GFR 107.6
[2020-08-10 00:02] LABS: ALBUMIN 3.5 g/dL (3.4-5.0); MAGNESIUM 1.8 mg/dL (1.8-2.4); TOTAL BILIRUBIN 0.3 mg/dL (0.2-1.0)
--- NOTE | 2020-08-10 00:25 | RAD ---
Chest AP portable at 2344: Reason for examination: Chest pain. Comparison is made to previous study dated 06/29/2020. The heart size is normal. Mediastinum is unremarkable. Lung remy are clear. No acute bony abnormali ties are seen. Impression: No acute cardiopulmonary disease. Electronically signed by: Nicolette Cheng MD (08/10/2020 12:22 AM) [facility]
[2020-08-10 00:39] VITALS: BP 118/79
--- NOTE | 2020-08-10 00:45 | EKG ---
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
== END 2020-08-10 01:18 | disposition home or self-care (01) ==
LOC: ER 23:30
DX: R07.89 Other chest pain (principal); R06.00 Dyspnea, unspecified; R11.0 Nausea; J45.909 Unspecified asthma, uncomplicated; E78.00 Pure hypercholesterolemia, unspecified; I10 Essential (primary) hypertension; F17.200 Nicotine dependence, unspecified, uncomplicated; Z87.820 Personal history of traumatic brain injury; Z88.0 Allergy status to penicillin; Z88.8 Allergy status to other drugs, medicaments and biological substances
CPT/HCPCS: 36415; 71045; 80053; 82962; 83735; 83880; 84484; 85025; 93005; 99285-25

== ENCOUNTER 2020-09-03 15:05 | Emergency (ER) | payer OTHER ==
[~2020-09-03] VITALS: Ht 175.3 cm; Wt 135.0 kg
--- NOTE | 2020-09-03 19:29 | PHYS DOC ---
Past Medical History Past Medical History: Asthma, High Cholesterol, Hypertension, Seizure Additional Past Medical Histor: "enlarged heart and hernia", DEVELOPMENTAL DELAY,TBI, SLEEP APNEA Past Surgical History: Other Additional Past Surgical Histo: "THYROID" Smoking Status: Current Every Day Smoker Alcohol Use: None Drug Use: None General Adult EDM: Chief Complaint: MECHANICAL FALL HPI: HPI: Patient is a 49 year old male presents with the chief complaint of left hip/leg pain after a slip and fall. Fall was prior to arrival. Denies any injury to head or back. No deformities noted on exam. Review of Systems: Review of Systems: Constitutional: Denies fever or chills. [] Eyes: Denies change in visual acuity. [] HENT: Denies nasal congestion or sore throat. [] Respiratory: Denies cough or shortness of breath. [] Cardiovascular: Denies chest pain or edema. [] GI: Denies abdominal pain, nausea, vomiting, bloody stools or diarrhea. [] : Denies dysuria. [] Musculoskeletal: Denies back pain Positive joint pain. [] Integument: Denies rash. [] Neurologic: Denies headache, focal weakness or sensory changes. [] Endocrine: Denies polyuria or polydipsia. [] Lymphatic: Denies swollen glands. [] Psychiatric: Denies depression or anxiety. [] Heart Score: C/O Chest Pain: N/A Risk Factors: Risk Factors: DM, Current or recent (<one month) smoker, HTN, HLP, family history of CAD, obesity. Risk Scores: Score 0 - 3: 2.5% MACE over next 6 weeks - Discharge Home Score 4 - 6: 20.3% MACE over next 6 weeks - Admit for Clinical Observation Score 7 - 10: 72.7% MACE over next 6 weeks - Early Invasive Strategies Allergies: Allergies: Allergies Coded Allergies Type Severity Reaction Last Updated Verified Penicillins Allergy Intermediate RASH 09/15/19 Yes ibuprofen Allergy Intermediate hives and abd pain 01/10/20 Yes Physical Exam: PE: Constitutional: Well developed, well nourished, no acute distress, non-toxic appearance. [] HENT: Normocephalic, atraumatic, bilateral external ears normal, oropharynx moist, no oral exudates, nose normal. [] Eyes: PERRLA, EOMI, conjunctiva normal, no discharge. [] Neck: Normal range of motion, no tenderness, supple, no stridor. [] Cardiovascular:Heart rate regular rhythm, no murmur [] Lungs & Thorax: Bilateral breath sounds clear to auscultation [] Abdomen: Bowel sounds normal, soft, no tenderness, no masses, no pulsatile masses. [] Skin: Warm, dry, no erythema, no rash. [] Back: No tenderness, no CVA tenderness. [] No C-spine T-spine L-spine midline tenderness step-off or deformities Extremities: Tenderness to palpation left pelvis hip left proximal femur. De creased range of motion left lower extremity due to pain. Neurologic: Alert and oriented X 3, normal motor function, normal sensory function, no focal deficits noted. [] Psychologic: Affect normal, judgement normal, mood normal. [] Current Patient Data: Vital Signs: Vital Signs Date Time Temp Pulse Resp B/P (MAP) Pulse Ox O2 Delivery O2 Flow Rate FiO2 09/03/20 19:08 98.8 115 24 133/71 (92) 96 Room Air 98.8 EKG: EKG: [] Radiology/Procedures: Radiology/Procedures: [] Impression: xray wet read no acute fracture or dislocation Course & Med Decision Making: Course & Med Decision Making Pertinent Labs and Imaging studies reviewed. (See chart for details) [] Dragon Disclaimer: Dragon Disclaimer: This electronic medical record was generated, in whole or in part, using a voice recognition dictation system. Departure Departure Impression: Primary Impression: Fall Additional Impression: Hip pain, left Disposition: 01 HOME / SELF CARE / HOMELESS Condition: STABLE Referrals: MECCA HOWARD MD (PCP) Patient Instructions: Fall Prevention and Home Safety, Hip Pain CAMRON ROBLERO I DO Sep 03, 2020 19:29
[2020-09-03] MEDS ORDERED: ACETAMINOPHEN 325 MG TABLET. PO ONE (19:45)
--- NOTE | 2020-09-03 21:06 | RAD ---
XR BILATERAL HIP (WITH OR WITHOUT PELVIS) LEFT 2 VIEWS 09/03/2020 7:42 PM INDICATION: Fall, pain COMPARISON: None available. TECHNIQUE: AP view the pelvis and 2 dedicated views the left hip are provided. FINDINGS/ IMPRESSION: There is no acute fracture or dislocation. Joint spaces are maintained. Bone mineralization is within normal limits. Regional soft tissues are within normal limits. There is no soft tissue gas or osseou s erosion. No radiopaque foreign body. Electronically signed by: Nery Perales MD (09/03/2020 9:04 PM) [facility]ANNIE
[2020-09-03 21:15] VITALS: BP 138/82
== END 2020-09-03 21:50 | disposition home or self-care (01) ==
LOC: ER 15:05
DX: M25.552 Pain in left hip (principal); J45.909 Unspecified asthma, uncomplicated; E78.00 Pure hypercholesterolemia, unspecified; I10 Essential (primary) hypertension; F17.200 Nicotine dependence, unspecified, uncomplicated; G89.11 Acute pain due to trauma; W01.0XXA Fall on same level from slipping, tripping and stumbling without subsequent striking against object, initial encounter; Y93.89 Activity, other specified; Y92.89 Other specified places as the place of occurrence of the external cause; Y99.8 Other external cause status
CPT/HCPCS: 73502; 99284

== ENCOUNTER 2020-10-29 17:19 | Emergency (ER) | payer OTHER ==
[~2020-10-29] VITALS: Ht 175.3 cm; Wt 127.2 kg
[~2020-10-29 17:19] MED LIST changes: +DOCU-148 PO; -DOCU-153 PO; -DOXY100C2 PO; +DOXY100C3 PO
[2020-10-29] MEDS ORDERED: DOXY100C3 PO (22:29)
--- NOTE | 2020-10-29 22:30 | PHYS DOC ---
Past Medical History Past Medical History: Asthma, High Cholesterol, Hypertension, Seizure Additional Past Medical Histor: "enlarged heart and hernia", DEVELOPMENTAL DELAY,TBI, SLEEP APNEA Past Surgical History: Other Additional Past Surgical Histo: "THYROID" Smoking Status: Never Smoker Alcohol Use: None Drug Use: None General Adult EDM: Chief Complaint: MULTIPLE COMPLAINTS HPI: HPI: 49-year-old male past medical history of TBI with chronic delay, asthma, obesity, seizure disorder, tfm-[id number] diabetes and sleep apnea, presents the ED with complaints of "you don't hear that do you?", while patient is making conscious snoring respirations. Patient once of swollen eyes, difficulties breathing, sore throat for the past week stating his mother heard his nasal congestion wanted him reevaluated. Has been diagnosed with sleep apnea for the past few months but insurance company would not pay for his CPAP. Primary care physician is Dr. Barber. Follows with Dr. Bravo for seizure disorder. Has not received a Covid vaccine but accepts testing. Review of Systems: Review of Systems: Constitutional: Denies fever or chills. [] Eyes: Denies change in visual acuity, HENT: Denies rhinorrhea or nasal flaring Respiratory: Denies cough or hemoptysis Cardiovascular: Denies chest pain or edema. [] GI: Denies abdominal pain, nausea, vomiting, bloody stools or diarrhea. [] : Denies dysuria or hematuria Musculoskeletal: Denies back pain or joint pain. [] Integument: Denies rash or diaphoresis Neurologic: Denies headache, focal weakness or sensory changes. [] Endocrine: Denies polyuria or polydipsia. [] Lymphatic: Denies swollen glands. [] Psychiatric: Denies depression or anxiety. [] Heart Score: C/O Chest Pain: No Risk Factors: Risk Factors: DM, Current or recent (<one month) smoker, HTN, HLP, family history of CAD, obesity. Risk Scores: Score 0 - 3: 2.5% MACE over next 6 weeks - Discharge Home Score 4 - 6: 20.3% MACE over next 6 weeks - Admit for Clinical Observation Score 7 - 10: 72.7% MACE over next 6 weeks - Early Invasive Strategies Allergies: Allergies: Allergies Coded Allergies Type Severity Reaction Last Updated Verified Penicillins Allergy Intermediate RASH 09/15/19 Yes ibuprofen Allergy Intermediate hives and abd pain 01/10/20 Yes Physical Exam: PE: Constitutional: Well developed, well nourished, no acute distress, non-toxic appearance, morbidly obese HENT: Normocephalic, atraumatic, voluntarily makes a snorting sound when talking -can stop this, moist mucous membranes, no pharyngeal erythema or exudates Eyes: PERRLA, EOMI, no periorbital swelling or rash, conjunctiva normal, no discharge. Neck: Normal range of motion, supple, obese with large neck Cardiovascular: S1/2 present, regular rhythm Lungs & Thorax: Speaking in full sentences, bilateral equal chest rise, no tac hypnea or increased work of breathing Abdomen: soft, no tenderness, Skin: Warm, dry, Extremities: No tenderness, no cyanosis, Neurologic: Alert and oriented X 3, normal motor function, normal sensory function, no focal deficits noted. [] Psychologic: Affect normal, judgement normal, mood normal. [] Current Patient Data: Vital Signs: Vital Signs Date Time Temp Pulse Resp B/P (MAP) Pulse Ox O2 Delivery O2 Flow Rate FiO2 10/29/20 21:44 98.1 77 18 130/69 (89) 96 Room Air 98.1 EKG: EKG: [] Radiology/Procedures: Radiology/Procedures: [] Course & Med Decision Making: Course & Med Decision Making Pertinent Labs and Imaging studies reviewed. (See chart for details) COVID-19 CRITERIA: The patient was evaluated during the global COVID-19 pandemic, and that diagnosis was suspected/considered upon their initial presentation. Their evaluation, treatment and testing was consistent with current guidelines for patients who present with complaints or symptoms that may be related to COVID-19. Concern for acute sinusitis for 7 days, reports shortness of breath and sore throat have resolved. When RN attempted covid swab pt stated "hell no." Patient hemodynamically stable with pain oropharynx, requiring no supplemental oxygen. Will discharge home with strict ED return precautions were given for neurologic deficits, chest pain, increased work of breathing or dyspnea. Encouraged urgent outpatient follow-up with PMD and ENT for definitive management of sinusitis and sleep apnea. Life-threatening processes were considered but are low suspicion at this time, given history, physical exam and ED workup. Pt was educated on all prescription medications and adverse effects. All patient's questions were answered and pt was stable at time of discharge. Life/limb-threatening differential includes but is not limited to, airway emergency or respiratory distress/ARDS or fatigue or head or neck swelling, toxidrome, sepsis/shock, angioedema, anaphylaxis, congestive heart failure, myocarditis, acute myocardial infarction, dysrhythmias, cardiomyopathy, venous thromboembolism, pulmonary emboli, acute necrotizing hemorrhagic encephalopathy ,cerebral venous thrombosis, meningitis, encephalitis or CVA. I have spoken with the patient and/or caregivers. I explained the patient's condition, diagnoses and treatment plan based on the information available to me at this time. I have answered the patient and/or caregiver's questions and addressed any concerns. The patient and/or caregivers have a good understanding of patient's diagnosis, condition and treatment plan as can be expected at this point. Vital signs have been stable. Patient's condition is stable and appropriate for discharge from the emergency department. Patient will pursue further outpatient evaluation with primary care physician or other designated or consulting physician as outlined in the discharge instructions. The patient and/or caregivers are agreeable to this plan of care and follow-up instructions have been explained in detail. The patient and/or caregivers have received these instructions in written form and have expressed an understanding of the discharge instructions. The patient and/or caregivers are aware that any significant change of condition or worsening of symptoms should prompt immediate return to this or the closest emergency department or call to 911. Adriana Disclaimer: Adriana Disclaimer: This electronic medical record was generated, in whole or in part, using a voice recognition dictation system. Departure Departure Impression: Primary Impression: Person under investigation for COVID-19 Additional Impressions: Acute sinusitis Sleep apnea Disposition: HOME / SELF CARE / HOMELESS Condition: STABLE Referrals: MECCA HOWARD MD (PCP) Follow-up with your primary care physician in 24 to 48 hours OR FOLLOW UP WITH FAMILY MEDICINE: [address] [place] [address] Patient Instructions: Sinusitis, Sleep Apnea Additional Instructions: Return to ED immediately if your oxygen level drops below 90% (purchase a pulse oximetry at a medical supply store), difficulties breathing including rapid breathing or increased work of breathing (skin sucking under ribs), chest pain or stroke-like symptoms (facial droop, speech changes, arm/leg weakness). You have been tested for or diagnosed with COVID-19. It is an infection caused by a new type of coronavirus. COVID-19 will cause cold-like or mild flu symptoms in most. It can cause more severe symptoms like problems breathing in some. There is no treatment for COVID-19. The body will clear the infection over time. Self-care will help to ease discomfort. Steps to Take: Self-Care Rest as needed. Healthy habits may help you feel better. Steps include: Choose healthy foods including fruits and vegetables. Drink water throughout the day. Get plenty of sleep each night. If you smoke, try to quit. It may ease breathing. Avoid alcohol. Keep Others Healthy The virus can spread to others. Droplets are released every time you sneeze or cough. The droplets can get into the mouth, nose, or eyes of people near you and lead to infection. To lower the chances of spreading COVID-19 to others: Stay at home until your doctor has said it is safe to leave. If you tested positive this will mean staying isolated until both of the following are true: At least 7 days have passed since the start of illness. You are free of fever for at least 72 hours without the use of medicine. During this time: - Avoid public areas, events, or transportation. Do not return to work or school until your doctor has said it is safe to do so. - Call ahead if you need to go to a medical center. Let them know you may have COVID-19. It will help them guide you where to go. They may also ask you to wear a facemask when you come to the office. - If you call for emergency medical services, let them know you may have COVID- 19. While at home: - Try to avoid close contact with others. Stay about 6 feet away. - If possible, spend most of your time in a separate room from others. - Use a face mask if you will be in close contact with others such as sharing a room or vehicle. - Have someone wipe down common surfaces in the home. Use household heavy equipment service technician every day on areas like doorknobs, counters, or sinks. - Cough or sneeze into a tissue. Throw the tissue away right after use. If a tissue is not available, cough or sneeze into your elbow. - Wash your hands often. Wash them after sneezing or coughing. Use soap and water and wash for at least 20 seconds. Alcohol based hand hand rug cleaner can be used if soap and water is not available. - Do not prepare food for others. Avoid sharing personal items like forks, spoons, or toothbrushes. - Avoid close contact with pets while you are sick. There is no evidence of the virus passing to pets. This is a safety step until more is known about this virus. Isolation can be frustrating. Social interaction can help. Keep in touch with friends and family through phone and tech options. You can still interact with others in your home, just keep a safe distance of about 6 feet. Follow-up: Your doctors office will check in with you to see if there are any changes in your health. You may be asked to keep track of symptoms to share with them. They will also let you know when you are clear to be in public again. Problems to Look Out For: Contact your doctor if your recovery is not going as you expect. Get emergency care if you have problems such as: - Trouble breathing - Nonstop chest pain or pressure - Changes in awareness, confusion, or problems waking - Lips or face have bluish color - Worsening of symptoms If you think you have an emergency, call for emergency medical services right away. As taken from [facility] Doxycycline Hyclate (DOXYCYCLINE HYCLATE) 100 Mg Capsule 1 CAP PO BID for 10 Days, #20 CAP Prov: SHRADDHA HUGHES DO 10/29/20 SHRADDHA HUGHES DO Oct 29, 2020 22:30
[2020-10-29 22:36] VITALS: BP 140/71
== END 2020-10-29 22:37 | disposition home or self-care (01) ==
LOC: ER 17:19
DX: J01.90 Acute sinusitis, unspecified (principal); G47.30 Sleep apnea, unspecified; Z20.822 Contact with and (suspected) exposure to COVID-19; J45.909 Unspecified asthma, uncomplicated; E78.00 Pure hypercholesterolemia, unspecified; I10 Essential (primary) hypertension; G40.909 Epilepsy, unspecified, not intractable, without status epilepticus; Z88.0 Allergy status to penicillin; Z88.8 Allergy status to other drugs, medicaments and biological substances
CPT/HCPCS: 99283

== ENCOUNTER 2021-03-26 22:15 | Emergency (ER) | payer OTHER ==
[~2021-03-26] VITALS: Ht 175.3 cm; Wt 122.7 kg
[~2021-03-26 22:15] MED LIST changes: +TIZA-75 PO; -TIZA4TAB2 PO
[2021-03-26 22:39] LABS: BILIRUBIN,URINE NEGATIVE (NEG); CLARITY,URINE CLEAR; COLOR,URINE YELLOW; NITRITE,URINE NEGATIVE (NEG); PROTEIN,URINE NEGATIVE (NEG-TRACE)
[2021-03-26 22:50] LABS: BACTERIA,URINE 0 /HPF (0-FEW); RBC,URINE 0 /HPF (0-2); WBC,URINE OCC /HPF (0-4)
--- NOTE | 2021-03-26 23:27 | RAD ---
Testicular duplex Doppler ultrasound CLINICAL HISTORY: Right testicular pain after lifting injury COMPARISON: No priors TECHNIQUE: Grayscale and duplex Doppler sonography. FINDINGS: Right testicle measures 4.3 x 2.7 x 2.3 cm. Left testicle measures 4.1 x 3.1 x 1.9 cm. No testicular mass, edema, microlithiasis or hypervascularity. No mass, hypervascularity or edema of the epididymis bilaterally. There is a mild right hydrocele. No extratesticular masses. No scrotal edema. No mass, adenopathy or hernia sac at the right groin documented. IMPRESSION: Normal sonography of the testicles. Mild right hydrocele. Electronically signed by: Basilio Díaz MD (03/26/2021 11:25 PM) [facility]
--- NOTE | 2021-03-27 00:03 | PHYS DOC ---
Past Medical History Past Medical History: Asthma, High Cholesterol, Hypertension, Seizure Additional Past Medical Histor: "enlarged heart and hernia", DEVELOPMENTAL DELAY,TBI, SLEEP APNEA Past Surgical History: Other Additional Past Surgical Histo: "THYROID" Smoking Status: Never Smoker Alcohol Use: None Drug Use: None General Adult EDM: Chief Complaint: TESTICULAR PAIN OR INJURY HPI: HPI: Mental delay Patient is a 50 year old male with history of hypertension, seizures, high cholesterol, asthma, TBI, developmental delay who presents to the ED today complaining of 10 out of 10 right groin/testicular pain that began while he was lifting a bed this evening. Patient states he heard a pop sound from the right groin/testicle region. He states the pain is worse on touching his right testicle. He states laying down relieves the pain. Patient denies any difficulty voiding. Denies any difficulty voiding, denies any concerns for STDs. Denies any abdominal pain, nausea or vomiting. Reports the mother has COVID19 and he thinks he could have COVID19. He is requesting to be tested. Review of Systems: Review of Systems: Constitutional: Denies fever or chills. [] Eyes: Denies change in visual acuity. [] HENT: Denies nasal congestion or sore throat. [] Respiratory: Denies cough or shortness of breath. [] Cardiovascular: Denies chest pain or edema. [] GI: Denies abdominal pain, nausea, vomiting, bloody stools or diarrhea. [] : Reports right testicular/right groin pain denies dysuria. [] Musculoskeletal: Denies back pain or joint pain. [] Integument: Denies rash. [] Neurologic: Denies headache, focal weakness or sensory changes. [] Psychiatric: Denies depression or anxiety. [] Heart Score: C/O Chest Pain: N/A Risk Factors: Risk Factors: DM, Current or recent (<one month) smoker, HTN, HLP, family history of CAD, obesity. Risk Scores: Score 0 - 3: 2.5% MACE over next 6 weeks - Discharge Home Score 4 - 6: 20.3% MACE over next 6 weeks - Admit for Clinical Observation Score 7 - 10: 72.7% MACE over next 6 weeks - Early Invasive Strategies Allergies: Allergies: Allergies Coded Allergies Type Severity Reaction Last Updated Verified Penicillins Allergy Intermediate RASH 03/26/21 Yes ibuprofen Allergy Intermediate hives and abd pain 03/26/21 Yes Physical Exam: PE: Constitutional: Well developed, well nourished, no acute distress, non-toxic appearance. [] HENT: Normocephalic, atraumatic, bilateral external ears normal, oropharynx moist, no oral exudates, nose normal. [] Eyes: PERRLA, EOMI, conjunctiva normal, no discharge. [] Neck: Normal range of motion, no tenderness, supple, no stridor. [] Cardiovascular:Heart rate regular rhythm, no murmur [] Lungs & Thorax: Bilateral breath sounds clear to auscultation [] Abdomen: Reducible umbilical hernia noted. Bowel sounds normal, soft, no tenderness, no masses, no pulsatile masses. [] Male exam done with Latesha RN as operations welder Circumcised male penis with no obvious lesions, no palpable masses on the testicles. No obvious hernia noted during physical exam. Skin: Warm, dry, no erythema, no rash. [] Back: No tenderness, no CVA tenderness. [] Extremities: No tenderness, no cyanosis, no clubbing, ROM intact, no edema. [] Neurologic: Alert and oriented X 3, normal motor function, normal sensory function, no focal deficits noted. [] Psychologic: Affect normal, judgement normal, mood normal. [] Current Patient Data: Labs: Laboratory Tests Test 03/26/21 22:27 03/26/21 23:03 Urine Collection Type Unknown Urine Color Yellow Urine Clarity Clear Urine pH 6.0 (<5.0-8.0) Urine Specific [place] 1.015 (1.000-1.030) Urine Protein Negative mg/dL (NEG-TRACE) Urine Glucose (UA) Negative mg/dL (NEG) Urine Ketones (Stick) Negative mg/dL (NEG) Urine Blood Negative (NEG) Urine Nitrite Negative (NEG) Urine Bilirubin Negative (NEG) Urine Urobilinogen Dipstick 1.0 mg/dL (0.2 mg/dL) Urine Leukocyte Esterase Negative (NEG) Urine RBC 0 /HPF (0-2) Urine WBC Occ /HPF (0-4) Urine Squamous Epithelial Cells Occ /LPF Urine Bacteria 0 /HPF (0-FEW) Urine Mucus Slight /LPF SARS-CoV-2 Antigen (Rapid) Negative (NEGATIVE) Vital Signs: Vital Signs Date Time Temp Pulse Resp B/P (MAP) Pulse Ox O2 Delivery O2 Flow Rate FiO2 03/26/21 22:16 98.5 82 18 144/78 (100) 98 Room Air 98.5 EKG: EKG: [] Radiology/Procedures: Radiology/Procedures: []PROCEDURE: TESTICULAR/SCROTUM Testicular duplex Doppler ultrasound CLINICAL HISTORY: Right testicular pain after lifting injury COMPARISON: No priors TECHNIQUE: Grayscale and duplex Doppler sonography. FINDINGS: Right testicle measures 4.3 x 2.7 x 2.3 cm. Left testicle measures 4.1 x 3.1 x 1.9 cm. No testicular mass, edema, microlithiasis or hypervascularity. No mass, hypervascularity or edema of the epididymis bilaterally. There is a mild right hydrocele. No extratesticular masses. No scrotal edema. No mass, adenopathy or hernia sac at the right groin documented. IMPRESSION: Normal sonography of the testicles. Mild right hydrocele. Electronically signed by: Ginny Díaz MD (03/26/2021 11:25 PM) [facility] DICTATED and SIGNED BY: GINNY DÍAZ MD DATE: 03/26/21 [id number] PROCEDURE: CT ABDOMEN PELVIS WO CONTRAST EXAM: CT ABDOMEN/PELVIS WITHOUT CONTRAST. HISTORY: Right testicular/flank pain. TECHNIQUE: Computed tomography of the abdomen and pelvis was performed without intravenous contrast. One or more of the following individualized dose reduction techniques were utilized for this examination: 1. Automated exposure control. 2. Adjustment of the mA and/or kV according to patient size. 3. Use of iterative reconstruction technique. COMPARISON: Today's ultrasound, 02/28/2020. FINDINGS: Lung windows through the visualized portions of the bases reveal no abnormality. Bone windows reveal no suspicious lesions. The liver, pancreas, adrenal glands, gallbladder, spleen and kidneys are unremarkable without contrast. There are no renal or ureteral calculi. The bladder is partially decompressed but there is mild wall thickening. The appendix is not inflamed. There is no small bowel obstruction. There is diastases of the rectus muscles with a small umbilical hernia. There is no clear inguinal hernia on this nonstressed exam. IMPRESSION: 1. No renal or ureteral calculi. Nonfocal bladder wall thickening suggests chronic outlet obstruction or inflammation. Correlate with urinalysis. 2. Small umbilical hernia containing only fat. Electronically signed by: Herman Bazzi MD (03/27/2021 12:09 AM) [facility] DICTATED and SIGNED BY: JOCELIN BAZZI MD DATE: 03/26/21 [id number] Course & Med Decision Making: Course & Med Decision Making Pertinent Labs and Imaging studies reviewed. (See chart for details) This is a 50-year-old male patient presented to the ED today complaining of right groin/right testicular pain that began after he lifted a bed this evening. Testicular/groin exam is negative. UA negative for infection Testicular ultrasound is negative for any acute findings, noted for right right hydrocele. CT of the abdomen and pelvis was negative for renal or ureteral calculi. Nonfocal bladder wall thickening suggests chronic outlet obstruction or inflammation. Correlate with urinalysis-UA is negative. Small umbilical hernia containing only fat. Patient was discharged home, provided urology for follow-up and instructed to follow-up with PCP. Scrotal elevation encouraged. NSAIDs recommended he states he is allergic to them. Tylenol recommended Dragon Disclaimer: Dragon Disclaimer: This electronic medical record was generated, in whole or in part, using a voice recognition dictation system. Departure Departure Impression: Primary Impression: Hydrocephalus Qualified Codes: G91.9 - Hydrocephalus, unspecified Additional Impression: Strain of right groin Disposition: 01 HOME / SELF CARE / HOMELESS Condition: STABLE Referrals: MECCA HOWARD MD (PCP) Follow-up next week PAOLO TIMMONS MD Follow-up in a week Patient Instructions: Groin Strain Additional Instructions: You were evaluated in the emergency room for right groin/testicular pain. You have hydrocele which is a collection of fluid in the right testicle. This typically clears on its own. Try to ice and elevate your testicles when resting. You can take [id number] pain relievers as needed for pain. Please follow-up with your doctor next week or the provided urologist Scripts Cyclobenzaprine Hcl (CYCLOBENZAPRINE HCL) 10 Mg Tablet 1 TAB PO TID, #30 TAB Prov: GRACIELA TAMAYO APRN 03/27/21 GRACIELA TAMAYO APRN Mar 27, 2021 00:03
--- NOTE | 2021-03-27 00:12 | RAD ---
EXAM: CT ABDOMEN/PELVIS WITHOUT CONTRAST. HISTORY: Right testicular/flank pain. TECHNIQUE: Computed tomography of the abdomen and pelvis was performed without intravenous contrast. One or more of the following individualized dose reduction techniques were utilized for this examinat ion: 1. Automated exposure control. 2. Adjustment of the mA and/or kV according to patient size. 3. Use of iterative reconstruction technique. COMPARISON: Today's ultrasound, 02/28/2020. FINDINGS: Lung windows through the visualized portions of the bases reveal no abnormality. Bone windo ws reveal no suspicious lesions. The liver, pancreas, adrenal glands, gallbladder, spleen and kidneys are unremarkable without contras t. There are no renal or ureteral calculi. The bladder is partially decompressed but there is mild wall thickening. The appendix is not inflamed . There is no small bowel obstruction. There is diastases of the rectus muscles with a small umbilical hernia. There is no clear inguinal he rnia on this nonstressed exam. IMPRESSION: 1. No renal or ureteral calculi. Nonfocal bladder wall thickening suggests chronic outlet obstruction or inflammation. Correlate with urinalysis. 2. Small umbilical hernia containing only fat. Electronically signed by: Herman Bazzi MD (03/27/2021 12:09 AM) [facility]
[2021-03-27] MEDS ORDERED: CYCL10TA19 PO (00:28)
[2021-03-27 00:30] VITALS: BP 113/68
--- NOTE | 2021-03-27 07:25 | EKG ---
[facility] [address] [place] [address] Test Date: 2021-03-26 Test Time: 22:55:44 Pat Name: ALYSSA MELGOZA Department: Room: Gender: M Direct Sales Consultant: : [id number] Requested By: GRACIELA TAMAYO Order Number: [id number] Reading MD: Markel Piper Measurements Intervals [place] Rate: 96 P: 42 AR: 116 QRS: 26 QRSD: 86 T: 65 QT: 350 QTc: 449 Interpretive Statements SINUS RHYTHM Electronically Signed On 03-27-2021 13:39:19 ENVIRONMENTAL ENGINEERING ASSISTANT by aMrkel Piper
== END 2021-03-27 00:44 | disposition home or self-care (01) ==
LOC: ER 22:15
DX: S39.011A Strain of muscle, fascia and tendon of abdomen, initial encounter (principal); G91.9 Hydrocephalus, unspecified; Z20.822 Contact with and (suspected) exposure to COVID-19; I10 Essential (primary) hypertension; J45.909 Unspecified asthma, uncomplicated; E78.00 Pure hypercholesterolemia, unspecified; Z88.0 Allergy status to penicillin; Z88.8 Allergy status to other drugs, medicaments and biological substances; X50.0XXA Overexertion from strenuous movement or load, initial encounter; Y93.89 Activity, other specified; Y92.89 Other specified places as the place of occurrence of the external cause; Y99.8 Other external cause status
CPT/HCPCS: 74176; 76870; 81001; 87426; 93005; 99285; U0003; U0005

== ENCOUNTER 2021-06-14 16:33 | Emergency (ER) | payer OTHER ==
[~2021-06-14] VITALS: Ht 175.3 cm; Wt 130.5 kg
[2021-06-14 16:33] VITALS: BP 128/94
[~2021-06-14 16:33] MED LIST changes: +CYCL10TA19 PO
--- NOTE | 2021-06-14 17:00 | ED.ADGEN ---
Past Medical History Past Medical History: Asthma, High Cholesterol, Hypertension, Seizure Additional Past Medical Histor: "enlarged heart and hernia", DEVELOPMENTAL DELAY,TBI, SLEEP APNEA Past Surgical History: Other Additional Past Surgical Histo: THYROIDECTOMY Smoking Status: Never Smoker Alcohol Use: None Drug Use: None General Adult EDM: Chief Complaint: UPPER EXTREMITY INJURY HPI: HPI: Patient is a 50 year old male coming in via EMS after a fall. Patient states he tripped over a coffee table and landed on the ground on his left arm. Denies any head injury, or loss of consciousness. Denies any other wounds or bleeding. Patient complaining of pain over the proximal humerus. Is right-handed Review of Systems: Review of Systems: All other systems within normal limits except for as noted in the HPI Current Medications: Current Medications Medications (Trade) Dose Ordered Sig/Brigido Start Time Stop Time Status Last Admin Dose Admin Acetaminophen/ Hydrocodone Bitart (Lortab 7.5/325) 1 tab 1X ONCE 06/14/21 17:30 06/14/21 17:31 DC Allergies: Allergies: Allergies Coded Allergies Type Severity Reaction Last Updated Verified Penicillins Allergy Intermediate RASH 03/26/21 Yes ibuprofen Allergy Intermediate hives and abd pain 03/26/21 Yes Physical Exam: PE: Constitutional: Well developed, well nourished, no acute distress, non-toxic appearance. [] HENT: Normocephalic, atraumatic, bilateral external ears normal, nose normal. [] Eyes: PERRLA, conjunctiva normal, no discharge. [] Neck: No rigidity, supple, no stridor. [] Cardiovascular: Regular rate and rhythm, brisk cap refill [] Lungs & Thorax: Non labored symmetric respirations, no tachypnea or respiratory distress [] Abdomen: Soft, nondistended. Skin: Warm, dry, no erythema, no rash. [] Back: Unremarkable Extremities: No deformities, range of motion grossly intact, no lower extremity edema. Left upper extremity: Shoulder range of motion intact, tenderness over upper humerus, range of motion of elbow and wrist intact. No sensory deficits [] Neurologic: Alert and oriented X 3, no focal deficits noted. [] Psychologic: Affect normal, judgement normal, mood normal. [] Current Patient Data: Vital Signs: Vital Signs Date Time Temp Pulse Resp B/P (MAP) Pulse Ox O2 Delivery O2 Flow Rate FiO2 06/14/21 16:33 98.6 111 18 128/94 (105) 93 Room Air 98.6 EKG: EKG: [] Heart Score: C/O Chest Pain: No Risk Factors: Risk Factors: DM, Current or recent (<one month) smoker, HTN, HLP, family histo ry of CAD, obesity. Risk Scores: Score 0 - 3: 2.5% MACE over next 6 weeks - Discharge Home Score 4 - 6: 20.3% MACE over next 6 weeks - Admit for Clinical Observation Score 7 - 10: 72.7% MACE over next 6 weeks - Early Invasive Strategies Radiology/Procedures: Radiology/Procedures: [address] [place] [address] IMAGING REPORT Signed PATIENT: ALYSSA MELGOZA ACCOUNT: [id number] : 1970 LOCATION: ER AGE: 50 SEX: M EXAM STATUS: PRE ER ORD. PHYSICIAN: SABINA OROSCO MD REASON: fall, upper arm pain PROCEDURE: HUMERUS LEFT 2 views of left humerus dated 06/14/2021. COMPARISON: None. INDICATION: Pain after fall. FINDINGS: 2 views of left humerus show normal bony alignment. No displaced fracture. No periostitis or bone destruction. No acute osseous or articular abnormality. Mild hypertrophic change of the AC joint. IMPRESSION: No acute findings. Electronically signed by: Paresh Kate MD (06/14/2021 5:09 PM) [facility] DICTATED and SIGNED BY: PARESH KATE MD DATE: 06/14/21 1709 [] Course & Med Decision Making: Course & Med Decision Making Pertinent Labs and Imaging studies reviewed. (See chart for details) [] Dragon Disclaimer: Adriana Disclaimer: This electronic medical record was generated, in whole or in part, using a voice recognition dictation system. Departure Departure Impression: Primary Impression: Fall Additional Impression: Contusion of left upper arm Disposition: HOME / SELF CARE / HOMELESS Condition: IMPROVED Referrals: PARESH HOWARD MD (PCP) Patient Instructions: RICE - Routine Care for Injuries Problem Qualifiers SABINA OROSCO MD Jun 14, 2021 17:00
--- NOTE | 2021-06-14 17:12 | RAD ---
2 views of left humerus dated 06/14/2021. COMPARISON: None. INDICATION: Pain after fall. FINDINGS: 2 views of left humerus show normal bony alignment. No displaced fracture. No periostitis or bone raman truction. No acute osseous or articular abnormality. Mild hypertrophic change of the AC joint. IMPRESSION: No acute findings. Electronically signed by: Paresh Kate MD (06/14/2021 5:09 PM) [facility]
[2021-06-14] MEDS: HYDROcodone/APAP 7.5/325MG 1 TAB TABLET PO ONE (17:56)
== END 2021-06-14 18:01 | disposition home or self-care (01) ==
LOC: ER 16:33
DX: S40.022A Contusion of left upper arm, initial encounter (principal); J45.909 Unspecified asthma, uncomplicated; I10 Essential (primary) hypertension; E78.00 Pure hypercholesterolemia, unspecified; Z88.8 Allergy status to other drugs, medicaments and biological substances; Z88.0 Allergy status to penicillin; W18.09XA Striking against other object with subsequent fall, initial encounter; Y93.89 Activity, other specified; Y99.8 Other external cause status; Y92.89 Other specified places as the place of occurrence of the external cause
CPT/HCPCS: 73060; 99283; A4565

== ENCOUNTER 2021-07-04 16:07 | Emergency (ER) | payer OTHER ==
[~2021-07-04] VITALS: Ht 175.3 cm; Wt 117.0 kg
[2021-07-04] MEDS ORDERED: ACETAMINOPHEN 500 MG TABLET PO ONE (17:00)
[2021-07-04] MEDS ORDERED: DEXAMETHASONE 4 MG TABLET PO ONE (17:00)
[2021-07-04] MEDS ORDERED: CETIRIZINE HCL 10 MG TABLET. PO ONE (17:00)
--- NOTE | 2021-07-04 17:08 | PHYS DOC ---
Past Medical History Past Medical History: Asthma, High Cholesterol, Hypertension, Seizure Additional Past Medical Histor: "enlarged heart and hernia", DEVELOPMENTAL DELAY,TBI, SLEEP APNEA Past Surgical History: Other Additional Past Surgical Histo: THYROIDECTOMY Smoking Status: Never Smoker Alcohol Use: None Drug Use: None General Adult EDM: Chief Complaint: SORE THROAT HPI: HPI: Patient is a 50 year old male who presents with 4 days of nasal congestion, sore throat, post nasal drip and cough. He states he is having some shortness of breath. He states that he is not wanting to eat or drink due to the pain. He states he is swallowing his saliva. He rates his pain a 10 out of 10. He has not been taking any medications for his symptoms. Rates his pain 8 out of 10 burning. Patient has a history of hypertension, high cholesterol, seizure, asthma, allergies, TBI, developmental delay. Review of Systems: Review of Systems: Constitutional: Denies fever or chills. [] Eyes: Denies change in visual acuity. [] HENT: + nasal congestion or +sore throat. [] Respiratory: +cough or +shortness of breath. [] Cardiovascular: Denies chest pain or edema. [] GI: Denies abdominal pain, nausea, vomiting, bloody stools or diarrhea. [] : Denies dysuria. [] Musculoskeletal: Denies back pain or joint pain. [] Integument: Denies rash. [] Neurologic: Denies headache, focal weakness or sensory changes. [] Endocrine: Denies polyuria or polydipsia. [] Lymphatic: Denies swollen glands. [] Psychiatric: Denies depression or anxiety. [] Heart Score: C/O Chest Pain: No Current Medications: Current Medications Medications (Trade) Dose Ordered Sig/Brigido Start Time Stop Time Status Last Admin Dose Admin Acetaminophen (Tylenol) 1,000 mg 1X ONCE 07/04/21 17:00 07/04/21 17:01 DC Cetirizine HCl (ZyrTEC) 10 mg 1X ONCE 07/04/21 17:00 07/04/21 17:01 DC Dexamethasone (Decadron) 10 mg 1X ONCE 07/04/21 17:00 07/04/21 17:01 DC Allergies: Allergies: Allergies Coded Allergies Type Severity Reaction Last Updated Verified Penicillins Allergy Intermediate RASH 03/26/21 Yes ibuprofen Allergy Intermediate hives and abd pain 03/26/21 Yes Physical Exam: PE: Constitutional: Well developed, well nourished, no acute distress, non-toxic appearance. [] HENT: Normocephalic, atraumatic, bilateral external ears normal, oropharynx moist, no oral exudates, nose normal. Postnasal drip. [] Eyes: PERRLA, EOMI, conjunctiva normal, no discharge. [] Neck: Normal range of motion, no tenderness, supple, no stridor. [] Cardiovascular:Heart rate regular rhythm, no murmur [] Lungs & Thorax: Bilateral breath sounds clear to auscultation [] Abdomen: Bowel sounds normal, soft, no tenderness, no masses, no pulsatile masses. [] Skin: Warm, dry, no erythema, no rash. [] Back: No tenderness, no CVA tenderness. [] Extremities: No tenderness, no cyanosis, no clubbing, ROM intact, no edema. [] Neurologic: Alert and oriented X 3, normal motor function, normal sensory function, no focal deficits noted. [] Psychologic: Affect normal, judgement normal, mood normal. [] Current Patient Data: Vital Signs: Vital Signs Date Time Temp Pulse Resp B/P (MAP) Pulse Ox O2 Delivery O2 Flow Rate FiO2 07/04/21 16:20 98.3 97 18 135/79 (97) 97 Room Air 98.3 EKG: EKG: [] Radiology/Procedures: Radiology/Procedures: [] Impression: [facility] [address] [place] [address] IMAGING REPORT Signed PATIENT: ALYSSA MELGOZA ACCOUNT: [id number] : 1970 LOCATION: ER AGE: 50 SEX: M EXAM STATUS: PRE ER ORD. PHYSICIAN: DEBRA WORLEY APRN REASON: soa, cough PROCEDURE: PORTABLE CHEST 1V EXAM: XR CHEST 1V 07/04/2021 5:06 PM CLINICAL INDICATION: Shortness of air, cough COMPARISON: Chest radiograph 08/09/2020 TECHNIQUE: AP upright view of the chest FINDINGS: The heart and mediastinum are normal. Lungs are well-expanded and clear. No consolidation, pleural effusion, or pneumothorax. Pulmonary vascularity is normal. The thoracic skeleton is intact. IMPRESSION: No acute cardiopulmonary abnormality. Electronically signed by: Ester Ramirez MD (07/04/2021 5:08 PM) [facility] DICTATED and SIGNED BY: ESTER RAMIREZ MD DATE: 07/04/211706 Course & Med Decision Making: Course & Med Decision Making Pertinent Labs and Imaging studies reviewed. (See chart for details) See HPI. Alert and oriented x4. Ambulatory with steady gait. Speaks in full clear sentences. No trismus. Uvula midline. Throat is pink with exudates or any kind of swelling. Patient is swallowing saliva. No rash. Skin pink warm and dry. Lungs are clear to auscultation in all lobes. Sinus pressure with palpitation to maxillary sinuses. No respiratory distress, wheezing or stridor. Vital signs are within normal limits. [] Dragon Disclaimer: Dragon Disclaimer: This electronic medical record was generated, in whole or in part, using a voice recognition dictation system. Departure Departure Impression: Primary Impression: Respiratory infection Disposition: HOME / SELF CARE / HOMELESS Condition: STABLE Referrals: MECCA HOWARD MD (PCP) Patient Instructions: Upper Respiratory Infection, Adult Additional Instructions: Follow-up with your primary care provider this coming week as soon as possible. Take medications as prescribed and with food. If you begin having severe shortness of breath return to the emergency room. Scripts Phenol (Chloraseptic) 20 Ml [place] 2 PUFF PO TID for 7 Days, #1 VIAL 0 Refills Prov: DEBRA WORLEY APRN 07/04/21 Acetaminophen (ACETAMINOPHEN) 500 Mg Tablet 1 TAB PO PRN Q6HRS PRN for pain or fever for 15 Days, #60 TAB 0 Refills Prov: DEBRA WORLEY APRN 07/04/21 Albuterol Sulfate (PROAIR HFA INHALER) 8.5 Gm Hfa.aer.ad 2 PUFF IH PRN Q4-6HRS PRN for wheezing for 21 Days, #1 INHALER 0 Refills Prov: DEBRA WORLEY APRN 07/04/21 Azithromycin (AZITHROMYCIN TABLET) 250 Mg Tablet 1 PKG PO UD for 5 Days, #6 TAB 0 Refills 2 the first day followed by 1 for days 2-5 Prov: DEBRA WORLEY APRN 07/04/21 Methylprednisolone (MEDROL) 4 Mg Tab.ds.pk 1 PKG PO UD, #1 PKG START 07/05/21 Prov: DEBRA WORLEY APRN 07/04/21 DEBRA WORLEY APRN July 04, 2021 17:08
--- NOTE | 2021-07-04 17:11 | RAD ---
EXAM: XR CHEST 1V 07/04/2021 5:06 PM CLINICAL INDICATION: Shortness of air, cough COMPARISON: Chest radiograph 08/09/2020 TECHNIQUE: AP upright view of the chest FINDINGS: The heart and mediastinum are normal. Lungs are well-expanded and clear. No consolidatio n, pleural effusion, or pneumothorax. Pulmonary vascularity is normal. The thoracic skeleton is int act. IMPRESSION: No acute cardiopulmonary abnormality. Electronically signed by: Ester Ramirez MD (07/04/2021 5:08 PM) [facility]
[2021-07-04 18:08] LABS: INFLUENZA A PATIENT NEGATIVE (NEGATIVE); INFLUENZA B PATIENT NEGATIVE (NEGATIVE)
[2021-07-04] MEDS ORDERED: AZIT250T6 PO (18:23)
[2021-07-04] MEDS ORDERED: ACET500T68 PO (18:23)
[2021-07-04] MEDS ORDERED: ALBU2.5V8 IH (18:23)
[2021-07-04] MEDS ORDERED: METH4TAB2 PO (18:23)
[2021-07-04 18:35] VITALS: BP 146/78
[2021-07-04] MEDS ORDERED: PHEN20SP2 PO (18:35)
== END 2021-07-04 18:35 | disposition home or self-care (01) ==
LOC: ER 16:07
DX: J98.8 Other specified respiratory disorders (principal); Z20.822 Contact with and (suspected) exposure to COVID-19; E78.00 Pure hypercholesterolemia, unspecified; J45.909 Unspecified asthma, uncomplicated; I10 Essential (primary) hypertension
CPT/HCPCS: 71045; 87070; 87428; 87880; 99284